=== PATIENT | male | born 1970 | race Caucasian/White ===

== ENCOUNTER 2021-02-15 13:56 | Emergency (ER) | payer OTHER, SELFPAY ==
--- NOTE | 2021-02-15 14:12 | ED_ITS ---
HPI - Skin/Abscess/Foreign Bdy General Chief complaint: Skin/Abscess/Foreign Body Stated complaint: Boil on thigh Time Seen by Provider: 02/15/21 14:13 Source: patient, RN notes reviewed and old records reviewed Mode of arrival: ambulatory Limitations: no limitations History of Present Illness HPI narrative: 51-year-old male presents to the [facility] with complaints of an abscess to his thigh Related Data Allergies Allergy/AdvReac Type Severity Reaction Status Date / Time No Known Allergies Allergy Unverified 08/15/18 18:09
[2021-02-15 14:17] VITALS: BP 132/64; PULSE 107; RESP 20; TEMP 37.1; O2SAT 91
--- NOTE | 2021-02-15 14:23 | ED_ITS ---
HPI - Skin/Abscess/Foreign Bdy General Chief complaint: Skin/Abscess/Foreign Body Stated complaint: Boil on thigh Time Seen by Provider: 02/15/21 14:13 Source: patient, RN notes reviewed and old records reviewed Mode of arrival: ambulatory Limitations: no limitations History of Present Illness HPI narrative: 51-year-old male presents to the [facility] with complaints of a boil to his thigh Related Data Allergies Allergy/AdvReac Type Severity Reaction Status Date / Time No Known Allergies Allergy Unverified 08/15/18 18:09 Course Vital Signs Vital signs: Vital Signs Temperature 98.8 F 02/15/21 14:17 Pulse Rate 107 H 02/15/21 14:17 Respiratory Rate 20 02/15/21 14:17 Blood Pressure 132/64 02/15/21 14:17 Pulse Oximetry 91 02/15/21 14:17 Temperature 98.8 F 02/15/21 14:17 Pulse Rate 107 H 02/15/21 14:17 Respiratory Rate 20 02/15/21 14:17 Blood Pressure 132/64 02/15/21 14:17 Pulse Oximetry 91 02/15/21 14:17
--- NOTE | 2021-02-15 14:31 | ED.SKABFB ---
HPI - Skin/Abscess/Foreign Bdy General Chief complaint: Skin/Abscess/Foreign Body Stated complaint: Boil on thigh Time Seen by Provider: 02/15/21 14:13 Source: patient, RN notes reviewed and old records reviewed Mode of arrival: ambulatory Limitations: no limitations History of Present Illness HPI narrative: 51-year-old male presents to the [facility] with a boil to the inner left upper thigh/groin area. On going for an unknown length of time. Is also stating that he has bloody urination. Is asking for a Z-Antoine to make him better. Patient morbidly obese Patient at this time denies taking any medications currently. Denies any past medical or surgical history. Patient reports calling his doctor and was told to come to the urgent care for an evaluation Related Data Allergies Allergy/AdvReac Type Severity Reaction Status Date / Time No Known Allergies Allergy Verified 02/15/21 15:12 Review of Systems Review of Systems: All systems reviewed & are unremarkable except as noted in HPI and below Constitutional: Constitutional: Reports as per HPI, Denies chills, Reports fatigue, Denies fever(s) and Reports weakness Eyes: Eyes: Reports no additional eye complaints ENT: Reports system reviewed and no additional complaints, except as documented Cardiovascular: Cardiovascular: Reports no additional cardiovascular complaints Respiratory: Respiratory: Reports no additional respiratory complaints Gastrointestinal: Gastrointestinal: Reports no additional gastrointestinal complaints Genitourinary: Genitourinary: Reports as per HPI and Reports hematuria Integumentary/Breasts: Skin/Breast: Reports as per HPI and Reports erythema (Left thigh, groin, lower abdomen) Neurologic: Reports as per HPI and Reports headache(s) Psychiatric: Psychiatric: Reports no additional psychiatric complaints Allergic/Immunologic: Allergic/Immunologic: Reports no additional allergic/immunologic complaints [facility] Past Medical History Medical History (Updated 02/15/21 @ 14:43 by Palmria Ontiveros) Morbid obesity Surgical History Surgical History (Updated 02/15/21 @ 14:43 by Palmira Ontiveros) No significant past surgical history Social History Social History (Updated 02/15/21 @ 14:44 by Palmira Ontiveros) Gender identity (if verbalized by the patient): Male Comments At the time of my signature, I reviewed and agree with the nursing past medical, surgical, social, and family history. There is no relevant family history pertinent to the patient complaint. Exam Const: General: alert and ill appearing acutely (Moderate) and chronically Nutritional Appearance: obese morbidly obese Orientation/consciousness: patient oriented x3 Limitations: no limitations Neck: Neck: normal visual inspection Chest: Chest palpation & inspection: normal inspection of the chest Resp: Effort & Inspection: normal respiratory effort Cardio: Rate: tachycardic Skin: Wounds: wounds noted (Very large abscess to the left inner thigh with cellulitic changes surround) Other: Abscess approximately 6 inches x 18 inches. Cellulitic changes circumferential of the left thigh Bilateral lower leg swelling with discoloration Neuro: General: patient oriented x3, moves all extremities and no meningeal signs Speech: normal speech Gait exam (Neuro): Normal gait present Extrem: General: edema bilateral Psych: Appearance: disheveled and other (poor hygiene) Mental Status: mental status grossly normal Affect: normal affect Attitude: cooperative Thought content: Yes Normal thought content present Course Course Emergency Course: Transfer instructions reviewed with patient, as well as provided in writing per nursing staff. The instructions also include specific and strict GO TO THE ER. All questions have been answered, and the patient deny any further questions. Patient was alert and oriented x3. Offered to call EMS for patient due to patient in extreme pain along with headach
== END 2021-02-15 14:40 | disposition short-term general hospital (02) ==
PROVIDERS: Emergency Provider Nurse Practitioner; PCP Family Medicine Adolescent Medicine
DX: L03.116 Cellulitis of left lower limb (principal); L02.416 Cutaneous abscess of left lower limb; R31.9 Hematuria, unspecified
CPT/HCPCS: 99212; G0463

== ENCOUNTER 2021-02-15 15:33 | Inpatient (IN) | payer OTHER, SELFPAY ==
--- NOTE | ~2021-02-15 | XR_ITS ---
XR chest 1V portable DATE: 03/03/2021 06:03 INDICATION: Respiratory failure TECHNIQUE: Portable AP chest on 03/03/2021 at 0051 hours COMPARISON: 03/02/2021 portable AP chest at 0951 hours FINDINGS: ET tube tip 5.9 cm above ted. NG tube in stomach. Left upper extremity PIC catheter in s uperior vena cava. Cardiomegaly. Pulmonary vascular congestion and redistribution, prominence of minor fissure (suggesti ng subpleural edema). There are bilateral pulmonary infiltrates which are more prominent in the centr al and lower lung zones, favoring pulmonary edema, most prominent in the right mid and lower lung whe re there is patchy consolidation. IMPRESSION: No significant change since 03/02/2021 Reviewed, dictated and finalized at location A. INE OPERATOR
--- NOTE | ~2021-02-15 | XR_ITS ---
EXAMINATION: XR chest ET placement EXAM DATE: 03/01/2021 14:55 INDICATION: ETT exchange. TECHNIQUE: Portable AP frontal chest x-ray was obtained. Comparison is made to prior examination from earlier same date. FINDINGS: Endotracheal tube, nasogastric tube, right IJ double lumen line are in position. Diffuse b ilateral pneumonia and/or edema unchanged. No evidence of pneumothorax. Pleural effusions not excluda ble. Cardiac silhouette is enlarged but stable in size compared to prior exam. There are no osseous a bnormalities identified. IMPRESSION: 1. Line and tube(s) in position. 2. Stable diffuse airspace disease. Reviewed, dictated and finalized at location G. NEERING MANAGER
--- NOTE | ~2021-02-15 | XR_ITS ---
EXAMINATION: XR abdomen NG/feed tube insert DATE: 03/02/2021 12:38 INDICATION: Nasogastric tube placement TECHNIQUE: A supine view of the abdomen and lower chest was obtained for evaluation of feeding tube placement. COMPARISON: None. FINDINGS: Nasogastric tube tip in the body of the stomach. No gas-filled loops of bowel within the visualized a bdomen. Opacities in bilateral mid and lower lung zones most prominent at the left lung base and righ t middle lobe. Heart size is normal. IMPRESSION: 1. Nasogastric tube tip in the stomach. 2. Bilateral lung disease which could represent atelectasis and/or pneumonia. Reviewed, dictated and finalized at location A. CHOOL TEACHER
--- NOTE | ~2021-02-15 | XR_ITS ---
EXAMINATION: XR chest 1V portable DATE: 02/16/2021 09:00 INDICATION: Hypoxia. TECHNIQUE: A single frontal view of the chest was obtained on 2 radiographs. COMPARISON: None. FINDINGS: Sensitivity is decreased by obesity. There is mild atelectasis at left lung base. No pleura l effusion or pneumothorax. Cardiomegaly is noted. There is internal fixation of right humerus. IMPRESSION: 1. Mild atelectasis at left lung base. Sensitivity is decreased by obesity. 2. Cardiomegaly. Reviewed, dictated and finalized at location A. SSION SPECIALIST
--- NOTE | ~2021-02-15 | XR_ITS ---
XR chest 1V portable DATE: 03/04/2021 06:27 INDICATION: Respiratory failure TECHNIQUE: Portable upright AP views on 03/04/2021 at 0 557 and 0558 hours COMPARISON: 03/03/2021 portable AP chest FINDINGS: ET tube tip is 6 cm above ted. Right internal jugular central venous catheter tip is sit uated near the superior cavoatrial junction. Left upper extremity PIC catheter extends to the superio r vena cava, distal tip somewhat obscured. Pulmonary vascular congestion and redistribution, prominence of the minor fissure suggesting subpleur al edema and bilateral rather diffuse pulmonary infiltrates suggesting pulmonary edema. Pneumonia is not excluded. Minimal if any pleural effusion and no pneumothorax is noted. IMPRESSION: Persistent congestive changes and bilateral infiltrates, with little interval change sinc e 03/03/2021 Reviewed, dictated and finalized at location A. MANAGER IMPRESSION: Persistent congestive changes and bilateral infiltrates, with littl e interval change since 03/03/2021
--- NOTE | ~2021-02-15 | XR_ITS ---
EXAMINATION: XR chest 1V portable DATE: 02/26/2021 06:30 INDICATION: Respiratory failure. TECHNIQUE: A single frontal view of the chest was obtained. COMPARISON: Chest single view 02/25/2021 FINDINGS: There are airspace opacities in all lung zones bilaterally. There is a small left pleural e ffusion. No pneumothorax. Cardiomegaly is noted. The endotracheal tube tip is 4.2 cm above the ted . The nasogastric tube tip is in the stomach. A right internal jugular central venous catheter is see n with tip in the superior vena cava. IMPRESSION: 1. Stable diffuse lung disease, consistent with pulmonary edema versus pneumonia. 2. Stable small left pleural effusion. 3. Cardiomegaly. Reviewed, dictated and finalized at location B. BASTING FACING BASTER IMPRESSION: 1. Stable diffuse lung disease, consistent with pulmonary edema versus pneumoni a. 2. Stable small left pleural effusion. 3. Cardiomegaly.
--- NOTE | ~2021-02-15 | US_ITS ---
EXAMINATION: US renal BI DATE: 02/18/2021 15:15 INDICATION: Acute kidney injury. TECHNIQUE: Multiple ultrasound grayscale images of the kidneys were obtained. COMPARISON: None. FINDINGS: The right kidney measures 15.0 x 6.3 x 7.0 cm. The left kidney measures 15.1 x 7.3 x 7.0 cm. The kidn eys demonstrate normal parenchymal echogenicity. There is a 9.3 x 7.3 x 8.4 cm mixed hyperechoic and hypoechoic mass in right kidney. There is no hydronephrosis. The bladder is not well visualized. IMPRESSION: 1. 9.3 cm right kidney mass, which may be a hemorrhagic cyst or a neoplasm. Further evaluation is re commended with CT or MRI without and with contrast, but the patient is too heavy for our CT or MRI. A [facility] facility may have a higher weight limit. 2. Normal kidney sizes. No hydronephrosis. Reviewed, dictated and finalized at location A. OTICS AND VICE DETECTIVE IMPRESSION: 1. 9.3 cm right kidney mass, which may be a hemorrhagic cyst or a neoplasm. Fu rther evaluation is recommended with CT or MRI without and with contrast, but t he patient is too heavy for our CT or MRI. Another facility may have a higher w eight limit. 2. Normal kidney sizes. No hydronephrosis.
--- NOTE | ~2021-02-15 | XR_ITS ---
EXAMINATION: XR chest 1V portable EXAM DATE: 02/27/2021 05:49 INDICATION: Respiratory failure. TECHNIQUE: Portable AP frontal chest x-ray was obtained. Comparison is made to prior examination from 02/26/2021. FINDINGS: Endotracheal tube tip is 5 centimeters above the ted. There is a right IJ venous line. There is a nasogastric tube seen with tip collimated off the study, but below the left hemidiaphragm. Diffuse bilateral pneumonia and/or edema unchanged. Probable small left pleural effusion. There is no pneumothorax suspected. Cardiomegaly and pulmonary vascular congestion. The bones and soft tiss ues are unremarkable. There is no significant interval change compared to prior exam. IMPRESSION: 1. Line and tube(s) in position. 2. Diffuse airspace disease unchanged. Reviewed, dictated and finalized at location G. GETTER
--- NOTE | ~2021-02-15 | XR_ITS ---
EXAMINATION: XR chest ET placement EXAM DATE: 02/16/2021 16:28 INDICATION: intubation and central line placement. TECHNIQUE: Portable AP frontal chest x-ray was obtained. Comparison is made to prior examination from 02/16/2021. FINDINGS: Endotracheal tube tip is 5 centimeters above the ted. There is a right IJ venous line. Cardiomegaly and pulmonary vascular congestion. No confluent consolidation, pneumothorax or pleural e ffusion suspected. There are no osseous abnormalities identified. IMPRESSION: 1. Cardiomegaly, pulmonary vascular congestion. 2. ET tube, right IJ line in position. No evidence of pneumothorax. Reviewed, dictated and finalized at location A. H FEEDER
--- NOTE | ~2021-02-15 | XR_ITS ---
EXAMINATION: XR chest 1V portable EXAM DATE: 02/19/2021 06:21 INDICATION: Postop respiratory failure . TECHNIQUE: Portable AP frontal chest x-ray was obtained. Comparison is made to prior examination from 02/18/2021. FINDINGS: Endotracheal tube tip is 5 centimeters above the ted. There is a right IJ venous line. There is a nasogastric tube seen with tip collimated off the study, but below the left hemidiaphragm. Moderate amount of ill-defined bilateral pneumonia and/or edema. Probable small to moderate right, sm all pleural effusions. There is no pneumothorax suspected. There is cardiomegaly. Right shoulde r hardware. There is no significant interval change compared to prior exam. IMPRESSION: 1. Line and tube(s) in position. 2. Stable airspace disease and other findings as above. Reviewed, dictated and finalized at location G. RICT ADVISER
--- NOTE | ~2021-02-15 | XR_ITS ---
XR chest 1V portable DATE: 03/02/2021 06:32 INDICATION: Respiratory failure TECHNIQUE: Portable AP chest views on 03/02/2019 03/20/2012 0514 hours COMPARISON: 03/01/2021 portable AP chest FINDINGS: ET tube tip approximately 5.7 cm above ted. An NG tube is noted but is not well demonstr ated in the lower chest. There are persistent extensive bilateral pulmonary infiltrates, most prominent in the right mid to lo wer lung; differential diagnosis includes pneumonia and/or pulmonary edema. Cardiomegaly. IMPRESSION: No significant change in extensive bilateral pulmonary infiltrates Reviewed, dictated and finalized at location A. ER ELASTIC BAND
--- NOTE | ~2021-02-15 | XR_ITS ---
EXAMINATION: XR chest 1V portable DATE: 02/23/2021 05:42 INDICATION: Respiratory failure TECHNIQUE: frontal view of the chest was obtained. COMPARISON: Chest radiograph dated 02/22/2021 FINDINGS: Endotracheal tube tip 4.5 cm above the ted. Nasogastric tube extends below the left hemidiaphragm with distal tip collimated off the study. Right internal jugular central venous catheter with distal tip at the midsuperior vena cava. Slight improvement in the decreased lung volumes. Persistent airspace opacities in the bilateral lowe r lung zones. No pleural effusion or pneumothorax. Cardiomegaly. IMPRESSION: 1. Improvement in the bilateral decreased lung volumes with persistent opacities in the lower lung zo allen which could represent atelectasis and/or pneumonia. 2. Cardiomegaly. Reviewed, dictated and finalized at location A. OR C SOFTWARE ENGINEER IMPRESSION: 1. Improvement in the bilateral decreased lung volumes with persistent opacitie s in the lower lung zones which could represent atelectasis and/or pneumonia. 2. Cardiomegaly.
--- NOTE | ~2021-02-15 | XR_ITS ---
EXAMINATION: XR chest 1V portable DATE: 02/22/2021 06:16 INDICATION: Respiratory failure TECHNIQUE: frontal view of the chest was obtained. COMPARISON: Chest radiograph dated 02/21/2021 FINDINGS: Endotracheal tube tip 5.5 cm above the ted. Nasogastric tube extends below the left hemidiaphragm with distal tip collimated off the study. Right internal jugular central venous catheter with distal tip at the midsuperior vena cava. Small bilateral lung volumes. Opacities in the bilateral lower lung zones, left greater than right. N o pulmonary edema, pleural effusion or pneumothorax. Cardiomegaly. IMPRESSION: 1. Persistent opacities in the bilateral lower lung zones which could represent atelectasis and/or pn eumonia. 2. Cardiomegaly. Reviewed, dictated and finalized at location A. L DEVELOPER IMPRESSION: 1. Persistent opacities in the bilateral lower lung zones which could represent atelectasis and/or pneumonia. 2. Cardiomegaly.
--- NOTE | ~2021-02-15 | XR_ITS ---
XR chest 1V portable DATE: 03/04/2021 15:08 INDICATION: Respiratory failure TECHNIQUE: Portable AP chest on 03/04/2021 at 1502 hours COMPARISON: None FINDINGS: Endotracheal tube tip is 6 cm above ted. An NG tube is present but the distal portion of the tube is not visualized. Left upper extremity PIC catheter is present in the superior vena cava. There is cardiomegaly, pulmonary vascular congestion and redistribution. There are bilateral pulmonar y infiltrates which involve the right lung diffusely and the left central and lower lung, most promin ent in both lower lobes. There is thickening of the minor fissure suggesting subpleural edema and/or fluid in the fissure. IMPRESSION: Cardiomegaly, congestive heart failure Bilateral pulmonary infiltrates are likely due to pulmonary edema; pneumonia and/or aspiration are no t excluded. Little interval change since 03/04/2021 at 0557 hours Reviewed, dictated and finalized at location A. HANDISER RETAIL REPRESENTATIVE IMPRESSION: Cardiomegaly, congestive heart failure Bilateral pulmonary infiltrates are likely due to pulmonary edema; pneumonia an d/or aspiration are not excluded. Little interval change since 03/04/2021 at 0557 hours
--- NOTE | ~2021-02-15 | XR_ITS ---
XR chest 1V portable 02/21/2021 05:42 Indication: Postop respiratory failure Procedure: AP portable chest Comparison: Comparison to multiple prior studies sequentially, with oldest reviewed study dated 06/2021. Findings: Cardiomegaly. Mild interstitial edema. Endotracheal tube tip 6.5 cm above the ted. NG tu be in the stomach. Bibasilar atelectasis. Cannot exclude superimposed pneumonia. Right IJ central rishabh e tip in the SVC. NG tube passes into the stomach. No pneumothorax. Impression: 1: Mild diffuse bilateral airspace disease which likely represents edema or less likely pneumonia. Wren perimposed bibasilar atelectasis. Reviewed, dictated and finalized at location A. S REPRESENTATIVE EDUCATION COURSES Impression: 1: Mild diffuse bilateral airspace disease which likely represents edema or les s likely pneumonia. Superimposed bibasilar atelectasis.
--- NOTE | ~2021-02-15 | XR_ITS ---
XR abdomen NG/feed tube insert DATE: 02/17/2021 06:13 INDICATION: Orogastric tube placement TECHNIQUE: Portable AP view on 02/17/2021 at 0523 hours COMPARISON: None FINDINGS: Orogastric tube extends beyond the lower margin of the radiograph, well into the lower body of the stomach. IMPRESSION: Orogastric tube extends at least to the lower body of the stomach Reviewed, dictated and finalized at Location A. Reviewed, dictated and finalized at location A. /SSBN WEAPONS EQUIPMENT OPERATOR
--- NOTE | ~2021-02-15 | XR_ITS ---
XR chest port-a-cath/central DATE: 03/01/2021 13:51 INDICATION: ET tube placement. Dialysis catheter placement. TECHNIQUE: Portable AP chest on 03/01/2021 1344 hours COMPARISON: 03/01/2021 portable AP chest FINDINGS: ET tube in satisfactory position 4.2 cm above ted. NG tube noted passing toward the stom ach. Right internal jugular central venous catheter tip overlies the upper right atrium. No pneumothorax i s evident. Diffuse bilateral pulmonary infiltrates are again noted. Cardiomegaly. IMPRESSION: ET tube in satisfactory position Right internal jugular central venous catheter tip overlies upper right atrium; no pneumothorax Diffuse bilateral pulmonary infiltrates which may be due to pulmonary edema, pneumonia and/or ARDS Reviewed, dictated and finalized at Location [facility]. Reviewed, dictated and finalized at location A. A CENTER ASSISTANT IMPRESSION: ET tube in satisfactory position Right internal jugular central venous catheter tip overlies upper right atrium; no pneumothorax Diffuse bilateral pulmonary infiltrates which may be due to pulmonary edema, pn eumonia and/or ARDS
--- NOTE | ~2021-02-15 | US_ITS ---
EXAMINATION: US soft tissue pelvic DATE: 02/16/2021 09:30 INDICATION: Left groin abscess. TECHNIQUE: Multiple grayscale and Doppler ultrasound images of the pelvis were obtained. COMPARISON: None FINDINGS: There is no visible drainable fluid collection. IMPRESSION: 1. No visible drainable fluid collection. Sensitivity is decreased by obesity. Reviewed, dictated and finalized at location A. STANT FILM EDITOR
--- NOTE | ~2021-02-15 | XR_ITS ---
EXAMINATION: XR chest 1V portable DATE: 02/25/2021 05:46 INDICATION: Respiratory failure TECHNIQUE: frontal view of the chest was obtained. COMPARISON: Chest radiograph dated 02/24/2021 FINDINGS: Endotracheal tube tip 6.0 cm above the ted. Nasogastric tube extends below the left hemidiaphragm with distal tip collimated off the study. Nasogastric tube extends below the left hemidiaphragm wit h distal tip collimated off the study. Right internal jugular central venous catheter with distal t ip at the midsuperior vena cava. Dense retrocardiac consolidation with air bronchograms in the left lower lung zone and obscuration of the left hemidiaphragm. Less dense groundglass and mild patchy airspace opacities throughout the rem ainder of the lungs. No pneumothorax or right-sided pleural effusion. Cardiomegaly. IMPRESSION: 1. Endotracheal tube tip 6 cm above the ted. Consider advancement by 4 cm. 2. Diffuse bilateral lung disease which could represent pulmonary edema and/or pneumonia. 3. More dense opacification of the left lower lung zone which could represent atelectasis, pneumonia, small left pleural effusion or some combination thereof. 4. Cardiomegaly. Reviewed, dictated and finalized at location A. SHOE DANCER IMPRESSION: 1. Endotracheal tube tip 6 cm above the ted. Consider advancement by 4 cm. 2. Diffuse bilateral lung disease which could represent pulmonary edema and/or pneumonia. 3. More dense opacification of the left lower lung zone which could represent a telectasis, pneumonia, small left pleural effusion or some combination thereof. 4. Cardiomegaly.
--- NOTE | ~2021-02-15 | XR_ITS ---
EXAMINATION: XR chest PICC line EXAM DATE: 03/02/2021 09:59 INDICATION: PICC line placement. TECHNIQUE: Portable AP frontal chest x-ray was obtained. Comparison is made to prior examination from 03/02/2021. FINDINGS: There is a new left-sided PICC line identified, tip poorly visualized but line identified at least to the level of the ted likely in expected position. There is a right-sided IJ dialysis c atheter. Endotracheal tube and nasogastric tube. Diffuse bilateral pneumonia/edema is unchanged. No pneumothorax. IMPRESSION: 1. Line and tube(s) in position. 2. Diffuse pneumonia/edema unchanged. Reviewed, dictated and finalized at location B. TER CATCHER
--- NOTE | ~2021-02-15 | XR_ITS ---
XR chest 1V portable DATE: 02/17/2021 06:13 INDICATION: Postoperative. Respiratory failure. TECHNIQUE: Portable AP chest on 02/17/2021 at 0522 hours COMPARISON: 02/16/2021 portable AP chest at 0420 hours FINDINGS: ET tube in satisfactory position 5.1 cm above ted. NG tube noted passing into the stomac h. Right internal jugular central venous catheter overlies the proximal superior vena cava. No pneumotho rax. Cardiac megaly, pulmonary vascular congestion and redistribution. There are bilateral primarily centr al and lower lung zone infiltrates suggesting pulmonary edema. Pneumonia or aspiration are not exclud ed. There is minimal if any pleural effusion. No pneumothorax. Diffuse osteopenia. IMPRESSION: Congestive heart failure, increased since 02/16/2021 Reviewed, dictated and finalized at location A. LATION BLOWER
--- NOTE | ~2021-02-15 | XR_ITS ---
XR chest 1V portable 02/28/2021 06:31 Indication: Respiratory failure Procedure: AP portable chest Comparison: Comparison to multiple prior studies sequentially, with oldest reviewed study dated 02/24. Findings: Endotracheal tube tip 7.9 cm above the ted. Cardiomegaly. Stable diffuse bilateral airsp arcadio disease which may represent pneumonia and/or edema. No pneumothorax. Central line tip in the SVC. Impression: 1: Stable diffuse bilateral airspace disease which may represents pneumonia and/or edema. Reviewed, dictated and finalized at location A. ONAL MERCHANDISING MANAGER Impression: 1: Stable diffuse bilateral airspace disease which may represents pneumonia and /or edema.
--- NOTE | ~2021-02-15 | XR_ITS ---
XR chest 1V portable DATE: 03/01/2021 05:47 INDICATION: Respiratory failure TECHNIQUE: Portable AP chest on 03/01/2021 at 0507 hours COMPARISON: 02/28/2021 portable AP chest FINDINGS: ET tube in satisfactory position 4.2 cm above ted. An NG tube extends into the stomach. Right internal jugular central venous catheter overlies the superior vena cava. There are persistent extensive bilateral pulmonary infiltrates which may be due to pulmonary edema an d/or pneumonia. Minor fissure is prominent suggesting subpleural edema. Cardiomegaly. The costophreni c angles are not sharply defined, especially on the right; pleural effusions are not excluded. No pne umothorax. IMPRESSION: Persistent extensive bilateral pulmonary infiltrates suggestive of pulmonary edema; pneum onia is not excluded Reviewed, dictated and finalized at location A. VISION PROGRAM DIRECTOR IMPRESSION: Persistent extensive bilateral pulmonary infiltrates suggestive of pulmonary edema; pneumonia is not excluded
--- NOTE | ~2021-02-15 | XR_ITS ---
EXAMINATION: XR chest 1V portable DATE: 02/24/2021 05:38 INDICATION: Respiratory failure TECHNIQUE: frontal view of the chest was obtained. COMPARISON: Chest radiograph dated 02/23/2021 FINDINGS: Endotracheal tube tip 4.2 cm above the ted. Nasogastric tube extends below the left hemidiaphragm with distal tip collimated off the study. Right internal jugular central venous catheter with distal tip in the midsuperior vena cava. Pulmonary vascular congestion with and some increased interstitial pattern suggesting developing mild pulmonary edema. Otherwise no significant change in airspace opacities in the bilateral lower lung z ones which could represent atelectasis and/or pneumonia. Pulmonary vascular congestion No pneumothora x or definitive pleural effusion. Cardiomegaly. IMPRESSION: 1. Pulmonary vascular congestion with suggesting of developing mild pulmonary edema. 2. Persistent more patchy airspace opacities in the bilateral lower lung zones which could represent atelectasis and/or pneumonia. 2. Cardiomegaly. Reviewed, dictated and finalized at location A. ING SUPERVISOR IMPRESSION: 1. Pulmonary vascular congestion with suggesting of developing mild pulmonary e aureliano. 2. Persistent more patchy airspace opacities in the bilateral lower lung zones which could represent atelectasis and/or pneumonia. 2. Cardiomegaly.
--- NOTE | ~2021-02-15 | XR_ITS ---
XR chest 1V portable DATE: 02/18/2021 06:02 INDICATION: Postoperative respiratory failure TECHNIQUE: Portable AP chest on 02/18/2021 at 0527 hours COMPARISON: 02/17/2021 AP chest at 0522 hours FINDINGS: ET tube tip in satisfactory position 4.7 cm above ted. NG tube noted passing into the st omach,. Right internal jugular central venous catheter tip overlies superior vena cava. There is cardiomegaly. There is pulmonary vascular congestion and redistribution. There is patchy infiltrate and/atelectasis in the mid and lower lung zones primarily differential kathia gnosis includes pulmonary edema and/or pneumonia. No pleural effusion or pneumothorax is evident. IMPRESSION: Cardiomegaly, pulmonary vascular congestion, patchy bilateral mid and lower lung zone inf iltrates. Differential diagnosis includes pulmonary edema and/or bilateral pneumonia Little interval change since 02/17/2021 Reviewed, dictated and finalized at location A. SSEAU CONSULTANT IMPRESSION: Cardiomegaly, pulmonary vascular congestion, patchy bilateral mid a nd lower lung zone infiltrates. Differential diagnosis includes pulmonary edema and/or bilateral pneumonia Little interval change since 02/17/2021
--- NOTE | ~2021-02-15 | XR_ITS ---
EXAMINATION: XR chest 1V portable DATE: 02/20/2021 05:40 INDICATION: Postoperative respiratory failure. TECHNIQUE: A single frontal view of the chest was obtained. COMPARISON: Chest single view 02/19/2021 FINDINGS: There are airspace opacities in all lung zones bilaterally, worst in the perihilar mid and lower lung zones. No pleural effusion or pneumothorax. Cardiomegaly is noted. The endotracheal tube t ip is 4.7 cm above the ted. The nasogastric tube tip is beyond the inferior margin of the radiogra ph, but at least to the stomach. A right internal jugular central venous catheter is seen with tip in the superior vena cava. There is internal fixation of right humerus. IMPRESSION: 1. Mildly worsened diffuse lung disease, consistent with pulmonary edema versus pneumonia. 2. Cardiomegaly. Reviewed, dictated and finalized at location A. IC ARTIST
[2021-02-15 15:44] VITALS: BP 178/111; PULSE 106; RESP 20; TEMP 36.4; O2SAT 93
[2021-02-15 18:00] VITALS: BP 143/88; PULSE 97; RESP 20; TEMP 36.6; O2SAT 92
--- NOTE | 2021-02-15 20:14 | ED.GENADULT ---
HPI - General Adult General Chief complaint: Unspecified Stated complaint: sepsis, f rom urgent care Time Seen by Provider: 02/15/21 19:53 Source: patient Mode of arrival: ambulatory Limitations: no limitations History of Present Illness HPI narrative: Patient presents with redness, tenderness at the left thigh anteriorly, slightly distal to the left groin area. Noticed over the last few days. Patient is morbidly obese. Patient is not diabetic. Denies any fever, chills, nausea, vomiting. Patient is not vaccinated for COVID, history of hypertension, does not smoke, drinks occasionally and smokes marijuana. Related Data Allergies Allergy/AdvReac Type Severity Reaction Status Date / Time No Known Allergies Allergy Verified 02/15/21 15:12 Review of Systems Review of Systems: CONSTITUTIONAL: Denies fever, chills, or sweats. EYES: Denies visual changes, redness, or discharge. ENT: Denies rhinorrhea, congestion, sore throat, or otalgia. CARDIOVASCULAR: Denies chest pain, palpitations, or edema. RESPIRATORY: Denies cough or dyspnea. GASTROINTESTINAL: Denies abdominal pain, nausea, vomiting, or diarrhea. GENITOURINARY: Denies dysuria or hematuria. SKIN: Skin redness at the left upper thigh MUSCULOSKELETAL: Denies back pain, joint pain, or myalgia. NEUROLOGIC: Denies headache, numbness, or weakness. PSYCHIATRIC: Denies anxiety or depression. PMFSH Past Medical History Medical History Morbid obesity Surgical History Surgical History No significant past surgical history Social History Social History Gender identity (if verbalized by the patient): Male Exam Narrative: General appearance: Well-developed, well-nourished, morbidly obese Skin: Left thigh showed redness, skin fold with possible cellulitis, no tenderness, no discharge Chest and respiratory: Airway patent, no respiratory distress, no accessory muscle use Heart: Regular rate/rhythm Abdomen: Soft, nontender, no organomegaly, quiet bowel sounds Musculoskeletal: Normal range of motion, nontender back Neurologic: Alert and oriented ?3, RATCHET SETTER is normal as tested, no gross motor deficit Course Course Emergency Course: Stable Consultations Consultation #1: Dr. Martinez Admit to hospitalist, get ultrasound in a.m. Date: 02/15/21 Time: 22:25 Vital Signs Vital signs: Vital Signs Temperature 36.4 C L 02/15/21 15:44 Pulse Rate 106 H 02/15/21 15:44 Respiratory Rate 20 02/15/21 15:44 Blood Pressure 178/111 H 02/15/21 15:44 Pulse Oximetry 93 02/15/21 15:44 Temperature 36.6 C 02/15/21 18:00 Pulse Rate 70 02/15/21 22:09 Respiratory Rate 20 02/15/21 22:09 Blood Pressure 128/96 H 02/15/21 22:09 Pulse Oximetry 92 02/15/21 22:09 Medical Decision Making MDM Narrative Medical decision making narrative: Dr. Martinez Admit to hospitalist, get ultrasound in a.m. Vital Signs Vital Signs: Vital Signs Temperature 36.4 C L 02/15/21 15:44 Pulse Rate 106 H 02/15/21 15:44 Respiratory Rate 20 02/15/21 15:44 Blood Pressure 178/111 H 02/15/21 15:44 Pulse Oximetry 93 02/15/21 15:44 Temperature 36.6 C 02/15/21 18:00 Pulse Rate 70 02/15/21 22:09 Respiratory Rate 20 02/15/21 22:09 Blood Pressure 128/96 H 02/15/21 22:09 Pulse Oximetry 92 02/15/21 22:09 Lab Data Result diagrams: 02/15/21 20:50 02/15/21 20:50 Labs: Lab Results 02/15/21 02/15/21 Range/Units 20:50 20:50 WBC 11.7 H (4.5-10.0) K/mm3 RBC 6.02 (4.6-6.20) M/mm3 Hgb 16.1 (
[2021-02-15 20:53] VITALS: BP 134/75; PULSE 103; RESP 20; O2SAT 89
[2021-02-15 20:55] VITALS: O2SAT 88
[2021-02-15 20:56] LABS: Basophils Percent Auto 0.3 % (0.2-1.2); Eosinophils Absolute Auto 0.1 K/mm3 (0-0.3); Eosinophils Percent Auto 0.5 % (0-4.4); Hematocrit 54.8 % (42.0-52.0); Hemoglobin 16.1 g/dL (14.0-18.0); Immature Granulocyte Absolute 0.05 K/mm3 (0.00-0.031); Immature Granulocyte Percent A 0.4 % (0-0.5); Lymphocytes Absolute Auto 1.07 K/mm3 (0.9-3.2); Lymphocytes Percent Auto 9.2 % (18.3-44.2); Mean Corpuscular HGB Conc 29.4 g/dl (32-36); Mean Corpuscular Hemoglobin 26.7 pg (26-34); Mean Platelet Volume 10.4 fl (7.4-10.4); Monocytes Absolute Auto 0.7 K/mm3 (0.1-0.6); Monocytes Percent Auto 6.2 % (2.6-8.5); Neutrophils Absolute Auto 9.8 K/mm3 (1.3-6.7); Neutrophils Percent Auto 83.4 % (45.5-73.1); Platelet Count Result 172 k/mm3 (150-375); Red Blood Count 6.02 M/mm3 (4.6-6.20); Red Cell Distribution Width 17.1 % (11.5-14.5); White Blood Count 11.7 K/mm3 (4.5-10.0)
[2021-02-15] MEDS: SODIUM CHLORIDE 0.9% IV 1,000 ML 999 ML IV CONT (20:59)
--- NOTE | 2021-02-15 21:03 | PC.NURSE ---
MD made aware of o2 sats pt is sitting up at end of bed with deep breathing o2 sats go up to 94%. Pt denies sob at this time only with walking.
[2021-02-15 21:06] LABS: Alanine Aminotransferase 27 U/L (4-50); Albumin Level 3.6 g/dL (3.5-5.1); Alkaline Phosphatase 175 U/L (38-126); Anion Gap 5 mmol/L (8-16); Aspartate Amino Transferase 23 U/L (17-59); Bilirubin,Total 2.4 mg/dL (0.2-1.3); Blood Urea Nitrogen 15 mg/dL (9-20); Calcium 8.6 mg/dL (8.4-10.2); Carbon Dioxide 38 mmol/L (22-30); Chloride 89 mmol/L (98-107); Estimated CRCL calculation 236 ml/min; Estimated Glomerular Filt Rate > 60; Glucose 282 mg/dL (65-110); Potassium 3.9 mmol/L (3.4-5.0); Sodium 132 mmol/L (137-145)
[2021-02-15 21:09] LABS: Platelet Estimate Adequate (Adequate)
[2021-02-15 21:10] LABS: Hypochromasia 1+ (NORMAL)
--- NOTE | 2021-02-15 22:01 | PC.NURSE ---
RN attempted to get urine from pt, pt states I can urinate in a hat. Rn asked pt if she would be able to straight cath. Pt refuses straight cath states I can pee. Pt informed if he urinates it would have to be in a hat and there is a high chance there would be drainage from his leg in his urine.Pt refuses straight cath at this time.
[2021-02-15 22:09] VITALS: BP 128/96; PULSE 70; RESP 20; O2SAT 92
[2021-02-15] MEDS: ONDANSETRON INJ 4 MG/2 ML VIAL IV PUSH (22:47)
[2021-02-15] MEDS: MORPHINE SULFATE (*CRX) 4 MG/ML INJ IV PUSH (22:47)
[2021-02-16] VITALS (29 sets, daily range): BP systolic 98–187; BP diastolic 58–99; PULSE 74–124; RESP 18–31; TEMP 35.7–37.2; O2SAT 66–98; BMI 78.8
--- NOTE | 2021-02-16 02:18 | PC.NURSE ---
Receiving RN aware of o2 that drops with ambulation and while pt is sleeping.
--- NOTE | 2021-02-16 02:37 | ADMGEN ---
This patient, Chetan Pappas, was admitted to Medical Room 260-01. Patient/family oriented to hospital policies and general routines including ID bracelet, bed and alarms, visiting hours, pain management, procedures, bathroom and other care routines, personal items, smoking policy, room service/diet, and visiting hours. Information on how to activate the Rapid Response Team has been discussed. Patient/Family are encouraged to report perceived risks to care and to ask questions if they do not understand what they are told or what they should do.
--- NOTE | 2021-02-16 04:17 | PM.IMHP ---
H&P: HPI History of Present Illness Date/Time: 02/16/21 04:17 Chief Complaint: Thigh wounds Narrative: 51-year-old male with past medical history of obstructive sleep apnea noncompliant with CPAP, tobacco abuse and morbid obesity who presented to the ER with a left upper thigh leg wound. The wound has been draining for 3 days. The patient had denied any fevers or chills to the ER staff. The the patient denied having history of diabetes but on arrival to the ER the patient's glucoses were 288 in his hemoglobin A1c this morning was 13. He denies any history of wound like this before but does have a history of boils. At the time of my evaluation the patient was encephalopathic and told me that the year was ?grandma 21?. When asked why he came to the hospital he kept referring to a psychiatric facility. I checked an ABG in the patient was found to have marked hypercapnic respiratory failure. It had been noted in the ER the patient was desatting down to the 70s when he would lay down or fall asleep. He had been placed on nasal cannula oxygen of 6-7 L. he was no longer having episodes of hypoxia. There was not an ABG performed in the ER. The patient was afebrile. It was noted that the wound on his thigh was weeping yellow fluid. His wound had saturated the pads on his bed at the time of my evaluation. Source of information: ER records the. The patient was encephalopathic and unable to provide history. Review of Systems Review of Systems: 12 systems were reviewed with pertinent positives and negatives per HPI. Except as documented in the HPI, all other systems were reviewed and are negative. [facility] Past Medical History Medical History (Updated 02/16/21 @ 08:24 by Nayeli Salgado DO) Morbid obesity Obstructive sleep apnea Noncompliant with CPAP therapy Surgical History Surgical History (Updated 02/16/21 @ 04:26 by Nayeli Salgado DO) History of shoulder surgery Right shoulder Family History Family History Mother Acute myocardial infarction Cerebrovascular accident Congestive heart failure Hypertension Diabetes mellitus Social History Social History Smoking packs per day: 1 Smoking cigarettes per day: 20.0 Smoking status: Current every day smoker Tobacco type: cigarettes Alcohol intake: never Substance use: current Substance use type: marijuana Gender identity (if verbalized by the patient): Male Spiritual care concerns: No Meds Home Medications and Allergies Home Medications Medication Instructions Recorded Confirmed Type furosemide 80 mg PO QAM 02/16/21 02/16/21 History metolazone 5 mg PO QAM 02/16/21 02/16/21 History Allergies Allergy/AdvReac Type Severity Reaction Status Date / Time No Known Allergies Allergy Verified 02/16/21 03:23 Vital Signs Vital Signs - 24 hr 02/15/21 15:44 02/15/21 18:00 02/15/21 20:53 Temperature 97.5 F L 97.8 F Pulse Rate 106 H 97 103 H Respiratory Rate 20 20 20 Blood Pressure 178/111 H 143/88 H 134/75 Pulse Oximetry 93 92 89 L 02/15/21 20:55 02/15/21 22:09 02/16/21 00:55 Temperature Pulse Rate 70 Respiratory Rate 20 Blood Pressure 128/96 H Pulse Oximetry 88 L 92 66 L 02/16/21 01:05 02/16/21 01:07 02/16/21 02:01 Temperature 99.0 F Pulse Rate 124 H 118 H Respiratory Rate 20 20 Blood Pressure 127/58 L Pulse Oximetry 97 96 97 02/16/21 02:02 02/16/21 02:19 02/16/21 02:30 Temperature 97.9 F Pulse Rate 116 H 117 H Respiratory Rate 18 20 Blood Pressure 135/99 H Pulse Oximetry 96 95 94 02/16/21 02:53 Temperature Pulse Rate Respiratory Rate Blood Pressure Pulse Oximetry 94 Exam Narrative: PHYSICAL EXAM: WEIGHT 263.6 kg (per patient's stated weight) BMI 78.8 General: Morbidly obese, poor hygiene, foul odor HEENT: Crowded posterior oropharynx, tacky mucous membranes, no
[2021-02-16 05:49] LABS: Basophils Percent Auto 0.4 % (0.2-1.2); Eosinophils Absolute Auto 0.1 K/mm3 (0-0.3); Eosinophils Percent Auto 0.4 % (0-4.4); Hematocrit 58.3 % (42.0-52.0); Hemoglobin 16.7 g/dL (14.0-18.0); Immature Granulocyte Absolute 0.08 K/mm3 (0.00-0.031); Immature Granulocyte Percent A 0.7 % (0-0.5); Lymphocytes Absolute Auto 1.12 K/mm3 (0.9-3.2); Mean Corpuscular HGB Conc 28.6 g/dl (32-36); Mean Corpuscular Hemoglobin 26.8 pg (26-34); Mean Corpuscular Volume 93.6 fl (80-100); Mean Platelet Volume 10.6 fl (7.4-10.4); Monocytes Absolute Auto 0.8 K/mm3 (0.1-0.6); Monocytes Percent Auto 7.2 % (2.6-8.5); Neutrophils Absolute Auto 9.1 K/mm3 (1.3-6.7); Neutrophils Percent Auto 81.3 % (45.5-73.1); Nucleated Red Blood Cells Perc 0.3 % (0.0-0.2); Platelet Count Result 173 k/mm3 (150-375); Red Blood Count 6.23 M/mm3 (4.6-6.20); Red Cell Distribution Width 17.6 % (11.5-14.5); White Blood Count 11.2 K/mm3 (4.5-10.0)
[2021-02-16 05:56] LABS: Hemoglobin A1C 13.1 % (<5.7)
[2021-02-16 06:02] LABS: Anion Gap 10 mmol/L (8-16); Blood Urea Nitrogen 19 mg/dL (9-20); Calcium 8.6 mg/dL (8.4-10.2); Carbon Dioxide 30 mmol/L (22-30); Chloride 90 mmol/L (98-107); Estimated CRCL calculation 155 ml/min; Estimated Glomerular Filt Rate > 60; Glucose 341 mg/dL (65-110); Potassium 4.1 mmol/L (3.4-5.0); Sodium 130 mmol/L (137-145)
[2021-02-16 06:03] LABS: Alveolar/Arterial O2 Gradient 144.4 mmHg; Base Excess ABG 1.5 mEq/l (+/-2.0); Carboxyhemoglobin 3.8 % THb (0-2.0); Fractional Inspired Oxygen 44 %; HCO3 ABG 33.7 mEq/l (22.0-26.0); Methemoglobin ABG 0.1 %THb (0-1.5); Oxygen Content ABG 20.1 %vol (16.0-22.0); PO2 ABG 63.6 mmHg (80.0-100.0); PO2 FiO2 Ratio Arterial Blood 1.45 %; Reduced Hemoglobin 11.3 %THb (0-5.0); Total Hemoglobin 16.9 g/dL (12.0-18.0)
[2021-02-16 06:05] LABS: Lactic Acid Reflex 1.6 mmol/L (0.7-2.1)
[2021-02-16 06:06] LABS: Ammonia 60 umol/L (9-30)
[2021-02-16 06:06] LABS: Oxygen Saturation ABG 85.1 % (95.0-100.0); PCO2 ABG 92.7 mmHg (35.0-45.0); pH ABG 7.179 (7.350-7.450)
[2021-02-16 06:07] LABS: Device NASAL CANNULA; Modified Allen's Test Pass; Oxyhemoglobin 84.8 % THb (90.0-100.0); Site Drawn LEFT RADIAL
--- NOTE | 2021-02-16 06:17 | PC.NURSE ---
2303 PATIENT HAS AWOKE THIS AM WITH CONFUSION. DOESNT KNOW WHERE HE IS OR DATE/TIME. DR. BURLESON AT BEDSIDE.
[2021-02-16 06:36] LABS: CRP 33.6 mg/dL (<1.0)
[2021-02-16 07:45] LABS: Glucose Point of Care 349 mg/dl (65-105)
--- NOTE | 2021-02-16 08:08 | ECG_ITS ---
Measurements Intervals Burns Rate: 90 P: DE: 0 QRS: 87 QRSD: 110 T: 5 QT: 369 QTc: 453 Interpretive Statements SINUS RHYTHM SUPRAVENTRICULAR TRIGEMINY INCOMPLETE RIGHT BUNDLE BRANCH BLOCK BORDERLINE R WAVE PROGRESSION, ANTERIOR LEADS BORDERLINE ST-T WAVE ABNORMALITY- INFERIOR LEADS BASELINE WANDER- I, II, III, AVF, V2, V4-V6 ABNORMAL ECG Electronically Signed On 02-16-2021 8:59:09 COMPLIANCE REVIEWER by Douglas Delarosa D.O.
[2021-02-16] MEDS: INSULIN GLARGINE (*BKC) 100 UNITS/ML 20 UNITS SUB-Q (09:10)
[2021-02-16 09:30] LABS: Alveolar/Arterial O2 Gradient 186.7 mmHg; Base Excess ABG 4.3 mEq/l (+/-2.0); Fractional Inspired Oxygen 50 %; Methemoglobin ABG 0.2 %THb (0-1.5); Oxygen Content ABG 20.2 %vol (16.0-22.0); Oxyhemoglobin 88.6 % THb (90.0-100.0); PO2 ABG 68.7 mmHg (80.0-100.0); PO2 FiO2 Ratio Arterial Blood 1.37 %; Reduced Hemoglobin 8.2 %THb (0-5.0); Total Hemoglobin 16.2 g/dL (12.0-18.0)
[2021-02-16 09:35] LABS: Modified Allen's Test Pass; PCO2 ABG 89.9 mmHg (35.0-45.0); Site Drawn LEFT RADIAL
[2021-02-16 09:36] LABS: Device NON-INVASIVE VENT; Non-Invasive Expiratory Pressure 8 CMH2O; Non-Invasive Inspiratory Pressure 14 CMH2O; Non-Invasive Vent Rate 22 /MIN
--- NOTE | 2021-02-16 09:50 | PM.CNGS ---
Assessment and Plan Assessment and plan (1) Necrotizing soft tissue infection: Code(s): M79.89 - Other specified soft tissue disorders Status: Acute Assessment and Plan: We suspect this is a necrotizing soft tissue infection of the left groin. This would best be treated at a tertiary care facility, which we have discussed with the hospitalist. We have recommended trying to transfer the patient, but this may be an issue for quick transfer given that recently many facilities are not accepting transfers due to high census. The Hospitalist will attempt calling other facilities this morning. Ultimately, if transferring the patient is not an option, then Dr. Martinez would recommend to proceed with surgical debridement of the necrotic soft tissue of the left groin wound in the OR. I discussed with the patient that due to his morbid obesity and respiratory status, he would be a higher risk candidate for anesthesia and could possibly require mechanical ventilation post-operatively. He will also need better glycemic control moving forward and even after discharge to give him the best chance at healing and avoiding further complications. I also discussed with the patient that he will likely require wound care and packing after surgery. We may need to consult the wound care nurses depending on the extent of the wound and potentially consider a wound VAC. He was understanding and agreed with this plan. Continue broad-spectrum IV antibiotics, IV fluids, and we will make him NPO this morning. Thank you for allowing us to see the patient in consultation and we will continue to follow along with you. (2) Acute hypercapnic respiratory failure: Code(s): J96.02 - Acute respiratory failure with hypercapnia Status: Acute Assessment and Plan: Currently on BiPAP with a repeat ABG ordered this morning. (3) Hyperglycemia: Code(s): R73.9 - Hyperglycemia, unspecified Status: Acute Assessment and Plan: Glucose 200-300 since admission. Hemoglobin A1c 13.1. He has been started on sliding scale insulin. Management per hospitalist. (4) Morbid obesity with BMI of 70 and over, adult: Code(s): E66.01 - Morbid (severe) obesity due to excess calories; Z68.45 - Body mass index [BMI] 70 or greater, adult Status: Acute Assessment and Plan: Significantly increase his risks for surgery and wound healing. (5) Obstructive sleep apnea: Code(s): G47.33 - Obstructive sleep apnea (adult) (pediatric) Status: Acute Assessment and Plan: Noncompliance with CPAP. Additional Plan I have discussed the patient's case and plan of care with Dr. Martinez. History of Present Illness Consult details Consult date: 02/16/21 Reason for consult: other (Left groin abscess) Requesting physician: Brian Torres MD Narrative: This is a 51-year-old morbidly obese male who presented to the ER as a referral from the [facility] for a left groin abscess. The patient reportedly noticed some left groin pain starting 1 week ago. This progressively worsened and was associated with swelling and higgins, foul-smelling drainage. He also reports chills, but did not check his temperature, nausea, and vomiting x2. Yesterday, he presented to the [facility] for evaluation due to the left groin pain. They sent him to the ER for further evaluation. Labs showed a white blood cell count of 11,700, lactic acid 1.6, CRP 33.6, and glucose 282. Hemoglobin A1c was checked and elevated at 13.1. He denies a known history of diabetes. In the ER, he was found to have a heart rate of 103, and reportedly his oxygen saturation was dropping to the 70s in the ER. He has since had an ABG, which showed acute hypercapnic respiratory failure. He has been put on BiPAP. He was started on IV Primaxin and vancomycin. Our service has been consulted for a left groin abscess. The patient is now seen on medical floor. His only complaint at this time is
[2021-02-16 11:46] LABS: Glucose Point of Care 329 mg/dl (65-105)
--- NOTE | 2021-02-16 12:59 | WPDHPUPDATE1 ---
History and Physical Update Update Date/Time: 02/16/21 12:59 History and Physical has been reviewed, including an updated exam of the patient. There are NO changes in the patient's condition. Risks, benefits, and alternatives of a soft tissue debridement of the high left upper thigh and groin area with placement of a central venous catheter in the OR have been discussed and questions answered. Patient agrees to proceed with procedure.
--- NOTE | 2021-02-16 13:12 | WPDANESEPPF ---
Anes - Initial Pre Proc Eval Procedure: Operation Date: 02/16/21 13:30 Proposed Procedures p Soft Tissue Debridement of Left Upper Thigh - Brad Martinez MD Date/Time: 02/16/21 13:12 Surgeon: Nayeli Salgado DO Pre Op Diagnosis: Leg cellulitis, questionable abscess Patient Data Age: 51 Gender: M Height: 1.83 m Weight: 263.6 kg Last Vital Signs Temp 35.7 C L 02/16/21 12:41 Pulse 85 02/16/21 11:18 Resp 28 H 02/16/21 11:18 BP 117/87 02/16/21 11:18 Pulse Ox 95 02/16/21 11:18 Allergies Allergy/AdvReac Type Severity Reaction Status Date / Time No Known Allergies Allergy Verified 02/16/21 03:23 Home Medications Medication Instructions Recorded Confirmed Type furosemide 80 mg PO QAM 02/16/21 02/16/21 History metolazone 5 mg PO QAM 02/16/21 02/16/21 History Laboratory Tests 02/15/21 02/15/21 02/16/21 20:50 20:50 05:39 WBC 11.7 K/mm3 H K/mm3 11.2 K/mm3 H K/mm3 (4.5-10.0) (4.5-10.0) RBC 6.02 M/mm3 M/mm3 6.23 M/mm3 H M/mm3 (4.6-6.20) (4.6-6.20) Hgb 16.1 g/dL g/dL 16.7 g/dL g/dL (14.0-18.0) (14.0-18.0) Hct 54.8 % H % 58.3 % H % (42.0-52.0) (42.0-52.0) MCV 91.0 fl fl 93.6 fl fl (80-100) (80-100) MCH 26.7 pg pg 26.8 pg pg (26-34) (26-34) MCHC 29.4 g/dl L g/dl 28.6 g/dl L g/dl (32-36) (32-36) RDW 17.1 % H % 17.6 % H % (11.5-14.5) (11.5-14.5) Plt Count 172 k/mm3 k/mm3 173 k/mm3 k/mm3 (150-375) (150-375) MPV 10.4 fl fl 10.6 fl H fl (7.4-10.4) (7.4-10.4) Immature Gran % (Auto) 0.4 % % 0.7 % H % (0-0.5) (0-0.5) Neut % (Auto) 83.4 % H % 81.3 % H % (45.5-73.1) (45.5-73.1) Lymph % (Auto) 9.2 % L % 10.0 % L % (18.3-44.2) (18.3-44.2) Whitman % (Auto) 6.2 % % 7.2 % % (2.6-8.5) (2.6-8.5) Eos % (Auto) 0.5 % % 0.4 % % (0-4.4) (0-4.4) Baso % (Auto) 0.3 % % 0.4 % % (0.2-1.2) (0.2-1.2) Lymph # (Auto) 1.07 K/mm3 K/mm3 1.12 K/mm3 K/mm3 (0.9-3.2) (0.9-3.2) Whitman # (Auto) 0.7 K/mm3 H K/mm3 0.8 K/mm3 H K/mm3 (0.1-0.6) (0.1-0.6) Eos # (Auto) 0.1 K/mm3 K/mm3 0.1 K/mm3 K/mm3 (0-0.3) (0-0.3) Baso # (Auto) 0.0 K/mm3 K/mm3 0.0 K/mm3 K/mm3 (0.0-0.1) (0.0-0.1) Abs Immat Gran (auto) 0.05 K/mm3 H K/mm3 0.08 K/mm3 H K/mm3 (0.00-0.031) (0.00-0.031) Absolute Neuts (auto) 9.8 K/mm3 H K/mm3 9.1 K/mm3 H K/mm3 (1.3-6.7) (1.3-6.7) Absolute Nucleated RBC 0.0 K/mm3 K/mm3 0.0 K/mm3 K/mm3 (0.0-0.012) (0.0-0.012) Nucleated RBC % 0.0 % % 0.3 % H % (0.0-0.2) (0.0-0.2) Platelet Estimate Adequate (Adequate) Hypochromasia 1+ (NORMAL) Puncture Site ABG pH ABG pCO2 ABG pO2 ABG PO2/FiO2 Ratio ABG HCO3 ABG O2 Saturation ABG O2 Content ABG Base Excess A-a Gradient Oxyhemoglobin Carboxyhemoglobin Methemoglobin Reduced Hemoglobin Total Hemoglobin O2 Delivery Device O2 Liters/Min Vent Rate FiO2 Expiratory Pressure Inspiratory Pressure Sodium 132 mmol/L L mmol/L (137-145) Potassium 3.9 mmol/L mmol/L (3.4-5.0) Chloride 89 mmol/L L mmol/L (98-107) Carbon Dioxide 38 mmol/L H mmol/L (22-30) Anion Gap 5 mmol/L L mmol/L (8-16) BUN 15 mg/dL mg/dL (9-20) Creatinine 0.70 mg/dL mg/dL (0.7-1.3) Estim Creat Clear Calc 236 ml/min ml/min Estimated GFR > 60 (59 - ) Glucose 282 mg/dL H mg/dL (65-110) POC Capillary Glucose Hemoglobin A1c Lactic Acid Calcium 8.6 mg/dL mg/dL (8.4-10.2) Total Bilirubin 2.4 mg/dL H mg/dL (0.2-1.3) AST 23
[2021-02-16] MEDS: LACTATED RINGERS 1,000 ML 30 ML IV CONT (13:42)
--- NOTE | 2021-02-16 14:08 | SUR.PREOP ---
1310 With patient's permission and Dr Martinez's request to make airway management easier, removed patient's ulevano with clippers. Informed patient's daughter so she wouldn't be shocked next time she see's him.
--- NOTE | 2021-02-16 14:27 | WPDANESCVCPN ---
Anes - Cent Venous Cath Note Consent: I have discussed with the patient/family/POA, the non-emergent placement of a central venous catheter, including its clinical necessity/indication and associated potential risks and complications. The patient/family/POA understand(s) and acknowledge(s) the need to proceed with central venous catheter insertion as an important element of the patient's clinical management given emergent patient conditions, temporal constraints may have precluded informed consent. Time-Out: A pre-procedural Time-Out was completed immediately before starting the procedure and confirmed: Patient Identification, Site, Procedure, Patient Position and the Availability of Requisite Equipment. Procedure Note Clinical Indications: limited iv access Patient position: supine Central venous catheter insertion site: right internal jugular CVC method of insertion: surface landmarks Hand hygiene/Aseptic technique: Hand hygiene procedures were performed. Aseptic technique was maintained throughout the procedure. Sterile barrier precautions: Maximal sterile barrier precautions, including use of a cap, mask, sterile gown, sterile gloves and a sterile full body drape. Site prep: chlorhexidine (X2) Skin anesthesia: placed under general anesthesia Lumen: 3 Length (cm): 15 cm (16cm) Depth of insertion (cm): 15 Closure/Dressing: suture, biopatch and tegaderm Complications: None immediately noted/suspected. Chest X Ray: Ordered/review to follow. Procedure comments: no immediate complications in OR xray in icu post procedure.
--- NOTE | 2021-02-16 16:02 | WPDCNINT ---
Assessment and Plan Assessment and plan (1) Acute respiratory failure: Code(s): J96.00 - Acute respiratory failure, unspecified whether with hypoxia or hypercapnia Status: Acute Assessment and Plan: Postop respiratory failure, continue mechanical ventilation. Patient intubated in the OR on 02/16/2021 -place patient on CMV mode of ventilation, peep of 12, 80% FiO2. -continue bronchodilators -will obtain ABGs -chest x-ray reviewed, ETT in central line in appropriate position -will start sedation with fentanyl and Versed infusion, daily sedation vacation (2) Necrotizing soft tissue infection: Code(s): M79.89 - Other specified soft tissue disorders Status: Acute Assessment and Plan: Necrotizing soft tissue infection of the left groin and thigh, status post debridement by surgery on 02/16/2021 -continue vancomycin and imipenem -surgery following the patient (3) Hyperglycemia: Code(s): R73.9 - Hyperglycemia, unspecified Status: Acute Assessment and Plan: Hyperglycemia, continue high-dose sliding scale insulin Accu-Cheks May require long-acting insulin -hemoglobin A1c is 13.1 this admission (4) Morbid obesity with BMI of 70 and over, adult: Code(s): E66.01 - Morbid (severe) obesity due to excess calories; Z68.45 - Body mass index [BMI] 70 or greater, adult Status: Acute Assessment and Plan: Morbidly obese, will have Nutrition evaluate the patient (5) Sepsis: Code(s): A41.9 - Sepsis, unspecified organism Status: Acute Assessment and Plan: Sepsis likely related to necrotizing fasciitis, -elevated WBC count, patient had chills at home. -will repeat lactic acid -blood pressures are borderline, may require vasopressors -will give 1 L IV fluid bolus followed by maintenance IV fluids Additional Plan Code status: Full code Critical care time spent: 46 minutes This dictation may have been done utilizing a voice recognition system. Attempts have been made to correct errors. However, there may be uncorrected grammatical, spelling, and recognition errors present. Due to a high probability of clinically significant, life threatening deterioration, the patient required my highest level of preparedness to intervene emergently and I personally spent this critical care time directly and personally managing the patient. This critical care time included obtaining a history; examining the patient; pulse oximetry; ordering and review of studies; arranging urgent treatment with development of a management plan; evaluation of patient's response to treatment; frequent reassessment; and discussions with other providers. It was exclusive of separately billable procedures and treating other patients and teaching time. Please see Assessment and Plan section and the rest of the note for further information on patient assessment and treatment [employer] Consult Note Consult date: 02/16/21 Reason for consult: Necrotizing soft tissue infection of the left groin status post debridement HPI: Chetan Pappas is a 51 year old male with significant past medical history obstructive sleep apnea not on with CPAP, tobacco abuse, morbid obesity who presented the ED on 02/16/2021 in the early hours with complains of left upper thigh wound. Wound has been draining for 3 days, patient denies any fevers or chills. Patient was also encephalopathic likely related to hypercapnic respiratory failure, patient was placed on BiPAP with improvement in his mental status. His left thigh wound had higgins, foul-smelling drainage. He did report cough chills but did not check his temperature. Also complained of nausea and vomiting x2.. General surgery was consulted and took him to the OR for soft tissue debridement, skin around the groin was necrotic Got a call from the OR and discussed with Anesthesia who stated he is going to remain intubated, the performed debridement EBL of approximately 300 mL. Patient
[2021-02-16] MEDS: FENTANYL 2,500MCG/NS250ML(*CRX 2,500 MCG/250 ML BAG 15 MCG IV CONT (16:58)
[2021-02-16] MEDS: PROPOFOL IV EMULSION 100 ML 7.91 MG IV CONT (17:01)
[2021-02-16] MEDS: MIDAZOLAM 100MG/NS 100ML(*CRX) 100 MG/100 ML BAG IV CONT (17:01)
[2021-02-16] MEDS: LACTATED RINGERS 1,000 ML 999 ML IV CONT (17:02)
--- NOTE | 2021-02-16 17:08 | W.PM.PROC2 ---
Procedure Note - Detailed Date of Procedure 02/16/21 Pre-op Diagnosis Left upper thigh cellulitis, with suspected necrotizing fasciitis Post-op Diagnosis other (1. Necrotizing fasciitis of the left buttock and medial thigh) Procedure Performed 1. Soft tissue excisional debridement of an area 35 by 8 by 12 cm in size starting posteriorly on the left buttock radiating medial up to the anterior medial left thigh 2. Placement of percutaneous right internal jugular central line by Dr. Plunkett, (anesthesia). Surgeon Brad Martinez MD [employer] JOAN Wheeler, OR 1st assist Anesthesia general Indications Please see the history and physical. This patient has for a week had a abscess of the skin on his far posterior left thigh where it joins the buttock. It is been draining pus and he tried to be seen by urgent care yesterday, but it was felt that they could not handle the situation and that he needed further care at an emergency room. He presented to the [facility] emergency room last evening but I believe only the anterior weeping skin over the area of necrosis was apparent. However, the patient's labs show showed new onset diabetes and elevated CRP consistent with possible necrotizing fasciitis. Therefore, patient was seen today and indeed the skin overlying his high medial Lt. thigh was starting to turn black and breakdown. This indicated to me that most likely and necrosis underneath this. Therefore the risks benefits possible complications of and a wide debridement with search for any necrotic tissue and open wound care have been described to the patient he wishes to proceed. Concomitantly will be cared for in ICU because of his respiratory failure. (see medicine notes). Findings When we lifted the patient's left leg off the table to expose the area for surgery there was immediate spout which came out of a small opening on the lower buttock near where it joins the left thigh I believe this is probably the origin of his current infection which probably was the infected epidermal cyst or just a skin abscess. From this site this is tunneled in the massive amount of fat is in his thigh up underneath the skin where the abnormal skin was described on his medial left thigh approximately 8-10 cm inferior to the left groin crease. This changes in the skin in this area were all because of underlying infection. Therefore a wide area of skin and fat including a small amount of fascia of the abductor muscles in this area were debrided down to where there was healthy appearing pink fat. Any tissue that appeared to be grayish brown or containing infiltrating infection was opened and debrided. Description of Procedure Patient was brought to the operating room from his room on the floor while wearing a BiPAP mask. He was sitting up in a bariatric bed. We decided that if possible we would put him to sleep and leave him in his bed since we would be able to expose the area of his infection adequately. Therefore, Ricardo anesthesia saw him and did the endotracheal intubation and subsequently Dr. Plunkett placed a right IJ central venous catheter. See his note separately. Once this was all prepared we then placed the patient flat we moved him toward the left side of the bed and we positioned him such that we would when we left lifted his left leg and rotated it out I would be able to see the area that needed to have incision and debridement. After careful prep and drape a time-out was performed prior to starting the surgery. Following this near the scrotum which was not involved in this infection we sprayed with Betadine then we prepped with chlorhexidine over the abnormal skin of the medial thigh. Prep and drape was done placing a large truck underneath the patient's buttock in the area prior to placing the sterile drape under his left leg and buttock. We did place a plastic sleeve over his entire left leg as we draped. Following this at this site on his low left buttock and
[2021-02-16 17:23] LABS: Glucose Point of Care 291 mg/dl (65-105)
[2021-02-16 17:35] LABS: Alveolar/Arterial O2 Gradient 440.6 mmHg; Base Excess ABG 3.4 mEq/l (+/-2.0); Fractional Inspired Oxygen 80 %; Modified Allen's Test Pass; Oxygen Content ABG 19.3 %vol (16.0-22.0); Oxygen Saturation ABG 95.7 % (95.0-100.0); Oxyhemoglobin 93.9 % THb (90.0-100.0); PCO2 ABG 47.7 mmHg (35.0-45.0); PO2 ABG 79.7 mmHg (80.0-100.0); Site Drawn RIGHT RADIAL; Total Hemoglobin 14.6 g/dL (12.0-18.0); pH ABG 7.402 (7.350-7.450)
[2021-02-16 17:36] LABS: Arterial Blood Gas PEEP 12 cmH2O; Arterial Blood Gas Tidal Volume 550 ml; Arterial Blood Gas Vent Mode CMV; Arterial Blood Gas Ventilator rate 24 /MIN; Device VENTILATOR
[2021-02-16] MEDS: LACTATED RINGERS 1,000 ML 100 ML IV CONT (17:56)
[2021-02-16] MEDS: INSULIN ASPART (*BKC) 100 UNITS/ML SUB-Q (17:59)
--- NOTE | 2021-02-16 18:03 | PM.IMPN ---
Progress Note: A&P Assessment and Plan (1) Cellulitis: Qualifiers: Laterality: left Site of cellulitis: extremity Site of cellulitis of extremity: lower extremity Qualified Code(s): L03.116 - Cellulitis of left lower limb Code(s): L03.90 - Cellulitis, unspecified Status: Acute Assessment and Plan: Severe cellulitis of thigh with areas of necrotic tissue. Patient's LRINEC score 7 indicating intermediate risk for necrotizing fasciitis. Patient been placed on empiric antibiotic therapy with vancomycin. But will add Primaxin given the patient has new diagnosis of diabetes and given extent of infection. Blood cultures are pending. The patient is too large for the CT scan. Ultrasound has been ordered to evaluate for possible underlying abscess. General surgery has been consulted. If exam is suggestive of necrotizing fasciitis general surgeon stated he would recommended patient be transferred to tertiary care. However given the [facility] ICU bed shortage due to COVID it is likely going to be difficult to transfer the patient. 03/06/2021 patient is a morbidly obese with BMI of 78.8 presented with shortness of breath on BiPAP secondary to hypercarbic respiratory failure repeat ABG shows persistent elevated CO2, and has left groin cellulitis and abscess seen by general surgeon will take the patient to OR for I&D, the patient will be intubated and will be transferred to ICU, does concern the patient may have necrotizing fasciitis I did call [facility], [facility] and [facility] no bed available (2) Acute hypercapnic respiratory failure: Code(s): J96.02 - Acute respiratory failure with hypercapnia Status: Acute Assessment and Plan: Acute on chronic hypercapnic respiratory failure. Patient has been placed on BiPAP. I went in adjusted the patient's BiPAP settings at bedside. Patient is on BiPAP / with a rate of 22. He is currently pulling tidal volumes between 405 50. Will repeat ABG at 8:30 a.m. and re-evaluate. The patient will be transferred IMU when bed becomes available. Until then patient has been placed on telemetry. The patient is a smoker. He is not actively wheezing but will add albuterol and Atrovent treatments to help with lung recruitment. Patient's care has been signed out to the daytime hospitalist service. (3) Hyperglycemia: Code(s): R73.9 - Hyperglycemia, unspecified Status: Inactive Assessment and Plan: Patient has previously undiagnosed diabetes. Hemoglobin A1c is 13.1. Will check a hemoglobin A1c. Will check Accu-Cheks and provide high-dose sliding scale insulin and hypoglycemia protocol as needed. (4) Obstructive sleep apnea: Code(s): G47.33 - Obstructive sleep apnea (adult) (pediatric) Status: Acute Assessment and Plan: The patient has obstructive sleep apnea and I suspect he also has underlying obesity hypoventilation syndrome. He has severe respiratory acidosis with hypercarbia. Resulting in acute hypercarbic respiratory failure. Subjective Date/time seen: 02/16/21 18:03 03/06/2021 patient is a morbidly obese with BMI of 78.8 presented with shortness of breath on BiPAP secondary to hypercarbic respiratory failure repeat ABG shows persistent elevated CO2, and has left groin cellulitis and abscess seen by general surgeon will take the patient to OR for I&D, the patient will be intubated and will be transferred to ICU, does concern the patient may have necrotizing fasciitis I did call [facility], [facility] and [facility] no bed available Review of Systems Review of Systems: All systems reviewed & are unremarkable except as noted in HPI and below Exam Narrative: morbidly obese Patient is comfortable, NAD HEENT: eyes are clear and none icteric on BiPAP LUNGS: normal respiratory effort ABD: distended Lower extremities: edema SKIN: nonjaundiced, left growing with wound dressing
[2021-02-16 18:17] LABS: Hematocrit 46.1 % (42.0-52.0); Hemoglobin 13.6 g/dL (14.0-18.0); Mean Corpuscular HGB Conc 29.5 g/dl (32-36); Mean Corpuscular Hemoglobin 26.9 pg (26-34); Mean Corpuscular Volume 91.3 fl (80-100); Mean Platelet Volume 10.4 fl (7.4-10.4); Platelet Count Result 158 k/mm3 (150-375); Red Blood Count 5.05 M/mm3 (4.6-6.20); Red Cell Distribution Width 16.1 % (11.5-14.5); White Blood Count 8.8 K/mm3 (4.5-10.0)
[2021-02-16 18:32] LABS: Alanine Aminotransferase 24 U/L (4-50); Albumin Level 2.9 g/dL (3.5-5.1); Alkaline Phosphatase 132 U/L (38-126); Anion Gap 9 mmol/L (8-16); Aspartate Amino Transferase 23 U/L (17-59); Bilirubin,Total 2.3 mg/dL (0.2-1.3); Blood Urea Nitrogen 27 mg/dL (9-20); Calcium 7.9 mg/dL (8.4-10.2); Carbon Dioxide 30 mmol/L (22-30); Chloride 90 mmol/L (98-107); Estimated CRCL calculation 123 ml/min; Estimated Glomerular Filt Rate 54; Glucose 309 mg/dL (65-110); Magnesium 1.9 mg/dL (1.6-2.3); Phosphorus 3.4 mg/dL (2.5-4.5); Potassium 4.2 mmol/L (3.4-5.0); Sodium 129 mmol/L (137-145)
[2021-02-16 18:34] LABS: Band Neutrophils Percent 11 % (0-6); Monocytes Absolute Manual 0.26 K/mm3 (0.1-0.90); Monocytes Percent Manual 3 % (3-9); Neutrophils Absolute Manual 7.83 K/mm3 (1.3-6.7); Neutrophils Percent Manual 78 % (46-73); Platelet Estimate Adequate (Adequate); Total Cells Counted 100
[2021-02-16 18:35] LABS: Anisocytosis 2+ (NORMAL); Hypochromasia 1+ (NORMAL)
[2021-02-16] MEDS: PROPOFOL IV EMULSION 100 ML 31.63 MG IV CONT ×2 (18:37→21:24)
--- NOTE | 2021-02-16 18:52 | PC.NURSE ---
Patient admitted from OR post-I&D of the left thigh/buttock. Patient arrived intubated and sedated. Dr. Reeves at beside and orders received.
[2021-02-16] MEDS: PANTOPRAZOLE SODIUM IV 40 MG VIAL IV PUSH (19:40)
[2021-02-16] MEDS: CENTRAL LINE FLUSH 10 ML IV PUSH (19:41)
[2021-02-16] MEDS: MINERAL OIL/WHITE PETROLATUM OINTMENT 1 APPLIC EACH EYE (20:34)
[2021-02-16] MEDS: IPRATROPIUM BR 0.02% INH SOLN 0.5 MG/2.5 ML VIAL INHALATION (22:08)
[2021-02-16] MEDS: ALBUTEROL SULFATE NEB 2.5 MG/0.5 ML INH 5 MG INHALATION (22:08)
[2021-02-17] VITALS (34 sets, daily range): BP systolic 107–128; BP diastolic 64–79; PULSE 63–84; RESP 24–25; TEMP 36.3–36.9; O2SAT 88–96; BMI 78.8
[2021-02-17 00:02] LABS: Glucose Point of Care 305 mg/dl (65-105)
[2021-02-17] MEDS: INSULIN ASPART (*BKC) 100 UNITS/ML SUB-Q ×5 (00:29→23:35)
[2021-02-17] MEDS: PROPOFOL IV EMULSION 100 ML 31.63 MG IV CONT ×2 (00:29→03:31)
[2021-02-17] MEDS: ALBUTEROL SULFATE NEB 2.5 MG/0.5 ML INH 5 MG INHALATION ×4 (03:30→20:24)
[2021-02-17] MEDS: IPRATROPIUM BR 0.02% INH SOLN 0.5 MG/2.5 ML VIAL INHALATION ×4 (03:31→20:24)
[2021-02-17 05:00] LABS: Basophils Absolute Auto 0.1 K/mm3 (0.0-0.1); Basophils Percent Auto 0.6 % (0.2-1.2); Eosinophils Absolute Auto 0.1 K/mm3 (0-0.3); Eosinophils Percent Auto 0.5 % (0-4.4); Hematocrit 44.7 % (42.0-52.0); Hemoglobin 13.2 g/dL (14.0-18.0); Immature Granulocyte Absolute 0.07 K/mm3 (0.00-0.031); Immature Granulocyte Percent A 0.7 % (0-0.5); Lymphocytes Absolute Auto 0.81 K/mm3 (0.9-3.2); Lymphocytes Percent Auto 8.6 % (18.3-44.2); Mean Corpuscular HGB Conc 29.5 g/dl (32-36); Mean Corpuscular Hemoglobin 26.7 pg (26-34); Mean Corpuscular Volume 90.5 fl (80-100); Mean Platelet Volume 10.4 fl (7.4-10.4); Monocytes Absolute Auto 0.6 K/mm3 (0.1-0.6); Monocytes Percent Auto 6.3 % (2.6-8.5); Neutrophils Absolute Auto 7.8 K/mm3 (1.3-6.7); Neutrophils Percent Auto 83.3 % (45.5-73.1); Nucleated Red Blood Cells Perc 0.3 % (0.0-0.2); Platelet Count Result 171 k/mm3 (150-375); Red Blood Count 4.94 M/mm3 (4.6-6.20); Red Cell Distribution Width 15.9 % (11.5-14.5); White Blood Count 9.4 K/mm3 (4.5-10.0)
[2021-02-17 05:10] LABS: Alanine Aminotransferase 21 U/L (4-50); Albumin Level 2.7 g/dL (3.5-5.1); Alkaline Phosphatase 127 U/L (38-126); Anion Gap 10 mmol/L (8-16); Aspartate Amino Transferase 18 U/L (17-59); Bilirubin,Total 1.8 mg/dL (0.2-1.3); Blood Urea Nitrogen 33 mg/dL (9-20); Calcium 7.8 mg/dL (8.4-10.2); Carbon Dioxide 30 mmol/L (22-30); Chloride 89 mmol/L (98-107); Estimated CRCL calculation 92 ml/min; Estimated Glomerular Filt Rate 38; Glucose 306 mg/dL (65-110); Phosphorus 4.2 mg/dL (2.5-4.5); Potassium 4.1 mmol/L (3.4-5.0); Sodium 129 mmol/L (137-145)
[2021-02-17 05:11] LABS: Lactic Acid Reflex 1.4 mmol/L (0.7-2.1)
[2021-02-17] MEDS: LACTATED RINGERS 1,000 ML 100 ML IV CONT ×2 (05:57→16:16)
[2021-02-17] MEDS: CENTRAL LINE FLUSH 10 ML IV PUSH ×4 (05:58→21:13)
[2021-02-17] MEDS: PROPOFOL IV EMULSION 100 ML 23.72 MG IV CONT ×5 (06:50→23:29)
[2021-02-17 06:56] LABS: Base Excess ABG 3.7 mEq/l (+/-2.0); Carboxyhemoglobin 0.4 % THb (0-2.0); Fractional Inspired Oxygen 75 %; HCO3 ABG 30.7 mEq/l (22.0-26.0); Methemoglobin ABG 0.3 %THb (0-1.5); Oxygen Content ABG 22.8 %vol (16.0-22.0); Oxygen Saturation ABG 92.5 % (95.0-100.0); Oxyhemoglobin 91.7 % THb (90.0-100.0); PCO2 ABG 54.5 mmHg (35.0-45.0); PO2 ABG 66.9 mmHg (80.0-100.0); PO2 FiO2 Ratio Arterial Blood 0.89 %; Reduced Hemoglobin 7.6 %THb (0-5.0); Total Hemoglobin 17.7 g/dL (12.0-18.0); pH ABG 7.369 (7.350-7.450)
[2021-02-17 06:58] LABS: Device VENTILATOR; Modified Allen's Test Pass; Site Drawn LEFT RADIAL
[2021-02-17 06:59] LABS: Arterial Blood Gas PEEP 12 cmH2O; Arterial Blood Gas Tidal Volume 550 ml; Arterial Blood Gas Vent Mode CMV; Arterial Blood Gas Ventilator rate 24 /MIN
[2021-02-17] MEDS: PANTOPRAZOLE SODIUM IV 40 MG VIAL IV PUSH ×2 (08:28→21:13)
[2021-02-17] MEDS: MINERAL OIL/WHITE PETROLATUM OINTMENT 1 APPLIC EACH EYE ×2 (08:30→21:13)
[2021-02-17] MEDS: LACTATED RINGERS 1,000 ML 999 ML IV CONT (08:32)
[2021-02-17] MEDS: INSULIN GLARGINE (*BKC) 100 UNITS/ML 45 UNITS SUB-Q (09:21)
[2021-02-17 10:40] LABS: Vancomycin Trough 14.7 ug/mL (10.0-20.0)
--- NOTE | 2021-02-17 10:41 | WPDANESPN ---
Anes - Prog Note Post-Op Date/Time: 02/17/21 10:41 Cardiovascular status: other (management per ICU team) Respiratory status: other (management per ICU team) Airway patency: other (pt intubated) Mental status: other (pt sedated) Post-Op hydration status: other (management per ICU team) Vital Signs: Last Vital Signs Temp 36.8 C 02/17/21 07:44 Pulse 68 02/17/21 09:48 Resp 24 H 02/17/21 09:46 BP 125/65 02/17/21 07:44 Pulse Ox 90 02/17/21 09:48 Pain Score (VAS): unable to assess I/O: Intake & Output 02/16/21 02/17/21 02/17/21 23:59 07:59 15:59 Intake Total 2400 1460 1100 Output Total 250 475 Balance 2150 985 1100 Laboratory Tests 02/17/21 04:49 02/17/21 04:49 02/16/21 02/16/21 02/16/21 11:30 17:11 17:22 WBC RBC Hgb Hct MCV MCH MCHC RDW Plt Count MPV Immature Gran % (Auto) Neut % (Auto) Lymph % (Auto) Troup % (Auto) Eos % (Auto) Baso % (Auto) Lymph # (Auto) Troup # (Auto) Eos # (Auto) Baso # (Auto) Abs Immat Gran (auto) Absolute Neuts (auto) Absolute Nucleated RBC Total Counted Neutrophils % (Manual) Band Neutrophils % Lymphocytes % (Manual) Monocytes % (Manual) Nucleated RBC % Abs Neuts (Manual) Abs Lymphs (Manual) Abs Monocytes (Manual) Platelet Estimate Hypochromasia Anisocytosis Puncture Site Right radial ABG pH 7.402 ABG pCO2 47.7 H ABG pO2 79.7 L ABG PO2/FiO2 Ratio 1.00 ABG HCO3 29.0 H ABG O2 Saturation 95.7 ABG O2 Content 19.3 ABG Base Excess 3.4 A-a Gradient 440.6 Oxyhemoglobin 93.9 Carboxyhemoglobin Methemoglobin Reduced Hemoglobin Total Hemoglobin 14.6 O2 Delivery Device Ventilator O2 Liters/Min Not Reportable Minute Volume Not Reportable Vent Rate 24 Vent Mode Cmv FiO2 80 Tidal Volume 550 PEEP 12 Peak Inspir Pressure Not Reportable Pressure Support Not Reportable Sodium Potassium Chloride Carbon Dioxide Anion Gap BUN Creatinine Estim Creat Clear Calc Estimated GFR Glucose POC Capillary Glucose 329 H 291 H Lactic Acid Calcium Phosphorus Magnesium Total Bilirubin AST ALT Alkaline Phosphatase Total Protein Albumin Vancomycin Trough 02/16/21 02/16/21 02/17/21 18:08 18:08 00:00 WBC 8.8 RBC 5.05 Hgb 13.6 L D Hct 46.1 MCV 91.3 MCH 26.9 MCHC 29.5 L RDW 16.1 H Plt Count 158 MPV 10.4 Immature Gran % (Auto) Not Reportable Neut % (Auto) Not Reportable Lymph % (Auto) Not Reportable Troup % (Auto) Not Reportable Eos % (Auto) Not Reportable Baso % (Auto) Not Reportable Lymph # (Auto) Not Reportable Troup # (Auto) Not Reportable Eos # (Auto) Not Reportable Baso # (Auto) Not Reportable Abs Immat Gran (auto) Not Reportable Absolute Neuts (auto) Not Reportable Absolute Nucleated RBC Not Reportable Total Counted 100 Neutrophils % (Manual) 78 H Band Neutrophils % 11 H Lymphocytes % (Manual) 8.0 L Monocytes % (Manual) 3 Nucleated RBC % Not Reportable Abs Neuts (Manual) 7.83 H Abs Lymphs (Manual) 0.70 L Abs Monocytes (Manual) 0.26 Platelet Estimate Adequate Hypochromasia 1+ Anisocytosis 2+ Puncture Site ABG pH ABG pCO2 ABG pO2 ABG PO2/FiO2 Ratio ABG HCO3 ABG O2 Saturation ABG O2 Content ABG Base Excess A-a Gradient Oxyhemoglobin Carboxyhemoglobin Methemoglobin Reduced Hemoglobin Total Hemoglobin O2 Delivery Device O2 Liters/Min Minute Volume Vent Rate Vent Mode FiO2 Tidal Volume PEEP Peak Inspir Pressure Pressure Support Sodium 129 L Potassium 4.2 Chloride 90 L Carbon Dioxide 30 Anion Gap 9 BUN 27 H Creatinine 1.40 H Estim Creat Clear Calc 123 Estimated GFR 54 L Glucose
--- NOTE | 2021-02-17 12:01 | WPDINTPN ---
Progress Note: A&P Assessment and Plan (1) Acute respiratory failure: Code(s): J96.00 - Acute respiratory failure, unspecified whether with hypoxia or hypercapnia Status: Acute Assessment and Plan: Postop respiratory failure, continue mechanical ventilation. Patient intubated in the OR on 02/16/2021 -place patient on CMV mode of ventilation, peep of 12, 75% FiO2. Wean FiO2 as tolerated -chest x-ray and ABGs reviewed -continue bronchodilators -continue propofol, fentanyl and Versed infusion, daily sedation vacation (2) Necrotizing soft tissue infection: Code(s): M79.89 - Other specified soft tissue disorders Status: Acute Assessment and Plan: Necrotizing soft tissue infection of the left groin and thigh, status post debridement by surgery on 02/16/2021 -continue vancomycin and imipenem -surgery following the patient -discussed with surgery, wound VAC will be placed by wound nurses (3) Hyperglycemia: Code(s): R73.9 - Hyperglycemia, unspecified Status: Acute Assessment and Plan: Hyperglycemia, continue high-dose sliding scale insulin Accu-Cheks -add Lantus 35 units SQ daily -hemoglobin A1c is 13.1 this admission (4) Morbid obesity with BMI of 70 and over, adult: Code(s): E66.01 - Morbid (severe) obesity due to excess calories; Z68.45 - Body mass index [BMI] 70 or greater, adult Status: Acute Assessment and Plan: Morbidly obese, will have Nutrition evaluate the patient (5) Sepsis: Code(s): A41.9 - Sepsis, unspecified organism Status: Acute Assessment and Plan: Sepsis likely related to necrotizing fasciitis, -elevated WBC count, patient had chills at home. -will repeat lactic acid -blood pressures are borderline, may require vasopressors -will give 1 L IV fluid bolus followed by maintenance IV fluids (6) DVT prophylaxis: Code(s): Z29.9 - Encounter for prophylactic measures, unspecified Status: Acute Assessment and Plan: SCDs, discussed with surgery, preferred to hold Lovenox for 2 days postop (7) Dietary counseling and surveillance: Code(s): Z71.3 - Dietary counseling and surveillance Status: Acute Assessment and Plan: Will start tube feeds Additional Plan Code status: Full code Critical care time spent: 33 minutes This dictation may have been done utilizing a voice recognition system. Attempts have been made to correct errors. However, there may be uncorrected grammatical, spelling, and recognition errors present. Due to a high probability of clinically significant, life threatening deterioration, the patient required my highest level of preparedness to intervene emergently and I personally spent this critical care time directly and personally managing the patient. This critical care time included obtaining a history; examining the patient; pulse oximetry; ordering and review of studies; arranging urgent treatment with development of a management plan; evaluation of patient's response to treatment; frequent reassessment; and discussions with other providers. It was exclusive of separately billable procedures and treating other patients and teaching time. Please see Assessment and Plan section and the rest of the note for further information on patient assessment and treatment Subjective Date/time seen: 02/17/21 12:01 Interval history: Reason for consult: Necrotizing soft tissue infection of the left groin status post debridement 02/17/2021: Patient seen and examined this morning in the ICU, remains intubated, on CMV mode of ventilation, peep of 12, 75% FiO2. Patient is sedated with propofol, fentanyl and Versed infusion. Urine output has been low. Afebrile. Hyperglycemic. Patient does not open his eyes or follow simple commands Review of Systems Review of Systems: ROS unobtainable: Yes unobtainable due to endotracheal tube Exam Narrative: General: Morbidly obese, intubated a
[2021-02-17 12:26] LABS: Glucose Point of Care 305 mg/dl (65-105)
--- NOTE | 2021-02-17 14:21 | PM.PNGS ---
Progress Note: A&P Assessment and Plan (1) Necrotizing soft tissue infection: Code(s): M79.89 - Other specified soft tissue disorders Status: Acute Assessment and Plan: POD1 excisional debridement of a now large left groin wound in the OR. Will initiate an irrigating wound vac today. Plan to change the wound vac and reassess his wound on Monday. Continue IV antibiotics. WBC and lactic acid normal today. Not on vasopressor support today. Monitor labs. (2) Acute hypercapnic respiratory failure: Code(s): J96.02 - Acute respiratory failure with hypercapnia Status: Acute Assessment and Plan: Post-operative respiratory failure, intubated in the OR. Continue mechanical ventilation in the ICU. Management per Ballroom Dancer. Wean as tolerated. Tube feedings started while intubated. (3) Hyperglycemia: Code(s): R73.9 - Hyperglycemia, unspecified Status: Inactive Assessment and Plan: Hemoglobin A1c 13.1 on admission, new for patient. Started on sliding scale and long-acting insulin. Glucose in 300's today. Management per hospitalist. (4) Morbid obesity with BMI of 70 and over, adult: Code(s): E66.01 - Morbid (severe) obesity due to excess calories; Z68.45 - Body mass index [BMI] 70 or greater, adult Status: Acute (5) Obstructive sleep apnea: Code(s): G47.33 - Obstructive sleep apnea (adult) (pediatric) Status: Acute (6) Acute kidney injury: Code(s): N17.9 - Acute kidney failure, unspecified Status: Acute Assessment and Plan: Creatinine up to 1.9. Continue IV fluids. Monitor labs. Additional Plan I have discussed the patient's case and plan of care with Dr. Martinez. Subjective Subjective Date/Time Seen: 02/17/21 12:21 Post Op day: 1 (Soft tissue excisional debridement of an area 35 x 8 x 12 cm in size starting posteriorly on the left buttock extending medial up to the anterior medial left thigh) Interval history: The patient was seen and examined in the ICU with the wound care nurses. He remains intubated and sedated. No acute events overnight per nursing staff. Not currently requiring any vasopressors support with stable blood pressures. Review of Systems Review of Systems: ROS unobtainable: Yes unobtainable due to endotracheal tube Exam Const: General: comfortable, no acute distress and other (sedated/intubated) Nutritional Appearance: obese morbidly obese Limitations: physical limitations Resp: Effort & Inspection: abnormal respiratory pattern (mechanical ventilator) Urinary Catheter: Urinary Catheter: patent and draining, urine dark and urine pink Skin: Other: Post-operative dressing and packing removed. There is a large open wound extending from the left groin inferiorly down the left inner thigh towards the left buttock (see wound care note for measurements). No active bleeding/oozing noted. Minimal amount of higgins/brown drainage noted. Few suture noted from ligation of vessels during surgery without bleeding. Few areas of dusky pale subcutaneous tissue noted in scattered areas, but also some area of pink healthy tissue noted. Irrigating wound vac applied. Neuro: Other: Exam limited d/t sedation/intubation. Psych: Insight: Limited insight present (Psych) Judgement: Limited judgement present (Psych) Objective Data Vital Signs Vital Signs: Vital Signs - 24 hr 02/16/21 16:00 02/16/21 16:23 02/16/21 16:30 Temperature 98.0 F Pulse Rate 85 94 85 Respiratory Rate 24 H 24 H Blood Pressure 98/77 L Pulse Oximetry 93 96 98 02/16/21 16:58 02/16/21 17:01 02/16/21 17:58 Temperature Pulse Rate 89 87 79 Respiratory Rate 24 H 24 H 24 H Blood Pressure Pulse Oximetry 02/16/21 20:00 02/16/21 22:00 02/16/21 22:12 Temperature 97.6 F Pulse Rate 80 75 74 Respiratory Rate 24 H 24 H Blood Pressure 124/78 115/66 Pulse Oximetry 94 95 95 02/16/21 22:13 02/16/21 22:41 02/16/21 22:48 Temperature Pulse Ra
--- NOTE | 2021-02-17 14:52 | PM.IMPN ---
Progress Note: A&P Assessment and Plan (1) Acute respiratory failure: Code(s): J96.00 - Acute respiratory failure, unspecified whether with hypoxia or hypercapnia Status: Acute Assessment and Plan: Postop respiratory failure, continue mechanical ventilation. Patient intubated in the OR on 02/16/2021 -place patient on CMV mode of ventilation, peep of 12, 75% FiO2. Wean FiO2 as tolerated -chest x-ray and ABGs reviewed -continue bronchodilators -continue propofol, fentanyl and Versed infusion, daily sedation vacation 02/16/2021 Interval history patient is a morbidly obese with BMI of 78.8 presented with shortness of breath on BiPAP secondary to hypercarbic respiratory failure repeat ABG shows persistent elevated CO2, and has left groin cellulitis and abscess seen by general surgeon will take the patient to OR for I&D, the patient will be intubated and will be transferred to ICU, does concern the patient may have necrotizing fasciitis I did call [facility], [facility] and [facility] no bed available 02/17/2021 Interval history: patient morbidly obese with acute respiratory failure secondary to hypercapnia, patient with left groin abscess was seen by general surgeon and taken to OR on 02/16/2021 and had I&D while in the OR patient was intubated and remains on vent unable to provide any review of symptom, patient is being treated with imipenem and vancomycin, will follow-up on wound and blood culture and further recommendation to follow. (2) Necrotizing soft tissue infection: Code(s): M79.89 - Other specified soft tissue disorders Status: Acute Assessment and Plan: Necrotizing soft tissue infection of the left groin and thigh, status post debridement by surgery on 02/16/2021 -continue vancomycin and imipenem -surgery following the patient -discussed with surgery, wound VAC will be placed by wound nurses (3) Hyperglycemia: Code(s): R73.9 - Hyperglycemia, unspecified Status: Acute Assessment and Plan: Hyperglycemia, continue high-dose sliding scale insulin Accu-Cheks -add Lantus 35 units SQ daily -hemoglobin A1c is 13.1 this admission (4) Morbid obesity with BMI of 70 and over, adult: Code(s): E66.01 - Morbid (severe) obesity due to excess calories; Z68.45 - Body mass index [BMI] 70 or greater, adult Status: Acute Assessment and Plan: Morbidly obese, will have Nutrition evaluate the patient (5) Sepsis: Code(s): A41.9 - Sepsis, unspecified organism Status: Acute Assessment and Plan: Sepsis likely related to necrotizing fasciitis, -elevated WBC count, patient had chills at home. -will repeat lactic acid -blood pressures are borderline, may require vasopressors -will give 1 L IV fluid bolus followed by maintenance IV fluids (6) DVT prophylaxis: Code(s): Z29.9 - Encounter for prophylactic measures, unspecified Status: Acute Assessment and Plan: SCDs, discussed with surgery, preferred to hold Lovenox for 2 days postop (7) Dietary counseling and surveillance: Code(s): Z71.3 - Dietary counseling and surveillance Status: Acute Assessment and Plan: Will start tube feeds Subjective Date/time seen: 02/17/21 14:52 02/16/2021 Interval history patient is a morbidly obese with BMI of 78.8 presented with shortness of breath on BiPAP secondary to hypercarbic respiratory failure repeat ABG shows persistent elevated CO2, and has left groin cellulitis and abscess seen by general surgeon will take the patient to OR for I&D, the patient will be intubated and will be transferred to ICU, does concern the patient may have necrotizing fasciitis I did call [facility], [facility] and [facility] no bed available 02/17/2021 Interval history: patient morbidly obese with acute respiratory failure secondary to hypercapnia, patient with left groin abscess was seen by general surgeon and taken to OR on 02/16/2021 and
--- NOTE | 2021-02-17 14:55 | ECG_ITS ---
Measurements Intervals [place] Rate: 73 P: 256 AK: 155 QRS: 62 QRSD: 104 T: 29 QT: 416 QTc: 459 Interpretive Statements ACCELERATED JUNCTIONAL RHYTHM SUPRAVENTRICULAR TRIGEMINY CANNOT RULE OUT SEPTAL INFARCT, AGE INDETERMINATE ABNORMAL ECG Electronically Signed On 02-17-2021 20:07:49 [employer]BCAT DRIVER/LABOR by Douglas Delarosa D.O.
[2021-02-17] MEDS: FENTANYL 2,500MCG/NS250ML(*CRX 2,500 MCG/250 ML BAG 10 MCG IV CONT (15:06)
[2021-02-17 18:00] LABS: Glucose Point of Care 282 mg/dl (65-105)
[2021-02-17 23:35] LABS: Glucose Point of Care 286 mg/dl (65-105)
[2021-02-18] VITALS (38 sets, daily range): BP systolic 105–119; BP diastolic 57–72; PULSE 56–76; RESP 24; TEMP 36.3–37.1; O2SAT 92–97
[2021-02-18] MEDS: IPRATROPIUM BR 0.02% INH SOLN 0.5 MG/2.5 ML VIAL INHALATION ×4 (01:57→21:16)
[2021-02-18] MEDS: ALBUTEROL SULFATE NEB 2.5 MG/0.5 ML INH 5 MG INHALATION ×4 (01:57→21:16)
[2021-02-18] MEDS: PROPOFOL IV EMULSION 100 ML 23.72 MG IV CONT ×6 (02:09→22:21)
[2021-02-18] MEDS: LACTATED RINGERS 1,000 ML 100 ML IV CONT ×2 (02:10→13:06)
[2021-02-18] MEDS: MIDAZOLAM 100MG/NS 100ML(*CRX) 100 MG/100 ML BAG IV CONT (02:11)
[2021-02-18 04:45] LABS: Basophils Percent Auto 0.5 % (0.2-1.2); Eosinophils Absolute Auto 0.1 K/mm3 (0-0.3); Eosinophils Percent Auto 1.6 % (0-4.4); Hemoglobin 12.3 g/dL (14.0-18.0); Immature Granulocyte Absolute 0.07 K/mm3 (0.00-0.031); Lymphocytes Absolute Auto 1.34 K/mm3 (0.9-3.2); Lymphocytes Percent Auto 18.3 % (18.3-44.2); Mean Corpuscular Hemoglobin 26.6 pg (26-34); Mean Corpuscular Volume 88.6 fl (80-100); Mean Platelet Volume 10.7 fl (7.4-10.4); Monocytes Absolute Auto 0.5 K/mm3 (0.1-0.6); Monocytes Percent Auto 6.7 % (2.6-8.5); Neutrophils Absolute Auto 5.3 K/mm3 (1.3-6.7); Neutrophils Percent Auto 71.9 % (45.5-73.1); Platelet Count Result 175 k/mm3 (150-375); Red Blood Count 4.63 M/mm3 (4.6-6.20); White Blood Count 7.3 K/mm3 (4.5-10.0)
[2021-02-18] MEDS: CENTRAL LINE FLUSH 10 ML IV PUSH ×4 (04:49→20:36)
[2021-02-18 05:03] LABS: Alanine Aminotransferase 16 U/L (4-50); Albumin Level 2.6 g/dL (3.5-5.1); Alkaline Phosphatase 121 U/L (38-126); Anion Gap 6 mmol/L (8-16); Aspartate Amino Transferase 15 U/L (17-59); Bilirubin,Total 1.2 mg/dL (0.2-1.3); Blood Urea Nitrogen 42 mg/dL (9-20); Calcium 7.8 mg/dL (8.4-10.2); Carbon Dioxide 32 mmol/L (22-30); Chloride 89 mmol/L (98-107); Estimated CRCL calculation 70 ml/min; Estimated Glomerular Filt Rate 28; Glucose 256 mg/dL (65-110); Magnesium 2.3 mg/dL (1.6-2.3); Phosphorus 3.9 mg/dL (2.5-4.5); Potassium 3.7 mmol/L (3.4-5.0); Sodium 127 mmol/L (137-145)
[2021-02-18] MEDS: INSULIN ASPART (*BKC) 100 UNITS/ML SUB-Q ×4 (05:18→20:47)
[2021-02-18 06:03] LABS: Alveolar/Arterial O2 Gradient 475.3 mmHg; Base Excess ABG 3.3 mEq/l (+/-2.0); Carboxyhemoglobin 0.2 % THb (0-2.0); Fractional Inspired Oxygen 85 %; HCO3 ABG 28.2 mEq/l (22.0-26.0); Methemoglobin ABG 0.1 %THb (0-1.5); Oxygen Content ABG 18.9 %vol (16.0-22.0); Oxygen Saturation ABG 96.6 % (95.0-100.0); Oxyhemoglobin 95.7 % THb (90.0-100.0); PCO2 ABG 43.6 mmHg (35.0-45.0); PO2 ABG 85.5 mmHg (80.0-100.0); PO2 FiO2 Ratio Arterial Blood 1.01 %; pH ABG 7.428 (7.350-7.450)
[2021-02-18 06:18] LABS: Arterial Blood Gas PEEP 14 cmH2O; Arterial Blood Gas Vent Mode CMV; Arterial Blood Gas Ventilator rate 24 /MIN; Device VENTILATOR; Modified Allen's Test Unable to perform; Site Drawn RIGHT RADIAL
[2021-02-18 06:19] LABS: Arterial Blood Gas Tidal Volume 550 ml
[2021-02-18] MEDS: INSULIN GLARGINE (*BKC) 100 UNITS/ML 45 UNITS SUB-Q (09:14)
[2021-02-18] MEDS: MINERAL OIL/WHITE PETROLATUM OINTMENT 1 APPLIC EACH EYE ×2 (09:15→20:35)
[2021-02-18] MEDS: PANTOPRAZOLE SODIUM IV 40 MG VIAL IV PUSH ×2 (09:16→20:36)
--- NOTE | 2021-02-18 11:21 | PCFNICU ---
Addendum entered by Concepcion Aleman RD, LDN 02/18/21 12:28: Amending free water flush. Recommend leaving at 30 ml q 4 hours. Original Note: ICU Rounding Note: Pt current nutrition is Glucerna 1.2 at 50 ml/hr over 22 hours. Last recorded weight is 263.6 kg-stable Bowel Motility: Hypoactive bowel sounds. Labs Reviewed:Glu 256,GFR 28, Alb 2.6,Cr 2.5,Na 127, BUN 42,Hgb 12.3, Hct 41.1 Meds Noted: Propofol 15 myrl=515 kcals, Fentanyl, Versed, Novolog, Protonix, Atrovent, Vancomycin, LR at 100 ml/hr. Skin: left thigh-wound vac Additional Notes: Patient remains on mechanical vent and tube feedings of Glucerna 1.2 at 50ml/hr and tolerating. Propofol providing an additional 626 kcals. Free water flush at 30 ml q 4 hours. Recommend increased free water flush to 100 ml q 4hours- Na 127 today. No fevers. decreased urine output noted today. Following daily in ICU rounds. Will reassess every Monday and Monday
[2021-02-18 11:57] LABS: Glucose Point of Care 325 mg/dl (65-105)
--- NOTE | 2021-02-18 13:40 | WPDINTPN ---
Progress Note: A&P Assessment and Plan (1) Acute respiratory failure: Code(s): J96.00 - Acute respiratory failure, unspecified whether with hypoxia or hypercapnia Status: Acute Assessment and Plan: Postop respiratory failure, continue mechanical ventilation. Patient intubated in the OR on 02/16/2021 -place patient on CMV mode of ventilation, peep of 12, 80% FiO2. Wean FiO2 as tolerated -chest x-ray and ABGs reviewed -continue bronchodilators -continue propofol, fentanyl and Versed infusion, daily sedation vacation -not a candidate for diuresis at this time will start with holding further IV fluids (2) Necrotizing soft tissue infection: Code(s): M79.89 - Other specified soft tissue disorders Status: Acute Assessment and Plan: Necrotizing soft tissue infection of the left groin and thigh, status post debridement by surgery on 02/16/2021 -continue vancomycin and imipenem -surgery following the patient -Per surgery, wound VAC will be placed by wound nurses -wound cultures are growing Enterococcus and blood cultures are negative (3) Hyperglycemia: Code(s): R73.9 - Hyperglycemia, unspecified Status: Acute Assessment and Plan: Hyperglycemia, continue high-dose sliding scale insulin Accu-Cheks Increase Lantus -hemoglobin A1c is 13.1 this admission (4) Morbid obesity with BMI of 70 and over, adult: Code(s): E66.01 - Morbid (severe) obesity due to excess calories; Z68.45 - Body mass index [BMI] 70 or greater, adult Status: Acute Assessment and Plan: Morbidly obese, On Glucerna tube feeds (5) Sepsis: Code(s): A41.9 - Sepsis, unspecified organism Status: Acute Assessment and Plan: Sepsis likely related to necrotizing fasciitis, WBC a normalized Patient not on any vasopressor Hold further IV fluids as patient is overall volume overload (6) DVT prophylaxis: Code(s): Z29.9 - Encounter for prophylactic measures, unspecified Status: Acute Assessment and Plan: SCDs, discussed with surgery, preferred to hold Lovenox for 2 days postop (7) Dietary counseling and surveillance: Code(s): Z71.3 - Dietary counseling and surveillance Status: Acute Assessment and Plan: Will start tube feeds (8) Acute kidney injury: Code(s): N17.9 - Acute kidney failure, unspecified Status: Acute Assessment and Plan: Likely secondary to sepsis Consult nephrology and check renal ultrasound and CK Additional Plan DVT prophylaxis -start Lovenox subQ Stress ulcer prophylaxis -PPI Nutrition - Tube Feeds Code Status - Full Code Critical care time spent: 32 minutes This dictation may have been done utilizing a voice recognition system. Attempts have been made to correct errors. However, there may be uncorrected grammatical, spelling, and recognition errors present. Due to a high probability of clinically significant, life threatening deterioration, the patient required my highest level of preparedness to intervene emergently and I personally spent this critical care time directly and personally managing the patient. This critical care time included obtaining a history; examining the patient; pulse oximetry; ordering and review of studies; arranging urgent treatment with development of a management plan; evaluation of patient's response to treatment; frequent reassessment; and discussions with other providers. It was exclusive of separately billable procedures and treating other patients and teaching time. Please see Assessment and Plan section and the rest of the note for further information on patient assessment and treatment Subjective Date/time seen: 02/18/21 Overnight events reviewed. Afebrile Continues to be on mechanical ventilation 85% FiO2 and 14 of PEEP Continues to be sedated with propofol Versed and fentanyl Vitals acceptable Interval history: Reason for consult: Necrotizing soft tissue infection
[2021-02-18] MEDS: INSULIN GLARGINE (*BKC) 100 UNITS/ML 20 UNITS SUB-Q (14:51)
[2021-02-18] MEDS: FENTANYL 2,500MCG/NS250ML(*CRX 2,500 MCG/250 ML BAG 10 MCG IV CONT (15:28)
[2021-02-18 16:51] LABS: Creatine Kinase 20 U/L (55-170)
--- NOTE | 2021-02-18 17:25 | PM.PNGS ---
Progress Note: A&P Assessment and Plan (1) Necrotizing soft tissue infection: Code(s): M79.89 - Other specified soft tissue disorders Status: Acute Assessment and Plan: POD# 2 S/P excisional debridement of a now large left groin wound in the OR. We initiated an irrigating wound vac on02/17. Plan to change the wound vac and reassess his wound on Monday. The seal on the wound VAC seems to be holding successfully and drainage is slightly yellow and cloudy. Continue IV antibiotics. WBC and lactic acid normal today. Not on vasopressor support today. Monitor labs. Await cultures (2) Acute hypercapnic respiratory failure: Code(s): J96.02 - Acute respiratory failure with hypercapnia Status: Acute Assessment and Plan: Post-operative respiratory failure, intubated in the OR. Continue mechanical ventilation in the ICU. Management per Manager Fiber. Wean as tolerated. Tube feedings started while intubated. (3) Hyperglycemia: Code(s): R73.9 - Hyperglycemia, unspecified Status: Inactive Assessment and Plan: Hemoglobin A1c 13.1 on admission, new for patient. Started on sliding scale and long-acting insulin. Glucose in 256 today. Management per hospitalist. (4) Morbid obesity with BMI of 70 and over, adult: Code(s): E66.01 - Morbid (severe) obesity due to excess calories; Z68.45 - Body mass index [BMI] 70 or greater, adult Status: Acute (5) Obstructive sleep apnea: Code(s): G47.33 - Obstructive sleep apnea (adult) (pediatric) Status: Acute (6) Acute kidney injury: Code(s): N17.9 - Acute kidney failure, unspecified Status: Acute Assessment and Plan: Creatinine up to 1.9. Continue IV fluids. Monitor labs. Additional Plan Patient still exhibiting some elements of respiratory failure. Continue ventilation as per hospitalist New onset diabetes will appreciate medicare nurse and help from hospitalist eventually. Will plan on changing the irrigating wound VAC 3X /week and eventually going to a standard wound VAC once a he is more stable and the wound has come along. This would probably be changed about 3 times a week also. Subjective Subjective Date/Time Seen: 02/18/21 17:25 Post Op day: 2 ( Status post excision of skin fat and fascia upper left thigh secondary to necrosis in infection) Interval history: On ventilator, off pressors. Had a her a rhythm yesterday and workup is continuing but it appears to be a junctional where rhythm P per EKG. Nurse reports wound VAC is staying sealed. Patient has not yet had a bowel movement. Review of Systems Review of Systems: ROS unobtainable: Yes unobtainable due to endotracheal tube and unobtainable due to medical condition Exam Const: General: comfortable, no acute distress, alert, awake and other (sedated/intubated) Nutritional Appearance: obese morbidly obese Orientation/consciousness: patient oriented x3 Limitations: physical limitations HENMT: Head: normocephalic and atraumatic Ears: hearing grossly normal bilaterally Mouth: Yes other (BiPAP in place) Resp: Effort & Inspection: able to speak in complete sentences, abnormal respiratory pattern (mechanical ventilator), not labored, no stridor, tachypneic and other (Bipap) Auscultation: diminished lung sounds Cardio: Rate: regular rate Rhythm: abnormal rhythm irregularly irregular Heart sounds: S1 normal heart sound present and S2 normal heart sound present GI: Inspection: Pannus present, obesity, no scars (No obvious large abdominal scars), striae and visible herniation (Umbilical that is reducible) Auscultation: normal bowel sounds Rectal Exam: deferred : General: Yes other (scrotum and right groin are darkened, zahra appearing) Penis: Yes other (hidden penis) Scrotum: not edematous, not erythematous (slightly dark/zahra in color), no masses and no scrotal swelling Testes: Testes normal Urinary Catheter: Urinary Catheter: patent and draining,
[2021-02-18 18:14] LABS: Glucose Point of Care 236 mg/dl (65-105)
[2021-02-18] MEDS: ENOXAPARIN 40 MG/0.4 ML SYRINGE SUB-Q (20:35)
[2021-02-18 21:02] LABS: Glucose Point of Care 212 mg/dl (65-105)
[2021-02-18 21:06] LABS: Vancomycin Trough 36.9 ug/mL (10.0-20.0)
[2021-02-19] VITALS (36 sets, daily range): BP systolic 104–167; BP diastolic 64–95; PULSE 66–95; RESP 24–29; TEMP 36.6–37.3; O2SAT 88–95
[2021-02-19] MEDS: INSULIN ASPART (*BKC) 100 UNITS/ML SUB-Q ×4 (00:12→21:42)
[2021-02-19 00:58] LABS: Glucose Point of Care 228 mg/dl (65-105)
[2021-02-19] MEDS: PROPOFOL IV EMULSION 100 ML 23.72 MG IV CONT (02:17)
[2021-02-19] MEDS: IPRATROPIUM BR 0.02% INH SOLN 0.5 MG/2.5 ML VIAL INHALATION ×4 (02:26→20:15)
[2021-02-19] MEDS: ALBUTEROL SULFATE NEB 2.5 MG/0.5 ML INH 5 MG INHALATION ×4 (02:26→20:15)
[2021-02-19 04:37] LABS: Basophils Absolute Auto 0.1 K/mm3 (0.0-0.1); Basophils Percent Auto 0.8 % (0.2-1.2); Eosinophils Absolute Auto 0.2 K/mm3 (0-0.3); Hematocrit 45.8 % (42.0-52.0); Hemoglobin 13.8 g/dL (14.0-18.0); Immature Granulocyte Absolute 0.08 K/mm3 (0.00-0.031); Immature Granulocyte Percent A 0.9 % (0-0.5); Lymphocytes Absolute Auto 1.69 K/mm3 (0.9-3.2); Lymphocytes Percent Auto 19.4 % (18.3-44.2); Mean Corpuscular HGB Conc 30.1 g/dl (32-36); Mean Corpuscular Hemoglobin 26.8 pg (26-34); Mean Corpuscular Volume 89.1 fl (80-100); Mean Platelet Volume 10.7 fl (7.4-10.4); Monocytes Absolute Auto 0.6 K/mm3 (0.1-0.6); Monocytes Percent Auto 6.6 % (2.6-8.5); Neutrophils Absolute Auto 6.1 K/mm3 (1.3-6.7); Neutrophils Percent Auto 70.3 % (45.5-73.1); Platelet Count Result 194 k/mm3 (150-375); Red Blood Count 5.14 M/mm3 (4.6-6.20); Red Cell Distribution Width 16.2 % (11.5-14.5); White Blood Count 8.7 K/mm3 (4.5-10.0)
[2021-02-19 04:38] LABS: Alveolar/Arterial O2 Gradient 444.3 mmHg; Base Excess ABG 1.9 mEq/l (+/-2.0); Fractional Inspired Oxygen 80 %; HCO3 ABG 28.6 mEq/l (22.0-26.0); Methemoglobin ABG 0.2 %THb (0-1.5); Oxygen Content ABG 18.2 %vol (16.0-22.0); Oxygen Saturation ABG 93.2 % (95.0-100.0); Oxyhemoglobin 90.3 % THb (90.0-100.0); PCO2 ABG 52.9 mmHg (35.0-45.0); PO2 ABG 70.6 mmHg (80.0-100.0); PO2 FiO2 Ratio Arterial Blood 0.88 %; Reduced Hemoglobin 8.5 %THb (0-5.0); Total Hemoglobin 14.3 g/dL (12.0-18.0); pH ABG 7.351 (7.350-7.450)
[2021-02-19 04:39] LABS: Device VENTILATOR; Modified Allen's Test Pass; Site Drawn RIGHT RADIAL
[2021-02-19 04:40] LABS: Arterial Blood Gas PEEP 14 cmH2O; Arterial Blood Gas Tidal Volume 550 ml; Arterial Blood Gas Vent Mode CMV; Arterial Blood Gas Ventilator rate 24 /MIN
[2021-02-19 04:51] LABS: Alanine Aminotransferase 16 U/L (4-50); Albumin Level 3.1 g/dL (3.5-5.1); Alkaline Phosphatase 153 U/L (38-126); Anion Gap 8 mmol/L (8-16); Aspartate Amino Transferase 19 U/L (17-59); Blood Urea Nitrogen 47 mg/dL (9-20); Calcium 8.3 mg/dL (8.4-10.2); Carbon Dioxide 31 mmol/L (22-30); Chloride 90 mmol/L (98-107); Estimated CRCL calculation 55 ml/min; Estimated Glomerular Filt Rate 21; Glucose 195 mg/dL (65-110); Magnesium 2.6 mg/dL (1.6-2.3); Phosphorus 5.6 mg/dL (2.5-4.5); Potassium 4.1 mmol/L (3.4-5.0); Sodium 129 mmol/L (137-145)
[2021-02-19] MEDS: PROPOFOL IV EMULSION 100 ML 31.63 MG IV CONT ×3 (05:32→23:50)
[2021-02-19] MEDS: CENTRAL LINE FLUSH 10 ML IV PUSH ×4 (05:34→21:21)
[2021-02-19] MEDS: MINERAL OIL/WHITE PETROLATUM OINTMENT 1 APPLIC EACH EYE ×2 (08:31→21:21)
[2021-02-19] MEDS: PROPOFOL IV EMULSION 100 ML 39.54 MG IV CONT ×5 (08:42→18:11)
[2021-02-19] MEDS: PANTOPRAZOLE SODIUM IV 40 MG VIAL IV PUSH ×2 (09:32→21:21)
[2021-02-19] MEDS: ENOXAPARIN 40 MG/0.4 ML SYRINGE SUB-Q (09:32)
[2021-02-19] MEDS: SODIUM CHLORIDE 0.9% IV 1,000 ML 100 ML IV CONT ×2 (09:32→18:12)
[2021-02-19] MEDS: INSULIN GLARGINE (*BKC) 100 UNITS/ML 60 UNITS SUB-Q (09:32)
[2021-02-19 09:33] LABS: Glucose Point of Care 184 mg/dl (65-105)
--- NOTE | 2021-02-19 11:01 | PM.PNGS ---
Progress Note: A&P Assessment and Plan (1) Necrotizing soft tissue infection: Code(s): M79.89 - Other specified soft tissue disorders Status: Acute Assessment and Plan: POD# 3 S/P excisional debridement of a now large left groin wound in the OR. We initiated an irrigating wound vac on 02/17. The seal on the wound VAC seems to be holding successfully and drainage is slightly yellow and cloudy. Continue IV antibiotics. WBC and lactic acid normal today. Not on vasopressor support today. Monitor labs. Await cultures (growing Enterococcus but sensitivities not yet back. This is probably a mixed infection so will continue on broad-spectrum antibiotics.) Discussed antibiotic coverage with Dr. Pérez today. Patient's creatinine is going up therefore, will think about stopping vancomycin and going to daptomycin when vanc trough levels come back down to normal levels. Will wait the culture and sensitivities since this may even be vancomycin resistant Enterococcus. Antibiotics to be adjusted depending on cultures. (2) Acute hypercapnic respiratory failure: Code(s): J96.02 - Acute respiratory failure with hypercapnia Status: Acute Assessment and Plan: Post-operative respiratory failure, intubated in the OR. Continue mechanical ventilation in the ICU. Management per Drier Operator Helper. Wean as tolerated. Tube feedings started while intubated. (3) Hyperglycemia: Code(s): R73.9 - Hyperglycemia, unspecified Status: Inactive Assessment and Plan: Hemoglobin A1c 13.1 on admission, new for patient. Started on sliding scale and long-acting insulin. Glucose in 256 today. Management per hospitalist. (4) Morbid obesity with BMI of 70 and over, adult: Code(s): E66.01 - Morbid (severe) obesity due to excess calories; Z68.45 - Body mass index [BMI] 70 or greater, adult Status: Acute (5) Obstructive sleep apnea: Code(s): G47.33 - Obstructive sleep apnea (adult) (pediatric) Status: Acute (6) Acute kidney injury: Code(s): N17.9 - Acute kidney failure, unspecified Status: Acute Assessment and Plan: Creatinine up to 1.9. Continue IV fluids. Monitor labs. Additional Plan Patient still exhibiting some elements of respiratory failure. Continue ventilation as per hospitalist New onset diabetes will appreciate workers compensation legal secretary and help from hospitalist eventually. Will plan on changing the irrigating wound VAC 3X /week and eventually going to a standard wound VAC once a he is more stable and the wound has come along. This would probably be changed about 3 times a week also. Subjective Subjective Date/Time Seen: 02/19/21 11:01 Post Op day: 3 (Status post operative soft tissue debridement left upper thigh and buttock) Patient reports: no bowel movement Interval history: Patient is still intubated on the ventilator. He does not indicate specific pain but I believe is sedated. Review of Systems Review of Systems: All systems reviewed & are unremarkable except as noted in HPI and below ROS unobtainable: Yes unobtainable due to endotracheal tube and unobtainable due to medical condition Exam Const: General: ill appearing, lethargic and poor hygiene Nutritional Appearance: obese morbidly obese (Super morbidly obese) Orientation/consciousness: patient obtunded HENMT: Head: normocephalic and atraumatic Ears: hearing grossly normal bilaterally Mouth: Yes other (BiPAP in place) Eyes: General: appearance normal, both eyes and all related structures Sclera: sclerae normal EOM: EOMs intact bilaterally Neck: Neck: normal visual inspection and full ROM Urinary Catheter: Urinary Catheter: patent and draining, urine dark and urine pink Skin: General skin exam: normal color Other: Wound VAC dressing and present along the medial and posterior upper left thigh with tubing coming over the leg anterior and laterally. This today I saw the wound with the wound VAC off. Our wound care nu
[2021-02-19 11:22] LABS: Creatine Kinase 26 U/L (55-170)
[2021-02-19 11:46] LABS: Glucose Point of Care 202 mg/dl (65-105)
--- NOTE | 2021-02-19 12:36 | PM.CNNEP ---
Assessment and Plan Assessment and plan (1) Acute kidney injury: Code(s): N17.9 - Acute kidney failure, unspecified Status: Acute Assessment and Plan: The patient has acute kidney injury. Urine output is dropping and creatinine is rising. Most likely this is due to sepsis related to the necrotizing fasciitis. He is getting antibiotics now. Other causes include obstruction which we will evaluate with a renal ultrasound. Glomerulonephritis and interstitial nephritis are less likely in this clinical scenario. Rhabdomyolysis is a possibility and we will check a CPK. We will check urine electrolytes as well. (2) Necrotizing soft tissue infection: Code(s): M79.89 - Other specified soft tissue disorders Status: Acute Assessment and Plan: He had incision and drainage and is on antibiotics. (3) Acute respiratory failure: Code(s): J96.00 - Acute respiratory failure, unspecified whether with hypoxia or hypercapnia Status: Acute Assessment and Plan: He is on the ventilator. (4) Obstructive sleep apnea: Code(s): G47.33 - Obstructive sleep apnea (adult) (pediatric) Status: Acute Assessment and Plan: He does not use a CPAP mask. He is intubated now. (5) Hyperglycemia: Code(s): R73.9 - Hyperglycemia, unspecified Status: Acute Assessment and Plan: He probably has diabetes. He may have had it before this as well but certainly it is worse because of the infection. History of Present Illness Reason for Consult Consult date: 02/19/21 Chief Complaint Chief complaint: Leg cellulitis, questionable abscess History of Present Illness Narrative: Corinne is an unfortunate 51-year-old gentleman with morbid obesity, sleep apnea but does not use a CPAP machine, chronic edema, tobacco abuse. Patient was admitted on the because he came to the emergency room with thigh wounds and confusion. Apparently these wounds had been draining for few days before he came in. He was evaluated in the emergency room. He was confused. He had hypercapnic respiratory acidosis, very high blood sugar. He was moved to the ICU. He went to surgery that same day and had drainage of his wounds in his thigh. He has got a very large incision and open wound from the front to the slide wrapping around the medial part and to the back. The patient was intubated in the operating room and is still intubated. He is currently on antibiotics, on the ventilator, and getting treatment for his high sugars besides the intensive supportive care he is getting. In the meantime his creatinine on admission was normal but has increased gradually to 3.2. Urine output has been dropping off. It was 725 day before yesterday 200 yesterday and only 30cc overnight. The patient cannot give a history. [facility] Past Medical History Medical History (Updated 02/19/21 @ 12:46 by Manfred Marx MD) Hyperglycemia Hyperglycemia Morbid obesity Obstructive sleep apnea Noncompliant with CPAP therapy Surgical History Surgical History History of shoulder surgery Right shoulder Family History Family History Mother Acute myocardial infarction Cerebrovascular accident Congestive heart failure Hypertension Diabetes mellitus Social History Social History Smoking packs per day: 1 Smoking cigarettes per day: 20.0 Smoking status: Current every day smoker Tobacco type: cigarettes Alcohol intake: never Substance use: current Substance use type: marijuana Living arrangements: with family Additional living arrangements comments: Lives at home with his mom. Reportedly completely independent in ambulation and ADL's. Occupation/Education: unemployed Additional occupation/education comments: Lost his job about 1 year ag
--- NOTE | 2021-02-19 14:01 | WPDINTPN ---
Progress Note: A&P Assessment and Plan (1) Acute respiratory failure: Code(s): J96.00 - Acute respiratory failure, unspecified whether with hypoxia or hypercapnia Status: Acute Assessment and Plan: Postop respiratory failure, continue mechanical ventilation. Patient intubated in the OR on 02/16/2021 -place patient on CMV mode of ventilation, peep of 14, 80% FiO2. Wean FiO2 as tolerated -chest x-ray reviewed and will advance ET tube by 2 cm - ABGs reviewed -continue bronchodilators -continue propofol, fentanyl and Versed infusion, daily sedation vacation (2) Necrotizing soft tissue infection: Code(s): M79.89 - Other specified soft tissue disorders Status: Acute Assessment and Plan: Necrotizing soft tissue infection of the left groin and thigh, status post debridement by surgery on 02/16/2021 -continue vancomycin and imipenem -surgery following the patient -wound VAC w management per surgery -wound cultures are growing Enterococcus which is pansensitive. - blood cultures are negative (3) Hyperglycemia: Code(s): R73.9 - Hyperglycemia, unspecified Status: Acute Assessment and Plan: Hyperglycemia, continue high-dose sliding scale insulin Accu-Cheks Increase Lantus -hemoglobin A1c is 13.1 this admission (4) Morbid obesity with BMI of 70 and over, adult: Code(s): E66.01 - Morbid (severe) obesity due to excess calories; Z68.45 - Body mass index [BMI] 70 or greater, adult Status: Acute Assessment and Plan: Morbidly obese, On Glucerna tube feeds (5) Sepsis: Code(s): A41.9 - Sepsis, unspecified organism Status: Acute Assessment and Plan: Sepsis likely related to necrotizing fasciitis, his leg still appears to be red and warm but he is afebrile and WBC had normalized Patient not on any vasopressor (6) DVT prophylaxis: Code(s): Z29.9 - Encounter for prophylactic measures, unspecified Status: Acute Assessment and Plan: Lovenox (7) Dietary counseling and surveillance: Code(s): Z71.3 - Dietary counseling and surveillance Status: Acute Assessment and Plan: Continue tube feeds (8) Acute kidney injury: Code(s): N17.9 - Acute kidney failure, unspecified Status: Acute Assessment and Plan: Likely secondary to sepsis Renal ultrasound showed Normal kidney sizes. No hydronephrosis. Consulted nephrology Normal CK Will start gentle IV fluids for next 24 hours (9) Renal mass: Code(s): N28.89 - Other specified disorders of kidney and ureter Status: Acute Assessment and Plan: Renal Ultrasound 02/18/21 15:51 IMPRESSION: 1. 9.3 cm right kidney mass, which may be a hemorrhagic cyst or a neoplasm. Further evaluation is recommended with CT or MRI without and with contrast, but the patient is too heavy for our CT or MRI. Another facility may have a higher weight limit. Additional Plan DVT prophylaxis -start Lovenox subQ Stress ulcer prophylaxis -PPI Nutrition - Tube Feeds Code Status - Full Code Dr. Martinez recommends the patient be transferred to a facility which has experience in managing bariatric patient. I called and spoke to [facility] transfer line and they are not accepting any outside transfers at this time due to their ICU use being full. I also called and spoke to transfer line and [facility] provided patient's information and they have him on wait list and will call back once bed is available Critical care time spent: 35 minutes This dictation may have been done utilizing a voice recognition system. Attempts have been made to correct errors. However, there may be uncorrected grammatical, spelling, and recognition errors present. Due to a high probability of clinically significant, life threatening deterioration, the patient required my highest level of preparedness to intervene emergently and I personally spent this critical care time directly and personally managing
--- NOTE | 2021-02-19 14:10 | PCNFU ---
Nutrition Follow-Up Complete: Inadequate Oral Intake as related to mechanical ventilation as evidenced by NPO. Goal: Meet estimated nutritional needs Patient is progressing towards goal. We will continue current goal. Pt current nutrition is Glucerna 1.2 at 50 ml/hr over 22 hours. Last recorded weight is 263.6 kg-stable Bowel Motility:No BM reported. Labs Reviewed: Glu 195,GFR 21, Alb 3.1,Hgb 13.8,Glu 195 Meds Noted:Fentanyl, NovoLog, Protonix, Vancomycin,NS at Propofol at 25 tthb=5186 kcals. Skin:wound vac-left thigh. Additional Notes: Patient remains on mechanical vent and tube feedings of Glucerna 1.2 at 55 ml/hr. 200 ml residual reported. Spoke with nursing today regarding BM. Recommending Reglan and Miralax. Tube feeding at 55 ml/hr is providing 1320 kcals/66 gms protein/886 ml water. Propofol providing an additional 1044 kcals. Free water flush 30 ml a 4 hours. Agree with diet orders. Will monitor in ICU rounds and reassessing every Monday and Monday.
[2021-02-19 16:25] LABS: Total Protein Urine Random 33 mg/dL; Ur Ttl Prot Creatinine Ratio 0.42 mg/mg (0-0.20)
[2021-02-19 16:28] LABS: Glucose Point of Care 229 mg/dl (65-105)
[2021-02-19] MEDS: FENTANYL 2,500MCG/NS250ML(*CRX 2,500 MCG/250 ML BAG 10 MCG IV CONT (16:32)
[2021-02-19 17:00] LABS: SARS-CoV-2 RNA PCR Negative
[2021-02-19 19:49] LABS: Sodium Urine Random 5 meq/L
[2021-02-19 21:41] LABS: Glucose Point of Care 201 mg/dl (65-105)
[2021-02-20] VITALS (31 sets, daily range): BP systolic 100–146; BP diastolic 53–91; PULSE 66–99; RESP 24–29; TEMP 36.4–36.8; O2SAT 90–95
[2021-02-20 01:22] LABS: Glucose Point of Care 172 mg/dl (65-105)
[2021-02-20] MEDS: ALBUTEROL SULFATE NEB 2.5 MG/0.5 ML INH 5 MG INHALATION ×3 (01:50→20:00)
[2021-02-20] MEDS: IPRATROPIUM BR 0.02% INH SOLN 0.5 MG/2.5 ML VIAL INHALATION ×3 (01:50→20:00)
[2021-02-20] MEDS: PROPOFOL IV EMULSION 100 ML 15.82 MG IV CONT ×2 (02:53→08:00)
[2021-02-20] MEDS: MIDAZOLAM 100MG/NS 100ML(*CRX) 100 MG/100 ML BAG IV CONT (03:13)
[2021-02-20 04:37] LABS: Base Excess ABG 0.2 mEq/l (+/-2.0); Carboxyhemoglobin 0.5 % THb (0-2.0); Fractional Inspired Oxygen 95 %; Oxygen Content ABG 17.7 %vol (16.0-22.0); Oxygen Saturation ABG 92.4 % (95.0-100.0); Oxyhemoglobin 91.3 % THb (90.0-100.0); PO2 ABG 71.6 mmHg (80.0-100.0); PO2 FiO2 Ratio Arterial Blood 0.75 %; Reduced Hemoglobin 8.2 %THb (0-5.0); Total Hemoglobin 13.8 g/dL (12.0-18.0); pH ABG 7.294 (7.350-7.450)
[2021-02-20 04:38] LABS: Arterial Blood Gas Vent Mode CMV; Arterial Blood Gas Ventilator rate 24 /MIN; Device VENTILATOR; Modified Allen's Test Unable to perform; Site Drawn RIGHT RADIAL
[2021-02-20 04:39] LABS: Arterial Blood Gas PEEP 14 cmH2O; Arterial Blood Gas Tidal Volume 550 ml
[2021-02-20] MEDS: CENTRAL LINE FLUSH 10 ML IV PUSH ×4 (05:07→21:57)
[2021-02-20 05:37] LABS: Basophils Absolute Auto 0.1 K/mm3 (0.0-0.1); Basophils Percent Auto 0.6 % (0.2-1.2); Eosinophils Absolute Auto 0.2 K/mm3 (0-0.3); Eosinophils Percent Auto 2.8 % (0-4.4); Hematocrit 43.9 % (42.0-52.0); Hemoglobin 12.9 g/dL (14.0-18.0); Immature Granulocyte Absolute 0.05 K/mm3 (0.00-0.031); Immature Granulocyte Percent A 0.6 % (0-0.5); Lymphocytes Absolute Auto 1.09 K/mm3 (0.9-3.2); Lymphocytes Percent Auto 13.9 % (18.3-44.2); Mean Corpuscular HGB Conc 29.4 g/dl (32-36); Mean Corpuscular Hemoglobin 26.8 pg (26-34); Mean Corpuscular Volume 91.1 fl (80-100); Mean Platelet Volume 10.2 fl (7.4-10.4); Monocytes Absolute Auto 0.5 K/mm3 (0.1-0.6); Monocytes Percent Auto 5.8 % (2.6-8.5); Neutrophils Percent Auto 76.3 % (45.5-73.1); Platelet Count Result 177 k/mm3 (150-375); Red Blood Count 4.82 M/mm3 (4.6-6.20); White Blood Count 7.8 K/mm3 (4.5-10.0)
[2021-02-20 05:48] LABS: Alanine Aminotransferase 13 U/L (4-50); Alkaline Phosphatase 134 U/L (38-126); Anion Gap 7 mmol/L (8-16); Aspartate Amino Transferase 19 U/L (17-59); Bilirubin,Total 0.9 mg/dL (0.2-1.3); Blood Urea Nitrogen 54 mg/dL (9-20); Calcium 8.1 mg/dL (8.4-10.2); Carbon Dioxide 29 mmol/L (22-30); Chloride 94 mmol/L (98-107); Estimated CRCL calculation 46 ml/min; Estimated Glomerular Filt Rate 17; Glucose 148 mg/dL (65-110); Magnesium 2.8 mg/dL (1.6-2.3); Phosphorus 9.3 mg/dL (2.5-4.5); Sodium 130 mmol/L (137-145); Triglycerides 226 mg/dL (<150)
[2021-02-20] MEDS: MINERAL OIL/WHITE PETROLATUM OINTMENT 1 APPLIC EACH EYE ×2 (08:31→22:20)
[2021-02-20] MEDS: ENOXAPARIN 40 MG/0.4 ML SYRINGE SUB-Q (08:31)
[2021-02-20] MEDS: PANTOPRAZOLE SODIUM IV 40 MG VIAL IV PUSH ×2 (08:32→22:20)
[2021-02-20] MEDS: polyethylene glycoL 3350 17 GM POWD.PACK PO (08:33)
--- NOTE | 2021-02-20 09:42 | PM.PNNEP ---
Progress Note: A&P Assessment and Plan (1) Acute kidney injury: Code(s): N17.9 - Acute kidney failure, unspecified Status: Acute Assessment and Plan: suspect ATN from sepsis secondary to necrotizing fasciitis evaluation to date shows: renal ultrasound without obstruction but the presence of a 9.3cm right kidney mass (cyst versus neoplasm?) urine electrolytes suggest pre-renal azotemia CPK low creatinine rising but reasonable urine output noted with no critical electrolytes not opposed to IV diuretics given CXR findings follow repeat labs and urine output (2) Necrotizing soft tissue infection: Code(s): M79.89 - Other specified soft tissue disorders Status: Acute Assessment and Plan: localized to the left groin and thigh status post debridement by surgery (on 02/16/21) on IV antibiotics wound VAC in place wound cultures with Enterococcus blood cultures negative Surgery following recommend transferring to a facility which has experience in managing bariatric patients but no beds available at any other institution at this time (3) Sepsis: Code(s): A41.9 - Sepsis, unspecified organism Status: Acute Assessment and Plan: due to #2 follow culture data continue antibiotic therapy no need for vasopressors at this time follow trend of hemodynamics (4) Acute respiratory failure: Code(s): J96.00 - Acute respiratory failure, unspecified whether with hypoxia or hypercapnia Status: Acute Assessment and Plan: post-operative remains intubated and on mechanical ventilation follow CXR findings diuretics started and IVFs on hold (increased O2 requirement and CXR with pulmonary edema) weaning as tolerated (5) Renal mass: Code(s): N28.89 - Other specified disorders of kidney and ureter Status: Acute Assessment and Plan: no intervention at this time will likely need outpatient evaluation (6) Hyperglycemia: Code(s): R73.9 - Hyperglycemia, unspecified Status: Acute Assessment and Plan: due to underlying diabetes (does not have official diagnosis) A1c 13.1 follow accuchecks on Lantus and SSI Will continue to follow. Subjective Date/time seen: 02/20/21 09:42 Chart reviewed - assuming care from Dr. Marx; remains intubated/sedated and on mechanical ventilation; hemodynamically stable without the need for pressors; reasonable urine output (although he is on diuretic therapy); no other issues/events overnight or earlier this AM. Exam Narrative: General: Large male intubated/sedated in NAD Heart: normal S1 and S2; no rub Lungs: distant breath sounds and decreased at base Abdomen: obese but soft, nontender, nondistended, decreased bowel sounds Extremities: no cyanosis or clubbing; no edema Skin: chronic venous stasis changes (in BLEs); wound VAC in left groin area Objective Data Vital Signs Vital Signs: Vital Signs Temp Pulse Resp BP Pulse Ox 02/20/21 08:51 82 29 H 02/20/21 08:22 71 28 H 02/20/21 08:19 70 95 02/20/21 08:17 73 28 H 02/20/21 08:00 36.5 C 81 28 H 129/82 93 02/20/21 06:00 99 24 H 146/91 H 91 02/20/21 05:00 72 92 02/20/21 04:00 36.4 C 75 24 H 105/63 91 02/20/21 02:03 69 24 H 02/20/21 02:00 68 24 H 100/53 L 92 02/20/21 01:52 71 92 02/20/21 01:51 72 27 H 02/20/21 00:00 36.4 C L 71 24 H 115/62 92 02/19/21 22:00 71 24 H 115/70 92 02/19/21 21:20 67 24 H 02/19/21 20:43 67 24 H 02/19/21 20:30 72 24 H 02/19/21 20:16 72 24 H 92 02/19/21 20:00 36.6 C 75 24 H 109/64 93 02/19/21 18:11 86 24 H 02/19/21 18:03 86 24 H 02/19/21 18:00 36.7 C 86 24 H 133/88 91 02/19/21 17:53 86 91 02/19/21 17:46 88 24 H 02/19/21 16:32 92 24 H 02/19/21 16:10 90 24 H 02/19/21 16:00 36.7 C 90 24 H 145/93 H 94 02/19/21
--- NOTE | 2021-02-20 09:42 | P.PNNP_ITS ---
Progress Note: A&P Assessment and Plan (1) Acute kidney injury: Code(s): N17.9 - Acute kidney failure, unspecified Status: Acute Assessment and Plan: * suspect ATN from sepsis secondary to necrotizing fasciitis * evaluation to date shows: * renal ultrasound without obstruction but the presence of a 9.3cm right kidney mass (cyst versus neoplasm?) * urine electrolytes suggest pre-renal azotemia * CPK low * creatinine rising but reasonable urine output noted with no critical electrolytes * not opposed to IV diuretics given CXR findings * follow repeat labs and urine output (2) Necrotizing soft tissue infection: Code(s): M79.89 - Other specified soft tissue disorders Status: Acute Assessment and Plan: * localized to the left groin and thigh * status post debridement by surgery (on 02/16/21) * on IV antibiotics * wound VAC in place * wound cultures with Enterococcus * blood cultures negative * Surgery following * recommend transferring to a facility which has experience in managing bariatric patients but no beds available at any other institution at this time (3) Sepsis: Code(s): A41.9 - Sepsis, unspecified organism Status: Acute Assessment and Plan: * due to #2 * follow culture data * continue antibiotic therapy * no need for vasopressors at this time * follow trend of hemodynamics (4) Acute respiratory failure: Code(s): J96.00 - Acute respiratory failure, unspecified whether with hypoxia or hypercapnia Status: Acute Assessment and Plan: * post-operative remains intubated and on mechanical ventilation * follow CXR findings * diuretics started and IVFs on hold (increased O2 requirement and CXR with pulmonary edema) * weaning as tolerated (5) Renal mass: Code(s): N28.89 - Other specified disorders of kidney and ureter Status: Acute Assessment and Plan: * no intervention at this time * will likely need outpatient evaluation (6) Hyperglycemia: Code(s): R73.9 - Hyperglycemia, unspecified Status: Acute Assessment and Plan: * due to underlying diabetes (does not have official diagnosis) * A1c 13.1 * follow accuchecks * on Lantus and SSI Will continue to follow. Subjective Date/time seen: 02/20/21 09:42 Chart reviewed - assuming care from Dr. Marx; remains intubated/sedated and on mechanical ventilation; hemodynamically stable without the need for pressors; reasonable urine output (although he is on diuretic therapy); no other issues/events overnight or earlier this AM. Exam Narrative: General: Large male intubated/sedated in NAD Heart: normal S1 and S2; no rub Lungs: distant breath sounds and decreased at base Abdomen: obese but soft, nontender, nondistended, decreased bowel sounds Extremities: no cyanosis or clubbing; no edema Skin: chronic venous stasis changes (in BLEs); wound VAC in left groin area Objective Data Vital Signs Vital Signs: Vital Signs Temp Pulse Resp BP Pulse Ox 02/20/21 08:51 82 29 H 02/20/21 08:22 71 28 H 02/20/21 08:19 70 95 02/20/21 08:17 73 28 H 02/20/21 08:00 36.5 C 81 28 H 129/82 93 02/20/21 06:00 99 24 H 146/91 H 91 02/20/21 05:00 72 92 02/20/21 04:00 36.4 C 75 24 H 105/63 91 02/20/21 02:03 69
--- NOTE | 2021-02-20 09:50 | PM.PNGS ---
Progress Note: A&P Assessment and Plan (1) Necrotizing soft tissue infection: Code(s): M79.89 - Other specified soft tissue disorders Status: Acute Assessment and Plan: stable, cont vac, abx (2) Renal mass: Code(s): N28.89 - Other specified disorders of kidney and ureter Status: Acute Assessment and Plan: urology consult, awaiting transfer to [facility] (3) Acute hypercapnic respiratory failure: Code(s): J96.02 - Acute respiratory failure with hypercapnia Status: Acute Assessment and Plan: management per enrollment advisor Subjective Subjective Date/Time Seen: 02/20/21 09:50 no acute issues overnight, chepe TF Review of Systems Review of Systems: ROS unobtainable: Yes unobtainable due to endotracheal tube Exam Const: General: ill appearing Cardio: Rate: regular rate Rhythm: regular rhythm GI: Inspection: normal to inspection Skin: Other: vac - C/D/I Objective Data Vital Signs Vital Signs: Vital Signs - 24 hr 02/19/21 10:00 02/19/21 11:14 02/19/21 11:15 Temperature 36.8 C Pulse Rate 88 90 89 Respiratory Rate 24 H 24 H 24 H Blood Pressure 131/82 Pulse Oximetry 90 02/19/21 11:16 02/19/21 11:23 02/19/21 12:00 Temperature 36.7 C Pulse Rate 89 87 90 Respiratory Rate 24 H 24 H Blood Pressure 167/95 H Pulse Oximetry 92 94 02/19/21 13:00 02/19/21 13:46 02/19/21 14:00 Temperature 36.7 C Pulse Rate 87 91 89 Respiratory Rate 24 H 24 H 24 H Blood Pressure 148/89 H Pulse Oximetry 94 02/19/21 16:00 02/19/21 16:10 02/19/21 16:32 Temperature 36.7 C Pulse Rate 90 90 92 Respiratory Rate 24 H 24 H 24 H Blood Pressure 145/93 H Pulse Oximetry 94 02/19/21 17:46 02/19/21 17:53 02/19/21 18:00 Temperature 36.7 C Pulse Rate 88 86 86 Respiratory Rate 24 H 24 H Blood Pressure 133/88 Pulse Oximetry 91 91 02/19/21 18:03 02/19/21 18:11 02/19/21 20:00 Temperature 36.6 C Pulse Rate 86 86 75 Respiratory Rate 24 H 24 H 24 H Blood Pressure 109/64 Pulse Oximetry 93 02/19/21 20:16 02/19/21 20:30 02/19/21 20:43 Temperature Pulse Rate 72 72 67 Respiratory Rate 24 H 24 H 24 H Blood Pressure Pulse Oximetry 92 02/19/21 21:20 02/19/21 22:00 02/20/21 00:00 Temperature 36.4 C L Pulse Rate 67 71 71 Respiratory Rate 24 H 24 H 24 H Blood Pressure 115/70 115/62 Pulse Oximetry 92 92 02/20/21 01:51 02/20/21 01:52 02/20/21 02:00 Temperature Pulse Rate 72 71 68 Respiratory Rate 27 H 24 H Blood Pressure 100/53 L Pulse Oximetry 92 92 02/20/21 02:03 02/20/21 04:00 02/20/21 05:00 Temperature 36.4 C Pulse Rate 69 75 72 Respiratory Rate 24 H 24 H Blood Pressure 105/63 Pulse Oximetry 91 92 02/20/21 06:00 02/20/21 08:00 02/20/21 08:17 Temperature 36.5 C Pulse Rate 99 81 73 Respiratory Rate 24 H 28 H 28 H Blood Pressure 146/91 H 129/82 Pulse Oximetry 91 93 02/20/21 08:19 02/20/21 08:22 02/20/21 08:51 Temperature Pulse Rate 70 71 82 Respiratory Rate 28 H 29 H Blood Pressure Pulse Oximetry 95 Intake/Output Intake/Output: Intake & Output 02/17/21 02/18/21 02/19/21 02/20/21 23:59 23:59 23:59 23:59 Intake Total 5424 4949 3551 782 Output Total 1075 1000 2930 1250 Balance 4349 7830 303 -340 Meds/Results Medications: Active Medications Generic Name Dose Route Start Last Admin Trade Name Freq PRN Reason Stop Dose Admin Albuterol 5 mg 02/16/21 14:00 02/20/21 08:17 Albuterol Sulfate Neb 2.5 Mg/0.5 Ml Inh INHALATION 5 mg Q6HRT RK Administration Bisacodyl 10 mg 02/19/21 15:30 Bisacodyl 10 Mg Suppository RECTAL QAM PRN Constipation Dextrose 12.5 gm 02/16/21 04:33 Dextrose 50% 25 Gm/50 Ml Syringe IV PUSH PRN PRN Hypoglycemia Protocol Enoxaparin Sodium 40 mg 02/19/21 09:00 02/20/21 08:31 Enoxaparin 40 Mg/0.4 Ml Syringe SUB-Q 40 mg QAM RK Administration Furosemide 40 mg 02/20/21 09:00
--- NOTE | 2021-02-20 10:15 | WPDINTPN ---
Progress Note: A&P Assessment and Plan (1) Acute respiratory failure: Code(s): J96.00 - Acute respiratory failure, unspecified whether with hypoxia or hypercapnia Status: Acute Assessment and Plan: Postop respiratory failure, continue mechanical ventilation. Patient intubated in the OR on 02/16/2021 -place patient on CMV mode of ventilation, peep of 14, 100% FiO2. Wean FiO2 as tolerated -chest x-ray reviewed and will advance ET tube by 2 cm -start Lasix and hold IV fluids - ABGs reviewed and increase respiratory rate to 28 -continue bronchodilators -continue propofol, fentanyl and Versed infusion, daily sedation vacation (2) Necrotizing soft tissue infection: Code(s): M79.89 - Other specified soft tissue disorders Status: Acute Assessment and Plan: Necrotizing soft tissue infection of the left groin and thigh, status post debridement by surgery on 02/16/2021 -continue imipenem and hold vancomycin due to worsening renal function and cultures being negative -surgery following the patient -wound VAC w management per surgery -wound cultures are growing Enterococcus which is pansensitive. - blood cultures are negative (3) Hyperglycemia: Code(s): R73.9 - Hyperglycemia, unspecified Status: Acute Assessment and Plan: Hyperglycemia, continue high-dose sliding scale insulin Accu-Cheks Increase Lantus -hemoglobin A1c is 13.1 this admission (4) Morbid obesity with BMI of 70 and over, adult: Code(s): E66.01 - Morbid (severe) obesity due to excess calories; Z68.45 - Body mass index [BMI] 70 or greater, adult Status: Acute Assessment and Plan: Morbidly obese, On Glucerna tube feeds (5) Sepsis: Code(s): A41.9 - Sepsis, unspecified organism Status: Acute Assessment and Plan: Sepsis likely related to necrotizing fasciitis, his leg still appears to be red and warm but he is afebrile and WBC had normalized Patient not on any vasopressor (6) DVT prophylaxis: Code(s): Z29.9 - Encounter for prophylactic measures, unspecified Status: Acute Assessment and Plan: Lovenox (7) Dietary counseling and surveillance: Code(s): Z71.3 - Dietary counseling and surveillance Status: Acute Assessment and Plan: Continue tube feeds (8) Acute kidney injury: Code(s): N17.9 - Acute kidney failure, unspecified Status: Acute Assessment and Plan: Likely secondary to sepsis, surgery Renal ultrasound showed Normal kidney sizes. No hydronephrosis. Nephrology follow Normal CK Patient was given IV fluids over last 24 hours but creatinine continues to increase. He continues to have good urine output I will hold fluids and give him Lasix as patient has worsening pulmonary edema and increased oxygen requirement He may need dialysis if continues to worsen (9) Renal mass: Code(s): N28.89 - Other specified disorders of kidney and ureter Status: Acute Assessment and Plan: Renal Ultrasound 02/18/21 15:51 IMPRESSION: 1. 9.3 cm right kidney mass, which may be a hemorrhagic cyst or a neoplasm. Further evaluation is recommended with CT or MRI without and with contrast, but the patient is too heavy for our CT or MRI. Another facility may have a higher weight limit. Consult urology Additional Plan DVT prophylaxis - Lovenox subQ Stress ulcer prophylaxis -PPI Nutrition - Tube Feeds Code Status - Full Code 02/19 Dr. Martinez recommends the patient be transferred to a facility which has experience in managing bariatric patient. I called and spoke to [facility] transfer line and they are not accepting any outside transfers at this time due to their ICU use being full. I also called and spoke to transfer line and [facility] provided patient's information and they have him on wait list and will call back once bed is available Case discussed with Dr. Greer from General surgery Critical care time spent: 30 minutes This
[2021-02-20] MEDS: FUROSEMIDE INJ 40 MG/4 ML VIAL IV PUSH (10:22)
[2021-02-20] MEDS: INSULIN GLARGINE (*BKC) 100 UNITS/ML 60 UNITS SUB-Q (10:22)
[2021-02-20 10:35] LABS: Glucose Point of Care 165 mg/dl (65-105)
[2021-02-20] MEDS: PROPOFOL IV EMULSION 100 ML 31.63 MG IV CONT ×5 (11:49→23:29)
--- NOTE | 2021-02-20 12:31 | WPDURCON ---
Assessment and Plan Assessment and plan (1) Renal mass: Code(s): N28.89 - Other specified disorders of kidney and ureter Status: Acute Assessment and Plan: 51 yr old critically ill, morbidly obese male admitted with necrotizing fascitis. He was found to have an incidental large right renal mass on GENNARO performed for JOSE. There is no hydronephrosis. Due to his body habitus, he cannot have a CT or MRI at [facility] to further evaluate his renal mass. Once his clinical condition improves, would recommend outpatient evaluation of this renal mass with a renal-mass protocol CT. He can f/u with Dr. Carmona or Mike in the office to further evaluate the mass. There is no evidence of scrotal/genital involvement of his necrotizing fascitis. Please call with questions Urology Consult Note HPI Date Seen: 02/20/21 Requesting Physician: Nayeli Salgado DO Primary Care Provider: Alexander Guerra MD Consult Narrative Narrative: Chetan Pappas is a 51 year old male being seen for right renal mass. Patient was admitted with necrotizing fascitis of the left groin/thigh/buttock. He is s/p debridement by general surgery. He is currently intubated and being treated for sepsis. Due to rising creatinine, GENNARO was performed 02/18/21. There was no hydronephrosis but he has a large right renal mass. Due to the patient's size, he is unable to have CT or MRI at [facility] to further evaluate this mass. All information is obtained from the chart as the patient is currently intubated and sedated. Review of Systems Review of Systems: ROS unobtainable: Yes unobtainable due to endotracheal tube and unobtainable due to medical condition PMFSH Past Medical History Medical History (Updated 02/19/21 @ 14:03 by Rell Pérez MD) Hyperglycemia Hyperglycemia Morbid obesity Obstructive sleep apnea Noncompliant with CPAP therapy Surgical History Surgical History History of shoulder surgery Right shoulder Family History Family History Mother Acute myocardial infarction Cerebrovascular accident Congestive heart failure Hypertension Diabetes mellitus Social History Social History Smoking packs per day: 1 Smoking cigarettes per day: 20.0 Smoking status: Current every day smoker Tobacco type: cigarettes Alcohol intake: never Substance use: current Substance use type: marijuana Living arrangements: with family Additional living arrangements comments: Lives at home with his mom. Reportedly completely independent in ambulation and ADL's. Occupation/Education: unemployed Additional occupation/education comments: Lost his job about 1 year ago due to being high risk for injury/falls due to his obesity. Gender identity (if verbalized by the patient): Male Spiritual care concerns: No Meds Home Medications and Allergies Home Medications Medication Instructions Recorded Confirmed Type furosemide 80 mg PO QAM 02/16/21 02/16/21 History metolazone 5 mg PO QAM 02/16/21 02/16/21 History Allergies Allergy/AdvReac Type Severity Reaction Status Date / Time No Known Allergies Allergy Verified 02/16/21 03:23 Vital Signs Vital Signs - 24 hr 02/19/21 13:00 02/19/21 13:46 02/19/21 14:00 Temperature 36.7 C Pulse Rate 87 91 89 Respiratory Rate 24 H 24 H 24 H Blood Pressure 148/89 H Pulse Oximetry 94 02/19/21 16:00 02/19/21 16:10 02/19/21 16:32 Temperature 36.7 C Pulse Rate 90 90 92 Respiratory Rate 24 H 24 H 24 H Blood Pressure 145/93 H Pulse Oximetry 94 02/19/21 17:46 02/19/21 17:53 02/19/21 18:00 Temperature 36.7 C Pulse Rate 88 86 86 Respiratory Rate 24 H 24 H Blood Pressure 133/88 Pulse Oximetry 91 91 02/19/21 18:03 02/19/21 18:11 02/19/21 20:00 Temperature 36.6 C Pulse Rate 86 86
[2021-02-20 12:36] LABS: Glucose Point of Care 168 mg/dl (65-105)
[2021-02-20 17:30] LABS: Glucose Point of Care 141 mg/dl (65-105)
[2021-02-20] MEDS: FENTANYL 2,500MCG/NS250ML(*CRX 2,500 MCG/250 ML BAG 7.5 MCG IV CONT (21:45)
[2021-02-21] VITALS (36 sets, daily range): BP systolic 111–173; BP diastolic 67–91; PULSE 62–99; RESP 20–38; TEMP 36.2–36.7; O2SAT 90–98
[2021-02-21 00:24] LABS: Glucose Point of Care 133 mg/dl (65-105)
[2021-02-21] MEDS: IPRATROPIUM BR 0.02% INH SOLN 0.5 MG/2.5 ML VIAL INHALATION ×3 (02:30→19:55)
[2021-02-21] MEDS: ALBUTEROL SULFATE NEB 2.5 MG/0.5 ML INH 5 MG INHALATION ×3 (02:30→19:55)
[2021-02-21] MEDS: PROPOFOL IV EMULSION 100 ML 31.63 MG IV CONT ×3 (02:56→22:29)
[2021-02-21] MEDS: CENTRAL LINE FLUSH 10 ML IV PUSH ×4 (04:52→20:18)
[2021-02-21 06:02] LABS: Alveolar/Arterial O2 Gradient 482.7 mmHg; Base Excess ABG 2.5 mEq/l (+/-2.0); Carboxyhemoglobin 0.3 % THb (0-2.0); Device VENTILATOR; Fractional Inspired Oxygen 85 %; HCO3 ABG 27.9 mEq/l (22.0-26.0); Methemoglobin ABG 0.2 %THb (0-1.5); Modified Allen's Test Unable to perform; Oxygen Content ABG 17.4 %vol (16.0-22.0); Oxygen Saturation ABG 95.1 % (95.0-100.0); Oxyhemoglobin 93.4 % THb (90.0-100.0); PCO2 ABG 46.1 mmHg (35.0-45.0); PO2 ABG 75.5 mmHg (80.0-100.0); PO2 FiO2 Ratio Arterial Blood 0.89 %; Reduced Hemoglobin 6.1 %THb (0-5.0); Site Drawn RIGHT RADIAL; Total Hemoglobin 13.2 g/dL (12.0-18.0)
[2021-02-21 06:03] LABS: Arterial Blood Gas PEEP 14 cmH2O; Arterial Blood Gas Tidal Volume 550 ml; Arterial Blood Gas Vent Mode CMV; Arterial Blood Gas Ventilator rate 28 /MIN
[2021-02-21 06:20] LABS: Basophils Percent Auto 0.5 % (0.2-1.2); Eosinophils Absolute Auto 0.3 K/mm3 (0-0.3); Eosinophils Percent Auto 3.1 % (0-4.4); Hematocrit 40.6 % (42.0-52.0); Hemoglobin 12.3 g/dL (14.0-18.0); Immature Granulocyte Absolute 0.09 K/mm3 (0.00-0.031); Immature Granulocyte Percent A 1.1 % (0-0.5); Lymphocytes Absolute Auto 1.05 K/mm3 (0.9-3.2); Lymphocytes Percent Auto 12.5 % (18.3-44.2); Mean Corpuscular HGB Conc 30.3 g/dl (32-36); Mean Corpuscular Hemoglobin 26.6 pg (26-34); Mean Corpuscular Volume 87.7 fl (80-100); Mean Platelet Volume 10.3 fl (7.4-10.4); Monocytes Absolute Auto 0.4 K/mm3 (0.1-0.6); Monocytes Percent Auto 4.8 % (2.6-8.5); Neutrophils Absolute Auto 6.6 K/mm3 (1.3-6.7); Platelet Count Result 222 k/mm3 (150-375); Red Blood Count 4.63 M/mm3 (4.6-6.20); White Blood Count 8.4 K/mm3 (4.5-10.0)
[2021-02-21 06:29] LABS: Alanine Aminotransferase 11 U/L (4-50); Albumin Level 2.9 g/dL (3.5-5.1); Alkaline Phosphatase 149 U/L (38-126); Anion Gap 8 mmol/L (8-16); Aspartate Amino Transferase 18 U/L (17-59); Bilirubin,Total 0.8 mg/dL (0.2-1.3); Blood Urea Nitrogen 59 mg/dL (9-20); Calcium 8.3 mg/dL (8.4-10.2); Carbon Dioxide 28 mmol/L (22-30); Chloride 94 mmol/L (98-107); Estimated CRCL calculation 43 ml/min; Estimated Glomerular Filt Rate 16; Glucose 129 mg/dL (65-110); Magnesium 2.9 mg/dL (1.6-2.3); Phosphorus 7.6 mg/dL (2.5-4.5); Potassium 4.5 mmol/L (3.4-5.0); Sodium 130 mmol/L (137-145)
[2021-02-21 06:55] LABS: Vancomycin Random 21.2 ug/mL (10-20)
--- NOTE | 2021-02-21 07:53 | PC.NURSE ---
Propofol gtt paused at [address] Pérez's orders.
[2021-02-21] MEDS: INSULIN GLARGINE (*BKC) 100 UNITS/ML 60 UNITS SUB-Q (08:18)
[2021-02-21] MEDS: FUROSEMIDE INJ 40 MG/4 ML VIAL IV PUSH (08:25)
[2021-02-21] MEDS: ENOXAPARIN 40 MG/0.4 ML SYRINGE SUB-Q (08:25)
[2021-02-21] MEDS: MINERAL OIL/WHITE PETROLATUM OINTMENT 1 APPLIC EACH EYE ×2 (08:26→20:18)
[2021-02-21] MEDS: PANTOPRAZOLE SODIUM IV 40 MG VIAL IV PUSH ×2 (08:26→20:18)
[2021-02-21] MEDS: ALBUMIN HUMAN 25% 25 GM/100 ML 100 ML IVPB (08:26)
[2021-02-21] MEDS: polyethylene glycoL 3350 17 GM POWD.PACK PO (08:27)
[2021-02-21 08:46] LABS: Glucose Point of Care 153 mg/dl (65-105)
--- NOTE | 2021-02-21 09:59 | WPDINTPN ---
Progress Note: A&P Assessment and Plan (1) Acute respiratory failure: Code(s): J96.00 - Acute respiratory failure, unspecified whether with hypoxia or hypercapnia Status: Acute Assessment and Plan: Postop respiratory failure, continue mechanical ventilation. Patient intubated in the OR on 02/16/2021 -place patient on CMV mode of ventilation, peep of 14, 85% FiO2. Wean FiO2 as tolerated -chest x-ray reviewed -continue Lasix and hold IV fluids - ABGs reviewed -continue bronchodilators -continue propofol, fentanyl and Versed infusion, daily sedation vacation -not ready for weaning at this time (2) Necrotizing soft tissue infection: Code(s): M79.89 - Other specified soft tissue disorders Status: Acute Assessment and Plan: Necrotizing soft tissue infection of the left groin and thigh, status post debridement by surgery on 02/16/2021 -continue imipenem and vancomycin discontinue due to worsening renal function and cultures being negative -surgery following the patient -wound VAC management per surgery -wound cultures are growing Enterococcus which is pansensitive. - blood cultures are negative (3) Hyperglycemia: Code(s): R73.9 - Hyperglycemia, unspecified Status: Acute Assessment and Plan: Hyperglycemia, continue high-dose sliding scale insulin Accu-Cheks Continue Lantus -hemoglobin A1c is 13.1 this admission (4) Morbid obesity with BMI of 70 and over, adult: Code(s): E66.01 - Morbid (severe) obesity due to excess calories; Z68.45 - Body mass index [BMI] 70 or greater, adult Status: Acute Assessment and Plan: Morbidly obese, On Glucerna tube feeds (5) Sepsis: Code(s): A41.9 - Sepsis, unspecified organism Status: Acute Assessment and Plan: Sepsis likely related to necrotizing fasciitis, his leg still appears to be red and warm but he is afebrile and WBC had normalized Patient not on any vasopressor (6) DVT prophylaxis: Code(s): Z29.9 - Encounter for prophylactic measures, unspecified Status: Acute Assessment and Plan: Lovenox (7) Dietary counseling and surveillance: Code(s): Z71.3 - Dietary counseling and surveillance Status: Acute Assessment and Plan: Continue tube feeds (8) Acute kidney injury: Code(s): N17.9 - Acute kidney failure, unspecified Status: Acute Assessment and Plan: Likely secondary to sepsis, surgery Renal ultrasound showed Normal kidney sizes and No hydronephrosis. Nephrology follow Normal CK Patient was given IV fluids but creatinine continues to increase. He is overall volume overloaded He continues to have good urine output. Continue Lasix He may need dialysis if continues to worsen (9) Renal mass: Code(s): N28.89 - Other specified disorders of kidney and ureter Status: Acute Assessment and Plan: Renal Ultrasound 02/18/21 15:51 IMPRESSION: 1. 9.3 cm right kidney mass, which may be a hemorrhagic cyst or a neoplasm. Further evaluation is recommended with CT or MRI without and with contrast, but the patient is too heavy for our CT or MRI. Another facility may have a higher weight limit. Consulted urology and they recommend outpatient evaluation once patient clinically improved (10) Constipation: Code(s): K59.00 - Constipation, unspecified Status: Acute Assessment and Plan: Tolerating tube feeds Scheduled MiraLax and p.r.n. to collect suppository ordered Additional Plan DVT prophylaxis - Lovenox subQ Stress ulcer prophylaxis -PPI Nutrition - Tube Feeds Code Status - Full Code 02/19 Dr. Martinez recommends the patient be transferred to a facility which has experience in managing bariatric patient. I called and spoke to [facility] transfer line and they are not accepting any outside transfers at this time due to their ICU use being full. I also called and spoke to transfer line and [facility] provided patient's infor
--- NOTE | 2021-02-21 11:23 | P.PNNP_ITS ---
Progress Note: A&P Assessment and Plan (1) Acute kidney injury: Code(s): N17.9 - Acute kidney failure, unspecified Status: Acute Assessment and Plan: * suspect ATN from sepsis secondary to necrotizing fasciitis * evaluation to date shows: * renal ultrasound without obstruction but the presence of a 9.3cm right kidney mass (cyst versus neoplasm?) * urine electrolytes suggest pre-renal azotemia * CPK low * creatinine rising but reasonable urine output noted with no critical electrolytes * on IV diuretics due to volume overload status * follow repeat labs and urine output * remains at risk for needing [employer]/dialysis (2) Necrotizing soft tissue infection: Code(s): M79.89 - Other specified soft tissue disorders Status: Acute Assessment and Plan: * localized to the left groin and thigh * status post debridement by surgery (on 02/16/21) * on IV antibiotics * wound VAC in place * wound cultures with Enterococcus * blood cultures negative * Surgery following * recommend transferring to a facility which has experience in managing bariatric patients but no beds available at any other institution at this time (3) Sepsis: Code(s): A41.9 - Sepsis, unspecified organism Status: Acute Assessment and Plan: * due to #2 * follow culture data * continue antibiotic therapy * no need for vasopressors at this time * follow trend of hemodynamics (4) Acute respiratory failure: Code(s): J96.00 - Acute respiratory failure, unspecified whether with hypoxia or hypercapnia Status: Acute Assessment and Plan: * post-operative remains intubated and on mechanical ventilation * follow CXR findings * diuretics started and IVFs on hold (increased O2 requirement and CXR with pulmonary edema) * weaning as tolerated (5) Renal mass: Code(s): N28.89 - Other specified disorders of kidney and ureter Status: Acute Assessment and Plan: * no intervention at this time * will likely need outpatient evaluation (6) Hyperglycemia: Code(s): R73.9 - Hyperglycemia, unspecified Status: Acute Assessment and Plan: * due to underlying diabetes (does not have official diagnosis) * A1c 13.1 * follow accuchecks * on Lantus and SSI Will continue to follow. Subjective Date/time seen: 02/21/21 11:23 Remains intubated/sedated and on mechanical ventilation; remains hemodynamically stable without the need for pressor support; tolerated IV diuresis with better urine output (but at the expense of renal function - creatinine higher today); no issues/events overnight or earlier this morning. Exam Narrative: General: Large male intubated/sedated in NAD Heart: normal S1 and S2; no rub Lungs: distant breath sounds and decreased at base Abdomen: obese but soft, nontender, nondistended, decreased bowel sounds Extremities: no cyanosis or clubbing; no edema Skin: chronic venous stasis changes noted (in BLEs); wound VAC in left groin area; decreased erythema/warmth in LLE Objective Data Vital Signs Vital Signs: Vital Signs Temp Pulse Resp BP Pulse Ox 02/21/21 10:00 83 28 H 160/91 H 90 02/21/21 09:00 85 28 H 02/21/21 08:50 81 28 H 93 02/21/21 08:00 36.6 C 69 28 H 127/78 92 02/21/21 07:52 69 28 H 02/21/21 06:57 68 28 H
--- NOTE | 2021-02-21 11:23 | PM.PNNEP ---
Progress Note: A&P Assessment and Plan (1) Acute kidney injury: Code(s): N17.9 - Acute kidney failure, unspecified Status: Acute Assessment and Plan: suspect ATN from sepsis secondary to necrotizing fasciitis evaluation to date shows: renal ultrasound without obstruction but the presence of a 9.3cm right kidney mass (cyst versus neoplasm?) urine electrolytes suggest pre-renal azotemia CPK low creatinine rising but reasonable urine output noted with no critical electrolytes on IV diuretics due to volume overload status follow repeat labs and urine output remains at risk for needing [employer]/dialysis (2) Necrotizing soft tissue infection: Code(s): M79.89 - Other specified soft tissue disorders Status: Acute Assessment and Plan: localized to the left groin and thigh status post debridement by surgery (on 02/16/21) on IV antibiotics wound VAC in place wound cultures with Enterococcus blood cultures negative Surgery following recommend transferring to a facility which has experience in managing bariatric patients but no beds available at any other institution at this time (3) Sepsis: Code(s): A41.9 - Sepsis, unspecified organism Status: Acute Assessment and Plan: due to #2 follow culture data continue antibiotic therapy no need for vasopressors at this time follow trend of hemodynamics (4) Acute respiratory failure: Code(s): J96.00 - Acute respiratory failure, unspecified whether with hypoxia or hypercapnia Status: Acute Assessment and Plan: post-operative remains intubated and on mechanical ventilation follow CXR findings diuretics started and IVFs on hold (increased O2 requirement and CXR with pulmonary edema) weaning as tolerated (5) Renal mass: Code(s): N28.89 - Other specified disorders of kidney and ureter Status: Acute Assessment and Plan: no intervention at this time will likely need outpatient evaluation (6) Hyperglycemia: Code(s): R73.9 - Hyperglycemia, unspecified Status: Acute Assessment and Plan: due to underlying diabetes (does not have official diagnosis) A1c 13.1 follow accuchecks on Lantus and SSI Will continue to follow. Subjective Date/time seen: 02/21/21 11:23 Remains intubated/sedated and on mechanical ventilation; remains hemodynamically stable without the need for pressor support; tolerated IV diuresis with better urine output (but at the expense of renal function - creatinine higher today); no issues/events overnight or earlier this morning. Exam Narrative: General: Large male intubated/sedated in NAD Heart: normal S1 and S2; no rub Lungs: distant breath sounds and decreased at base Abdomen: obese but soft, nontender, nondistended, decreased bowel sounds Extremities: no cyanosis or clubbing; no edema Skin: chronic venous stasis changes noted (in BLEs); wound VAC in left groin area; decreased erythema/warmth in LLE Objective Data Vital Signs Vital Signs: Vital Signs Temp Pulse Resp BP Pulse Ox 02/21/21 10:00 83 28 H 160/91 H 90 02/21/21 09:00 85 28 H 02/21/21 08:50 81 28 H 93 02/21/21 08:00 36.6 C 69 28 H 127/78 92 02/21/21 07:52 69 28 H 02/21/21 06:57 68 28 H 02/21/21 06:06 69 28 H 02/21/21 06:00 69 28 H 123/74 92 02/21/21 05:15 67 93 02/21/21 04:00 36.6 C 64 28 H 124/82 94 02/21/21 02:56 66 28 H 02/21/21 02:39 66 28 H 02/21/21 02:37 66 28 H 02/21/21 02:30 66 28 H 02/21/21 02:20 65 95 02/21/21 01:37 67 02/21/21 01:36 66 28 H 121/71 94 02/21/21 00:00 67 02/20/21 23:25 36.6 C 68 28 H 124/73 94 02/20/21 23:22 94 02/20/21 23:00 69 94 02/20/21 22:00 68 28 H 126/82 94 02/20/21 21:45 70 28 H 02/20/21 20:15 72 28 H 02/20/21 20:02 72 94 02/20/21 20:00 36.8 C 70 28 H
--- NOTE | 2021-02-21 12:16 | PM.PNGS ---
Progress Note: A&P Assessment and Plan (1) Necrotizing soft tissue infection: Code(s): M79.89 - Other specified soft tissue disorders Status: Acute Assessment and Plan: stable, cont vac, planned change tomorrow, cont abx, wean vent as chepe, cont TF Subjective Subjective Date/Time Seen: 02/21/21 12:16 no acute issues, events noted, chepe TF at goal Review of Systems Review of Systems: ROS unobtainable: Yes unobtainable due to endotracheal tube Exam Const: Nutritional Appearance: obese Other: follows commands Resp: Auscultation: diminished lung sounds Cardio: Rate: regular rate Rhythm: regular rhythm GI: Inspection: normal to inspection and distended GI Palp: Yes Soft to palpation and No Tenderness to palpation present (GI) Skin: Other: vac - C/D/I Objective Data Vital Signs Vital Signs: Vital Signs - 24 hr 02/20/21 12:31 02/20/21 14:00 02/20/21 16:00 Temperature 36.8 C 36.8 C Pulse Rate 83 66 66 Respiratory Rate 29 H 28 H 28 H Blood Pressure 108/70 107/73 Pulse Oximetry 94 93 02/20/21 17:55 02/20/21 18:00 02/20/21 19:23 Temperature 36.8 C Pulse Rate 69 69 70 Respiratory Rate 28 H 28 H Blood Pressure 118/78 Pulse Oximetry 94 94 02/20/21 20:00 02/20/21 20:02 02/20/21 20:15 Temperature 36.8 C Pulse Rate 70 72 72 Respiratory Rate 28 H 28 H Blood Pressure 122/79 Pulse Oximetry 93 94 02/20/21 21:45 02/20/21 22:00 02/20/21 23:00 Temperature Pulse Rate 70 68 69 Respiratory Rate 28 H 28 H Blood Pressure 126/82 Pulse Oximetry 94 94 02/20/21 23:22 02/20/21 23:25 02/21/21 00:00 Temperature 36.6 C Pulse Rate 68 67 Respiratory Rate 28 H Blood Pressure 124/73 Pulse Oximetry 94 94 02/21/21 01:36 02/21/21 01:37 02/21/21 02:20 Temperature Pulse Rate 66 67 65 Respiratory Rate 28 H Blood Pressure 121/71 Pulse Oximetry 94 95 02/21/21 02:30 02/21/21 02:37 02/21/21 02:39 Temperature Pulse Rate 66 66 66 Respiratory Rate 28 H 28 H 28 H Blood Pressure Pulse Oximetry 02/21/21 02:56 02/21/21 04:00 02/21/21 05:15 Temperature 36.6 C Pulse Rate 66 64 67 Respiratory Rate 28 H 28 H Blood Pressure 124/82 Pulse Oximetry 94 93 02/21/21 06:00 02/21/21 06:06 02/21/21 06:57 Temperature Pulse Rate 69 69 68 Respiratory Rate 28 H 28 H 28 H Blood Pressure 123/74 Pulse Oximetry 92 02/21/21 07:52 02/21/21 08:00 02/21/21 08:50 Temperature 36.6 C Pulse Rate 69 69 81 Respiratory Rate 28 H 28 H 28 H Blood Pressure 127/78 Pulse Oximetry 92 93 02/21/21 09:00 02/21/21 10:00 02/21/21 12:00 Temperature 36.2 C L Pulse Rate 85 83 76 Respiratory Rate 28 H 28 H 28 H Blood Pressure 160/91 H 137/86 Pulse Oximetry 90 93 02/21/21 12:06 Temperature Pulse Rate 78 Respiratory Rate Blood Pressure Pulse Oximetry 93 Intake/Output Intake/Output: Intake & Output 02/18/21 02/19/21 02/20/21 02/21/21 23:59 23:59 23:59 23:59 Intake Total 4949 3551 2857 1030 Output Total 1000 2930 3700 1850 Balance 3949 621 -843 -820 Meds/Results Medications: Active Medications Generic Name Dose Route Start Last Admin Trade Name Freq PRN Reason Stop Dose Admin Albuterol 5 mg 02/16/21 14:00 02/21/21 02:30 Albuterol Sulfate Neb 2.5 Mg/0.5 Ml Inh INHALATION 5 mg Q6HRT RK Administration Bisacodyl 10 mg 02/19/21 15:30 Bisacodyl 10 Mg Suppository RECTAL QAM PRN Constipation Dextrose 12.5 gm 02/16/21 04:33 Dextrose 50% 25 Gm/50 Ml Syringe IV PUSH PRN PRN Hypoglycemia Protocol Enoxaparin Sodium 40 mg 02/19/21 09:00 02/21/21 08:25 Enoxaparin 40 Mg/0.4 Ml Syringe SUB-Q 40 mg QAM RK Administration Furosemide 40 mg 02/20/21 09:00 02/21/21 08:25 Furosemide Inj 40 Mg/4 Ml Vial IV PUSH 40 mg DAILY RK Administration Glucagon 1 mg 02/16/21 04:33 Glucagon For Inj 1 Mg Vial IM PRN PRN Hypoglycemia Protocol Glucose 1
[2021-02-21 14:11] LABS: Glucose Point of Care 163 mg/dl (65-105)
--- NOTE | 2021-02-21 14:46 | PM.IMPN ---
Progress Note: A&P Assessment and Plan (1) Acute respiratory failure: Code(s): J96.00 - Acute respiratory failure, unspecified whether with hypoxia or hypercapnia Status: Acute Assessment and Plan: Postop respiratory failure, continue mechanical ventilation. Patient intubated in the OR on 02/16/2021 -place patient on CMV mode of ventilation, peep of 14, 85% FiO2. Wean FiO2 as tolerated -chest x-ray reviewed -continue Lasix and hold IV fluids - ABGs reviewed -continue bronchodilators -continue propofol, fentanyl and Versed infusion, daily sedation vacation -not ready for weaning at this time (2) Necrotizing soft tissue infection: Code(s): M79.89 - Other specified soft tissue disorders Status: Acute Assessment and Plan: Necrotizing soft tissue infection of the left groin and thigh, status post debridement by surgery on 02/16/2021 -continue imipenem and vancomycin discontinue due to worsening renal function and cultures being negative -surgery following the patient -wound VAC management per surgery -wound cultures are growing Enterococcus which is pansensitive. - blood cultures are negative (3) Hyperglycemia: Code(s): R73.9 - Hyperglycemia, unspecified Status: Acute Assessment and Plan: Hyperglycemia, continue high-dose sliding scale insulin Accu-Cheks Continue Lantus -hemoglobin A1c is 13.1 this admission (4) Morbid obesity with BMI of 70 and over, adult: Code(s): E66.01 - Morbid (severe) obesity due to excess calories; Z68.45 - Body mass index [BMI] 70 or greater, adult Status: Acute Assessment and Plan: Morbidly obese, On Glucerna tube feeds (5) Sepsis: Code(s): A41.9 - Sepsis, unspecified organism Status: Acute Assessment and Plan: Sepsis likely related to necrotizing fasciitis, his leg still appears to be red and warm but he is afebrile and WBC had normalized Patient not on any vasopressor (6) DVT prophylaxis: Code(s): Z29.9 - Encounter for prophylactic measures, unspecified Status: Acute Assessment and Plan: Lovenox (7) Dietary counseling and surveillance: Code(s): Z71.3 - Dietary counseling and surveillance Status: Acute Assessment and Plan: Continue tube feeds (8) Acute kidney injury: Code(s): N17.9 - Acute kidney failure, unspecified Status: Acute Assessment and Plan: Likely secondary to sepsis, surgery Renal ultrasound showed Normal kidney sizes and No hydronephrosis. Nephrology follow Normal CK Patient was given IV fluids but creatinine continues to increase. He is overall volume overloaded He continues to have good urine output. Continue Lasix He may need dialysis if continues to worsen (9) Renal mass: Code(s): N28.89 - Other specified disorders of kidney and ureter Status: Acute Assessment and Plan: Renal Ultrasound 02/18/21 15:51 IMPRESSION: 1. 9.3 cm right kidney mass, which may be a hemorrhagic cyst or a neoplasm. Further evaluation is recommended with CT or MRI without and with contrast, but the patient is too heavy for our CT or MRI. Another facility may have a higher weight limit. Consulted urology and they recommend outpatient evaluation once patient clinically improved (10) Constipation: Code(s): K59.00 - Constipation, unspecified Status: Acute Assessment and Plan: Tolerating tube feeds Scheduled MiraLax and p.r.n. to collect suppository ordered Additional Plan 02/21/2021 Will continue current plan care treatment. Monitor creatinine closely. Extubate when patient is mood stable. Subjective Date/time seen: 02/21/21 14:46 Patient was seen during morning rounds today. Patient is intubated, responds to verbal command. No new overnight issue Review of Systems Review of Systems: All systems reviewed & are unremarkable except as noted in HPI and below ROS unobtainable: Yes unobtainable du
[2021-02-21] MEDS: PROPOFOL IV EMULSION 100 ML 7.91 MG IV CONT (17:00)
[2021-02-21 17:32] LABS: Glucose Point of Care 143 mg/dl (65-105)
[2021-02-21 18:06] LABS: Glucose Point of Care 133 mg/dl (65-105)
[2021-02-21] MEDS: PHARMACIST COMMUNICATION ORDER 1 EACH XX (20:20)
[2021-02-21 20:25] LABS: Glucose Point of Care 103 mg/dl (65-105)
[2021-02-21 23:29] LABS: Glucose Point of Care 107 mg/dl (65-105)
[2021-02-22] VITALS (46 sets, daily range): BP systolic 108–180; BP diastolic 62–91; PULSE 62–106; RESP 22–35; TEMP 36.8–37.4; O2SAT 89–96
[2021-02-22] MEDS: PROPOFOL IV EMULSION 100 ML 31.63 MG IV CONT ×4 (02:00→16:21)
[2021-02-22] MEDS: ALBUTEROL SULFATE NEB 2.5 MG/0.5 ML INH 5 MG INHALATION ×4 (03:00→21:05)
[2021-02-22] MEDS: IPRATROPIUM BR 0.02% INH SOLN 0.5 MG/2.5 ML VIAL INHALATION ×4 (03:01→21:05)
[2021-02-22 03:07] LABS: Hematocrit 38.4 % (42.0-52.0); Hemoglobin 11.7 g/dL (14.0-18.0); Mean Corpuscular HGB Conc 30.5 g/dl (32-36); Mean Corpuscular Hemoglobin 27.1 pg (26-34); Mean Corpuscular Volume 89.1 fl (80-100); Mean Platelet Volume 10.1 fl (7.4-10.4); Platelet Count Result 221 k/mm3 (150-375); Red Blood Count 4.31 M/mm3 (4.6-6.20); Red Cell Distribution Width 15.9 % (11.5-14.5); White Blood Count 7.7 K/mm3 (4.5-10.0)
[2021-02-22 03:16] LABS: Alanine Aminotransferase 9 U/L (4-50); Alkaline Phosphatase 143 U/L (38-126); Anion Gap 9 mmol/L (8-16); Aspartate Amino Transferase 17 U/L (17-59); Bilirubin,Total 0.8 mg/dL (0.2-1.3); Blood Urea Nitrogen 62 mg/dL (9-20); Calcium 8.6 mg/dL (8.4-10.2); Carbon Dioxide 29 mmol/L (22-30); Chloride 94 mmol/L (98-107); Estimated CRCL calculation 43 ml/min; Estimated Glomerular Filt Rate 16; Glucose 116 mg/dL (65-110); Magnesium 2.7 mg/dL (1.6-2.3); Potassium 4.2 mmol/L (3.4-5.0); Sodium 132 mmol/L (137-145)
[2021-02-22] MEDS: CENTRAL LINE FLUSH 10 ML IV PUSH ×3 (03:19→20:40)
[2021-02-22] MEDS: FENTANYL 2,500MCG/NS250ML(*CRX 2,500 MCG/250 ML BAG 7.5 MCG IV CONT (04:26)
[2021-02-22 05:48] LABS: Alveolar/Arterial O2 Gradient 541.3 mmHg; Base Excess ABG 4.3 mEq/l (+/-2.0); Carboxyhemoglobin 0.1 % THb (0-2.0); Fractional Inspired Oxygen 90 %; HCO3 ABG 27.3 mEq/l (22.0-26.0); Methemoglobin ABG 0.1 %THb (0-1.5); Oxygen Content ABG 17.1 %vol (16.0-22.0); Oxygen Saturation ABG 94.3 % (95.0-100.0); Oxyhemoglobin 92.6 % THb (90.0-100.0); PCO2 ABG 35.4 mmHg (35.0-45.0); PO2 ABG 64.1 mmHg (80.0-100.0); PO2 FiO2 Ratio Arterial Blood 0.71 %; Reduced Hemoglobin 7.2 %THb (0-5.0); Total Hemoglobin 13.1 g/dL (12.0-18.0)
[2021-02-22 05:50] LABS: Device VENTILATOR; Modified Allen's Test Pass; Site Drawn LEFT RADIAL; pH ABG 7.505 (7.350-7.450)
[2021-02-22 05:52] LABS: Arterial Blood Gas Vent Mode CMV; Arterial Blood Gas Ventilator rate 28 /MIN
[2021-02-22 05:53] LABS: Arterial Blood Gas PEEP 14 cmH2O; Arterial Blood Gas Tidal Volume 550 ml
--- NOTE | 2021-02-22 06:45 | WPDUROPN2 ---
Progress Note: A&P Assessment and Plan (1) Renal mass: Code(s): N28.89 - Other specified disorders of kidney and ureter Status: Acute Assessment and Plan: 51 yr old critically ill, morbidly obese male admitted with necrotizing fascitis. He was found to have an incidental large right renal mass on GENNARO performed for JOSE. There is no hydronephrosis. Due to his body habitus, he cannot have a CT or MRI at [place] to further evaluate his renal mass. Once his clinical condition improves, would recommend outpatient evaluation of this renal mass with a renal-mass protocol CT. He can f/u with Dr. Carmona or Mike in the office to further evaluate the mass. There is no evidence of scrotal/genital involvement of his necrotizing fascitis. Please call with questions 02/22/21 Imaging reviewed - large (9cm), indeterminate right renal mass will eventually need addiitional evaluation at outside CT-scanner that can accomadate his size/weight Subjective Subjective Date/Time Seen: 02/22/21 06:45 Intubated, no acute events overnight Review of Systems Review of Systems: ROS unobtainable: Yes unobtainable due to endotracheal tube Exam : Scrotum: scrotum normal Urinary Catheter: Urinary Catheter: patent and draining and urine clear Objective Data Vital Signs Vital Signs: Vital Signs - 24 hr 02/21/21 06:57 02/21/21 07:52 02/21/21 08:00 Temperature 97.8 F Pulse Rate 68 69 76 Respiratory Rate 28 H 28 H 28 H Blood Pressure 127/78 Pulse Oximetry 92 02/21/21 08:50 02/21/21 09:00 02/21/21 10:00 Temperature Pulse Rate 81 85 83 Respiratory Rate 28 H 28 H 28 H Blood Pressure 160/91 H Pulse Oximetry 93 90 02/21/21 12:00 02/21/21 12:06 02/21/21 14:00 Temperature 97.2 F L Pulse Rate 81 78 99 Respiratory Rate 28 H 28 H Blood Pressure 137/86 173/91 H Pulse Oximetry 93 93 94 02/21/21 14:55 02/21/21 15:01 02/21/21 15:03 Temperature Pulse Rate 86 90 96 Respiratory Rate 28 H 28 H Blood Pressure Pulse Oximetry 93 02/21/21 16:00 02/21/21 17:00 02/21/21 18:00 Temperature 97.8 F 98.0 F Pulse Rate 76 76 71 Respiratory Rate 28 H 28 H 28 H Blood Pressure 133/76 133/79 Pulse Oximetry 93 92 02/21/21 18:57 02/21/21 19:55 02/21/21 19:56 Temperature Pulse Rate 90 79 77 Respiratory Rate 38 H 28 H Blood Pressure Pulse Oximetry 98 02/21/21 19:59 02/21/21 20:00 02/21/21 21:18 Temperature 98.1 F Pulse Rate 77 73 65 Respiratory Rate 28 H 28 H 25 H Blood Pressure 111/67 Pulse Oximetry 92 02/21/21 21:59 02/21/21 22:29 02/21/21 23:00 Temperature 98.1 F Pulse Rate 64 63 62 Respiratory Rate 23 H 23 H Blood Pressure 111/67 Pulse Oximetry 92 95 02/22/21 00:00 02/22/21 01:19 02/22/21 01:39 Temperature 98.2 F 98.2 F Pulse Rate 62 62 65 Respiratory Rate 28 H 28 H 28 H Blood Pressure 162/74 H 108/62 Pulse Oximetry 92 93 02/22/21 02:00 02/22/21 03:04 02/22/21 04:00 Temperature 98.2 F Pulse Rate 65 66 65 Respiratory Rate 28 H 28 H 28 H Blood Pressure 120/65 Pulse Oximetry 94 91 02/22/21 04:23 02/22/21 04:26 02/22/21 05:15 Temperature Pulse Rate 65 64 72 Respiratory Rate 28 H 28 H Blood Pressure Pulse Oximetry 96 02/22/21 06:00 Temperature Pulse Rate 68 Respiratory Rate 22 H Blood Pressure 134/72 Pulse Oximetry 92 Intake/Output Intake/Output: Intake & Output 02/19/21 02/20/21 02/21/21 02/22/21 23:59 23:59 23:59 23:59 Intake Total 3551 2857 2602 1110 Output Total 2930 3700 4600 650 [facility] [phone] 460 Meds/Results Medications: Active Medications Generic Name Dose Route Start Last Admin Trade Name Freq PRN Reason Stop Dose Admin Albuterol 5 mg 02/16/21 14:00 02/22/21 03:00 Albuterol Sulfate Neb 2.5 Mg/0.5 Ml Inh INHALATION 5 mg Q6HRT RK Administration Bisacodyl 10 mg 02/19/21 15:30 Bisacodyl 10 Mg Suppository RECTAL QAM PRN Constipation Dextrose 12
--- NOTE | 2021-02-22 08:03 | PM.IMPN ---
Progress Note: A&P Assessment and Plan (1) Acute respiratory failure: Code(s): J96.00 - Acute respiratory failure, unspecified whether with hypoxia or hypercapnia Status: Acute Assessment and Plan: Postop respiratory failure, continue mechanical ventilation. Patient intubated in the OR on 02/16/2021 -place patient on CMV mode of ventilation, peep of 14, 85% FiO2. Wean FiO2 as tolerated -chest x-ray reviewed -continue Lasix and hold IV fluids - ABGs reviewed -continue bronchodilators -continue propofol, fentanyl and Versed infusion, daily sedation vacation -not ready for weaning at this time (2) Necrotizing soft tissue infection: Code(s): M79.89 - Other specified soft tissue disorders Status: Acute Assessment and Plan: Necrotizing soft tissue infection of the left groin and thigh, status post debridement by surgery on 02/16/2021 -continue imipenem and vancomycin discontinue due to worsening renal function and cultures being negative -surgery following the patient -wound VAC management per surgery -wound cultures are growing Enterococcus which is pansensitive. - blood cultures are negative (3) Hyperglycemia: Code(s): R73.9 - Hyperglycemia, unspecified Status: Acute Assessment and Plan: Hyperglycemia, continue high-dose sliding scale insulin Accu-Cheks Continue Lantus -hemoglobin A1c is 13.1 this admission (4) Morbid obesity with BMI of 70 and over, adult: Code(s): E66.01 - Morbid (severe) obesity due to excess calories; Z68.45 - Body mass index [BMI] 70 or greater, adult Status: Acute Assessment and Plan: Morbidly obese, On Glucerna tube feeds (5) Sepsis: Code(s): A41.9 - Sepsis, unspecified organism Status: Acute Assessment and Plan: Sepsis likely related to necrotizing fasciitis, his leg still appears to be red and warm but he is afebrile and WBC had normalized Patient not on any vasopressor (6) DVT prophylaxis: Code(s): Z29.9 - Encounter for prophylactic measures, unspecified Status: Acute Assessment and Plan: Lovenox (7) Dietary counseling and surveillance: Code(s): Z71.3 - Dietary counseling and surveillance Status: Acute Assessment and Plan: Continue tube feeds (8) Acute kidney injury: Code(s): N17.9 - Acute kidney failure, unspecified Status: Acute Assessment and Plan: Likely secondary to sepsis, surgery Renal ultrasound showed Normal kidney sizes and No hydronephrosis. Nephrology follow Normal CK Patient was given IV fluids but creatinine continues to increase. He is overall volume overloaded He continues to have good urine output. Continue Lasix He may need dialysis if continues to worsen (9) Renal mass: Code(s): N28.89 - Other specified disorders of kidney and ureter Status: Acute Assessment and Plan: Renal Ultrasound 02/18/21 15:51 IMPRESSION: 1. 9.3 cm right kidney mass, which may be a hemorrhagic cyst or a neoplasm. Further evaluation is recommended with CT or MRI without and with contrast, but the patient is too heavy for our CT or MRI. Another facility may have a higher weight limit. Consulted urology and they recommend outpatient evaluation once patient clinically improved (10) Constipation: Code(s): K59.00 - Constipation, unspecified Status: Acute Assessment and Plan: Tolerating tube feeds Scheduled MiraLax and p.r.n. to collect suppository ordered Additional Plan 02/21/2021 Will continue current plan care treatment. Monitor creatinine closely. Extubate when patient is mood stable. 02/22/2021 Will continue current plan of care and treatment. Monitor electrolytes and CBC closely especially creatinine. Extubate when patient is more stable Subjective Date/time seen: 02/22/21 08:03 Patient was seen during the morning rounds today. Patient is intubated sedated. No new overnight complaints.
[2021-02-22 08:22] LABS: Glucose Point of Care 144 mg/dl (65-105)
[2021-02-22] MEDS: MIDAZOLAM 100MG/NS 100ML(*CRX) 100 MG/100 ML BAG IV CONT (09:31)
[2021-02-22] MEDS: FUROSEMIDE INJ 40 MG/4 ML VIAL IV PUSH (09:33)
[2021-02-22] MEDS: polyethylene glycoL 3350 17 GM POWD.PACK PO (09:33)
[2021-02-22] MEDS: ENOXAPARIN 40 MG/0.4 ML SYRINGE SUB-Q (09:33)
[2021-02-22] MEDS: PANTOPRAZOLE SODIUM IV 40 MG VIAL IV PUSH ×2 (09:33→20:40)
[2021-02-22] MEDS: MINERAL OIL/WHITE PETROLATUM OINTMENT 1 APPLIC EACH EYE ×2 (09:34→20:40)
[2021-02-22] MEDS: INSULIN GLARGINE (*BKC) 100 UNITS/ML 60 UNITS SUB-Q (09:34)
--- NOTE | 2021-02-22 09:49 | WPDINTPN ---
Progress Note: A&P Assessment and Plan (1) Acute respiratory failure: Code(s): J96.00 - Acute respiratory failure, unspecified whether with hypoxia or hypercapnia Status: Acute Assessment and Plan: Postop respiratory failure, continue mechanical ventilation. Patient intubated in the OR on 02/16/2021 -place patient on CMV mode of ventilation, peep of 14, 85% FiO2. Wean FiO2 as tolerated -chest x-ray reviewed -advance ET tube by 2 cm -continue Lasix and hold IV fluids - ABGs reviewed -decrease tidal volume to 450 -continue bronchodilators -continue propofol, fentanyl and Versed infusion, daily sedation vacation -not ready for weaning at this time (2) Necrotizing soft tissue infection: Code(s): M79.89 - Other specified soft tissue disorders Status: Acute Assessment and Plan: Necrotizing soft tissue infection of the left groin and thigh, status post debridement by surgery on 02/16/2021 -continue imipenem and vancomycin discontinue due to worsening renal function and cultures being negative -surgery following the patient -wound VAC management per surgery and will be changed today -wound cultures are growing Enterococcus which is pansensitive. - blood cultures are negative (3) Hyperglycemia: Code(s): R73.9 - Hyperglycemia, unspecified Status: Acute Assessment and Plan: Hyperglycemia, continue high-dose sliding scale insulin Accu-Cheks Continue Lantus -hemoglobin A1c is 13.1 this admission (4) Morbid obesity with BMI of 70 and over, adult: Code(s): E66.01 - Morbid (severe) obesity due to excess calories; Z68.45 - Body mass index [BMI] 70 or greater, adult Status: Acute Assessment and Plan: Morbidly obese, On Glucerna tube feeds (5) Sepsis: Code(s): A41.9 - Sepsis, unspecified organism Status: Acute Assessment and Plan: Sepsis likely related to necrotizing fasciitis, his leg still appears to be red and warm but he is afebrile and WBC had normalized Patient not on any vasopressor (6) DVT prophylaxis: Code(s): Z29.9 - Encounter for prophylactic measures, unspecified Status: Acute Assessment and Plan: Lovenox (7) Dietary counseling and surveillance: Code(s): Z71.3 - Dietary counseling and surveillance Status: Acute Assessment and Plan: Continue tube feeds (8) Acute kidney injury: Code(s): N17.9 - Acute kidney failure, unspecified Status: Acute Assessment and Plan: Likely secondary to sepsis, surgery Renal ultrasound showed Normal kidney sizes and No hydronephrosis. Nephrology follow Normal CK Patient was given IV fluids but creatinine continues to increase. He is overall volume overloaded He continues to have good urine output. Continue Lasix He may need dialysis if continues to worsen (9) Renal mass: Code(s): N28.89 - Other specified disorders of kidney and ureter Status: Acute Assessment and Plan: Renal Ultrasound 02/18/21 15:51 IMPRESSION: 1. 9.3 cm right kidney mass, which may be a hemorrhagic cyst or a neoplasm. Further evaluation is recommended with CT or MRI without and with contrast, but the patient is too heavy for our CT or MRI. Another facility may have a higher weight limit. Consulted urology and they recommend outpatient evaluation once patient clinically improved (10) Constipation: Code(s): K59.00 - Constipation, unspecified Status: Acute Assessment and Plan: Tolerating tube feeds Scheduled MiraLax and p.r.n. to collect suppository ordered Additional Plan DVT prophylaxis - Lovenox subQ Stress ulcer prophylaxis -PPI Nutrition - Tube Feeds Code Status - Full Code 02/19 Dr. Martinez recommends the patient be transferred to a facility which has experience in managing bariatric patient. I called and spoke to [facility] transfer line and they are not accepting any outside transfers at this time due to their ICU use being
[2021-02-22] MEDS: BISACODYL 10 MG SUPPOSITORY RECTAL (11:15)
--- NOTE | 2021-02-22 11:53 | PCFNICU ---
ICU Rounding Note: Pt current nutrition is Glucerna 1.2 at 50 ml/hr. Last recorded weight is 263.3 kg-stable Bowel Motility:No BM reported. Labs Reviewed:Glu 116, GFR 16, BUN 62, Cr 4.10,Hgb 11.7,Hct 38.4,Na 132 Meds Noted:Atrovent, Protonix, Lantus, Vancomycin, Fentanyl, Versed, Propofol 20 wgua=180 kcals, Miralax. Skin: Wound vac-left thigh. Additional Notes: Patient remains on mechanical vent and tube feedings of Glucerna 1.2 at 50 ml/hr and tolerating per nursing. No BM reported, miralax has started for bowel motility. RD will continue to monitor propofol titration for any tube feeding rate changes. Agree with diet orders at this time. Following daily in ICU rounds. Will monitor every Monday and Monday.
[2021-02-22] MEDS: PROPOFOL IV EMULSION 100 ML 47.45 MG IV CONT ×2 (12:00→14:24)
--- NOTE | 2021-02-22 12:08 | PM.PNGS ---
Progress Note: A&P Assessment and Plan (1) Necrotizing soft tissue infection: Code(s): M79.89 - Other specified soft tissue disorders Status: Acute Assessment and Plan: stable, cont vac, planned change 02/24, cont abx, wean vent as chepe, cont TF Additional Plan Patient still exhibiting some elements of respiratory failure. Continue ventilation as per hospitalist New onset diabetes will appreciate body specialist and help from hospitalist eventually. Will plan on changing the irrigating wound VAC 3X /week and eventually going to a standard wound VAC once a he is more stable and the wound has come along. This would probably be changed about 3 times a week also. 02/22/2021- appropriate sponges for irrigating wound VAC were lacking today and tissues looked good so a standard wound VAC dressing was then done. Will re-evaluate and hopefully have irrigating wound VAC sponges again available on Monday. Subjective Subjective Date/Time Seen: 02/22/21 12:08 Post Op day: PO day #6 Patient reports: no bowel movement and nausea Interval history: Patient moving shaking head and open his eyes when on sedation holiday. This far as nurse knows no bowel movement since entering the hospital. Tolerating tube feedings at goal. Review of Systems Review of Systems: ROS unobtainable: Yes unobtainable due to endotracheal tube and unobtainable due to medical condition Exam Const: General: cooperative and well developed Nutritional Appearance: obese Orientation/consciousness: Other orientation findings (Unknown, on sedation) HENMT: Head: normocephalic and atraumatic Ears: hearing grossly normal bilaterally Mouth: Yes other (BiPAP in place) Eyes: General: appearance normal, both eyes and all related structures Sclera: sclerae normal EOM: EOMs intact bilaterally GI: Inspection: normal to inspection, distended, Pannus present, obesity, no scars (No obvious large abdominal scars), striae and visible herniation (Umbilical that is reducible) Auscultation: normal bowel sounds Rectal Exam: deferred Abdomen image: 1. area of open wound after debridement now dressed with wound VAC : General: Yes other (scrotum and right groin are darkened, zahra appearing) Penis: Yes other (hidden penis) Scrotum: not edematous, not erythematous (slightly dark/zahra in color), no masses and no scrotal swelling Testes: Testes normal Urinary Catheter: Urinary Catheter: patent and draining, urine dark and urine pink Skin: Wounds: wounds noted ( posterior medial leftt thigh with the deep wound status post debridement ) Other: status post debridement of fat skin and fascia, dressing change with wound care nurses and patient's ICU nurse today. Most areas look his if the tissue is healthy. There are few proximally 2 x 2 cm areas of dark brown subcutaneous tissue and 1 small area of some discoloration of the skin edge. Otherwise tissues look LC and I do not believe there is further need for debridement at this time. Objective Data Vital Signs Vital Signs: Vital Signs - 24 hr 02/21/21 14:00 02/21/21 14:55 02/21/21 15:01 Temperature Pulse Rate 99 86 90 Respiratory Rate 28 H 28 H Blood Pressure 173/91 H Pulse Oximetry 94 93 02/21/21 15:03 02/21/21 16:00 02/21/21 17:00 Temperature 36.6 C Pulse Rate 96 76 76 Respiratory Rate 28 H 28 H 28 H Blood Pressure 133/76 Pulse Oximetry 93 02/21/21 18:00 02/21/21 18:57 02/21/21 19:55 Temperature 36.7 C Pulse Rate 71 90 79 Respiratory Rate 28 H 38 H 28 H Blood Pressure 133/79 Pulse Oximetry 92 02/21/21 19:56 02/21/21 19:59 02/21/21 20:00 Temperature 36.7 C Pulse Rate 77 77 73 Respiratory Rate 28 H 28 H Blood Pressure 111/67 Pulse Oximetry 98 92 02/21/21 21:18 02/21/21 21:59 02/21/21 22:29 Temperature 36.7 C Pulse Rate 65 64 63 Respiratory Rate 25 H 23 H 23 H Blood Pressure 111/67 Pulse Oximetry 92 02/21/21 23:00 02/22/21 00:00 02/22/21 01:19
--- NOTE | 2021-02-22 12:13 | P.PNNP_ITS ---
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 (2) Necrotizing soft tissue infection: Code(s): M79.89 - Other specified soft tissue disorders Status: Acute Assessment and Plan: * localized to the left groin and thigh * status post debridement by surgery (on 02/16/21) * on IV antibiotics * wound VAC in place * wound cultures with Enterococcus * blood cultures negative * Surgery following * recommend transferring to a facility which has experience in managing bariatric patients but no beds available at any other institution at this time (3) Sepsis: Code(s): A41.9 - Sepsis, unspecified organism Status: Acute Assessment and Plan: * due to #2 * follow culture data * continue antibiotic therapy * no need for vasopressors at this time * follow trend of hemodynamics (4) Acute respiratory failure: Code(s): J96.00 - Acute respiratory failure, unspecified whether with hypoxia or hypercapnia Status: Acute Assessment and Plan: * post-operative remains intubated and on mechanical ventilation * follow CXR findings * diuretics started and IVFs on hold (increased O2 requirement and CXR with pulmonary edema) * weaning as tolerated (5) Renal mass: Code(s): N28.89 - Other specified disorders of kidney and ureter Status: Acute Assessment and Plan: * no intervention at this time * Urology recommends outpatient evaluation once patient more stable (6) Hyperglycemia: Code(s): R73.9 - Hyperglycemia, unspecified Status: Acute Assessment and Plan: * due to underlying diabetes (does not have official diagnosis) * A1c 13.1 by check here * follow accuchecks * on Lantus and SSI Will continue to follow. Subjective Date/time seen: 02/22/21 12:13 No real significant change since last seen - remains intubated/sedated with requirement of mechanical ventilation; good urine output with ongoing use of IV diuretic therapy with relative stability in renal function/creatinine; hemodynamically stable at this time; no events overnight or earlier this AM. Exam Narrative: General: Large male intubated/sedated in NAD Heart: normal S1 and S2; no rub Lungs: distant breath sounds and decreased at base Abdomen: obese but soft, nontender, nondistended, decreased bowel sounds Extremities: no cyanosis or clubbing; no edema Skin: chronic venous stasis changes noted (in BLEs); wound VAC in left groin area; reduced erythema/warmth in LLE Objective Data Vital Signs Vital Signs: Vital Signs Temp Pulse Resp BP Pulse Ox 02/22/21 12:00 37.2 C 105 H 35 H 142/88 H 91 02/22/21 11:22 106 H 93 02/22/21 10:00 37.1 C 102 H 30 H 180/91 H 90 02/22/21 09:31 105 H 28 H 02/22/21 08:46
--- NOTE | 2021-02-22 12:13 | PM.PNNEP ---
Progress Note: A&P Assessment and Plan (1) Acute kidney injury: Code(s): N17.9 - Acute kidney failure, unspecified Status: Acute Assessment and Plan: suspect ATN from sepsis secondary to necrotizing fasciitis evaluation to date shows: renal ultrasound without obstruction but the presence of a 9.3cm right kidney mass (cyst versus neoplasm?) urine electrolytes suggest pre-renal azotemia CPK low creatinine rising but reasonable urine output noted with no critical electrolytes on IV diuretics due to volume overload status follow repeat labs and urine output remains at risk for needing REHAB THERAPY MANAGER/dialysis (2) Necrotizing soft tissue infection: Code(s): M79.89 - Other specified soft tissue disorders Status: Acute Assessment and Plan: localized to the left groin and thigh status post debridement by surgery (on 02/16/21) on IV antibiotics wound VAC in place wound cultures with Enterococcus blood cultures negative Surgery following recommend transferring to a facility which has experience in managing bariatric patients but no beds available at any other institution at this time (3) Sepsis: Code(s): A41.9 - Sepsis, unspecified organism Status: Acute Assessment and Plan: due to #2 follow culture data continue antibiotic therapy no need for vasopressors at this time follow trend of hemodynamics (4) Acute respiratory failure: Code(s): J96.00 - Acute respiratory failure, unspecified whether with hypoxia or hypercapnia Status: Acute Assessment and Plan: post-operative remains intubated and on mechanical ventilation follow CXR findings diuretics started and IVFs on hold (increased O2 requirement and CXR with pulmonary edema) weaning as tolerated (5) Renal mass: Code(s): N28.89 - Other specified disorders of kidney and ureter Status: Acute Assessment and Plan: no intervention at this time Urology recommends outpatient evaluation once patient more stable (6) Hyperglycemia: Code(s): R73.9 - Hyperglycemia, unspecified Status: Acute Assessment and Plan: due to underlying diabetes (does not have official diagnosis) A1c 13.1 by check here follow accuchecks on Lantus and SSI Will continue to follow. Subjective Date/time seen: 02/22/21 12:13 No real significant change since last seen - remains intubated/sedated with requirement of mechanical ventilation; good urine output with ongoing use of IV diuretic therapy with relative stability in renal function/creatinine; hemodynamically stable at this time; no events overnight or earlier this AM. Exam Narrative: General: Large male intubated/sedated in NAD Heart: normal S1 and S2; no rub Lungs: distant breath sounds and decreased at base Abdomen: obese but soft, nontender, nondistended, decreased bowel sounds Extremities: no cyanosis or clubbing; no edema Skin: chronic venous stasis changes noted (in BLEs); wound VAC in left groin area; reduced erythema/warmth in LLE Objective Data Vital Signs Vital Signs: Vital Signs Temp Pulse Resp BP Pulse Ox 02/22/21 12:00 37.2 C 105 H 35 H 142/88 H 91 02/22/21 11:22 106 H 93 02/22/21 10:00 37.1 C 102 H 30 H 180/91 H 90 02/22/21 09:31 105 H 28 H 02/22/21 08:46 93 91 02/22/21 08:38 95 26 H 02/22/21 08:00 37.2 C 87 28 H 172/89 H 91 02/22/21 07:40 67 28 H 02/22/21 07:35 67 28 H 02/22/21 06:00 68 22 H 134/72 92 02/22/21 05:15 72 96 02/22/21 04:26 64 28 H 02/22/21 04:23 65 28 H 02/22/21 04:00 36.8 C 65 28 H 120/65 91 02/22/21 03:04 66 28 H 94 02/22/21 02:00 65 28 H 02/22/21 01:39 65 28 H 02/22/21 01:19 36.8 C 62 28 H 108/62 93 02/22/21 00:00 36.8 C 62 28 H 162/74 H 92 02/21/21 23:00 62 95 02/21/21 22:29 63 23 H 02/21/21 21:59 36.7 C 64 23 H 111/67 92
[2021-02-22 12:47] LABS: Glucose Point of Care 140 mg/dl (65-105)
[2021-02-22 16:11] LABS: Glucose Point of Care 142 mg/dl (65-105)
[2021-02-22] MEDS: PROPOFOL IV EMULSION 100 ML 23.72 MG IV CONT (20:27)
[2021-02-22 20:52] LABS: Glucose Point of Care 112 mg/dl (65-105)
[2021-02-23] VITALS (53 sets, daily range): BP systolic 105–127; BP diastolic 59–73; PULSE 65–96; RESP 17–329; TEMP 37–37.5; O2SAT 92–96
[2021-02-23] MEDS: PROPOFOL IV EMULSION 100 ML 23.72 MG IV CONT ×2 (00:19→03:26)
[2021-02-23 00:28] LABS: Glucose Point of Care 105 mg/dl (65-105)
[2021-02-23] MEDS: ALBUTEROL SULFATE NEB 2.5 MG/0.5 ML INH 5 MG INHALATION ×4 (02:34→21:43)
[2021-02-23] MEDS: IPRATROPIUM BR 0.02% INH SOLN 0.5 MG/2.5 ML VIAL INHALATION ×4 (02:34→21:43)
[2021-02-23 04:02] LABS: Base Excess ABG 1.8 mEq/l (+/-2.0); Carboxyhemoglobin 0.2 % THb (0-2.0); Fractional Inspired Oxygen 65 %; HCO3 ABG 28.9 mEq/l (22.0-26.0); Methemoglobin ABG 0.2 %THb (0-1.5); Oxygen Content ABG 17.1 %vol (16.0-22.0); Oxygen Saturation ABG 93.6 % (95.0-100.0); Oxyhemoglobin 92.4 % THb (90.0-100.0); PCO2 ABG 56.5 mmHg (35.0-45.0); PO2 FiO2 Ratio Arterial Blood 1.14 %; Reduced Hemoglobin 7.2 %THb (0-5.0); Total Hemoglobin 13.1 g/dL (12.0-18.0); pH ABG 7.327 (7.350-7.450)
[2021-02-23 04:03] LABS: Arterial Blood Gas PEEP 14 cmH2O; Arterial Blood Gas Tidal Volume 450 ml; Arterial Blood Gas Vent Mode CMV; Arterial Blood Gas Ventilator rate 28 /MIN; Device VENTILATOR; Modified Allen's Test Pass; Site Drawn LEFT RADIAL
[2021-02-23] MEDS: CENTRAL LINE FLUSH 10 ML IV PUSH ×3 (04:57→20:41)
[2021-02-23 04:59] LABS: Hematocrit 39.8 % (42.0-52.0); Hemoglobin 11.6 g/dL (14.0-18.0); Mean Corpuscular HGB Conc 29.1 g/dl (32-36); Mean Corpuscular Hemoglobin 26.6 pg (26-34); Mean Corpuscular Volume 91.3 fl (80-100); Mean Platelet Volume 9.9 fl (7.4-10.4); Platelet Count Result 239 k/mm3 (150-375); Red Blood Count 4.36 M/mm3 (4.6-6.20)
[2021-02-23 05:16] LABS: Alanine Aminotransferase 8 U/L (4-50); Albumin Level 2.9 g/dL (3.5-5.1); Alkaline Phosphatase 139 U/L (38-126); Anion Gap 9 mmol/L (8-16); Aspartate Amino Transferase 18 U/L (17-59); Bilirubin,Total 0.9 mg/dL (0.2-1.3); Blood Urea Nitrogen 63 mg/dL (9-20); Calcium 8.9 mg/dL (8.4-10.2); Carbon Dioxide 31 mmol/L (22-30); Chloride 93 mmol/L (98-107); Estimated CRCL calculation 38 ml/min; Estimated Glomerular Filt Rate 14; Glucose 108 mg/dL (65-110); Magnesium 2.7 mg/dL (1.6-2.3); Potassium 4.7 mmol/L (3.4-5.0); Sodium 133 mmol/L (137-145); Triglycerides 184 mg/dL (<150)
[2021-02-23 07:36] LABS: Glucose Point of Care 112 mg/dl (65-105)
[2021-02-23] MEDS: PANTOPRAZOLE SODIUM IV 40 MG VIAL IV PUSH ×2 (07:57→20:41)
[2021-02-23] MEDS: INSULIN GLARGINE (*BKC) 100 UNITS/ML 60 UNITS SUB-Q (07:57)
[2021-02-23] MEDS: FUROSEMIDE INJ 40 MG/4 ML VIAL IV PUSH ×2 (07:57→17:37)
[2021-02-23] MEDS: ENOXAPARIN 40 MG/0.4 ML SYRINGE SUB-Q (07:57)
[2021-02-23] MEDS: MINERAL OIL/WHITE PETROLATUM OINTMENT 1 APPLIC EACH EYE ×2 (07:58→20:41)
--- NOTE | 2021-02-23 10:47 | PCNFU ---
Nutrition Follow-Up Complete: Inadequate Oral Intake as related to mechanical ventilation as evidenced by NPO. goal: Meet estimated nutritional needs Patient is progressing towards goal. We will continue current goal. Pt current nutrition is Glucerna 1.2 at 50 ml/hr over 22 hours. Last recorded weight is 253 kg,down from 263 kg on admit. Bowel Motility:+BM reported 02/23 Labs Reviewed:TG 184,BUN 63, GFR 14, Cr 4.5,Na 133, Alb 2.9,Hct 39.8,Hgb 11.6 Meds Noted:Fentanyl,Versed, Protonix, Lasix, Lovenox, Lantus, NovoLog. Skin: wound vac-left thigh. Additional Notes: Patient remains on mechanical vent and tube feedings of Glucerna 1.2 at 50 ml/hr over 22 hours providing 1320 kcals/66 gms protein/886 ml water. Propofol has been discontinued. Will monitor and recommend an increase in tube feeding rate. Recommend: Evert BID via tube for wound healing. Free water flush 30 ml q 4 hours. Agree with diet orders. Will follow in ICU rounds. Reassessing every Monday and Monday.
--- NOTE | 2021-02-23 11:16 | PM.PNNEP ---
Progress Note: A&P Assessment and Plan (1) Acute kidney injury: Code(s): N17.9 - Acute kidney failure, unspecified Status: Acute Assessment and Plan: suspect ATN from sepsis secondary to necrotizing fasciitis evaluation to date shows: renal ultrasound without obstruction but the presence of a 9.3cm right kidney mass (cyst versus neoplasm?) urine electrolytes suggest pre-renal azotemia CPK low creatinine rising but reasonable urine output noted with no critical electrolytes on IV diuretics due to volume overload status follow repeat labs and urine output remains at risk for needing [employer]/dialysis (2) Necrotizing soft tissue infection: Code(s): M79.89 - Other specified soft tissue disorders Status: Acute Assessment and Plan: localized to the left groin and thigh status post debridement by surgery (on 02/16/21) on IV antibiotics wound VAC in place wound cultures with Enterococcus blood cultures negative Surgery following recommend transferring to a facility which has experience in managing bariatric patients but no beds available at any other institution at this time (3) Sepsis: Code(s): A41.9 - Sepsis, unspecified organism Status: Acute Assessment and Plan: due to #2 follow culture data continue antibiotic therapy no need for vasopressors at this time follow trend of hemodynamics (4) Acute respiratory failure: Code(s): J96.00 - Acute respiratory failure, unspecified whether with hypoxia or hypercapnia Status: Acute Assessment and Plan: post-operative remains intubated and on mechanical ventilation follow CXR findings diuretics started and IVFs on hold (increased O2 requirement and CXR with pulmonary edema) weaning as tolerated (5) Renal mass: Code(s): N28.89 - Other specified disorders of kidney and ureter Status: Acute Assessment and Plan: no intervention at this time Urology recommends outpatient evaluation once patient more stable (6) Hyperglycemia: Code(s): R73.9 - Hyperglycemia, unspecified Status: Acute Assessment and Plan: due to underlying diabetes (does not have official diagnosis) A1c 13.1 by check here follow accuchecks on Lantus and SSI Will continue to follow. Subjective Date/time seen: 02/23/21 11:16 No significant change since last seen; remains intubated/sedated and on mechanical ventilation; creatinine up a bit but continues to make good urine output with diuretic therapy; remains hemodynamically stable at this time. Exam Narrative: General: Large male intubated/sedated in NAD Heart: normal S1 and S2; no rub Lungs: distant breath sounds and decreased at base Abdomen: obese but soft, nontender, nondistended, decreased bowel sounds Extremities: no cyanosis or clubbing; no edema Skin: chronic venous stasis changes noted (in BLEs); wound VAC in left groin area; reduced erythema/warmth in LLE Objective Data Vital Signs Vital Signs: Vital Signs Temp Pulse Resp BP Pulse Ox 02/23/21 11:16 80 93 02/23/21 10:46 84 28 H 02/23/21 10:00 37.0 C 80 28 H 127/71 92 02/23/21 08:56 87 95 02/23/21 08:55 91 28 H 02/23/21 08:48 89 25 H 02/23/21 08:00 37.1 C 83 28 H 118/68 93 02/23/21 07:58 85 29 H 02/23/21 07:57 85 29 H 02/23/21 06:00 37.2 C 80 29 H 115/68 94 02/23/21 05:30 80 329 H 02/23/21 04:58 75 28 H 02/23/21 04:00 37.4 C 77 28 H 115/66 92 02/23/21 03:38 82 28 H 02/23/21 03:37 82 28 H 02/23/21 03:34 82 92 02/23/21 03:26 82 28 H 02/23/21 03:22 81 28 H 93 02/23/21 02:52 81 28 H 02/23/21 02:36 81 93 02/23/21 02:35 81 31 H 02/23/21 02:00 37.4 C 80 28 H 118/68 95 02/23/21 00:20 81 34 H 02/23/21 00:19 81 34 H 02/23/21 00:15 82 34 H 02/23/21 00:00 37.5 C 77 28 H 114/66 96 02/22/21 2
--- NOTE | 2021-02-23 11:16 | P.PNNP_ITS ---
Progress Note: A&P Assessment and Plan (1) Acute kidney injury: Code(s): N17.9 - Acute kidney failure, unspecified Status: Acute Assessment and Plan: * suspect ATN from sepsis secondary to necrotizing fasciitis * evaluation to date shows: * renal ultrasound without obstruction but the presence of a 9.3cm right kidney mass (cyst versus neoplasm?) * urine electrolytes suggest pre-renal azotemia * CPK low * creatinine rising but reasonable urine output noted with no critical electrolytes * on IV diuretics due to volume overload status * follow repeat labs and urine output * remains at risk for needing [employer]/dialysis (2) Necrotizing soft tissue infection: Code(s): M79.89 - Other specified soft tissue disorders Status: Acute Assessment and Plan: * localized to the left groin and thigh * status post debridement by surgery (on 02/16/21) * on IV antibiotics * wound VAC in place * wound cultures with Enterococcus * blood cultures negative * Surgery following * recommend transferring to a facility which has experience in managing bariatric patients but no beds available at any other institution at this time (3) Sepsis: Code(s): A41.9 - Sepsis, unspecified organism Status: Acute Assessment and Plan: * due to #2 * follow culture data * continue antibiotic therapy * no need for vasopressors at this time * follow trend of hemodynamics (4) Acute respiratory failure: Code(s): J96.00 - Acute respiratory failure, unspecified whether with hypoxia or hypercapnia Status: Acute Assessment and Plan: * post-operative remains intubated and on mechanical ventilation * follow CXR findings * diuretics started and IVFs on hold (increased O2 requirement and CXR with pulmonary edema) * weaning as tolerated (5) Renal mass: Code(s): N28.89 - Other specified disorders of kidney and ureter Status: Acute Assessment and Plan: * no intervention at this time * Urology recommends outpatient evaluation once patient more stable (6) Hyperglycemia: Code(s): R73.9 - Hyperglycemia, unspecified Status: Acute Assessment and Plan: * due to underlying diabetes (does not have official diagnosis) * A1c 13.1 by check here * follow accuchecks * on Lantus and SSI Will continue to follow. Subjective Date/time seen: 02/23/21 11:16 No significant change since last seen; remains intubated/sedated and on mechanical ventilation; creatinine up a bit but continues to make good urine output with diuretic therapy; remains hemodynamically stable at this time. Exam Narrative: General: Large male intubated/sedated in NAD Heart: normal S1 and S2; no rub Lungs: distant breath sounds and decreased at base Abdomen: obese but soft, nontender, nondistended, decreased bowel sounds Extremities: no cyanosis or clubbing; no edema Skin: chronic venous stasis changes noted (in BLEs); wound VAC in left groin area; reduced erythema/warmth in LLE Objective Data Vital Signs Vital Signs: Vital Signs Temp Pulse Resp BP Pulse Ox 02/23/21 11:16 80 93 02/23/21 10:46 84 28 H 02/23/21 10:00 37.0 C 80 28 H 127/71 92 02/23/21 08:56 87 95 02/23/21 08:55 91 28 H 02/23/21 08:48 89 25 H 02/23/21 08:00 37.1 C 83 28 H 118/68 93 01
--- NOTE | 2021-02-23 11:54 | WPDINTPN ---
Progress Note: A&P Assessment and Plan (1) Acute respiratory failure: Code(s): J96.00 - Acute respiratory failure, unspecified whether with hypoxia or hypercapnia Status: Acute Assessment and Plan: Postop respiratory failure, continue mechanical ventilation. Patient intubated in the OR on 02/16/2021 -place patient on CMV mode of ventilation, peep of 14, 65% FiO2. Wean FiO2 as tolerated -chest x-ray reviewed -oxygen requirement improved will continue Lasix - ABGs reviewed -increase tidal volume to 500 -continue bronchodilators -continue propofol, fentanyl and Versed infusion, daily sedation vacation -not ready for weaning at this time (2) Necrotizing soft tissue infection: Code(s): M79.89 - Other specified soft tissue disorders Status: Acute Assessment and Plan: Necrotizing soft tissue infection of the left groin and thigh, status post debridement by surgery on 02/16/2021 -continue imipenem and vancomycin discontinue due to worsening renal function and cultures being negative -surgery following the patient -wound VAC management per surgery and will be changed today -wound cultures are growing Enterococcus which is pansensitive. - blood cultures are negative (3) Hyperglycemia: Code(s): R73.9 - Hyperglycemia, unspecified Status: Acute Assessment and Plan: Hyperglycemia, continue high-dose sliding scale insulin Accu-Cheks Continue Lantus -hemoglobin A1c is 13.1 this admission (4) Morbid obesity with BMI of 70 and over, adult: Code(s): E66.01 - Morbid (severe) obesity due to excess calories; Z68.45 - Body mass index [BMI] 70 or greater, adult Status: Acute Assessment and Plan: Morbidly obese, On Glucerna tube feeds (5) Sepsis: Code(s): A41.9 - Sepsis, unspecified organism Status: Acute Assessment and Plan: Sepsis likely related to necrotizing fasciitis, his leg still appears to be red and warm but he is afebrile and WBC had normalized Patient not on any vasopressor (6) DVT prophylaxis: Code(s): Z29.9 - Encounter for prophylactic measures, unspecified Status: Acute Assessment and Plan: Lovenox (7) Dietary counseling and surveillance: Code(s): Z71.3 - Dietary counseling and surveillance Status: Acute Assessment and Plan: Continue tube feeds (8) Acute kidney injury: Code(s): N17.9 - Acute kidney failure, unspecified Status: Acute Assessment and Plan: Likely secondary to sepsis, surgery Renal ultrasound showed Normal kidney sizes and No hydronephrosis. Nephrology follow Normal CK Patient was given IV fluids but creatinine continues to increase. He is overall volume overloaded He continues to have good urine output. Continue Lasix He may need dialysis if continues to worsen but not indicated at this time (9) Renal mass: Code(s): N28.89 - Other specified disorders of kidney and ureter Status: Acute Assessment and Plan: Renal Ultrasound 02/18/21 15:51 IMPRESSION: 1. 9.3 cm right kidney mass, which may be a hemorrhagic cyst or a neoplasm. Further evaluation is recommended with CT or MRI without and with contrast, but the patient is too heavy for our CT or MRI. Another facility may have a higher weight limit. Consulted urology and they recommend outpatient evaluation once patient clinically improved (10) Constipation: Code(s): K59.00 - Constipation, unspecified Status: Acute Assessment and Plan: Tolerating tube feeds Scheduled MiraLax and p.r.n. to collect suppository ordered Additional Plan DVT prophylaxis - Lovenox subQ Stress ulcer prophylaxis -PPI Nutrition - Tube Feeds at goal. He is having bowel movements Code Status - Full Code 02/19 Dr. Martinez recommends the patient be transferred to a facility which has experience in managing bariatric patient. I called and spoke to [facility] transfer line and they are not accepting any
--- NOTE | 2021-02-23 12:10 | PM.PNGS ---
Progress Note: A&P Assessment and Plan (1) Necrotizing soft tissue infection: Code(s): M79.89 - Other specified soft tissue disorders Status: Acute Assessment and Plan: S/p excisional debridement on 02/16/21. Wound vac intact without any issues overnight. Will plan on changing the wound vac tomorrow and re-evaluating the wound. Will hopefully have appropriate supplies tomorrow to switch back to the irrigating wound vac if appropriate. Continue IV antibiotics. (2) Acute respiratory failure: Code(s): J96.00 - Acute respiratory failure, unspecified whether with hypoxia or hypercapnia Status: Acute Assessment and Plan: Post-operative respiratory failure, intubated in the OR on 02/16/21. Wean vent as tolerated per [employer]. (3) Acute kidney injury: Code(s): N17.9 - Acute kidney failure, unspecified Status: Acute Assessment and Plan: Creatinine 4.5, slowly trending up. Nephrology following. Trend labs. (4) Hyperglycemia: Code(s): R73.9 - Hyperglycemia, unspecified Status: Acute Assessment and Plan: New onset diabetes mellitus, found to have significant hyperglycemia on admission with a hgb A1C of 13.1. Continue Lantus and sliding scale insulin per primary team. Additional Plan I have discussed the patient's case and plan of care with Dr. Martinez. Subjective Subjective Date/Time Seen: 02/23/21 12:10 Post Op day: 7 (Soft tissue excisional debridement of left groin/medial thigh extending to left buttock) Patient reports: afebrile Interval history: Patient intubated and sedated in the ICU. He appears comfortable and opens eyes to saying his name. He will shake his head when asked yes or no questions. He denies any pain. Tolerating tube feedings. BM documented x 1 for today. Just over 1 liter of urine output documented for overnight. Wound VAC with 250 cc documented overnight and 100 cc so far today in canister. Review of Systems Review of Systems: ROS unobtainable: Yes unobtainable due to endotracheal tube Exam Const: General: comfortable, alert, awake and other (sedated/intubated) Nutritional Appearance: obese morbidly obese (Super morbidly obese) Resp: Effort & Inspection: abnormal respiratory pattern (mechanical ventilator) Auscultation: diminished lung sounds Cardio: Rate: regular rate Rhythm: regular rhythm GI: Inspection: Pannus present, obesity and visible herniation (Umbilical that is reducible) Auscultation: normal bowel sounds : Penis: Yes other (hidden penis) Scrotum: not edematous, not erythematous (slightly dark/zahra in color) and no scrotal swelling Testes: Testes normal Urinary Catheter: Urinary Catheter: patent and draining, urine dark and urine pink Skin: Wounds: wounds noted Other: Left medial thigh/groin with wound vac in place, clean and dry, with higgins-yellow drainage in canister. Neuro: General: moves all extremities Other: Exam limited d/t sedation/intubation. Follows simple commands and nods yes or no to questions. Psych: Insight: Limited insight present (Psych) Judgement: Limited judgement present (Psych) Objective Data Vital Signs Vital Signs: Vital Signs - 24 hr 02/22/21 14:00 02/22/21 14:24 02/22/21 14:26 Temperature 99.2 F Pulse Rate 104 H 94 92 Respiratory Rate 25 H 33 H 30 H Blood Pressure 148/86 H Pulse Oximetry 90 02/22/21 14:28 02/22/21 14:38 02/22/21 14:39 Temperature Pulse Rate 105 H 98 98 Respiratory Rate 30 H 28 H Blood Pressure Pulse Oximetry 93 02/22/21 15:30 02/22/21 16:00 02/22/21 16:21 Temperature 99.3 F Pulse Rate 88 88 82 Respiratory Rate 28 H 28 H 28 H Blood Pressure 116/70 Pulse Oximetry 95 02/22/21 16:22 02/22/21 16:23 02/22/21 16:54 Temperature Pulse Rate 83 84 82 Respiratory Rate 28 H 28 H Blood Pressure Pulse Oximetry 95 02/22/21 17:44 02/22/21 17:45 02/22/21 17:46 Temperature Pulse Rate 80 80 Respiratory Rate 29 H
[2021-02-23 12:16] LABS: Glucose Point of Care 130 mg/dl (65-105)
[2021-02-23] MEDS: FENTANYL 2,500MCG/NS250ML(*CRX 2,500 MCG/250 ML BAG IV CONT (12:55)
[2021-02-23] MEDS: PROPOFOL IV EMULSION 100 ML 7.91 MG IV CONT (15:09)
[2021-02-23 16:19] LABS: Glucose Point of Care 135 mg/dl (65-105)
[2021-02-23] MEDS: MIDAZOLAM 100MG/NS 100ML(*CRX) 100 MG/100 ML BAG IV CONT (17:36)
[2021-02-23 20:59] LABS: Glucose Point of Care 130 mg/dl (65-105)
[2021-02-23] MEDS: PROPOFOL IV EMULSION 100 ML 15.82 MG IV CONT (21:08)
[2021-02-24] VITALS (48 sets, daily range): BP systolic 107–126; BP diastolic 60–74; PULSE 64–89; RESP 20–34; TEMP 36.9–37.3; O2SAT 90–95
[2021-02-24 00:05] LABS: Glucose Point of Care 114 mg/dl (65-105)
[2021-02-24] MEDS: PROPOFOL IV EMULSION 100 ML 15.82 MG IV CONT ×4 (02:43→20:39)
[2021-02-24] MEDS: ALBUTEROL SULFATE NEB 2.5 MG/0.5 ML INH 5 MG INHALATION ×4 (03:08→20:17)
[2021-02-24] MEDS: IPRATROPIUM BR 0.02% INH SOLN 0.5 MG/2.5 ML VIAL INHALATION ×4 (03:08→20:17)
[2021-02-24] MEDS: CENTRAL LINE FLUSH 10 ML IV PUSH ×3 (04:51→21:03)
[2021-02-24 05:22] LABS: Hematocrit 37.9 % (42.0-52.0); Hemoglobin 11.1 g/dL (14.0-18.0); Mean Corpuscular HGB Conc 29.3 g/dl (32-36); Mean Corpuscular Hemoglobin 26.5 pg (26-34); Mean Corpuscular Volume 90.5 fl (80-100); Mean Platelet Volume 10.3 fl (7.4-10.4); Platelet Count Result 263 k/mm3 (150-375); Red Blood Count 4.19 M/mm3 (4.6-6.20); Red Cell Distribution Width 16.2 % (11.5-14.5); White Blood Count 8.4 K/mm3 (4.5-10.0)
[2021-02-24 05:38] LABS: Alanine Aminotransferase 8 U/L (4-50); Alkaline Phosphatase 135 U/L (38-126); Anion Gap 9 mmol/L (8-16); Aspartate Amino Transferase 17 U/L (17-59); Bilirubin,Total 0.8 mg/dL (0.2-1.3); Blood Urea Nitrogen 70 mg/dL (9-20); Calcium 8.9 mg/dL (8.4-10.2); Carbon Dioxide 30 mmol/L (22-30); Chloride 97 mmol/L (98-107); Estimated CRCL calculation 39 ml/min; Estimated Glomerular Filt Rate 14; Glucose 121 mg/dL (65-110); Magnesium 2.5 mg/dL (1.6-2.3); Potassium 4.1 mmol/L (3.4-5.0); Sodium 136 mmol/L (137-145)
[2021-02-24 05:43] LABS: Alveolar/Arterial O2 Gradient 295.4 mmHg; Base Excess ABG 4.5 mEq/l (+/-2.0); Carboxyhemoglobin 1.1 % THb (0-2.0); Fractional Inspired Oxygen 60 %; HCO3 ABG 31.5 mEq/l (22.0-26.0); Methemoglobin ABG 0.3 %THb (0-1.5); Oxygen Content ABG 17.6 %vol (16.0-22.0); Oxyhemoglobin 90.7 % THb (90.0-100.0); PO2 ABG 69.7 mmHg (80.0-100.0); PO2 FiO2 Ratio Arterial Blood 1.16 %; Reduced Hemoglobin 7.9 %THb (0-5.0); Total Hemoglobin 13.8 g/dL (12.0-18.0)
[2021-02-24 05:45] LABS: Device VENTILATOR; Modified Allen's Test Pass; Site Drawn LEFT RADIAL
[2021-02-24 05:47] LABS: Arterial Blood Gas PEEP 14 cmH2O; Arterial Blood Gas Tidal Volume 450 ml; Arterial Blood Gas Vent Mode CMV; Arterial Blood Gas Ventilator rate 28 /MIN
[2021-02-24 07:32] LABS: Glucose Point of Care 114 mg/dl (65-105)
[2021-02-24] MEDS: FUROSEMIDE INJ 40 MG/4 ML VIAL IV PUSH ×2 (08:25→16:23)
[2021-02-24] MEDS: PANTOPRAZOLE SODIUM IV 40 MG VIAL IV PUSH ×2 (08:25→21:03)
[2021-02-24] MEDS: ENOXAPARIN 40 MG/0.4 ML SYRINGE SUB-Q (08:25)
[2021-02-24] MEDS: INSULIN GLARGINE (*BKC) 100 UNITS/ML 60 UNITS SUB-Q (08:29)
[2021-02-24] MEDS: MINERAL OIL/WHITE PETROLATUM OINTMENT 1 APPLIC EACH EYE ×2 (08:29→21:03)
--- NOTE | 2021-02-24 10:13 | WPDINTPN ---
Progress Note: A&P Assessment and Plan (1) Acute respiratory failure: Code(s): J96.00 - Acute respiratory failure, unspecified whether with hypoxia or hypercapnia Status: Acute Assessment and Plan: Postop respiratory failure, continue mechanical ventilation. Patient intubated in the OR on 02/16/2021 -place patient on CMV mode of ventilation, peep of 14, 60% FiO2. Wean FiO2 as tolerated -decrease PEEP to 12 -chest x-ray reviewed -oxygen requirement improved will continue Lasix - ABGs reviewed -permissive hypercapnia -continue bronchodilators -continue propofol, fentanyl and Versed infusion, daily sedation vacation -not ready for weaning at this time (2) Necrotizing soft tissue infection: Code(s): M79.89 - Other specified soft tissue disorders Status: Acute Assessment and Plan: Necrotizing soft tissue infection of the left groin and thigh, status post debridement by surgery on 02/16/2021 -continue imipenem and vancomycin discontinue due to worsening renal function and cultures being negative -surgery following the patient -wound VAC management per surgery and will be changed today -wound cultures are growing Enterococcus which is pansensitive. - blood cultures are negative (3) Hyperglycemia: Code(s): R73.9 - Hyperglycemia, unspecified Status: Acute Assessment and Plan: Hyperglycemia, continue high-dose sliding scale insulin Accu-Cheks Continue Lantus -hemoglobin A1c is 13.1 this admission (4) Morbid obesity with BMI of 70 and over, adult: Code(s): E66.01 - Morbid (severe) obesity due to excess calories; Z68.45 - Body mass index [BMI] 70 or greater, adult Status: Acute Assessment and Plan: Morbidly obese, On Glucerna tube feeds (5) Sepsis: Code(s): A41.9 - Sepsis, unspecified organism Status: Acute Assessment and Plan: Sepsis likely related to necrotizing fasciitis, his leg still appears to be red and warm but he is afebrile and WBC had normalized Patient not on any vasopressor (6) DVT prophylaxis: Code(s): Z29.9 - Encounter for prophylactic measures, unspecified Status: Acute Assessment and Plan: Lovenox (7) Dietary counseling and surveillance: Code(s): Z71.3 - Dietary counseling and surveillance Status: Acute Assessment and Plan: Continue tube feeds (8) Acute kidney injury: Code(s): N17.9 - Acute kidney failure, unspecified Status: Acute Assessment and Plan: Likely secondary to sepsis, surgery Renal ultrasound showed Normal kidney sizes and No hydronephrosis. Nephrology follow Normal CK Patient was given IV fluids but creatinine continues to increase. He is overall volume overloaded He continues to have good urine output. Continue Lasix for volume overload He may need dialysis if continues to worsen but not indicated at this time (9) Renal mass: Code(s): N28.89 - Other specified disorders of kidney and ureter Status: Acute Assessment and Plan: Renal Ultrasound 02/18/21 15:51 IMPRESSION: 1. 9.3 cm right kidney mass, which may be a hemorrhagic cyst or a neoplasm. Further evaluation is recommended with CT or MRI without and with contrast, but the patient is too heavy for our CT or MRI. Another facility may have a higher weight limit. Consulted urology and they recommend outpatient evaluation once patient clinically improved (10) Constipation: Code(s): K59.00 - Constipation, unspecified Status: Acute Assessment and Plan: Tolerating tube feeds Scheduled MiraLax and p.r.n. to collect suppository ordered Additional Plan DVT prophylaxis - Lovenox subQ Stress ulcer prophylaxis -PPI Nutrition - Tube Feeds at goal. He is having bowel movements Code Status - Full Code 02/19 Dr. Martinez recommends the patient be transferred to a facility which has experience in managing bariatric patient. I called and spoke to [facility] transfer
[2021-02-24 11:54] LABS: Glucose Point of Care 122 mg/dl (65-105)
--- NOTE | 2021-02-24 13:03 | PCFNICU ---
ICU Rounding Note: Pt current nutrition is Glucerna 1.2 at 50 ml/hr over 22 hours with Evert BID. Last recorded weight is 250 kg, down from 263 kg from admit. Bowel Motility:+BM reported 02/24 Labs Reviewed:Glu 121, Cr 4.4,Mg 2.5, GFR 14, Alb 3.0,Hct 37.9, Hgb 11.1 Meds Noted:Fentanyl,Versed, Protonix, Lasix, Lovenox, Lantus, NovoLog, Dulcolax Suppository, Atrovent, Propofol 10 mics= 418 kcals Skin: wound vac-left thigh. Additional Notes: Patient remains on mechanical vent and tube feedings of Glucerna 1.2 at 50 ml/hr over 22 hours with additional 418 kcals of propofol. Current calorie intake 1738 kcals/66 gms protein/886 ml water. Meeting 86% of caloric needs and 69% of protein needs. Patient is also receiving Evert BID for wound healing providing an additional 90 kcals/2.5 gms protein. Will continue to monitor propofol titration for any tube feeding rate changes. Following daily in ICU rounds. Will monitor every Monday and Monday.
[2021-02-24 15:50] LABS: Glucose Point of Care 110 mg/dl (65-105)
--- NOTE | 2021-02-24 16:00 | P.PNNP_ITS ---
Progress Note: A&P Assessment and Plan (1) Acute kidney injury: Code(s): N17.9 - Acute kidney failure, unspecified Status: Acute Assessment and Plan: * suspect ATN from sepsis secondary to necrotizing fasciitis * evaluation to date shows: * renal ultrasound without obstruction but the presence of a 9.3cm right kidney mass (cyst versus neoplasm?) * urine electrolytes suggest pre-renal azotemia * CPK low * creatinine rising but reasonable urine output noted with no critical electrolytes * on IV diuretics due to volume overload status * follow repeat labs and urine output * remains at high risk for needing W[employer]OO[employer]/dialysis (2) Necrotizing soft tissue infection: Code(s): M79.89 - Other specified soft tissue disorders Status: Acute Assessment and Plan: * localized to the left groin and thigh * status post debridement by surgery (on 02/16/21) * on IV antibiotics * wound VAC in place * wound cultures with Enterococcus * blood cultures negative * Surgery following * recommend transferring to a facility which has experience in managing bariatric patients but no beds available at any other institution at this time (3) Sepsis: Code(s): A41.9 - Sepsis, unspecified organism Status: Acute Assessment and Plan: * due to #2 * follow culture data * continue antibiotic therapy * no need for vasopressors at this time * follow trend of hemodynamics (4) Acute respiratory failure: Code(s): J96.00 - Acute respiratory failure, unspecified whether with hypoxia or hypercapnia Status: Acute Assessment and Plan: * post-operative remains intubated and on mechanical ventilation * follow CXR findings * diuretics started and IVFs on hold (increased O2 requirement and CXR with pulmonary edema) * weaning as tolerated (5) Renal mass: Code(s): N28.89 - Other specified disorders of kidney and ureter Status: Acute Assessment and Plan: * no intervention at this time * Urology recommends outpatient evaluation once patient more stable (6) Hyperglycemia: Code(s): R73.9 - Hyperglycemia, unspecified Status: Acute Assessment and Plan: * due to underlying diabetes (does not have official diagnosis) * A1c 13.1 by check here * follow accuchecks * on Lantus and SSI Will continue to follow. Subjective Date/time seen: 02/24/21 16:00 Remains intubated/sedated and on mechanical ventilator; good urine output with u se if IV lasix with relative stability in renal function/creatinine in the last few days; no issues/events overnight. Exam Narrative: General: Large male intubated/sedated in NAD Heart: normal S1 and S2; no rub Lungs: distant breath sounds and decreased at base Abdomen: obese but soft, nontender, nondistended, decreased bowel sounds Extremities: no cyanosis or clubbing; no edema Skin: chronic venous stasis changes apparent (in BLEs); wound VAC in left groin area; reduced erythema/warmth in LLE Objective Data Vital Signs Vital Signs: Vital Signs Temp Pulse Resp BP Pulse Ox 02/24/21 16:00 37.1 C 75 28 H 120/67 91 02/24/21 14:05 78 28 H 02/24/21 14:03 77 91 02/24/21 14:00 36.9 C 76 20 117/69 90 02/24/21 13:58 74 29 H 02/24/21 12:39 78 30 H 02/24/21 12:38 79 26 H 02/24/21 12:00
--- NOTE | 2021-02-24 16:00 | PM.PNNEP ---
Progress Note: A&P Assessment and Plan (1) Acute kidney injury: Code(s): N17.9 - Acute kidney failure, unspecified Status: Acute Assessment and Plan: suspect ATN from sepsis secondary to necrotizing fasciitis evaluation to date shows: renal ultrasound without obstruction but the presence of a 9.3cm right kidney mass (cyst versus neoplasm?) urine electrolytes suggest pre-renal azotemia CPK low creatinine rising but reasonable urine output noted with no critical electrolytes on IV diuretics due to volume overload status follow repeat labs and urine output remains at high risk for needing MILK TESTER/dialysis (2) Necrotizing soft tissue infection: Code(s): M79.89 - Other specified soft tissue disorders Status: Acute Assessment and Plan: localized to the left groin and thigh status post debridement by surgery (on 02/16/21) on IV antibiotics wound VAC in place wound cultures with Enterococcus blood cultures negative Surgery following recommend transferring to a facility which has experience in managing bariatric patients but no beds available at any other institution at this time (3) Sepsis: Code(s): A41.9 - Sepsis, unspecified organism Status: Acute Assessment and Plan: due to #2 follow culture data continue antibiotic therapy no need for vasopressors at this time follow trend of hemodynamics (4) Acute respiratory failure: Code(s): J96.00 - Acute respiratory failure, unspecified whether with hypoxia or hypercapnia Status: Acute Assessment and Plan: post-operative remains intubated and on mechanical ventilation follow CXR findings diuretics started and IVFs on hold (increased O2 requirement and CXR with pulmonary edema) weaning as tolerated (5) Renal mass: Code(s): N28.89 - Other specified disorders of kidney and ureter Status: Acute Assessment and Plan: no intervention at this time Urology recommends outpatient evaluation once patient more stable (6) Hyperglycemia: Code(s): R73.9 - Hyperglycemia, unspecified Status: Acute Assessment and Plan: due to underlying diabetes (does not have official diagnosis) A1c 13.1 by check here follow accuchecks on Lantus and SSI Will continue to follow. Subjective Date/time seen: 02/24/21 16:00 Remains intubated/sedated and on mechanical ventilator; good urine output with use if IV lasix with relative stability in renal function/creatinine in the last few days; no issues/events overnight. Exam Narrative: General: Large male intubated/sedated in NAD Heart: normal S1 and S2; no rub Lungs: distant breath sounds and decreased at base Abdomen: obese but soft, nontender, nondistended, decreased bowel sounds Extremities: no cyanosis or clubbing; no edema Skin: chronic venous stasis changes apparent (in BLEs); wound VAC in left groin area; reduced erythema/warmth in LLE Objective Data Vital Signs Vital Signs: Vital Signs Temp Pulse Resp BP Pulse Ox 02/24/21 16:00 37.1 C 75 28 H 120/67 91 02/24/21 14:05 78 28 H 02/24/21 14:03 77 91 02/24/21 14:00 36.9 C 76 20 117/69 90 02/24/21 13:58 74 29 H 02/24/21 12:39 78 30 H 02/24/21 12:38 79 26 H 02/24/21 12:00 37.0 C 80 24 H 117/65 91 02/24/21 11:10 75 91 02/24/21 10:31 74 29 H 02/24/21 10:30 74 29 H 02/24/21 10:00 36.9 C 76 26 H 119/61 91 02/24/21 08:59 79 28 H 02/24/21 08:49 82 91 02/24/21 08:46 84 29 H 02/24/21 08:26 80 31 H 02/24/21 08:25 80 31 H 02/24/21 08:00 37.0 C 77 23 H 122/66 91 02/24/21 07:53 80 31 H 02/24/21 06:00 37.1 C 81 29 H 119/67 93 02/24/21 05:14 72 92 02/24/21 04:50 72 28 H 02/24/21 04:49 72 28 H 02/24/21 04:00 37.1 C 76 28 H 114/60 92 02/24/21 03:17 77 28 H 02/24/21 03:10 81 93 02/24/21 03:09
--- NOTE | 2021-02-24 21:06 | PM.PNGS ---
Progress Note: A&P Assessment and Plan (1) Necrotizing soft tissue infection: Code(s): M79.89 - Other specified soft tissue disorders Status: Acute Assessment and Plan: S/p excisional debridement on 02/16/21. Wound vac intact without any issues overnight. Will plan on changing the wound vac again at about 11 AM on Mon and re-evaluating the wound. Today decided to continue with the standard wound VAC as the wound seemed to be improved and there was minimal significant further necrotic type tissue that would need to be debrided or rinsed with the year irrigating VAC. Continue IV antibiotics. (2) Acute respiratory failure: Code(s): J96.00 - Acute respiratory failure, unspecified whether with hypoxia or hypercapnia Status: Acute Assessment and Plan: Post-operative respiratory failure, intubated in the OR on 02/16/21. Wean vent as tolerated per Storm Window Installer. (3) Acute kidney injury: Code(s): N17.9 - Acute kidney failure, unspecified Status: Acute Assessment and Plan: Creatinine 4.4, slowly trending stable for now. Nephrology following. Trend labs. Has been having good urine output so hopefully renal function will recover. Need to be careful that there is no kinking of the catheter. This was discussed with nurses. (4) Hyperglycemia: Code(s): R73.9 - Hyperglycemia, unspecified Status: Acute Assessment and Plan: New onset diabetes mellitus, found to have significant hyperglycemia on admission with a hgb A1C of 13.1. Continue Lantus and sliding scale insulin per primary team. Additional Plan I have discussed the patient's case and plan of care with Dr. Pérez. Subjective Subjective Date/Time Seen: 02/24/21 21:06 Post Op day: POD#8 Interval history: Patient is still on ventilator. FiO2 to wean down to 70%. Blood gas is still not great. Wound VAC dressing change with wound care nurses today. Review of Systems Review of Systems: ROS unobtainable: Yes unobtainable due to endotracheal tube and unobtainable due to medical condition Exam Const: General: other ( I saw him today while sedated for the dressing change.) Nutritional Appearance: obese HENMT: Head: normocephalic and atraumatic Ears: hearing grossly normal bilaterally Mouth: Yes other (BiPAP in place) Neck: Neck: normal visual inspection and full ROM Other: central line site in the right IJ position inspected and does not appear to have any exudate and dressing is clean. Cardio: Rate: regular rate Rhythm: regular rhythm and abnormal rhythm irregularly irregular Heart sounds: S1 normal heart sound present and S2 normal heart sound present GI: Inspection: normal to inspection, Pannus present, obesity, no scars (No obvious large abdominal scars), striae and visible herniation (Umbilical that is reducible) Auscultation: normal bowel sounds Rectal Exam: deferred Urinary Catheter: Urinary Catheter: patent and draining and other ( urine clear and yellow with mild sediment) Skin: General skin exam: normal color and dry skin Wounds: wounds noted ( large wound medial left upper thigh) Other: Left medial thigh/groin with wound vac in place, clean and dry, with serosanguineous drainage in canister. dressing change with wound care nurses today. The bed E bed the rubin of the wound are beginning to show some signs of granulation and a little bit of capillary bleeding. Tissue looks improved compared to 2 days ago. I did remove some small areas of very soft grayish necrotic appearing tissue from the very upper right anterior and his wound. Extrem: General: normal to inspection Objective Data Vital Signs Vital Signs: Vital Signs - 24 hr 02/23/21 21:08 02/23/21 21:09 02/23/21 21:45 Temperature Pulse Rate 74 75 74 Respiratory Rate 31 H 33 H 30 H Blood Pressure Pulse Oximetry 02/23/21 21:48 02/23/21 21:50 02/23/21 22:00 Temperature 37.2 C Pulse Rate 72 72 69 Respiratory Rate 28
[2021-02-24 21:14] LABS: Glucose Point of Care 117 mg/dl (65-105)
[2021-02-25] VITALS (48 sets, daily range): BP systolic 115–153; BP diastolic 63–91; PULSE 67–126; RESP 20–37; TEMP 37.1–37.5; O2SAT 91–97
[2021-02-25 00:03] LABS: Glucose Point of Care 107 mg/dl (65-105)
[2021-02-25] MEDS: ALBUTEROL SULFATE NEB 2.5 MG/0.5 ML INH 5 MG INHALATION ×4 (02:04→20:45)
[2021-02-25] MEDS: IPRATROPIUM BR 0.02% INH SOLN 0.5 MG/2.5 ML VIAL INHALATION ×4 (02:04→20:45)
[2021-02-25] MEDS: PROPOFOL IV EMULSION 100 ML 15.82 MG IV CONT ×2 (02:11→07:50)
[2021-02-25] MEDS: CENTRAL LINE FLUSH 10 ML IV PUSH ×3 (03:45→20:56)
[2021-02-25 04:22] LABS: Hematocrit 39.6 % (42.0-52.0); Hemoglobin 11.5 g/dL (14.0-18.0); Mean Corpuscular Hemoglobin 26.6 pg (26-34); Mean Corpuscular Volume 91.7 fl (80-100); Mean Platelet Volume 9.7 fl (7.4-10.4); Platelet Count Result 276 k/mm3 (150-375); Red Blood Count 4.32 M/mm3 (4.6-6.20); Red Cell Distribution Width 16.2 % (11.5-14.5)
[2021-02-25 04:36] LABS: Alanine Aminotransferase 7 U/L (4-50); Alkaline Phosphatase 133 U/L (38-126); Alveolar/Arterial O2 Gradient 282.2 mmHg; Anion Gap 9 mmol/L (8-16); Aspartate Amino Transferase 20 U/L (17-59); Base Excess ABG 5.8 mEq/l (+/-2.0); Bilirubin,Total 0.7 mg/dL (0.2-1.3); Blood Urea Nitrogen 79 mg/dL (9-20); Calcium 9.2 mg/dL (8.4-10.2); Carbon Dioxide 33 mmol/L (22-30); Carboxyhemoglobin 0.3 % THb (0-2.0); Chloride 95 mmol/L (98-107); Estimated CRCL calculation 42 ml/min; Estimated Glomerular Filt Rate 16; Fractional Inspired Oxygen 60 %; Glucose 118 mg/dL (65-110); HCO3 ABG 33.1 mEq/l (22.0-26.0); Magnesium 2.5 mg/dL (1.6-2.3); Methemoglobin ABG 0.2 %THb (0-1.5); Oxygen Content ABG 16.9 %vol (16.0-22.0); Oxygen Saturation ABG 94.7 % (95.0-100.0); Oxyhemoglobin 93.7 % THb (90.0-100.0); PO2 ABG 78.5 mmHg (80.0-100.0); PO2 FiO2 Ratio Arterial Blood 1.31 %; Potassium 4.2 mmol/L (3.4-5.0); Reduced Hemoglobin 5.8 %THb (0-5.0); Sodium 137 mmol/L (137-145); Total Hemoglobin 12.8 g/dL (12.0-18.0); pH ABG 7.352 (7.350-7.450)
[2021-02-25 04:37] LABS: Arterial Blood Gas PEEP 12 cmH2O; Arterial Blood Gas Tidal Volume 450 ml; Arterial Blood Gas Vent Mode CMV; Arterial Blood Gas Ventilator rate 28 /MIN; Device VENTILATOR; Modified Allen's Test Pass; Site Drawn LEFT RADIAL
[2021-02-25 07:36] LABS: Glucose Point of Care 109 mg/dl (65-105)
[2021-02-25] MEDS: FENTANYL 2,500MCG/NS250ML(*CRX 2,500 MCG/250 ML BAG IV CONT (07:53)
[2021-02-25] MEDS: PANTOPRAZOLE SODIUM IV 40 MG VIAL IV PUSH ×2 (09:36→20:56)
[2021-02-25] MEDS: MINERAL OIL/WHITE PETROLATUM OINTMENT 1 APPLIC EACH EYE ×2 (09:36→20:56)
[2021-02-25] MEDS: polyethylene glycoL 3350 17 GM POWD.PACK PO (09:36)
[2021-02-25] MEDS: FUROSEMIDE INJ 40 MG/4 ML VIAL IV PUSH ×2 (09:36→16:45)
[2021-02-25] MEDS: ENOXAPARIN 40 MG/0.4 ML SYRINGE SUB-Q (09:36)
--- NOTE | 2021-02-25 09:57 | WPDINTPN ---
Progress Note: A&P Assessment and Plan (1) Acute respiratory failure: Code(s): J96.00 - Acute respiratory failure, unspecified whether with hypoxia or hypercapnia Status: Acute Assessment and Plan: Postop respiratory failure, continue mechanical ventilation. Patient intubated in the OR on 02/16/2021 -place patient on CMV mode of ventilation, peep of 12, 60% FiO2. Wean FiO2 as tolerated -chest x-ray reviewed advance ET tube by 3 cm -oxygen requirement improved will continue Lasix twice a day - ABGs reviewed -permissive hypercapnia -continue bronchodilators -continue propofol, fentanyl and Versed infusion, daily sedation vacation -not ready for weaning at this time due to high oxygen requirement (2) Necrotizing soft tissue infection: Code(s): M79.89 - Other specified soft tissue disorders Status: Acute Assessment and Plan: Necrotizing soft tissue infection of the left groin and thigh, status post debridement by surgery on 02/16/2021 -continue imipenem - Vancomycin was discontinued due to worsening renal function and cultures being negative -surgery following the patient -wound VAC management per surgery and will be changed today -wound cultures are growing Enterococcus which is pansensitive. - blood cultures are negative (3) Hyperglycemia: Code(s): R73.9 - Hyperglycemia, unspecified Status: Acute Assessment and Plan: Hyperglycemia, continue high-dose sliding scale insulin Accu-Cheks Continue Lantus -hemoglobin A1c is 13.1 this admission (4) Morbid obesity with BMI of 70 and over, adult: Code(s): E66.01 - Morbid (severe) obesity due to excess calories; Z68.45 - Body mass index [BMI] 70 or greater, adult Status: Acute Assessment and Plan: Morbidly obese, On Glucerna tube feeds (5) Sepsis: Code(s): A41.9 - Sepsis, unspecified organism Status: Acute Assessment and Plan: Sepsis likely related to necrotizing fasciitis, his leg still appears to be red and warm but he is afebrile and WBC had normalized Patient not on any vasopressor (6) DVT prophylaxis: Code(s): Z29.9 - Encounter for prophylactic measures, unspecified Status: Acute Assessment and Plan: Lovenox (7) Dietary counseling and surveillance: Code(s): Z71.3 - Dietary counseling and surveillance Status: Acute Assessment and Plan: Continue tube feeds (8) Acute kidney injury: Code(s): N17.9 - Acute kidney failure, unspecified Status: Acute Assessment and Plan: Likely secondary to sepsis, surgery Renal ultrasound showed Normal kidney sizes and No hydronephrosis. Nephrology follow Normal CK Patient was given IV fluids but creatinine continues to increase. He is overall volume overloaded He continues to have good urine output. Continue Lasix for volume overload He may need dialysis if continues to worsen but is not indicated at this time (9) Renal mass: Code(s): N28.89 - Other specified disorders of kidney and ureter Status: Acute Assessment and Plan: Renal Ultrasound 02/18/21 15:51 IMPRESSION: 1. 9.3 cm right kidney mass, which may be a hemorrhagic cyst or a neoplasm. Further evaluation is recommended with CT or MRI without and with contrast, but the patient is too heavy for our CT or MRI. Another facility may have a higher weight limit. Consulted urology and they recommend outpatient evaluation once patient clinically improved (10) Constipation: Code(s): K59.00 - Constipation, unspecified Status: Acute Assessment and Plan: Tolerating tube feeds Scheduled MiraLax and p.r.n. to collect suppository ordered Additional Plan DVT prophylaxis - Lovenox subQ Stress ulcer prophylaxis -PPI Nutrition - Tube Feeds at goal. He is having bowel movements Code Status - Full Code 02/19 Dr. Martinez recommends the patient be transferred to a facility which has experience in managing bar
--- NOTE | 2021-02-25 11:12 | PCFNICU ---
ICU Rounding Note: Pt current nutrition is Glucerna 1.2 at 50 mls per hour over 22 hours per day with a 30 ml water flush q4. Last recorded weight is 249 kg, down from 263 kg from admit. Bowel Motility: + BM 02/24/2021 Labs Reviewed: Hgb 11.5, Hct 39.6, Mg 2.5, GFR 16, BUN 79, Cr 4.1, Glu 118 Meds Noted: Albuterol, Bisacodyl, Lovenox, Furosemide, Glucagon, Glucose, Novolog, Lantus, Atrovent Neb, Versed, Miralax, Propofol, Protonix Skin: wound vac- left thigh. Additional Notes: Pt. remains on mechanical ventilation on Glucerna 1.2 at 50 mls per hour over 22 hours per day. This provides in total 1320 calories, 73 grams of protein and 886 mls of water. Propofol providing an additional 418 calories. In total pt. is receiving 1737 calories. He is receiving Evert BUD providing 90 calories and 2.5 grams of protein for wound healing. Will continue to monitor propofol titration for any tube feeding rate changes. Following daily in ICU rounds. Will monitor every Monday and Monday..
[2021-02-25] MEDS: MIDAZOLAM 100MG/NS 100ML(*CRX) 100 MG/100 ML BAG IV CONT (11:50)
--- NOTE | 2021-02-25 11:52 | PM.PNGS ---
Progress Note: A&P Assessment and Plan (1) Necrotizing soft tissue infection: Code(s): M79.89 - Other specified soft tissue disorders Status: Acute Assessment and Plan: S/p excisional debridement on 02/16/21. Continue wound VAC therapy. Plan to change the dressing again tomorrow to re-evaluate the wound. Continue IV antibiotics. (2) Acute respiratory failure: Code(s): J96.00 - Acute respiratory failure, unspecified whether with hypoxia or hypercapnia Status: Acute Assessment and Plan: Post-operative respiratory failure, intubated in the OR on 02/16/21. Wean vent as tolerated per Nursing Home Aide. (3) Acute kidney injury: Code(s): N17.9 - Acute kidney failure, unspecified Status: Acute Assessment and Plan: Creatinine 4.1, down slightly from yesterday. Good urine output. Nephrology following. Trend labs. (4) Hyperglycemia: Code(s): R73.9 - Hyperglycemia, unspecified Status: Acute Assessment and Plan: New onset diabetes mellitus, found to have significant hyperglycemia on admission with a hgb A1C of 13.1. Continue Lantus and sliding scale insulin per primary team. Additional Plan I have discussed the patient's case and plan of care with Dr. Pérez. Subjective Subjective Date/Time Seen: 02/25/21 09:35 Post Op day: 9 (Soft tissue excisional debridement of left groin/medial thigh extending to left buttock) Patient reports: afebrile Interval history: Chart reviewed since last examination. Patient intubated and sedated in the ICU. He appears comfortable and opens eyes to saying his name. Follows simple commands. Tolerating tube feedings. BM documented x 1 yesterday and the day before. Adequate urine output. Wound VAC with 50 cc documented overnight. Review of Systems Review of Systems: ROS unobtainable: Yes unobtainable due to endotracheal tube Exam Const: General: ill appearing Nutritional Appearance: obese morbidly obese Orientation/consciousness: patient obtunded (sedated/intubated in ICU) Limitations: physical limitations Resp: Effort & Inspection: abnormal respiratory pattern (mechanical ventilator) Auscultation: diminished lung sounds Cardio: Rate: regular rate Rhythm: regular rhythm GI: Inspection: Pannus present, obesity and visible herniation (Umbilical that is reducible) GI Palp: Yes Soft to palpation and No Guarding due to palpation present (GI) Auscultation: normal bowel sounds : Penis: Yes other (hidden penis) Scrotum: no scrotal swelling Testes: Testes normal Urinary Catheter: Urinary Catheter: patent and draining, urine cloudy (with sediment) and urine dark (slightly dark yellow) Skin: Other: Left medial thigh/groin wound with wound vac in place, clean/dry/intact, serosanguineous drainage in canister. Neuro: Other: Exam limited d/t sedation/intubation. Follows simple commands. Psych: Insight: Limited insight present (Psych) Judgement: Limited judgement present (Psych) Objective Data Vital Signs Vital Signs: Vital Signs - 24 hr 02/24/21 12:00 02/24/21 12:38 02/24/21 12:39 Temperature 98.6 F Pulse Rate 80 79 78 Respiratory Rate 24 H 26 H 30 H Blood Pressure 117/65 Pulse Oximetry 91 02/24/21 13:58 02/24/21 14:00 02/24/21 14:03 Temperature 98.4 F Pulse Rate 74 76 77 Respiratory Rate 29 H 20 Blood Pressure 117/69 Pulse Oximetry 90 91 02/24/21 14:05 02/24/21 16:00 02/24/21 16:20 Temperature 98.7 F Pulse Rate 78 75 80 Respiratory Rate 28 H 28 H 28 H Blood Pressure 120/67 Pulse Oximetry 91 02/24/21 17:11 02/24/21 17:45 02/24/21 17:46 Temperature Pulse Rate 84 89 89 Respiratory Rate 28 H 28 H Blood Pressure Pulse Oximetry 94 02/24/21 18:00 02/24/21 20:00 02/24/21 20:15 Temperature 99.1 F 99.0 F Pulse Rate 86 73 73 Respiratory Rate 25 H 30 H Blood Pressure 126/74 116/66 Pulse Oximetry 92 93 94 02/24/21 20:17 02/24/21 20:39 02/24/21 20:50 Temperature Puls
[2021-02-25] MEDS: PROPOFOL IV EMULSION 100 ML 23.72 MG IV CONT (11:53)
[2021-02-25 12:05] LABS: Glucose Point of Care 143 mg/dl (65-105)
[2021-02-25] MEDS: PROPOFOL IV EMULSION 100 ML 79.08 MG IV CONT (14:12)
[2021-02-25] MEDS: PROPOFOL IV EMULSION 100 ML 63.26 MG IV CONT ×6 (15:28→23:49)
[2021-02-25 16:06] LABS: Glucose Point of Care 117 mg/dl (65-105)
--- NOTE | 2021-02-25 17:48 | P.PNNP_ITS ---
Progress Note: A&P Assessment and Plan (1) Acute kidney injury: Code(s): N17.9 - Acute kidney failure, unspecified Status: Acute Assessment and Plan: * suspect ATN from sepsis secondary to necrotizing fasciitis * evaluation to date shows: * renal ultrasound without obstruction but the presence of a 9.3cm right kidney mass (cyst versus neoplasm?) * urine electrolytes suggest pre-renal azotemia * CPK low * creatinine rising but reasonable urine output noted with no critical electrolytes * on IV diuretics due to volume overload status * follow repeat labs and urine output * remains at high risk for needing [employer] SALES/dialysis (2) Necrotizing soft tissue infection: Code(s): M79.89 - Other specified soft tissue disorders Status: Acute Assessment and Plan: * localized to the left groin and thigh * status post debridement by surgery (on 02/16/21) * on IV antibiotics * wound VAC in place * wound cultures with Enterococcus * blood cultures negative * Surgery following * recommend transferring to a facility which has experience in managing bariatric patients but no beds available at any other institution at this time (3) Sepsis: Code(s): A41.9 - Sepsis, unspecified organism Status: Acute Assessment and Plan: * due to #2 * follow culture data * continue antibiotic therapy * no need for vasopressors at this time * follow trend of hemodynamics (4) Acute respiratory failure: Code(s): J96.00 - Acute respiratory failure, unspecified whether with hypoxia or hypercapnia Status: Acute Assessment and Plan: * post-operatively remains intubated and on mechanical ventilation * follow CXR findings * diuretics started and IVFs on hold (increased O2 requirement and CXR with pulm onary edema) * weaning as tolerated (5) Renal mass: Code(s): N28.89 - Other specified disorders of kidney and ureter Status: Acute Assessment and Plan: * no intervention at this time * Urology recommends outpatient evaluation once patient more stable (6) Hyperglycemia: Code(s): R73.9 - Hyperglycemia, unspecified Status: Acute Assessment and Plan: * due to underlying diabetes (does not have official diagnosis) * A1c 13.1 by check here * follow accuchecks * on Lantus and SSI Will continue to follow. Subjective Date/time seen: 02/25/21 17:48 Continues to make good urine output with IV diuretics; kidney function stable if not better; remains on ventilator support (intubated/sedated); stable hemodynamic noted; groin wounds appears to be improving; no apparent distress noted. Exam Narrative: General: Large male intubated/sedated in NAD Heart: normal S1 and S2; no rub Lungs: distant breath sounds and decreased at base Abdomen: obese but soft, nontender, nondistended, decreased bowel sounds Extremities: no cyanosis or clubbing; no edema Skin: chronic venous stasis changes (in BLEs); wound VAC in left groin area Objective Data Vital Signs Vital Signs: Vital Signs Temp Pulse Resp BP Pulse Ox 02/25/21 17:25 92 93 02/25/21 16:54 89 29 H 02/25/21 16:00 37.5 C 115 H 20 147/80 H 95 02/25/21 15:28 86 23 H 02/25/21 15:10 87 30 H 02/25/21 15:05 89 92 02/25/21 15:01 94 31 H 02/25/21 14:12 105 H 28 H
--- NOTE | 2021-02-25 17:48 | PM.PNNEP ---
Progress Note: A&P Assessment and Plan (1) Acute kidney injury: Code(s): N17.9 - Acute kidney failure, unspecified Status: Acute Assessment and Plan: suspect ATN from sepsis secondary to necrotizing fasciitis evaluation to date shows: renal ultrasound without obstruction but the presence of a 9.3cm right kidney mass (cyst versus neoplasm?) urine electrolytes suggest pre-renal azotemia CPK low creatinine rising but reasonable urine output noted with no critical electrolytes on IV diuretics due to volume overload status follow repeat labs and urine output remains at high risk for needing GENERATOR REBUILDER/dialysis (2) Necrotizing soft tissue infection: Code(s): M79.89 - Other specified soft tissue disorders Status: Acute Assessment and Plan: localized to the left groin and thigh status post debridement by surgery (on 02/16/21) on IV antibiotics wound VAC in place wound cultures with Enterococcus blood cultures negative Surgery following recommend transferring to a facility which has experience in managing bariatric patients but no beds available at any other institution at this time (3) Sepsis: Code(s): A41.9 - Sepsis, unspecified organism Status: Acute Assessment and Plan: due to #2 follow culture data continue antibiotic therapy no need for vasopressors at this time follow trend of hemodynamics (4) Acute respiratory failure: Code(s): J96.00 - Acute respiratory failure, unspecified whether with hypoxia or hypercapnia Status: Acute Assessment and Plan: post-operatively remains intubated and on mechanical ventilation follow CXR findings diuretics started and IVFs on hold (increased O2 requirement and CXR with pulmonary edema) weaning as tolerated (5) Renal mass: Code(s): N28.89 - Other specified disorders of kidney and ureter Status: Acute Assessment and Plan: no intervention at this time Urology recommends outpatient evaluation once patient more stable (6) Hyperglycemia: Code(s): R73.9 - Hyperglycemia, unspecified Status: Acute Assessment and Plan: due to underlying diabetes (does not have official diagnosis) A1c 13.1 by check here follow accuchecks on Lantus and SSI Will continue to follow. Subjective Date/time seen: 02/25/21 17:48 Continues to make good urine output with IV diuretics; kidney function stable if not better; remains on ventilator support (intubated/sedated); stable hemodynamic noted; groin wounds appears to be improving; no apparent distress noted. Exam Narrative: General: Large male intubated/sedated in NAD Heart: normal S1 and S2; no rub Lungs: distant breath sounds and decreased at base Abdomen: obese but soft, nontender, nondistended, decreased bowel sounds Extremities: no cyanosis or clubbing; no edema Skin: chronic venous stasis changes (in BLEs); wound VAC in left groin area Objective Data Vital Signs Vital Signs: Vital Signs Temp Pulse Resp BP Pulse Ox 02/25/21 17:25 92 93 02/25/21 16:54 89 29 H 02/25/21 16:00 37.5 C 115 H 20 147/80 H 95 02/25/21 15:28 86 23 H 02/25/21 15:10 87 30 H 02/25/21 15:05 89 92 02/25/21 15:01 94 31 H 02/25/21 14:12 105 H 28 H 02/25/21 14:00 37.5 C 105 H 27 H 142/83 H 92 02/25/21 13:43 110 H 28 H 02/25/21 12:24 122 H 32 H 02/25/21 12:10 123 H 33 H 02/25/21 12:00 37.5 C 78 26 H 147/80 H 96 02/25/21 11:53 126 H 37 H 02/25/21 11:52 123 H 25 H 02/25/21 11:50 120 H 34 H 02/25/21 11:20 119 H 93 02/25/21 10:00 37.1 C 92 31 H 153/85 H 92 02/25/21 09:07 83 28 H 02/25/21 09:02 83 92 02/25/21 08:52 82 30 H 02/25/21 08:00 37.1 C 86 28 H 135/75 96 02/25/21 07:53 83 20 02/25/21 07:50 82 26 H 02/25/21 06:00 37.1 C 74 28 H 122/69 92 02/25/21 04:10 81 93
[2021-02-25 21:18] LABS: Glucose Point of Care 115 mg/dl (65-105)
[2021-02-26] VITALS (50 sets, daily range): BP systolic 106–145; BP diastolic 63–89; PULSE 87–102; RESP 18–32; TEMP 37.1–37.7; O2SAT 86–97
[2021-02-26] MEDS: PROPOFOL IV EMULSION 100 ML 63.26 MG IV CONT ×12 (01:21→19:58)
[2021-02-26 01:32] LABS: Glucose Point of Care 135 mg/dl (65-105)
[2021-02-26] MEDS: ALBUTEROL SULFATE NEB 2.5 MG/0.5 ML INH 5 MG INHALATION ×4 (02:44→19:38)
[2021-02-26] MEDS: IPRATROPIUM BR 0.02% INH SOLN 0.5 MG/2.5 ML VIAL INHALATION ×4 (02:44→19:38)
[2021-02-26 04:30] LABS: Hematocrit 42.5 % (42.0-52.0); Hemoglobin 12.2 g/dL (14.0-18.0); Mean Corpuscular HGB Conc 28.7 g/dl (32-36); Mean Corpuscular Hemoglobin 25.6 pg (26-34); Mean Corpuscular Volume 89.3 fl (80-100); Mean Platelet Volume 9.6 fl (7.4-10.4); Platelet Count Result 291 k/mm3 (150-375); Red Blood Count 4.76 M/mm3 (4.6-6.20); Red Cell Distribution Width 16.1 % (11.5-14.5); White Blood Count 8.8 K/mm3 (4.5-10.0)
[2021-02-26 04:45] LABS: Alanine Aminotransferase 7 U/L (4-50); Albumin Level 3.2 g/dL (3.5-5.1); Alkaline Phosphatase 148 U/L (38-126); Anion Gap 10 mmol/L (8-16); Aspartate Amino Transferase 22 U/L (17-59); Bilirubin,Total 0.8 mg/dL (0.2-1.3); Blood Urea Nitrogen 82 mg/dL (9-20); Calcium 9.3 mg/dL (8.4-10.2); Carbon Dioxide 32 mmol/L (22-30); Chloride 94 mmol/L (98-107); Estimated CRCL calculation 34 ml/min; Estimated Glomerular Filt Rate 12; Glucose 137 mg/dL (65-110); Magnesium 2.8 mg/dL (1.6-2.3); Potassium 4.9 mmol/L (3.4-5.0); Sodium 136 mmol/L (137-145); Triglycerides 245 mg/dL (<150)
[2021-02-26] MEDS: CENTRAL LINE FLUSH 10 ML IV PUSH ×3 (04:49→20:00)
[2021-02-26 05:35] LABS: Alveolar/Arterial O2 Gradient 575.7 mmHg; Base Excess ABG 3.2 mEq/l (+/-2.0); Carboxyhemoglobin 0.5 % THb (0-2.0); Fractional Inspired Oxygen 100 %; HCO3 ABG 31.4 mEq/l (22.0-26.0); Methemoglobin ABG 0.3 %THb (0-1.5); Oxygen Content ABG 17.2 %vol (16.0-22.0); Oxygen Saturation ABG 92.5 % (95.0-100.0); Oxyhemoglobin 91.2 % THb (90.0-100.0); PO2 ABG 72.2 mmHg (80.0-100.0); PO2 FiO2 Ratio Arterial Blood 0.72 %; Total Hemoglobin 13.4 g/dL (12.0-18.0); pH ABG 7.301 (7.350-7.450)
[2021-02-26 05:38] LABS: Device VENTILATOR; Modified Allen's Test Unable to perform; PCO2 ABG 65.1 mmHg (35.0-45.0); Site Drawn RIGHT RADIAL
[2021-02-26 05:39] LABS: Arterial Blood Gas PEEP 14 cmH2O; Arterial Blood Gas Tidal Volume 450 ml; Arterial Blood Gas Vent Mode CMV; Arterial Blood Gas Ventilator rate 28 /MIN
[2021-02-26 08:16] LABS: Glucose Point of Care 135 mg/dl (65-105)
[2021-02-26] MEDS: MINERAL OIL/WHITE PETROLATUM OINTMENT 1 APPLIC EACH EYE ×2 (08:40→20:00)
[2021-02-26] MEDS: INSULIN GLARGINE (*BKC) 100 UNITS/ML 60 UNITS SUB-Q (08:40)
[2021-02-26] MEDS: ENOXAPARIN 40 MG/0.4 ML SYRINGE SUB-Q (08:42)
[2021-02-26] MEDS: FUROSEMIDE INJ 40 MG/4 ML VIAL IV PUSH ×2 (08:42→17:06)
[2021-02-26] MEDS: PANTOPRAZOLE SODIUM IV 40 MG VIAL IV PUSH ×2 (08:44→20:00)
[2021-02-26] MEDS: polyethylene glycoL 3350 17 GM POWD.PACK PO (08:46)
--- NOTE | 2021-02-26 10:16 | PM.PNGS ---
Progress Note: A&P Assessment and Plan (1) Necrotizing soft tissue infection: Code(s): M79.89 - Other specified soft tissue disorders Status: Acute Assessment and Plan: S/p excisional debridement on 02/16/21. His wound looks good with majority of the wound having granulation tissue. Continue wound VAC therapy. Plan to change the dressing again Monday to re-evaluate the wound. Continue IV antibiotics. (2) Acute respiratory failure: Code(s): J96.00 - Acute respiratory failure, unspecified whether with hypoxia or hypercapnia Status: Acute Assessment and Plan: Post-operative respiratory failure, intubated in the OR on 02/16/21. Continues to have difficulty with weaning the ventilator. He also had issues with oxygen desaturation with his wound vac dressing change - per the nurse he has difficulty tolerating any activity due to his oxygenation. Wean vent as tolerated per [employer]. (3) Acute kidney injury: Code(s): N17.9 - Acute kidney failure, unspecified Status: Acute Assessment and Plan: Creatinine up to 5.1 and urine output diminished over past 24 hours. Nephrology following. If his kidney function worsens over the next few days and Nephrology feels there is a need for hemodialysis access in the near future, then Dr. Martinez could potentially add him onto the OR schedule Monday. (4) Hyperglycemia: Code(s): R73.9 - Hyperglycemia, unspecified Status: Acute Assessment and Plan: New onset diabetes mellitus, found to have significant hyperglycemia on admission with a hgb A1C of 13.1. Continue Lantus and sliding scale insulin per primary team. Additional Plan I have discussed the patient's case and plan of care with Dr. Martinez. Subjective Subjective Date/Time Seen: 02/26/21 09:16 Post Op day: 10 (Soft tissue excisional debridement of left groin/medial thigh extending to left buttock) Interval history: Patient intubated and sedated in the ICU. He is seen with the wound care nurses and Dr. Martinez this morning Tolerating tube feedings. BM this am documented. Urine output diminishing over the past 24 hours with creatinine up today. Wound VAC with 175 cc documented overnight. Review of Systems Review of Systems: ROS unobtainable: Yes unobtainable due to endotracheal tube Exam Const: General: ill appearing and patient obtunded (sedated/intubated in ICU) Nutritional Appearance: obese morbidly obese Orientation/consciousness: patient obtunded (sedated/intubated in ICU) Limitations: physical limitations Resp: Effort & Inspection: abnormal respiratory pattern (mechanical ventilator) Auscultation: diminished lung sounds Cardio: Rate: regular rate Rhythm: regular rhythm GI: Inspection: Pannus present, obesity and visible herniation (Umbilical that is reducible) GI Palp: Yes Soft to palpation Auscultation: normal bowel sounds : Scrotum: no scrotal swelling Testes: Testes normal Urinary Catheter: Urinary Catheter: patent and draining, urine cloudy (with sediment) and urine dark (slightly dark yellow) Skin: Other: Left medial thigh/groin wound vac removed with the wound having about 95% granulation tissue and a very small portion of the wound at the medial edge that is dusky pink tissue, no significant necrotic tissue or areas of purulent drainage. Serosanguineous drainage in the current wound vac canister. Mild, flat, diffuse pink-colored rash scattered across the lower abdomen and bilateral thighs Neuro: General: patient obtunded (sedated/intubated in ICU) Other: Exam limited d/t sedation/intubation. Psych: Insight: Limited insight present (Psych) Judgement: Limited judgement present (Psych) Objective Data Vital Signs Vital Signs: Vital Signs - 24 hr 02/25/21 11:20 02/25/21 11:50 02/25/21 11:52 Temperature Pulse Rate 119 H 120 H 123 H Respiratory Rate 34 H 25 H Blood Pressure Pulse Oximetry 93 02/25/21 11:53 02/25/21 12:00 02/25
--- NOTE | 2021-02-26 10:38 | WPDINTPN ---
Progress Note: A&P Assessment and Plan (1) Acute respiratory failure: Code(s): J96.00 - Acute respiratory failure, unspecified whether with hypoxia or hypercapnia Status: Acute Assessment and Plan: Postop respiratory failure, continue mechanical ventilation. Patient intubated in the OR on 02/16/2021 -place patient on CMV mode of ventilation, peep of 14, 100% FiO2. Wean FiO2 as tolerated -02/25 patient had episode where he disconnected himself from the ventilator and the recruited. He was on 60% and FiO2 had to be increased to 100%. Increase PEEP to 14. -overnight his oxygen requirement has stayed high at 100% -chest x-ray reviewed shows bilateral infiltrates -I will continue Lasix twice a day - ABGs reviewed -permissive hypercapnia -continue bronchodilators -continue propofol, fentanyl and Versed infusion, daily sedation vacation -not ready for weaning at this time due to high oxygen requirement (2) Necrotizing soft tissue infection: Code(s): M79.89 - Other specified soft tissue disorders Status: Acute Assessment and Plan: Necrotizing soft tissue infection of the left groin and thigh, status post debridement by surgery on 02/16/2021 -continue imipenem - Vancomycin was discontinued due to worsening renal function and cultures being negative -surgery following the patient -wound VAC management per surgery and will be changed today -wound cultures are growing Enterococcus and Prevotella which is pansensitive. - blood cultures are negative (3) Hyperglycemia: Code(s): R73.9 - Hyperglycemia, unspecified Status: Acute Assessment and Plan: Hyperglycemia, continue high-dose sliding scale insulin Accu-Cheks Continue Lantus -hemoglobin A1c is 13.1 this admission (4) Morbid obesity with BMI of 70 and over, adult: Code(s): E66.01 - Morbid (severe) obesity due to excess calories; Z68.45 - Body mass index [BMI] 70 or greater, adult Status: Acute Assessment and Plan: Morbidly obese, On Glucerna tube feeds (5) Sepsis: Code(s): A41.9 - Sepsis, unspecified organism Status: Acute Assessment and Plan: Sepsis likely related to necrotizing fasciitis, his leg still appears to be red and warm but he is afebrile and WBC had normalized Patient not on any vasopressor (6) DVT prophylaxis: Code(s): Z29.9 - Encounter for prophylactic measures, unspecified Status: Acute Assessment and Plan: Lovenox (7) Dietary counseling and surveillance: Code(s): Z71.3 - Dietary counseling and surveillance Status: Acute Assessment and Plan: Continue tube feeds (8) Acute kidney injury: Code(s): N17.9 - Acute kidney failure, unspecified Status: Acute Assessment and Plan: Likely secondary to sepsis, surgery Renal ultrasound showed Normal kidney sizes and No hydronephrosis. Nephrology following Normal CK Patient was given IV fluids but creatinine continues to increase. He is overall volume overloaded He continues to have decent urine output for now although it has tapered as compared to last couple of days. Continue Lasix for volume overload He may need dialysis if continues to worsen but is not indicated at this time (9) Renal mass: Code(s): N28.89 - Other specified disorders of kidney and ureter Status: Acute Assessment and Plan: Renal Ultrasound 02/18/21 15:51 IMPRESSION: 1. 9.3 cm right kidney mass, which may be a hemorrhagic cyst or a neoplasm. Further evaluation is recommended with CT or MRI without and with contrast, but the patient is too heavy for our CT or MRI. Another facility may have a higher weight limit. Consulted urology and they recommend outpatient evaluation once patient clinically improved (10) Constipation: Code(s): K59.00 - Constipation, unspecified Status: Acute Assessment and Plan: Tolerating tube feeds Scheduled [employer] and p.r.n. to collect
[2021-02-26 11:51] LABS: Glucose Point of Care 151 mg/dl (65-105)
[2021-02-26] MEDS: MIDAZOLAM 100MG/NS 100ML(*CRX) 100 MG/100 ML BAG IV CONT (12:09)
--- NOTE | 2021-02-26 13:36 | P.PNNP_ITS ---
Progress Note: A&P Assessment and Plan (1) Acute kidney injury: Code(s): N17.9 - Acute kidney failure, unspecified Status: Acute Assessment and Plan: * suspect ATN from sepsis secondary to necrotizing fasciitis * evaluation to date shows: * renal ultrasound without obstruction but the presence of a 9.3cm right kidney mass (cyst versus neoplasm?) * urine electrolytes suggest pre-renal azotemia * CPK low * creatinine rising but reasonable urine output noted with no critical electrolytes * on IV diuretics due to volume overload status * follow repeat labs and urine output * remains at high risk for needing MANAGER REQUIREMENTS/dialysis (2) Necrotizing soft tissue infection: Code(s): M79.89 - Other specified soft tissue disorders Status: Acute Assessment and Plan: * localized to the left groin and thigh * status post debridement by surgery (on 02/16/21) * on IV antibiotics * wound VAC in place * wound cultures with Enterococcus * blood cultures negative * Surgery following * recommend transferring to a facility which has experience in managing bariatric patients but no beds available at any other institution at this time (3) Sepsis: Code(s): A41.9 - Sepsis, unspecified organism Status: Acute Assessment and Plan: * due to #2 * follow culture data * continue antibiotic therapy * no need for vasopressors at this time * follow trend of hemodynamics (4) Acute respiratory failure: Code(s): J96.00 - Acute respiratory failure, unspecified whether with hypoxia or hypercapnia Status: Acute Assessment and Plan: * post-operatively remains intubated and on mechanical ventilation * follow CXR findings * diuretics started and IVFs on hold (increased O2 requirement and CXR with pulmonary edema) * weaning as tolerated (5) Renal mass: Code(s): N28.89 - Other specified disorders of kidney and ureter Status: Acute Assessment and Plan: * no intervention at this time * Urology recommends outpatient evaluation once patient more stable (6) Hyperglycemia: Code(s): R73.9 - Hyperglycemia, unspecified Status: Acute Assessment and Plan: * due to underlying diabetes (does not have official diagnosis) * A1c 13.1 by check here * follow accuchecks * on Lantus and SSI Will continue to follow. Subjective Date/time seen: 02/26/21 13:36 Remains intubated/sedated and on mechanical ventilation; remains hemodynamically stable; creatinine/renal function worse but still responsive to diuretic therapy at this time; no events overnight or earlier this AM. Exam Narrative: General: Large male intubated/sedated in NAD Heart: normal S1 and S2; no rub Lungs: distant breath sounds and decreased at bases Abdomen: obese but soft, nontender, nondistended, decreased bowel sounds Extremities: no cyanosis or clubbing; no edema Skin: chronic venous stasis changes (in BLEs); wound VAC in left groin area Objective Data Vital Signs Vital Signs: Vital Signs Temp Pulse Resp BP Pulse Ox 02/26/21 13:00 90 28 H 02/26/21 12:36 90 28 H 02/26/21 12:35 90 28 H 02/26/21 12:09 92 28 H 02/26/21 12:08 92 28 H 02/26/21 12:00 37.4 C 94 28 H 123/77 89 L 02/26/21 11:00 93 28 H 02/26/21 10:47 93 28 H 02/26/21 1
--- NOTE | 2021-02-26 13:36 | PM.PNNEP ---
Progress Note: A&P Assessment and Plan (1) Acute kidney injury: Code(s): N17.9 - Acute kidney failure, unspecified Status: Acute Assessment and Plan: suspect ATN from sepsis secondary to necrotizing fasciitis evaluation to date shows: renal ultrasound without obstruction but the presence of a 9.3cm right kidney mass (cyst versus neoplasm?) urine electrolytes suggest pre-renal azotemia CPK low creatinine rising but reasonable urine output noted with no critical electrolytes on IV diuretics due to volume overload status follow repeat labs and urine output remains at high risk for needing SUPERVISOR [employer]IDES/dialysis (2) Necrotizing soft tissue infection: Code(s): M79.89 - Other specified soft tissue disorders Status: Acute Assessment and Plan: localized to the left groin and thigh status post debridement by surgery (on 02/16/21) on IV antibiotics wound VAC in place wound cultures with Enterococcus blood cultures negative Surgery following recommend transferring to a facility which has experience in managing bariatric patients but no beds available at any other institution at this time (3) Sepsis: Code(s): A41.9 - Sepsis, unspecified organism Status: Acute Assessment and Plan: due to #2 follow culture data continue antibiotic therapy no need for vasopressors at this time follow trend of hemodynamics (4) Acute respiratory failure: Code(s): J96.00 - Acute respiratory failure, unspecified whether with hypoxia or hypercapnia Status: Acute Assessment and Plan: post-operatively remains intubated and on mechanical ventilation follow CXR findings diuretics started and IVFs on hold (increased O2 requirement and CXR with pulmonary edema) weaning as tolerated (5) Renal mass: Code(s): N28.89 - Other specified disorders of kidney and ureter Status: Acute Assessment and Plan: no intervention at this time Urology recommends outpatient evaluation once patient more stable (6) Hyperglycemia: Code(s): R73.9 - Hyperglycemia, unspecified Status: Acute Assessment and Plan: due to underlying diabetes (does not have official diagnosis) A1c 13.1 by check here follow accuchecks on Lantus and SSI Will continue to follow. Subjective Date/time seen: 02/26/21 13:36 Remains intubated/sedated and on mechanical ventilation; remains hemodynamically stable; creatinine/renal function worse but still responsive to diuretic therapy at this time; no events overnight or earlier this AM. Exam Narrative: General: Large male intubated/sedated in NAD Heart: normal S1 and S2; no rub Lungs: distant breath sounds and decreased at bases Abdomen: obese but soft, nontender, nondistended, decreased bowel sounds Extremities: no cyanosis or clubbing; no edema Skin: chronic venous stasis changes (in BLEs); wound VAC in left groin area Objective Data Vital Signs Vital Signs: Vital Signs Temp Pulse Resp BP Pulse Ox 02/26/21 13:00 90 28 H 02/26/21 12:36 90 28 H 02/26/21 12:35 90 28 H 02/26/21 12:09 92 28 H 02/26/21 12:08 92 28 H 02/26/21 12:00 37.4 C 94 28 H 123/77 89 L 02/26/21 11:00 93 28 H 02/26/21 10:47 93 28 H 02/26/21 10:34 95 28 H 02/26/21 10:24 98 94 02/26/21 10:00 37.3 C 95 28 H 130/74 86 L 02/26/21 09:12 95 28 H 02/26/21 09:00 95 28 H 02/26/21 08:37 97 28 H 02/26/21 08:00 37.4 C 95 28 H 130/80 92 02/26/21 07:41 97 28 H 02/26/21 07:31 98 94 02/26/21 07:30 99 32 H 02/26/21 07:00 95 28 H 02/26/21 06:00 37.5 C 100 28 H 132/89 92 02/26/21 05:42 100 32 H 02/26/21 04:40 101 H 88 L 02/26/21 04:01 37.6 C 102 H 26 H 135/79 88 L 02/26/21 04:00 102 H 02/26/21 03:35 100 31 H 02/26/21 02:53 98 31 H 02/26/21 02:50 98 94 02/26/21 02:49 99 3
--- NOTE | 2021-02-26 15:15 | PCNFU ---
Nutrition Follow-Up Complete: Inadequate Oral Intake as related to mechanical ventilation as evidenced by NPO. Goal: Meet estimated nutritional needs Pt. is progressing towards goal. No new goal at this time. Pt current nutrition is Glucerna 1.2 at 50 mls per hour over 22 hours per day. Last recorded weight is 249.2 kg. Bowel Motility: + BM 02/26/2021 Labs Reviewed: Mg 2.8, Hgb 12.2, Alb 3.2, Na 136, TG 245, BUN 82, Cr 5.10, Glu 137 Meds Noted: Albuterol, Bisacodyl, Lovenox, Lasix, Fentanyl, Glucagon, Glucose, Novolog, Lantus, Atrovent Neb, Lantus, Versed, Protonix, Miralax, Propofol Skin: Wound vac to left thigh Additional Notes: Patient remains on mechanical ventilation. Propofol was increased to 40 mics providing 1,670 calories. Spoke with MD recommending we decrease current tube feeding rate to 20 mls per hour over 22 hours per day and provide pt. with a prostat flush BID to increase protein intake and avoid over feeding. In total, Glucerna 1.2 at 20 mls per hour over 22 hours per day with a prostat flush BID will provide pt. with 728 calories, 56 grams of protein and 354 mls of water with an additional 1670 calories coming from propofol. Pt. is also receiving Evert BID providing an additional 90 calories and 2.5 grams of protein to aid in wound healing. Will monitor every Monday and Monday.
[2021-02-26 16:27] LABS: Glucose Point of Care 138 mg/dl (65-105)
[2021-02-26] MEDS: FENTANYL 2,500MCG/NS250ML(*CRX 2,500 MCG/250 ML BAG 7.5 MCG IV CONT (17:49)
[2021-02-26 20:37] LABS: Glucose Point of Care 107 mg/dl (65-105)
[2021-02-26] MEDS: PROPOFOL IV EMULSION 100 ML 47.45 MG IV CONT ×2 (21:42→23:15)
[2021-02-27] VITALS (39 sets, daily range): BP systolic 113–139; BP diastolic 71–84; PULSE 73–95; RESP 16–30; TEMP 36.2–37.1; O2SAT 92–97
[2021-02-27 00:54] LABS: Glucose Point of Care 112 mg/dl (65-105)
[2021-02-27] MEDS: METOCLOPRAMIDE HCL 10 MG/10 ML SOLN UDC FEED TUBE ×4 (01:00→17:59)
[2021-02-27] MEDS: IPRATROPIUM BR 0.02% INH SOLN 0.5 MG/2.5 ML VIAL INHALATION ×4 (02:12→20:14)
[2021-02-27] MEDS: ALBUTEROL SULFATE NEB 2.5 MG/0.5 ML INH 5 MG INHALATION ×4 (02:12→20:14)
[2021-02-27] MEDS: PROPOFOL IV EMULSION 100 ML 47.45 MG IV CONT ×10 (02:18→22:14)
[2021-02-27 04:33] LABS: Alanine Aminotransferase 6 U/L (4-50); Alkaline Phosphatase 111 U/L (38-126); Anion Gap 10 mmol/L (8-16); Aspartate Amino Transferase 18 U/L (17-59); Bilirubin,Total 0.7 mg/dL (0.2-1.3); Blood Urea Nitrogen 95 mg/dL (9-20); Carbon Dioxide 31 mmol/L (22-30); Chloride 95 mmol/L (98-107); Estimated CRCL calculation 30 ml/min; Estimated Glomerular Filt Rate 11; Glucose 113 mg/dL (65-110); Magnesium 2.8 mg/dL (1.6-2.3); Potassium 5.3 mmol/L (3.4-5.0); Sodium 136 mmol/L (137-145)
[2021-02-27 04:39] LABS: Hematocrit 39.7 % (42.0-52.0); Hemoglobin 11.5 g/dL (14.0-18.0); Mean Corpuscular Hemoglobin 25.8 pg (26-34); Mean Platelet Volume 9.6 fl (7.4-10.4); Platelet Count Result 247 k/mm3 (150-375); Red Blood Count 4.46 M/mm3 (4.6-6.20); Red Cell Distribution Width 16.1 % (11.5-14.5); White Blood Count 9.2 K/mm3 (4.5-10.0)
[2021-02-27] MEDS: CENTRAL LINE FLUSH 10 ML IV PUSH ×3 (05:12→20:54)
[2021-02-27 05:47] LABS: Alveolar/Arterial O2 Gradient 573.5 mmHg; Base Excess ABG 1.9 mEq/l (+/-2.0); Carboxyhemoglobin 0.6 % THb (0-2.0); Fractional Inspired Oxygen 100 %; HCO3 ABG 30.3 mEq/l (22.0-26.0); Methemoglobin ABG 0.2 %THb (0-1.5); Oxygen Content ABG 18.8 %vol (16.0-22.0); Oxygen Saturation ABG 93.2 % (95.0-100.0); Oxyhemoglobin 92.1 % THb (90.0-100.0); PO2 ABG 75.2 mmHg (80.0-100.0); PO2 FiO2 Ratio Arterial Blood 0.75 %; Reduced Hemoglobin 7.1 %THb (0-5.0); Total Hemoglobin 14.5 g/dL (12.0-18.0)
[2021-02-27 05:48] LABS: Device VENTILATOR; Modified Allen's Test Pass; PCO2 ABG 64.3 mmHg (35.0-45.0); Site Drawn RIGHT RADIAL; pH ABG 7.291 (7.350-7.450)
[2021-02-27 05:49] LABS: Arterial Blood Gas PEEP 16 cmH2O; Arterial Blood Gas Tidal Volume 450 ml; Arterial Blood Gas Vent Mode CMV; Arterial Blood Gas Ventilator rate 28 /MIN
--- NOTE | 2021-02-27 09:14 | PM.PNGS ---
Progress Note: A&P Assessment and Plan (1) Necrotizing soft tissue infection: Code(s): M79.89 - Other specified soft tissue disorders Status: Acute Assessment and Plan: doing well and wounds healing with wound VAC therapy. No changes at this time. (2) Acute hypercapnic respiratory failure: Code(s): J96.02 - Acute respiratory failure with hypercapnia Status: Acute Assessment and Plan: Not improving on ventilator. Combination of obesity and hypoventilation coupled with edema and acute renal failure. (3) Acute kidney injury: Code(s): N17.9 - Acute kidney failure, unspecified Status: Acute Assessment and Plan: If does not improve, may require dialysis. (4) Morbid obesity with BMI of 70 and over, adult: Code(s): E66.01 - Morbid (severe) obesity due to excess calories; Z68.45 - Body mass index [BMI] 70 or greater, adult Status: Chronic Assessment and Plan: Major contributor to all problems noted above. Subjective Subjective Date/Time Seen: 02/27/21 09:14 Interval history: Patient remained sedated on mechanical ventilator Review of Systems Review of Systems: ROS unobtainable: Yes unobtainable due to endotracheal tube Exam Const: Nutritional Appearance: obese Orientation/consciousness: patient obtunded GI: Inspection: obesity GI Palp: Yes Soft to palpation Extrem: General: other ( wound VAC in place working okay.) Right lower extremity: lower leg ( lymphedema) Left lower extremity: lower leg ( Lymphedema) Objective Data Vital Signs Vital Signs: Vital Signs - 24 hr 02/26/21 10:00 02/26/21 10:24 02/26/21 10:34 Temperature 37.3 C Pulse Rate 95 98 95 Respiratory Rate 28 H 28 H Blood Pressure 130/74 Pulse Oximetry 86 L 94 02/26/21 10:47 02/26/21 11:00 02/26/21 12:00 Temperature 37.4 C Pulse Rate 93 93 94 Respiratory Rate 28 H 28 H 28 H Blood Pressure 123/77 Pulse Oximetry 89 L 02/26/21 12:08 02/26/21 12:09 02/26/21 12:35 Temperature Pulse Rate 92 92 90 Respiratory Rate 28 H 28 H 28 H Blood Pressure Pulse Oximetry 02/26/21 12:36 02/26/21 13:00 02/26/21 13:57 Temperature Pulse Rate 90 90 89 Respiratory Rate 28 H 28 H Blood Pressure Pulse Oximetry 90 02/26/21 14:00 02/26/21 14:11 02/26/21 14:31 Temperature 37.5 C Pulse Rate 89 90 90 Respiratory Rate 28 H 28 H 28 H Blood Pressure 121/75 Pulse Oximetry 90 02/26/21 15:45 02/26/21 16:00 02/26/21 16:38 Temperature 37.6 C Pulse Rate 87 87 87 Respiratory Rate 28 H 28 H Blood Pressure 123/79 Pulse Oximetry 91 91 02/26/21 17:20 02/26/21 17:35 02/26/21 17:49 Temperature Pulse Rate 100 100 100 Respiratory Rate 28 H 28 H 28 H Blood Pressure Pulse Oximetry 02/26/21 18:00 02/26/21 19:35 02/26/21 19:38 Temperature 37.7 C H Pulse Rate 100 95 97 Respiratory Rate 28 H 30 H Blood Pressure 124/65 Pulse Oximetry 96 97 02/26/21 19:48 02/26/21 20:00 02/26/21 22:00 Temperature 37.4 C 37.1 C Pulse Rate 97 93 89 Respiratory Rate 30 H 18 28 H Blood Pressure 106/63 112/70 Pulse Oximetry 96 97 02/26/21 23:41 02/27/21 00:00 02/27/21 02:00 Temperature 37.1 C Pulse Rate 88 86 84 Respiratory Rate 28 H 28 H Blood Pressure 113/73 114/71 Pulse Oximetry 96 92 96 02/27/21 02:05 02/27/21 02:07 02/27/21 02:18 Temperature Pulse Rate 95 87 95 Respiratory Rate 30 H 30 H Blood Pressure Pulse Oximetry 95 02/27/21 04:00 02/27/21 06:00 02/27/21 06:13 Temperature 36.8 C 36.3 C L Pulse Rate 74 82 91 Respiratory Rate 16 28 H Blood Pressure 113/71 119/75 Pulse Oximetry 92 97 95 02/27/21 06:14 02/27/21 07:38 Temperature Pulse Rate 85 85 Respiratory Rate 28 H 28 H Blood Pressure Pulse Oximetry Intake/Output Intake/Output: Intake & Output 02/24/21 02/25/21 02/26/21 02/27/21 23:59 23:59 23:59 23:59 Intake Total 2187.4 2822.8 3514 980 Output Total
[2021-02-27] MEDS: ENOXAPARIN 40 MG/0.4 ML SYRINGE SUB-Q (09:17)
[2021-02-27] MEDS: polyethylene glycoL 3350 17 GM POWD.PACK PO (09:17)
[2021-02-27] MEDS: MINERAL OIL/WHITE PETROLATUM OINTMENT 1 APPLIC EACH EYE ×2 (09:18→20:54)
[2021-02-27] MEDS: PANTOPRAZOLE SODIUM IV 40 MG VIAL IV PUSH ×2 (09:19→20:54)
[2021-02-27 09:23] LABS: Glucose Point of Care 157 mg/dl (65-105)
[2021-02-27] MEDS: INSULIN GLARGINE (*BKC) 100 UNITS/ML 60 UNITS SUB-Q (09:23)
[2021-02-27] MEDS: SODIUM POLYSTYRENE SULFONONATE 15 GM/60 ML BTL 30 GM PO (09:41)
--- NOTE | 2021-02-27 10:50 | WPDINTPN ---
Progress Note: A&P Assessment and Plan (1) Acute respiratory failure: Code(s): J96.00 - Acute respiratory failure, unspecified whether with hypoxia or hypercapnia Status: Acute Assessment and Plan: Postop respiratory failure, continue mechanical ventilation. Patient intubated in the OR on 02/16/2021 -place patient on CMV mode of ventilation, peep of 16, 100% FiO2. Wean FiO2 as tolerated -02/25 patient had episode where he disconnected himself from the ventilator and the recruited. He was on 60% and FiO2 had to be increased to 100%. Peep had to be increased -overnight his oxygen requirement has stayed high at 100% -chest x-ray reviewed shows bilateral infiltrates which could be pneumonia versus pulmonary edema. Patient is on broad-spectrum antibiotics and diuretics -patient is to big to fit in our our CT scanner - ABGs reviewed -permissive hypercapnia -continue bronchodilators -continue propofol, fentanyl and Versed infusion, daily sedation vacation -not ready for weaning at this time due to high oxygen requirement (2) Necrotizing soft tissue infection: Code(s): M79.89 - Other specified soft tissue disorders Status: Acute Assessment and Plan: Necrotizing soft tissue infection of the left groin and thigh, status post debridement by surgery on 02/16/2021 -continue imipenem - Vancomycin was discontinued due to worsening renal function and cultures being negative -surgery following the patient -wound VAC management per surgery and will be changed today -wound cultures are growing Enterococcus and Prevotella which is pansensitive. - blood cultures are negative (3) Hyperglycemia: Code(s): R73.9 - Hyperglycemia, unspecified Status: Acute Assessment and Plan: Hyperglycemia, continue high-dose sliding scale insulin Accu-Cheks Continue Lantus -hemoglobin A1c is 13.1 this admission (4) Morbid obesity with BMI of 70 and over, adult: Code(s): E66.01 - Morbid (severe) obesity due to excess calories; Z68.45 - Body mass index [BMI] 70 or greater, adult Status: Chronic Assessment and Plan: Morbidly obese, On Glucerna tube feeds (5) Sepsis: Code(s): A41.9 - Sepsis, unspecified organism Status: Acute Assessment and Plan: Sepsis likely related to necrotizing fasciitis, his leg still appears to be red and warm but he is afebrile and WBC had normalized Patient not on any vasopressor (6) DVT prophylaxis: Code(s): Z29.9 - Encounter for prophylactic measures, unspecified Status: Acute Assessment and Plan: Lovenox (7) Dietary counseling and surveillance: Code(s): Z71.3 - Dietary counseling and surveillance Status: Acute Assessment and Plan: Continue tube feeds (8) Acute kidney injury: Code(s): N17.9 - Acute kidney failure, unspecified Status: Acute Assessment and Plan: Likely secondary to sepsis, surgery Renal ultrasound showed Normal kidney sizes and No hydronephrosis. Nephrology following Normal CK Patient was given IV fluids but creatinine continues to increase. He is overall volume overloaded He continues to have decent urine output for now although it has tapered as compared to last couple of days. I have discussed with Dr. Martinez from General surgery and Dr. Marx with nephrology. If urine output drops and patient is unable to be diuresed will proceed with hemodialysis. Patient Is on tentative schedule for dialysis catheter in OR on Monday. Kayexalate given for potassium of 5.3. I will also give some sodium bicarb for respiratory acidosis (9) Renal mass: Code(s): N28.89 - Other specified disorders of kidney and ureter Status: Acute Assessment and Plan: Renal Ultrasound 02/18/21 15:51 IMPRESSION: 1. 9.3 cm right kidney mass, which may be a hemorrhagic cyst or a neoplasm. Further evaluation is recommended with CT or MRI without and with contrast, but the radha
--- NOTE | 2021-02-27 11:57 | P.PNNP_ITS ---
Progress Note: A&P Assessment and Plan (1) Acute kidney injury: Code(s): N17.9 - Acute kidney failure, unspecified Status: Acute Assessment and Plan: * suspect ATN from sepsis secondary to necrotizing fasciitis * evaluation to date shows: * renal ultrasound without obstruction but the presence of a 9.3cm right kidney mass (cyst versus neoplasm?) * urine electrolytes suggest pre-renal azotemia * CPK low * creatinine rising still. * Off furosemide. * Most likely his creatinine will continue to rise. * Discussed with Dr. Pérez. he is ask the surgeons to place a tunneled dialysis catheter on Monday so that we can do dialysis Monday afternoon. I agree with this plan. (2) Necrotizing soft tissue infection: Code(s): M79.89 - Other specified soft tissue disorders Status: Acute Assessment and Plan: * localized to the left groin and thigh * status post debridement by surgery (on 02/16/21) * on IV Imipenem * wound VAC in place * wound cultures with Enterococcus * blood cultures negative * Surgery following (3) Sepsis: Code(s): A41.9 - Sepsis, unspecified organism Status: Acute Assessment and Plan: * due to #2 * follow culture data * continue antibiotic therapy * no need for vasopressors at this time * follow trend of hemodynamics (4) Acute respiratory failure: Code(s): J96.00 - Acute respiratory failure, unspecified whether with hypoxia or hypercapnia Status: Acute Assessment and Plan: * post-operatively remains intubated and on mechanical ventilation * follow CXR findings * diuretics started and IVFs on hold (increased O2 requirement and CXR with pu lmonary edema) * weaning as tolerated (5) Renal mass: Code(s): N28.89 - Other specified disorders of kidney and ureter Status: Acute Assessment and Plan: * no intervention at this time * Urology recommends outpatient evaluation once patient more stable (6) Hyperglycemia: Code(s): R73.9 - Hyperglycemia, unspecified Status: Acute Assessment and Plan: * due to underlying diabetes (does not have official diagnosis) * A1c 13.1 by check here * on accuchecks. * on Lantus and SSI Will continue to follow. Subjective Date/time seen: 02/27/21 11:57 Interval history: patient is Sedated and on the ventilator. Still somewhat unstable hemodynamically. Exam Narrative: General: Large male intubated/sedated in NAD Heart: normal S1 and S2; no rub Lungs: distant breath sounds and decreased at bases Abdomen: obese but soft, nontender, nondistended, decreased bowel sounds Extremities: no edema Skin: chronic venous stasis changes (in BLEs); wound VAC in left groin area Objective Data Vital Signs Vital Signs: Vital Signs - 24 hr 02/26/21 12:00 02/26/21 12:08 02/26/21 12:09 Temperature 37.4 C Pulse Rate 94 92 92 Respiratory Rate 28 H 28 H 28 H Blood Pressure 123/77 Pulse Oximetry 89 L 02/26/21 12:35 02/26/21 12:36 02/26/21 13:00 Temperature Pulse Rate 90 90 90 Respiratory Rate 28 H 28 H 28 H Blood Pressure Pulse Oximetry 02/26/21 13:57 02/26/21 14:00 02/26/21 14:11 Temperature 37.5 C Pulse Rate 89 89 90 Respiratory Rate 28 H 28 H
--- NOTE | 2021-02-27 11:57 | PM.PNNEP ---
Progress Note: A&P Assessment and Plan (1) Acute kidney injury: Code(s): N17.9 - Acute kidney failure, unspecified Status: Acute Assessment and Plan: suspect ATN from sepsis secondary to necrotizing fasciitis evaluation to date shows: renal ultrasound without obstruction but the presence of a 9.3cm right kidney mass (cyst versus neoplasm?) urine electrolytes suggest pre-renal azotemia CPK low creatinine rising still. Off furosemide. Most likely his creatinine will continue to rise. Discussed with Dr. Pérez. he is ask the surgeons to place a tunneled dialysis catheter on Monday so that we can do dialysis Monday afternoon. I agree with this plan. (2) Necrotizing soft tissue infection: Code(s): M79.89 - Other specified soft tissue disorders Status: Acute Assessment and Plan: localized to the left groin and thigh status post debridement by surgery (on 02/16/21) on IV Imipenem wound VAC in place wound cultures with Enterococcus blood cultures negative Surgery following (3) Sepsis: Code(s): A41.9 - Sepsis, unspecified organism Status: Acute Assessment and Plan: due to #2 follow culture data continue antibiotic therapy no need for vasopressors at this time follow trend of hemodynamics (4) Acute respiratory failure: Code(s): J96.00 - Acute respiratory failure, unspecified whether with hypoxia or hypercapnia Status: Acute Assessment and Plan: post-operatively remains intubated and on mechanical ventilation follow CXR findings diuretics started and IVFs on hold (increased O2 requirement and CXR with pulmonary edema) weaning as tolerated (5) Renal mass: Code(s): N28.89 - Other specified disorders of kidney and ureter Status: Acute Assessment and Plan: no intervention at this time Urology recommends outpatient evaluation once patient more stable (6) Hyperglycemia: Code(s): R73.9 - Hyperglycemia, unspecified Status: Acute Assessment and Plan: due to underlying diabetes (does not have official diagnosis) A1c 13.1 by check here on accuchecks. on Lantus and SSI Will continue to follow. Subjective Date/time seen: 02/27/21 11:57 Interval history: patient is Sedated and on the ventilator. Still somewhat unstable hemodynamically. Exam Narrative: General: Large male intubated/sedated in NAD Heart: normal S1 and S2; no rub Lungs: distant breath sounds and decreased at bases Abdomen: obese but soft, nontender, nondistended, decreased bowel sounds Extremities: no edema Skin: chronic venous stasis changes (in BLEs); wound VAC in left groin area Objective Data Vital Signs Vital Signs: Vital Signs - 24 hr 02/26/21 12:00 02/26/21 12:08 02/26/21 12:09 Temperature 37.4 C Pulse Rate 94 92 92 Respiratory Rate 28 H 28 H 28 H Blood Pressure 123/77 Pulse Oximetry 89 L 02/26/21 12:35 02/26/21 12:36 02/26/21 13:00 Temperature Pulse Rate 90 90 90 Respiratory Rate 28 H 28 H 28 H Blood Pressure Pulse Oximetry 02/26/21 13:57 02/26/21 14:00 02/26/21 14:11 Temperature 37.5 C Pulse Rate 89 89 90 Respiratory Rate 28 H 28 H Blood Pressure 121/75 Pulse Oximetry 90 90 02/26/21 14:31 02/26/21 15:45 02/26/21 16:00 Temperature 37.6 C Pulse Rate 90 87 87 Respiratory Rate 28 H 28 H 28 H Blood Pressure 123/79 Pulse Oximetry 91 02/26/21 16:38 02/26/21 17:20 02/26/21 17:35 Temperature Pulse Rate 87 100 100 Respiratory Rate 28 H 28 H Blood Pressure Pulse Oximetry 91 02/26/21 17:49 02/26/21 18:00 02/26/21 19:35 Temperature 37.7 C H Pulse Rate 100 100 95 Respiratory Rate 28 H 28 H Blood Pressure 124/65 Pulse Oximetry 96 97 02/26/21 19:38 02/26/21 19:48 02/26/21 20:00 Temperature 37.4 C Pulse Rate 97 97 93 Respiratory Rate 30 H 30 H 18 Blood Pressure 106/63 Pulse Oximetry 96
[2021-02-27 12:34] LABS: Glucose Point of Care 150 mg/dl (65-105)
[2021-02-27] MEDS: MIDAZOLAM 100MG/NS 100ML(*CRX) 100 MG/100 ML BAG IV CONT (13:01)
[2021-02-27 16:28] LABS: Glucose Point of Care 148 mg/dl (65-105)
[2021-02-27 20:33] LABS: Glucose Point of Care 138 mg/dl (65-105)
[2021-02-27 23:36] LABS: Glucose Point of Care 142 mg/dl (65-105)
[2021-02-28] VITALS (39 sets, daily range): BP systolic 111–188; BP diastolic 64–84; PULSE 78–96; RESP 30–32; TEMP 36.8–37.4; O2SAT 92–98
[2021-02-28] MEDS: FENTANYL 2,500MCG/NS250ML(*CRX 2,500 MCG/250 ML BAG 7.5 MCG IV CONT (00:56)
[2021-02-28] MEDS: METOCLOPRAMIDE HCL 10 MG/10 ML SOLN UDC FEED TUBE ×5 (00:57→23:41)
[2021-02-28] MEDS: PROPOFOL IV EMULSION 100 ML 47.45 MG IV CONT ×12 (00:57→23:40)
[2021-02-28 04:41] LABS: Hematocrit 39.5 % (42.0-52.0); Hemoglobin 11.6 g/dL (14.0-18.0); Mean Corpuscular HGB Conc 29.4 g/dl (32-36); Mean Corpuscular Hemoglobin 26.4 pg (26-34); Mean Platelet Volume 9.6 fl (7.4-10.4); Platelet Count Result 229 k/mm3 (150-375); Red Blood Count 4.39 M/mm3 (4.6-6.20); Red Cell Distribution Width 16.3 % (11.5-14.5)
[2021-02-28 05:01] LABS: Alkaline Phosphatase 112 U/L (38-126); Anion Gap 12 mmol/L (8-16); Aspartate Amino Transferase 16 U/L (17-59); Bilirubin,Total 0.6 mg/dL (0.2-1.3); Blood Urea Nitrogen 103 mg/dL (9-20); Carbon Dioxide 31 mmol/L (22-30); Chloride 94 mmol/L (98-107); Estimated CRCL calculation 32 ml/min; Estimated Glomerular Filt Rate 12; Glucose 126 mg/dL (65-110); Magnesium 2.9 mg/dL (1.6-2.3); Potassium 4.6 mmol/L (3.4-5.0); Sodium 137 mmol/L (137-145)
[2021-02-28] MEDS: CENTRAL LINE FLUSH 10 ML IV PUSH ×3 (05:15→22:35)
[2021-02-28 05:38] LABS: pH ABG 7.325 (7.350-7.450)
[2021-02-28 05:39] LABS: Base Excess ABG 1.9 mEq/l (+/-2.0); HCO3 ABG 29.1 mEq/l (22.0-26.0); Oxygen Saturation ABG 95.8 % (95.0-100.0); PCO2 ABG 57.1 mmHg (35.0-45.0); PO2 ABG 87.4 mmHg (80.0-100.0); Total Hemoglobin 12.9 g/dL (12.0-18.0)
[2021-02-28 05:40] LABS: Alveolar/Arterial O2 Gradient 568.5 mmHg; Oxygen Content ABG 17.3 %vol (16.0-22.0)
[2021-02-28 05:40] LABS: Hepatitis B Surface Antigen Negative (Negative)
[2021-02-28 05:41] LABS: Carboxyhemoglobin 0.4 % THb (0-2.0); Device VENTILATOR; Fractional Inspired Oxygen 100 %; Methemoglobin ABG 0.1 %THb (0-1.5); Modified Allen's Test Pass; Oxyhemoglobin 94.8 % THb (90.0-100.0); PO2 FiO2 Ratio Arterial Blood 0.87 %; Reduced Hemoglobin 4.7 %THb (0-5.0); Site Drawn RIGHT RADIAL
[2021-02-28 05:57] LABS: Hepatitis B Surface Anti Res Negative
[2021-02-28 06:16] LABS: Alanine Aminotransferase < 6 U/L (4-50)
[2021-02-28 08:16] LABS: Glucose Point of Care 124 mg/dl (65-105)
[2021-02-28] MEDS: MINERAL OIL/WHITE PETROLATUM OINTMENT 1 APPLIC EACH EYE ×2 (08:20→19:53)
[2021-02-28] MEDS: ENOXAPARIN 40 MG/0.4 ML SYRINGE SUB-Q (08:20)
[2021-02-28] MEDS: PANTOPRAZOLE SODIUM IV 40 MG VIAL IV PUSH ×2 (08:21→19:53)
[2021-02-28] MEDS: polyethylene glycoL 3350 17 GM POWD.PACK PO (08:22)
[2021-02-28] MEDS: INSULIN GLARGINE (*BKC) 100 UNITS/ML 60 UNITS SUB-Q (08:29)
[2021-02-28] MEDS: FUROSEMIDE INJ 40 MG/4 ML VIAL IV PUSH ×2 (09:04→17:04)
[2021-02-28] MEDS: ALBUTEROL SULFATE NEB 2.5 MG/0.5 ML INH 5 MG INHALATION ×3 (09:17→21:08)
[2021-02-28] MEDS: IPRATROPIUM BR 0.02% INH SOLN 0.5 MG/2.5 ML VIAL INHALATION ×3 (09:17→21:08)
[2021-02-28] MEDS: metOLazone 5 MG TABLET PO (09:45)
--- NOTE | 2021-02-28 10:15 | P.PNNP_ITS ---
Progress Note: A&P Assessment and Plan (1) Acute kidney injury: Code(s): N17.9 - Acute kidney failure, unspecified Status: Acute Assessment and Plan: * suspect ATN from sepsis secondary to necrotizing fasciitis * evaluation to date shows: * renal ultrasound without obstruction but the presence of a 9.3cm right kidney mass (cyst versus neoplasm?) * urine electrolytes suggest pre-renal azotemia * CPK low * Creatinine came down a little bit. BUN is still higher. * Will restart diuretics. * Discussed with Dr. Pérez. Will continue diuretics. And less BUN and creatinine are substantially better tomorrow will proceed with dialysis. * current plan is to proceed with tunneled dialysis catheter tomorrow and dialysis tomorrow afternoon. (2) Necrotizing soft tissue infection: Code(s): M79.89 - Other specified soft tissue disorders Status: Acute Assessment and Plan: * localized to the left groin and thigh * status post debridement by surgery (on 02/16/21) * on IV Imipenem * wound VAC in place * wound cultures with Enterococcus * blood cultures negative * Surgery following (3) Sepsis: Code(s): A41.9 - Sepsis, unspecified organism Status: Acute Assessment and Plan: * due to #2 * follow culture data * He is still on imipenem. * Blood pressure is stable today (4) Acute respiratory failure: Code(s): J96.00 - Acute respiratory failure, unspecified whether with hypoxia or hypercapnia Status: Acute Assessment and Plan: * post-operatively remains intubated and on mechanical ventilation * chest x-ray shows diffuse airspace disease, probably fluid * diuretics on board * weaning as tolerated (5) Renal mass: Code(s): N28.89 - Other specified disorders of kidney and ureter Status: Acute Assessment and Plan: * no intervention at this time * Urology recommends outpatient evaluation once patient more stable (6) Hyperglycemia: Code(s): R73.9 - Hyperglycemia, unspecified Status: Acute Assessment and Plan: * due to underlying diabetes (does not have official diagnosis) * A1c 13.1 by check here * on accuchecks and SSI Will continue to follow. Subjective Date/time seen: 02/28/21 10:15 Interval history: Blood pressure has been doing well. Sedated and on the ventilator. Exam Narrative: General: Large male intubated/sedated in NAD Heart: normal S1 and S2; no rub or gallop Lungs: distant breath sounds and decreased at bases Abdomen: obese but soft, nontender, nondistended, decreased bowel sounds Extremities: no edema Skin: chronic venous stasis changes. wound VAC in left groin area Objective Data Vital Signs Vital Signs: Vital Signs - 24 hr 02/27/21 11:00 02/27/21 11:30 02/27/21 11:41 Temperature Pulse Rate 78 75 76 Respiratory Rate 30 H 30 H Blood Pressure Pulse Oximetry 94 02/27/21 12:00 02/27/21 13:00 02/27/21 13:01 Temperature 36.3 C L Pulse Rate 88 88 79 Respiratory Rate 30 H 30 H 30 H Blood Pressure 124/79 Pulse Oximetry 94 02/27/21 13:44 02/27/21 14:00 02/27/21 14:10 Temperature 36.2 C L Pulse Rate 79 87 95 Respiratory Rate 30 H 30 H 30 H Blood Pressure 130/78 Pul
--- NOTE | 2021-02-28 10:15 | PM.PNNEP ---
Progress Note: A&P Assessment and Plan (1) Acute kidney injury: Code(s): N17.9 - Acute kidney failure, unspecified Status: Acute Assessment and Plan: suspect ATN from sepsis secondary to necrotizing fasciitis evaluation to date shows: renal ultrasound without obstruction but the presence of a 9.3cm right kidney mass (cyst versus neoplasm?) urine electrolytes suggest pre-renal azotemia CPK low Creatinine came down a little bit. BUN is still higher. Will restart diuretics. Discussed with Dr. Pérez. Will continue diuretics. And less BUN and creatinine are substantially better tomorrow will proceed with dialysis. current plan is to proceed with tunneled dialysis catheter tomorrow and dialysis tomorrow afternoon. (2) Necrotizing soft tissue infection: Code(s): M79.89 - Other specified soft tissue disorders Status: Acute Assessment and Plan: localized to the left groin and thigh status post debridement by surgery (on 02/16/21) on IV Imipenem wound VAC in place wound cultures with Enterococcus blood cultures negative Surgery following (3) Sepsis: Code(s): A41.9 - Sepsis, unspecified organism Status: Acute Assessment and Plan: due to #2 follow culture data He is still on imipenem. Blood pressure is stable today (4) Acute respiratory failure: Code(s): J96.00 - Acute respiratory failure, unspecified whether with hypoxia or hypercapnia Status: Acute Assessment and Plan: post-operatively remains intubated and on mechanical ventilation chest x-ray shows diffuse airspace disease, probably fluid diuretics on board weaning as tolerated (5) Renal mass: Code(s): N28.89 - Other specified disorders of kidney and ureter Status: Acute Assessment and Plan: no intervention at this time Urology recommends outpatient evaluation once patient more stable (6) Hyperglycemia: Code(s): R73.9 - Hyperglycemia, unspecified Status: Acute Assessment and Plan: due to underlying diabetes (does not have official diagnosis) A1c 13.1 by check here on accuchecks and SSI Will continue to follow. Subjective Date/time seen: 02/28/21 10:15 Interval history: Blood pressure has been doing well. Sedated and on the ventilator. Exam Narrative: General: Large male intubated/sedated in NAD Heart: normal S1 and S2; no rub or gallop Lungs: distant breath sounds and decreased at bases Abdomen: obese but soft, nontender, nondistended, decreased bowel sounds Extremities: no edema Skin: chronic venous stasis changes. wound VAC in left groin area Objective Data Vital Signs Vital Signs: Vital Signs - 24 hr 02/27/21 11:00 02/27/21 11:30 02/27/21 11:41 Temperature Pulse Rate 78 75 76 Respiratory Rate 30 H 30 H Blood Pressure Pulse Oximetry 94 02/27/21 12:00 02/27/21 13:00 02/27/21 13:01 Temperature 36.3 C L Pulse Rate 88 88 79 Respiratory Rate 30 H 30 H 30 H Blood Pressure 124/79 Pulse Oximetry 94 02/27/21 13:44 02/27/21 14:00 02/27/21 14:10 Temperature 36.2 C L Pulse Rate 79 87 95 Respiratory Rate 30 H 30 H 30 H Blood Pressure 130/78 Pulse Oximetry 94 95 02/27/21 14:20 02/27/21 15:00 02/27/21 15:51 Temperature Pulse Rate 82 87 86 Respiratory Rate 30 H 30 H 30 H Blood Pressure Pulse Oximetry 02/27/21 16:00 02/27/21 16:31 02/27/21 17:00 Temperature 36.4 C Pulse Rate 87 86 86 Respiratory Rate 30 H 30 H 30 H Blood Pressure 129/82 Pulse Oximetry 94 02/27/21 17:15 02/27/21 17:58 02/27/21 18:00 Temperature 36.4 C L Pulse Rate 86 87 87 Respiratory Rate 30 H 30 H Blood Pressure 125/76 Pulse Oximetry 92 95 02/27/21 20:00 02/27/21 20:11 02/27/21 20:13 Temperature 36.8 C Pulse Rate 85 92 92 Respiratory Rate 30 H 30 H Blood Pressure 139/82 Pulse Oximetry 95 94 02/27/21 22:00 02/27
--- NOTE | 2021-02-28 10:55 | WPDINTPN ---
Progress Note: A&P Assessment and Plan (1) Acute respiratory failure: Code(s): J96.00 - Acute respiratory failure, unspecified whether with hypoxia or hypercapnia Status: Acute Assessment and Plan: Postop respiratory failure, continue mechanical ventilation. Patient intubated in the OR on 02/16/2021 -place patient on CMV mode of ventilation, peep of 16, 100% FiO2. Wean FiO2 as tolerated -02/25 patient had episode where he disconnected himself from the ventilator and the recruited. He was on 60% and FiO2 had to be increased to 100%. Peep had to be increased -overnight his oxygen requirement has stayed high at 100% -chest x-ray reviewed shows bilateral infiltrates which could be pneumonia versus pulmonary edema. Patient is on broad-spectrum antibiotics and diuretics - advance ET tube by 3 cm -patient is to big to fit in our our CT scanner - ABGs reviewed -permissive hypercapnia -continue bronchodilators -continue propofol, fentanyl and Versed infusion, daily sedation vacation -not ready for weaning at this time due to high oxygen requirement - plan to start dialysis to remove additional fluid and see if that helps with hypoxia (2) Necrotizing soft tissue infection: Code(s): M79.89 - Other specified soft tissue disorders Status: Acute Assessment and Plan: Necrotizing soft tissue infection of the left groin and thigh, status post debridement by surgery on 02/16/2021 -continue imipenem - Vancomycin was discontinued due to worsening renal function and cultures being negative -surgery following the patient -wound VAC management per surgery and will be changed today -wound cultures are growing Enterococcus and Prevotella which is pansensitive. - blood cultures are negative (3) Hyperglycemia: Code(s): R73.9 - Hyperglycemia, unspecified Status: Acute Assessment and Plan: Hyperglycemia, continue high-dose sliding scale insulin Accu-Cheks Continue Lantus -hemoglobin A1c is 13.1 this admission (4) Morbid obesity with BMI of 70 and over, adult: Code(s): E66.01 - Morbid (severe) obesity due to excess calories; Z68.45 - Body mass index [BMI] 70 or greater, adult Status: Chronic Assessment and Plan: Morbidly obese, On Glucerna tube feeds (5) Sepsis: Code(s): A41.9 - Sepsis, unspecified organism Status: Acute Assessment and Plan: Sepsis likely related to necrotizing fasciitis, his leg still appears to be red and warm but he is afebrile and WBC had normalized Patient not on any vasopressor (6) DVT prophylaxis: Code(s): Z29.9 - Encounter for prophylactic measures, unspecified Status: Acute Assessment and Plan: Lovenox (7) Dietary counseling and surveillance: Code(s): Z71.3 - Dietary counseling and surveillance Status: Acute Assessment and Plan: Continue tube feeds (8) Acute kidney injury: Code(s): N17.9 - Acute kidney failure, unspecified Status: Acute Assessment and Plan: Likely secondary to sepsis, surgery Renal ultrasound showed Normal kidney sizes and No hydronephrosis. Nephrology following Normal CK Patient was given IV fluids but creatinine continues to increase. He is overall volume overloaded He continues to have decent urine output for now although it has tapered as compared to last couple of days. I have discussed with Dr. Martinez from General surgery and Dr. Marx with nephrology. resume Lasix today and Dr. Marx added Zaroxolyn. in line of worsening renal function and volume overload will proceed with initiating hemodialysis. Patient Is on tentative schedule for dialysis catheter in OR tomorrow. (9) Renal mass: Code(s): N28.89 - Other specified disorders of kidney and ureter Status: Acute Assessment and Plan: Renal Ultrasound 02/18/21 15:51 IMPRESSION: 1. 9.3 cm right kidney mass, which may be a hemorrhagic cyst or a neoplasm. Further eval
--- NOTE | 2021-02-28 11:11 | PM.PNGS ---
Progress Note: A&P Assessment and Plan (1) Necrotizing soft tissue infection: Code(s): M79.89 - Other specified soft tissue disorders Status: Acute Assessment and Plan: status post debridement and receiving wound VAC therapy. Plans are for dressing change tomorrow. (2) Acute hypercapnic respiratory failure: Code(s): J96.02 - Acute respiratory failure with hypercapnia Status: Acute Assessment and Plan: Multifactorial (3) Acute kidney injury: Code(s): N17.9 - Acute kidney failure, unspecified Status: Acute Assessment and Plan: creatinine slightly better today at 5.3. Making some urine. Subjective Subjective Date/Time Seen: 02/28/21 11:11 Patient reports: other ( Remains intubated in ICU) Review of Systems Review of Systems: ROS unobtainable: Yes unobtainable due to endotracheal tube Exam GI: Inspection: Abdominal wall edema and obesity Extrem: General: edema bilateral ( Lymphedema) and other ( wound VAC in place, working well.) Objective Data Vital Signs Vital Signs: Vital Signs - 24 hr 02/27/21 11:30 02/27/21 11:41 02/27/21 12:00 Temperature 36.3 C L Pulse Rate 75 76 88 Respiratory Rate 30 H 30 H Blood Pressure 124/79 Pulse Oximetry 94 94 02/27/21 13:00 02/27/21 13:01 02/27/21 13:44 Temperature Pulse Rate 88 79 79 Respiratory Rate 30 H 30 H 30 H Blood Pressure Pulse Oximetry 02/27/21 14:00 02/27/21 14:10 02/27/21 14:20 Temperature 36.2 C L Pulse Rate 87 95 82 Respiratory Rate 30 H 30 H 30 H Blood Pressure 130/78 Pulse Oximetry 94 95 02/27/21 15:00 02/27/21 15:51 02/27/21 16:00 Temperature 36.4 C Pulse Rate 87 86 87 Respiratory Rate 30 H 30 H 30 H Blood Pressure 129/82 Pulse Oximetry 94 02/27/21 16:31 02/27/21 17:00 02/27/21 17:15 Temperature Pulse Rate 86 86 86 Respiratory Rate 30 H 30 H Blood Pressure Pulse Oximetry 92 02/27/21 17:58 02/27/21 18:00 02/27/21 20:00 Temperature 36.4 C L 36.8 C Pulse Rate 87 87 85 Respiratory Rate 30 H 30 H 30 H Blood Pressure 125/76 139/82 Pulse Oximetry 95 95 02/27/21 20:11 02/27/21 20:13 02/27/21 22:00 Temperature 36.6 C Pulse Rate 92 92 83 Respiratory Rate 30 H 21 H Blood Pressure 124/75 Pulse Oximetry 94 94 02/27/21 22:58 02/28/21 00:00 02/28/21 00:56 Temperature 36.8 C Pulse Rate 88 87 88 Respiratory Rate 30 H 30 H Blood Pressure 131/84 Pulse Oximetry 93 98 02/28/21 02:00 02/28/21 02:07 02/28/21 02:09 Temperature Pulse Rate 90 93 95 Respiratory Rate 30 H 30 H Blood Pressure 122/74 Pulse Oximetry 97 95 02/28/21 03:35 02/28/21 04:00 02/28/21 05:55 Temperature 36.8 C Pulse Rate 86 87 86 Respiratory Rate 30 H Blood Pressure 118/74 Pulse Oximetry 97 97 95 02/28/21 06:00 02/28/21 07:00 02/28/21 08:00 Temperature 36.8 C Pulse Rate 87 85 84 Respiratory Rate 30 H 30 H 30 H Blood Pressure 113/69 188/71 H Pulse Oximetry 94 94 02/28/21 08:36 02/28/21 08:45 02/28/21 09:00 Temperature Pulse Rate 83 83 83 Respiratory Rate 30 H 30 H 30 H Blood Pressure Pulse Oximetry 02/28/21 09:18 02/28/21 10:00 02/28/21 10:46 Temperature 37.0 C Pulse Rate 88 83 84 Respiratory Rate 30 H 30 H Blood Pressure 128/72 Pulse Oximetry 94 92 Intake/Output Intake/Output: Intake & Output 02/25/21 02/26/21 02/27/21 02/28/21 23:59 23:59 23:59 23:59 Intake Total 2822.8 3514 2620 1382 Output Total 1575 1775 1300 1200 Balance 1247.8 1739 1320 182 Meds/Results Medications: Active Medications Generic Name Dose Route Start Last Admin Trade Name Freq PRN Reason Stop Dose Admin Albuterol 5 mg 02/16/21 14:00 02/28/21 09:17 Albuterol Sulfate Neb 2.5 Mg/0.5 Ml Inh INHALATION 5 mg Q6HRT RK Administration Bisacodyl 10 mg 02/19/21 15:30 02/22/21 11:15 Bisacodyl 10 Mg Suppository RECTAL 10 mg QAM PRN Administration Constipation Dextro
[2021-02-28 11:34] LABS: NT Pro B Type Natriuretic Pept 2460 pg/mL (5-100)
[2021-02-28 11:40] LABS: Glucose Point of Care 132 mg/dl (65-105)
[2021-02-28] MEDS: MIDAZOLAM 100MG/NS 100ML(*CRX) 100 MG/100 ML BAG IV CONT (12:24)
[2021-02-28 16:02] LABS: Glucose Point of Care 133 mg/dl (65-105)
[2021-02-28 20:39] LABS: Glucose Point of Care 124 mg/dl (65-105)
[2021-03-01] VITALS (71 sets, daily range): BP systolic 88–141; BP diastolic 50–80; PULSE 81–118; RESP 22–300; TEMP 35.7–38.7; O2SAT 75–100
--- NOTE | 2021-03-01 | ECHO_ITS ---
Patient Info Name: Chetan Pappas Age: 51 years : 1970 Gender: Male Ht: 72 in Wt: 545 lbs BSA: 3.70 m2 HR: 89 bpm BP: 106 / 65 mmHg Heart Rhythm: Sinus Rhythm Exam Date: 03/01/2021 8:49 AM Exam Location: [facility] Patient Status: Inpatient Admit Date: 02/16/2021 Staff Ordering Physician: Rell Pérez MD Manager Transmission: Yao Billy RDCS, RT Attending Provider: Nayeli Salgado DO Exam Type: CA echo dop color flow w con Study Info Indications I50.9 - Heart failure, unspecified Complete two-dimensional, color flow and Doppler transthoracic echocardiogram is performed with contrast to opacify the left ventricle and to improve the deliniation of the left ventricle endocardial borders. Summary 1. Left ventricular chamber dimension is normal. 2. Left ventricular systolic function is normal, estimated at 60-65%. 3. There is mildly increased left ventricular wall thickness. 4. The left ventricular diastolic function is grade I diastolic dysfunction. 5. Right ventricular chamber dimension is moderately enlarged. 6. Right ventricular systolic function is reduced. 7. Right atrial chamber dimension is mildly enlarged. 8. There is mild mitral valve regurgitation. 9. There is mild tricuspid valve regurgitation. 10. Moderate pulmonary hypertension, estimated pulmonary arterial systolic pressure is 58 mmHg. 11. There is mild pulmonic regurgitation. Left Ventricle Left ventricular chamber dimension is normal. Left ventricular systolic function is normal, estimated at 60-65%. There is mildly increased left ventricular wall thickness. The left ventricular diastolic function is grade I diastolic dysfunction. Right Ventricle Right ventricular chamber dimension is moderately enlarged. Right ventricular systolic function is reduced. Left Atria Left atrial chamber dimension is normal. Right Atria Right atrial chamber dimension is mildly enlarged. Atrial Septum Intact interatrial septum visualized by color flow imaging. Aortic Valve The aortic valve is trileaflet. There is mild aortic valve sclerosis. There is no aortic valve stenosis. There is trace aortic valve regurgitation. Pulmonic Valve The pulmonic valve is normal. There is no pulmonic valve stenosis. There is mild pulmonic regurgitation. Mitral Valve The mitral valve has normal leaflets. There is no mitral valve stenosis. There is mild mitral valve regurgitation. Tricuspid Valve Moderate pulmonary hypertension, estimated pulmonary arterial systolic pressure is 58 mmHg. The tricuspid valve leaflets are normal. There is no significant tricuspid valve stenosis. There is mild tricuspid valve regurgitation. Pericardium/Pleural The pericardium appears normal. There is no pericardial effusion. Inferior Vena Cava Dilated inferior vena cava with <50% collapse upon inspiration consistent with elevated right atrial pressure, 20 mmHg. Aorta The aortic root size at the sinus of Valsalva is normal. The prox ascending aorta size is normal. Left Ventricular Outflow Tract Name Value Normal LVOT Doppler LVOT Peak Gradient 3 mmHg LVOT Mean Gradient 2 mmHg LVOT VTI
[2021-03-01 00:08] LABS: Glucose Point of Care 106 mg/dl (65-105)
[2021-03-01] MEDS: PROPOFOL IV EMULSION 100 ML 47.45 MG IV CONT ×7 (01:48→14:15)
[2021-03-01] MEDS: IPRATROPIUM BR 0.02% INH SOLN 0.5 MG/2.5 ML VIAL INHALATION ×4 (02:33→20:42)
[2021-03-01] MEDS: ALBUTEROL SULFATE NEB 2.5 MG/0.5 ML INH 5 MG INHALATION ×4 (02:33→20:42)
[2021-03-01 04:21] LABS: Triglycerides 228 mg/dL (<150)
[2021-03-01 04:23] LABS: Alkaline Phosphatase 137 U/L (38-126); Anion Gap 15 mmol/L (8-16); Aspartate Amino Transferase 18 U/L (17-59); Bilirubin,Total 0.6 mg/dL (0.2-1.3); Blood Urea Nitrogen 114 mg/dL (9-20); Calcium 8.9 mg/dL (8.4-10.2); Carbon Dioxide 29 mmol/L (22-30); Chloride 94 mmol/L (98-107); Estimated CRCL calculation 33 ml/min; Estimated Glomerular Filt Rate 12; Glucose 113 mg/dL (65-110); Magnesium 2.9 mg/dL (1.6-2.3); Potassium 4.2 mmol/L (3.4-5.0); Sodium 138 mmol/L (137-145)
[2021-03-01 04:33] LABS: Alveolar/Arterial O2 Gradient 593.5 mmHg; Carboxyhemoglobin 0.3 % THb (0-2.0); Fractional Inspired Oxygen 100 %; HCO3 ABG 29.9 mEq/l (22.0-26.0); Methemoglobin ABG 0.2 %THb (0-1.5); Oxygen Content ABG 16.5 %vol (16.0-22.0); Oxygen Saturation ABG 93.7 % (95.0-100.0); PO2 ABG 69.5 mmHg (80.0-100.0); PO2 FiO2 Ratio Arterial Blood 0.69 %; Reduced Hemoglobin 7.5 %THb (0-5.0); Total Hemoglobin 12.7 g/dL (12.0-18.0); pH ABG 7.394 (7.350-7.450)
[2021-03-01 04:33] LABS: Hematocrit 38.1 % (42.0-52.0); Hemoglobin 11.3 g/dL (14.0-18.0); Mean Corpuscular HGB Conc 29.7 g/dl (32-36); Mean Corpuscular Hemoglobin 26.3 pg (26-34); Mean Corpuscular Volume 88.8 fl (80-100); Platelet Count Result 226 k/mm3 (150-375); Red Blood Count 4.29 M/mm3 (4.6-6.20); Red Cell Distribution Width 16.5 % (11.5-14.5); White Blood Count 11.7 K/mm3 (4.5-10.0)
[2021-03-01 04:34] LABS: Arterial Blood Gas PEEP 16 cmH2O; Arterial Blood Gas Tidal Volume 450 ml; Arterial Blood Gas Vent Mode CMV; Arterial Blood Gas Ventilator rate 30 /MIN; Device VENTILATOR; Modified Allen's Test Pass; Site Drawn RIGHT RADIAL
[2021-03-01 04:54] LABS: Alanine Aminotransferase < 6 U/L (4-50)
[2021-03-01] MEDS: METOCLOPRAMIDE HCL 10 MG/10 ML SOLN UDC FEED TUBE ×3 (05:42→17:27)
[2021-03-01] MEDS: CENTRAL LINE FLUSH 10 ML IV PUSH ×2 (06:18→14:21)
[2021-03-01 08:13] LABS: Glucose Point of Care 110 mg/dl (65-105)
[2021-03-01] MEDS: MINERAL OIL/WHITE PETROLATUM OINTMENT 1 APPLIC EACH EYE ×2 (08:25→19:52)
[2021-03-01] MEDS: INSULIN GLARGINE (*BKC) 100 UNITS/ML 60 UNITS SUB-Q (08:28)
[2021-03-01] MEDS: ENOXAPARIN 40 MG/0.4 ML SYRINGE SUB-Q (08:28)
[2021-03-01] MEDS: polyethylene glycoL 3350 17 GM POWD.PACK PO (08:28)
[2021-03-01] MEDS: FUROSEMIDE INJ 40 MG/4 ML VIAL IV PUSH ×2 (08:28→16:25)
[2021-03-01] MEDS: metOLazone 5 MG TABLET PO (08:28)
[2021-03-01] MEDS: PANTOPRAZOLE SODIUM IV 40 MG VIAL IV PUSH ×2 (08:28→19:52)
--- NOTE | 2021-03-01 08:42 | PM.PNGS ---
Progress Note: A&P Assessment and Plan (1) Necrotizing soft tissue infection: Code(s): M79.89 - Other specified soft tissue disorders Status: Acute Assessment and Plan: Left groin/thigh wound healing well. Continue wound VAC therapy. Plan to change again on Monday. Would be okay from our standpoint to stop IV antibiotics tomorrow (day 14 on Primaxin). (2) Acute hypercapnic respiratory failure: Code(s): J96.02 - Acute respiratory failure with hypercapnia Status: Acute Assessment and Plan: Continue to wean vent as tolerated per Ophthalmic Technologist. (3) Acute kidney injury: Code(s): N17.9 - Acute kidney failure, unspecified Status: Acute Assessment and Plan: Spoke with Ophthalmic Technologist. Nephrology would like a tunneled dialysis catheter placed. I spoke with Dr. Martinez in regards to adding this onto the OR schedule today. His tube feedings were running this morning, which I asked the nurse to put on hold during my evaluation this morning. Will plan to add him onto the OR schedule this afternoon. Additional Plan I have discussed the patient's case and plan of care with Dr. Martinez. Subjective Subjective Date/Time Seen: 03/01/21 08:42 Post Op day: 13 (Soft tissue excisional debridement of left groin/medial thigh extending to left buttock) Patient reports: afebrile Interval history: Patient intubated and sedated in the ICU. He is seen with the wound care nurses. Tolerating tube feedings, which are still running this morning and I asked the nurse to please hold for right now in case of surgery today. Wound VAC with 200 cc documented through day shift yesterday and 150 cc overnight cage shift manager last night. He also received his Lantus and Lovenox this morning. Review of Systems Review of Systems: ROS unobtainable: Yes unobtainable due to endotracheal tube Exam Const: General: ill appearing Nutritional Appearance: obese morbidly obese Orientation/consciousness: patient obtunded Limitations: physical limitations Resp: Effort & Inspection: abnormal respiratory pattern (mechanical ventilator) and tachypneic Auscultation: diminished lung sounds Cardio: Rate: regular rate Rhythm: regular rhythm GI: Inspection: Pannus present, obesity and visible herniation (soft umbilical hernia) GI Palp: Yes Soft to palpation Auscultation: normal bowel sounds : Scrotum: no scrotal swelling Testes: Testes normal Urinary Catheter: Urinary Catheter: patent and draining and urine dark (slightly dark yellow) Skin: Other: Left medial thigh/groin wound vac removed with the wound continuing to heal well with nearly entire wound bed with pink granulation tissue, no areas of necrotic tissue or purulent drainage. Serosanguineous drainage in the current wound vac canister. Mild, flat, diffuse pink-colored rash scattered across the mid to lower abdomen and bilateral lower legs Neuro: Other: Exam limited d/t sedation/intubation. Psych: Insight: Limited insight present (Psych) Judgement: Limited judgement present (Psych) Objective Data Vital Signs Vital Signs: Vital Signs - 24 hr 02/28/21 08:45 02/28/21 09:00 02/28/21 09:18 Temperature Pulse Rate 83 83 88 Respiratory Rate 30 H 30 H Blood Pressure Pulse Oximetry 94 02/28/21 10:00 02/28/21 10:46 02/28/21 11:43 Temperature 98.6 F Pulse Rate 83 84 89 Respiratory Rate 30 H 30 H Blood Pressure 128/72 Pulse Oximetry 92 92 02/28/21 12:00 02/28/21 12:24 02/28/21 12:53 Temperature 99.3 F Pulse Rate 90 92 96 Respiratory Rate 30 H 30 H 30 H Blood Pressure 124/77 Pulse Oximetry 94 02/28/21 13:01 02/28/21 14:00 02/28/21 14:09 Temperature 99.3 F Pulse Rate 96 93 93 Respiratory Rate 30 H 30 H 31 H Blood Pressure 125/76 Pulse Oximetry 97 97 02/28/21 15:04 02/28/21 16:00 02/28/21 17:02 Temperature 98.8 F Pulse Rate 92 92 93 Respiratory Rate 30 H 30 H Blood Pressure 123/74 Pulse Oximetry 97 97 02/28
[2021-03-01 09:53] LABS: Arterial Blood Gas PEEP 16 cmH2O; Arterial Blood Gas Vent Mode CMV; Arterial Blood Gas Ventilator rate 30 /MIN
[2021-03-01 09:54] LABS: Arterial Blood Gas Tidal Volume 450 ml
[2021-03-01] MEDS: DEXTROSE 10% 1,000 ML 40 ML IV CONT (10:23)
--- NOTE | 2021-03-01 10:23 | WPDINTPN ---
Progress Note: A&P Assessment and Plan (1) Acute respiratory failure: Code(s): J96.00 - Acute respiratory failure, unspecified whether with hypoxia or hypercapnia Status: Acute Assessment and Plan: Postop respiratory failure, continue mechanical ventilation. Patient intubated in the OR on 02/16/2021 -place patient on CMV mode of ventilation, peep of 16, 100% FiO2. Wean FiO2 as tolerated -02/25 patient had episode where he disconnected himself from the ventilator and the recruited. He was on 60% and FiO2 had to be increased to 100%. Peep had to be increased -overnight his oxygen requirement has stayed high at 100% -chest x-ray reviewed shows bilateral infiltrates which could be pneumonia versus pulmonary edema. Patient is on broad-spectrum antibiotics and diuretics -patient is to big to fit in our our CT scanner - ABGs reviewed -permissive hypercapnia -continue bronchodilators -continue propofol, fentanyl and Versed infusion -not ready for weaning at this time due to high oxygen requirement - plan to start dialysis today to remove additional fluid and see if that helps with hypoxia (2) Necrotizing soft tissue infection: Code(s): M79.89 - Other specified soft tissue disorders Status: Acute Assessment and Plan: Necrotizing soft tissue infection of the left groin and thigh, status post debridement by surgery on 02/16/2021 -continue imipenem - Vancomycin was discontinued due to worsening renal function and cultures being negative -surgery following the patient -wound VAC management per surgery and will be changed today -wound cultures are growing Enterococcus and Prevotella which is pansensitive. - blood cultures are negative (3) Hyperglycemia: Code(s): R73.9 - Hyperglycemia, unspecified Status: Acute Assessment and Plan: Hyperglycemia, continue high-dose sliding scale insulin Accu-Cheks Continue Lantus -hemoglobin A1c is 13.1 this admission (4) Morbid obesity with BMI of 70 and over, adult: Code(s): E66.01 - Morbid (severe) obesity due to excess calories; Z68.45 - Body mass index [BMI] 70 or greater, adult Status: Chronic Assessment and Plan: Morbidly obese, On Glucerna tube feeds (5) Sepsis: Code(s): A41.9 - Sepsis, unspecified organism Status: Acute Assessment and Plan: Sepsis likely related to necrotizing fasciitis, his leg still appears to be red and warm but he is afebrile and WBC had normalized Patient not on any vasopressor (6) DVT prophylaxis: Code(s): Z29.9 - Encounter for prophylactic measures, unspecified Status: Acute Assessment and Plan: Lovenox (7) Dietary counseling and surveillance: Code(s): Z71.3 - Dietary counseling and surveillance Status: Acute Assessment and Plan: Continue tube feeds (8) Acute kidney injury: Code(s): N17.9 - Acute kidney failure, unspecified Status: Acute Assessment and Plan: Likely secondary to sepsis, surgery Renal ultrasound showed Normal kidney sizes and No hydronephrosis. Nephrology following Normal CK Patient was given IV fluids but creatinine continues to increase. He is overall volume overloaded He continues to have decent urine output for now although it has tapered as compared to last couple of days. I have discussed with Dr. Martinez from General surgery and Dr. Marx with nephrology. continue Lasix and Zaroxolyn. general surgery plan to place dialysis catheter in OR today and Nephrology will initiate hemodialysis after that. Dr. Martinez has requested a PICC line on the left side so that the right internal jugular site could be used for dialysis catheter placement (9) Renal mass: Code(s): N28.89 - Other specified disorders of kidney and ureter Status: Acute Assessment and Plan: Renal Ultrasound 02/18/21 15:51 IMPRESSION: 1. 9.3 cm right kidney mass, which may be a hemorrhagic cyst or a
--- NOTE | 2021-03-01 11:41 | PC.NURSE ---
Spoke with Dr. Marx regarding if patient was able to receive a PICC line, d/t his elevated creatinine. Dr Martinez would like to place the tunneling dialysis catheter on the right side, which is where the patient currently has access. Pt has a RIJ, and that will need to be removed d/t the dialysis catheter placement. Dr. Marx ok with patient receiving a PICC line, since the kidney issue appears to be more acute than chronic. Rayna Allan RN notified of situation and will place PICC as soon as her schedule allows.
--- NOTE | 2021-03-01 11:51 | PCFNICU ---
ICU Rounding Note: Pt current nutrition is Glucerna 1.2 at 20 mls per hour over 22 hours per day. Last recorded weight is 247.5 kg. Bowel Motility: + BM 02/26/2021 Labs Reviewed: Hgb 11.3, Hct 38.1, TG 228, GFR 12, BUN 114, Cr 5.2, Glu 113 Meds Noted: Albuterol, Lovenox, Fentanyl Citrate, Bisacodyl, Lasix, Glucagon, Glucose, Lantus, Atrovent neb, Versed, Reglan, Miralax, Protonix, Propofol Skin: Wound vac to left thigh Additional Notes: Patient remains on mechanical vent and tube feedings of Glucerna 1.2 at 20 mls per hour over 22 hours per day with a Prostat flush BID and well tolerating per nursing. Patient is receiving Evert BID providing 90 calories and 2.5 grams of protein to aid in wound healing. Propofol is at 30 mics providing an additional 1252 calories. In total pt. is receiving 1981 calories, 56 grams of protein and 354 mls of water with a 30 ml water flush q4 meeting 61% of his protein needs and 100% of his calorie needs. Following daily in ICU rounds. Will monitor every Monday and Monday.
[2021-03-01] MEDS: FENTANYL 2,500MCG/NS250ML(*CRX 2,500 MCG/250 ML BAG 7.5 MCG IV CONT (12:09)
[2021-03-01] MEDS: MIDAZOLAM 100MG/NS 100ML(*CRX) 100 MG/100 ML BAG IV CONT (12:10)
[2021-03-01 12:13] LABS: Glucose Point of Care 115 mg/dl (65-105)
--- NOTE | 2021-03-01 12:40 | PC.NURSE ---
Addendum entered by Sasha Gatica RN 03/01/21 12:41: Pt to OR at 1230 Original Note: Pt to OR for tunneled dialysis catheter placement and removal of RIJ
[2021-03-01] MEDS: HEPARIN SODIUM 1,000 UNITS/ML VIAL 1000 UNITS IV PUSH (13:19)
[2021-03-01] MEDS: HEPARIN SODIUM, PORCINE 10,000 UNITS/10 ML VIAL 10000 UNITS IV PUSH (13:54)
--- NOTE | 2021-03-01 13:57 | P.PNNP_ITS ---
Progress Note: A&P Assessment and Plan (1) Acute kidney injury: Code(s): N17.9 - Acute kidney failure, unspecified Status: Acute Assessment and Plan: * suspect ATN from sepsis secondary to necrotizing fasciitis * evaluation to date shows: * renal ultrasound without obstruction but the presence of a 9.3cm right kidney mass (cyst versus neoplasm?) * urine electrolytes suggest pre-renal azotemia * CPK low * Creatinine is about the same. BUN is higher * will continue diuretics. * He gets a PermCath placed today. * Dialysis later today or tomorrow depending on timing. (2) Necrotizing soft tissue infection: Code(s): M79.89 - Other specified soft tissue disorders Status: Acute Assessment and Plan: * localized to the left groin and thigh * status post debridement by surgery (on 02/16/21) * Getting wound VAC and antibiotics. * Surgery following (3) Sepsis: Code(s): A41.9 - Sepsis, unspecified organism Status: Acute Assessment and Plan: * due to #2 * follow culture data * He is still on imipenem. * Blood pressure is stable today (4) Acute respiratory failure: Code(s): J96.00 - Acute respiratory failure, unspecified whether with hypoxia or hypercapnia Status: Acute Assessment and Plan: * post-operatively remains intubated and on mechanical ventilation * chest x-ray shows diffuse airspace disease, probably fluid * diuretics on board * We can remove some fluid with dialysis. (5) Renal mass: Code(s): N28.89 - Other specified disorders of kidney and ureter Status: Acute Assessment and Plan: * no intervention at this time * Urology recommends outpatient evaluation once patient more stable (6) Hyperglycemia: Code(s): R73.9 - Hyperglycemia, unspecified Status: Acute Assessment and Plan: * due to underlying diabetes (does not have official diagnosis) * A1c 13.1 by check here * on accuchecks and SSI Subjective Date/time seen: 03/01/21 13:57 Interval history: Blood pressure has been doing well. Sedated and on the ventilator. Exam Narrative: General: Large male intubated/sedated in NAD Heart: normal S1 and S2; no rub. Lungs: distant breath sounds and decreased at bases Abdomen: obese but soft, nontender, nondistended, decreased bowel sounds Extremities: no edema or cyanosis Skin: chronic venous stasis changes. wound VAC in left groin area Objective Data Vital Signs Vital Signs: Vital Signs - 24 hr 02/28/21 14:00 02/28/21 14:09 02/28/21 15:04 Temperature 37.4 C Pulse Rate 93 93 92 Respiratory Rate 30 H 31 H 30 H Blood Pressure 125/76 Pulse Oximetry 97 97 02/28/21 16:00 02/28/21 17:02 02/28/21 17:04 Temperature 37.1 C Pulse Rate 92 93 94 Respiratory Rate 30 H 30 H Blood Pressure 123/74 Pulse Oximetry 97 97 02/28/21 18:00 02/28/21 19:11 02/28/21 19:24 Temperature 37.0 C Pulse Rate 91 89 89 Respiratory Rate 30 H 30 H 30 H Blood Pressure 114/64 Pulse Oximetry 98 02/28/21 20:00 02/28/21 21:11 02/28/21 21:20 Temperature 37.0 C Pulse Rate 91 88 90 Respiratory Rate 30 H 32 H 31 H Blood Pressure 113/75
--- NOTE | 2021-03-01 13:57 | PM.PNNEP ---
Progress Note: A&P Assessment and Plan (1) Acute kidney injury: Code(s): N17.9 - Acute kidney failure, unspecified Status: Acute Assessment and Plan: suspect ATN from sepsis secondary to necrotizing fasciitis evaluation to date shows: renal ultrasound without obstruction but the presence of a 9.3cm right kidney mass (cyst versus neoplasm?) urine electrolytes suggest pre-renal azotemia CPK low Creatinine is about the same. BUN is higher will continue diuretics. He gets a PermCath placed today. Dialysis later today or tomorrow depending on timing. (2) Necrotizing soft tissue infection: Code(s): M79.89 - Other specified soft tissue disorders Status: Acute Assessment and Plan: localized to the left groin and thigh status post debridement by surgery (on 02/16/21) Getting wound VAC and antibiotics. Surgery following (3) Sepsis: Code(s): A41.9 - Sepsis, unspecified organism Status: Acute Assessment and Plan: due to #2 follow culture data He is still on imipenem. Blood pressure is stable today (4) Acute respiratory failure: Code(s): J96.00 - Acute respiratory failure, unspecified whether with hypoxia or hypercapnia Status: Acute Assessment and Plan: post-operatively remains intubated and on mechanical ventilation chest x-ray shows diffuse airspace disease, probably fluid diuretics on board We can remove some fluid with dialysis. (5) Renal mass: Code(s): N28.89 - Other specified disorders of kidney and ureter Status: Acute Assessment and Plan: no intervention at this time Urology recommends outpatient evaluation once patient more stable (6) Hyperglycemia: Code(s): R73.9 - Hyperglycemia, unspecified Status: Acute Assessment and Plan: due to underlying diabetes (does not have official diagnosis) A1c 13.1 by check here on accuchecks and SSI Subjective Date/time seen: 03/01/21 13:57 Interval history: Blood pressure has been doing well. Sedated and on the ventilator. Exam Narrative: General: Large male intubated/sedated in NAD Heart: normal S1 and S2; no rub. Lungs: distant breath sounds and decreased at bases Abdomen: obese but soft, nontender, nondistended, decreased bowel sounds Extremities: no edema or cyanosis Skin: chronic venous stasis changes. wound VAC in left groin area Objective Data Vital Signs Vital Signs: Vital Signs - 24 hr 02/28/21 14:00 02/28/21 14:09 02/28/21 15:04 Temperature 37.4 C Pulse Rate 93 93 92 Respiratory Rate 30 H 31 H 30 H Blood Pressure 125/76 Pulse Oximetry 97 97 02/28/21 16:00 02/28/21 17:02 02/28/21 17:04 Temperature 37.1 C Pulse Rate 92 93 94 Respiratory Rate 30 H 30 H Blood Pressure 123/74 Pulse Oximetry 97 97 02/28/21 18:00 02/28/21 19:11 02/28/21 19:24 Temperature 37.0 C Pulse Rate 91 89 89 Respiratory Rate 30 H 30 H 30 H Blood Pressure 114/64 Pulse Oximetry 98 02/28/21 20:00 02/28/21 21:11 02/28/21 21:20 Temperature 37.0 C Pulse Rate 91 88 90 Respiratory Rate 30 H 32 H 31 H Blood Pressure 113/75 Pulse Oximetry 97 97 02/28/21 21:21 02/28/21 22:00 02/28/21 23:02 Temperature 36.9 C Pulse Rate 87 84 78 Respiratory Rate 30 H 30 H Blood Pressure 111/70 Pulse Oximetry 95 94 02/28/21 23:28 02/28/21 23:40 03/01/21 00:00 Temperature 37.1 C Pulse Rate 83 83 85 Respiratory Rate 30 H 30 H 30 H Blood Pressure 116/75 Pulse Oximetry 96 03/01/21 01:47 03/01/21 01:48 03/01/21 02:00 Temperature 37.1 C Pulse Rate 81 81 89 Respiratory Rate 30 H 30 H 30 H Blood Pressure 117/71 Pulse Oximetry 93 03/01/21 02:42 03/01/21 02:44 03/01/21 03:55 Temperature Pulse Rate 82 82 82 Respiratory Rate 30 H 30 H Blood Pressure Pulse Oximetry 93 03/01/21 03:56 03/01/21 04:00 03/01/21 05:36 Temperature 37.1 C Pu
--- NOTE | 2021-03-01 14:01 | W.PM.PROC2 ---
Procedure Note - Detailed Date of Procedure 03/01/21 Pre-op Diagnosis 1. Acute renal failure status post sepsis 2. Acute respiratory failure status post debridement of necrotizing fasciitis upper left thigh 3.Leg cellulitis with necrotizing fasciitis left upper inner thigh Post-op Diagnosis same Procedure Performed 1. Insertion of percutaneous dialysis catheter right IJ approach (exchange over a wire) 2. Removal of triple-lumen IJ percutaneous catheter Surgeon Brad Martinez MD Paraprofessional Interpreter JOAN Carvajal, OR 1st assist Anesthesia general Indications Patient's creatinine has been gradually going up over the last 2 weeks. Today was 5.2 and his BUN was a 114. Therefore, Nephrology has requested a central line for dialysis. Patient is still having trouble getting fluid off his lungs and coming off the ventilator. Findings Apparently normal vascular anatomy in the right neck. Description of Procedure The patient was brought to the operating room with the intention of placing a tunneled dialysis catheter. However, coming down in the elevator and to the room the patient's O2 saturation dropped from being in the 80% Sat. or more in his ICU room to 30% once and it appeared that his endotracheal tube had pulled back some. This was exchanged over a bougie and it was placed back to 25 cm at the level of his incisors. This was taped back into position and with bagging his O2 sat came back up into the 70s. Because, he did not appear stable and we were not able to maintain a good O2 saturation I check with Dr. Pérez (our assurance manager) and he was okay with us placing a percutaneous Makkar pigtail central line for dialysis which would also allow 1 line for maintenance IV fluids or other use. This will help the patient get dialyzed some see if he recovers better renal and respiratory function and then if he will need more permanent dialysis. If so we will need to make a plan for another week or so to again, with his respiratory status better, bring him to the OR for a more permanent tunneled dialysis catheter. We moved the operating room table out of the way and moved his bed in line with the lights. Following this once positioning him appropriately with his head turned to the left so that we would have good access to the entire right neck and upper chest, we carefully prepped the current triple-lumen IJ catheter after removing all the lines to it. This was thoroughly prepped with Betadine. Following this I put 3 sterile towels around it and we put a drape over it and then using sterile technique we carefully used a 0.25 mm guidewire, removed the cap on the distal port, and then placed this down 30 cm, marking this with a suture so that we would know where about 30 cm of wire had been placed into the catheter and patient. We then very carefully backed the old triple lumen central line out over the 0.25 mm guidewire holding the guidewire at the level of the skin once we had backed it completely out to that level. This catheter, the holding device that was around it, and the sutures were all passed off the field and my medical assistant instructor and I changed changed gloves. We then prepped the wire with sprayed Betadine, the nearby skin with chlorhexidine and then the 1st dilator from the percutaneous Dialysis kit was placed over the guidewire and down into the central venous system. I left this dilator in place and then carefully entirely removed the 0.25 mm guidewire and using the guide wire from the [facility] set which is 0.35 mm, I fed this J-tip wire down the dilator holding it in place we then removed that dilator and this made a small further slit in the skin and subcutaneous tissues with an 11 blade along the wire. Then I advanced a 2nd slightly larger dilator. The last dilator was removed and following this the catheter was able to be passed down into the central venous system. I placed a 20 cm Makkar to lumen dialysis catheter with a pigtail all the way in and then we held i
--- NOTE | 2021-03-01 14:15 | PC.NURSE ---
Pt returnedfrom OR with dialysis quiton catheter placed in the RIJ
[2021-03-01 15:41] LABS: Glucose Point of Care 127 mg/dl (65-105)
[2021-03-01] MEDS: PROPOFOL IV EMULSION 100 ML 63.26 MG IV CONT ×2 (16:22→17:54)
[2021-03-01] MEDS: PROPOFOL IV EMULSION 100 ML 55.36 MG IV CONT ×3 (19:30→23:16)
[2021-03-01] MEDS: ACETAMINOPHEN ELIXIR 325 MG/10.15 ML UDC 650 MG PO (19:53)
[2021-03-01 20:33] LABS: Glucose Point of Care 123 mg/dl (65-105)
[2021-03-02] VITALS (69 sets, daily range): BP systolic 80–125; BP diastolic 43–78; PULSE 98–116; RESP 22–89; TEMP 37–39.1; O2SAT 21–97
[2021-03-02] MEDS: NOREPINEPHRINE 8 MG/D5W 250 ML 8 MG/250 ML BAG 9.38 MG IV CONT (00:30)
[2021-03-02] MEDS: METOCLOPRAMIDE HCL 10 MG/10 ML SOLN UDC FEED TUBE ×5 (00:41→23:33)
[2021-03-02] MEDS: ACETAMINOPHEN ELIXIR 325 MG/10.15 ML UDC 650 MG PO ×2 (00:41→19:44)
[2021-03-02] MEDS: CENTRAL LINE FLUSH 10 ML IV PUSH ×6 (00:45→19:55)
[2021-03-02] MEDS: ALBUTEROL SULFATE NEB 2.5 MG/0.5 ML INH 5 MG INHALATION ×4 (01:54→20:07)
[2021-03-02] MEDS: IPRATROPIUM BR 0.02% INH SOLN 0.5 MG/2.5 ML VIAL INHALATION ×4 (01:54→20:07)
[2021-03-02] MEDS: PROPOFOL IV EMULSION 100 ML 55.36 MG IV CONT ×3 (02:58→06:30)
[2021-03-02 04:20] LABS: Glucose Point of Care 134 mg/dl (65-105)
[2021-03-02 04:23] LABS: Hematocrit 45.2 % (42.0-52.0); Mean Corpuscular HGB Conc 28.8 g/dl (32-36); Mean Corpuscular Hemoglobin 26.5 pg (26-34); Mean Corpuscular Volume 92.1 fl (80-100); Mean Platelet Volume 9.9 fl (7.4-10.4); Platelet Count Result 274 k/mm3 (150-375); Red Blood Count 4.91 M/mm3 (4.6-6.20); White Blood Count 15.5 K/mm3 (4.5-10.0)
[2021-03-02 04:57] LABS: Alanine Aminotransferase 72 U/L (4-50); Albumin Level 3.5 g/dL (3.5-5.1); Alkaline Phosphatase 143 U/L (38-126); Anion Gap 15 mmol/L (8-16); Aspartate Amino Transferase 387 U/L (17-59); Bilirubin,Total 1.1 mg/dL (0.2-1.3); Blood Urea Nitrogen 120 mg/dL (9-20); Calcium 9.5 mg/dL (8.4-10.2); Carbon Dioxide 27 mmol/L (22-30); Chloride 93 mmol/L (98-107); Estimated CRCL calculation 29 ml/min; Estimated Glomerular Filt Rate 10; Glucose 129 mg/dL (65-110); Potassium 5.3 mmol/L (3.4-5.0); Sodium 135 mmol/L (137-145)
[2021-03-02 05:06] LABS: Alveolar/Arterial O2 Gradient 559.6 mmHg; Base Excess ABG -6.2 mEq/l (+/-2.0); Carboxyhemoglobin 0.8 % THb (0-2.0); Fractional Inspired Oxygen 100 %; HCO3 ABG 23.1 mEq/l (22.0-26.0); Methemoglobin ABG 0.2 %THb (0-1.5); Oxygen Content ABG 18.3 %vol (16.0-22.0); Oxygen Saturation ABG 94.6 % (95.0-100.0); Oxyhemoglobin 93.4 % THb (90.0-100.0); PO2 ABG 90.5 mmHg (80.0-100.0); Reduced Hemoglobin 5.6 %THb (0-5.0); Total Hemoglobin 13.9 g/dL (12.0-18.0)
[2021-03-02 05:08] LABS: PCO2 ABG 62.9 mmHg (35.0-45.0); Site Drawn RIGHT RADIAL; pH ABG 7.182 (7.350-7.450)
[2021-03-02 05:09] LABS: Device VENTILATOR; Modified Allen's Test Unable to perform
[2021-03-02 05:10] LABS: Arterial Blood Gas PEEP 20 cmH2O; Arterial Blood Gas Tidal Volume 450 ml; Arterial Blood Gas Vent Mode CMV; Arterial Blood Gas Ventilator rate 30 /MIN
[2021-03-02] MEDS: SODIUM BICARBONATE 8.4% 50 MEQ/50 ML SYRINGE 100 MEQ IV PUSH (06:32)
--- NOTE | 2021-03-02 07:25 | P.PNNP_ITS ---
Progress Note: A&P Assessment and Plan (1) Acute kidney injury: Code(s): N17.9 - Acute kidney failure, unspecified Status: Acute Assessment and Plan: * suspect ATN from sepsis secondary to necrotizing fasciitis * evaluation to date shows: * renal ultrasound without obstruction but the presence of a 9.3cm right kidney mass (cyst versus neoplasm?) * urine electrolytes suggest pre-renal azotemia * CPK low * He had dialysis yesterday. * Catheter was suboptimal. Will try again today (2) Necrotizing soft tissue infection: Code(s): M79.89 - Other specified soft tissue disorders Status: Acute Assessment and Plan: * localized to the left groin and thigh * status post debridement by surgery (on 02/16/21) * Getting wound VAC and antibiotics. * Surgery following (3) Sepsis: Code(s): A41.9 - Sepsis, unspecified organism Status: Acute Assessment and Plan: * due to #2 * follow culture data * He is still on imipenem. * Blood pressure is stable today (4) Acute respiratory failure: Code(s): J96.00 - Acute respiratory failure, unspecified whether with hypoxia or hypercapnia Status: Acute Assessment and Plan: * post-operatively remains intubated and on mechanical ventilation * chest x-ray shows diffuse airspace disease, probably fluid * diuretics on board will continue these. Increase the dose of the Lasix * Remove more fluid today. (5) Renal mass: Code(s): N28.89 - Other specified disorders of kidney and ureter Status: Acute Assessment and Plan: * no intervention at this time * Urology recommends outpatient evaluation once patient more stable (6) Hyperglycemia: Code(s): R73.9 - Hyperglycemia, unspecified Status: Acute Assessment and Plan: * due to underlying diabetes (does not have official diagnosis) * A1c 13.1 by check here * on accuchecks and SSI Subjective Date/time seen: 03/02/21 07:25 Interval history: Blood pressure has been doing well. Sedated and on the ventilator. Blood pressure dropped overnight and so now on norepinephrine. Review of systems unavailable due to vent. Exam Narrative: General: Large male intubated/sedated in NAD Heart: normal S1 and S2; no rub. Lungs: distant breath sounds and decreased at bases Abdomen: Bowel sounds positive soft Extremities: 1 to 2+ edema Skin: chronic venous stasis changes. wound VAC in left groin area Objective Data Vital Signs Vital Signs: Vital Signs - 24 hr 03/01/21 08:00 03/01/21 08:22 03/01/21 08:24 Temperature 37.0 C Pulse Rate 89 85 86 Respiratory Rate 24 H 30 H 30 H Blood Pressure 106/65 Pulse Oximetry 89 L 03/01/21 08:25 03/01/21 08:56 03/01/21 09:03 Temperature Pulse Rate 86 90 90 Respiratory Rate 30 H 34 H Blood Pressure Pulse Oximetry 89 L 03/01/21 09:11 03/01/21 10:00 03/01/21 10:09 Temperature 36.8 C Pulse Rate 90 90 89 Respiratory Rate 33 H 30 H 30 H Blood Pressure 105/64 Pulse Oximetry 88 L 03/01/21 10:10 03/01/21 10:17 03/01/21 10:22 Temperature Pulse Rate 89 88 89 Respiratory Rate 30 H 30 H 30 H Blood Pressure
--- NOTE | 2021-03-02 07:25 | PM.PNNEP ---
Progress Note: A&P Assessment and Plan (1) Acute kidney injury: Code(s): N17.9 - Acute kidney failure, unspecified Status: Acute Assessment and Plan: suspect ATN from sepsis secondary to necrotizing fasciitis evaluation to date shows: renal ultrasound without obstruction but the presence of a 9.3cm right kidney mass (cyst versus neoplasm?) urine electrolytes suggest pre-renal azotemia CPK low He had dialysis yesterday. Catheter was suboptimal. Will try again today (2) Necrotizing soft tissue infection: Code(s): M79.89 - Other specified soft tissue disorders Status: Acute Assessment and Plan: localized to the left groin and thigh status post debridement by surgery (on 02/16/21) Getting wound VAC and antibiotics. Surgery following (3) Sepsis: Code(s): A41.9 - Sepsis, unspecified organism Status: Acute Assessment and Plan: due to #2 follow culture data He is still on imipenem. Blood pressure is stable today (4) Acute respiratory failure: Code(s): J96.00 - Acute respiratory failure, unspecified whether with hypoxia or hypercapnia Status: Acute Assessment and Plan: post-operatively remains intubated and on mechanical ventilation chest x-ray shows diffuse airspace disease, probably fluid diuretics on board will continue these. Increase the dose of the Lasix Remove more fluid today. (5) Renal mass: Code(s): N28.89 - Other specified disorders of kidney and ureter Status: Acute Assessment and Plan: no intervention at this time Urology recommends outpatient evaluation once patient more stable (6) Hyperglycemia: Code(s): R73.9 - Hyperglycemia, unspecified Status: Acute Assessment and Plan: due to underlying diabetes (does not have official diagnosis) A1c 13.1 by check here on accuchecks and SSI Subjective Date/time seen: 03/02/21 07:25 Interval history: Blood pressure has been doing well. Sedated and on the ventilator. Blood pressure dropped overnight and so now on norepinephrine. Review of systems unavailable due to vent. Exam Narrative: General: Large male intubated/sedated in NAD Heart: normal S1 and S2; no rub. Lungs: distant breath sounds and decreased at bases Abdomen: Bowel sounds positive soft Extremities: 1 to 2+ edema Skin: chronic venous stasis changes. wound VAC in left groin area Objective Data Vital Signs Vital Signs: Vital Signs - 24 hr 03/01/21 08:00 03/01/21 08:22 03/01/21 08:24 Temperature 37.0 C Pulse Rate 89 85 86 Respiratory Rate 24 H 30 H 30 H Blood Pressure 106/65 Pulse Oximetry 89 L 03/01/21 08:25 03/01/21 08:56 03/01/21 09:03 Temperature Pulse Rate 86 90 90 Respiratory Rate 30 H 34 H Blood Pressure Pulse Oximetry 89 L 03/01/21 09:11 03/01/21 10:00 03/01/21 10:09 Temperature 36.8 C Pulse Rate 90 90 89 Respiratory Rate 33 H 30 H 30 H Blood Pressure 105/64 Pulse Oximetry 88 L 03/01/21 10:10 03/01/21 10:17 03/01/21 10:22 Temperature Pulse Rate 89 88 89 Respiratory Rate 30 H 30 H 30 H Blood Pressure Pulse Oximetry 03/01/21 11:46 03/01/21 12:00 03/01/21 12:09 Temperature 37.0 C Pulse Rate 97 87 88 Respiratory Rate 22 H 30 H Blood Pressure 100/63 Pulse Oximetry 87 L 88 L 03/01/21 12:10 03/01/21 12:13 03/01/21 14:13 Temperature Pulse Rate 88 88 100 Respiratory Rate 30 H 30 H Blood Pressure Pulse Oximetry 75 L 03/01/21 14:15 03/01/21 14:20 03/01/21 14:30 Temperature 37.4 C 37.4 C Pulse Rate 104 H 95 98 Respiratory Rate 30 H 30 H 30 H Blood Pressure 89/62 L 97/68 L Pulse Oximetry 75 L 81 L 03/01/21 14:45 03/01/21 15:00 03/01/21 15:30 Temperature 37.4 C 37.5 C 37.6 C Pulse Rate 103 H 104 H 106 H Respiratory Rate 30 H 30 H 30 H Blood Pressure 104/70 103/62 111/65 Pulse Oximetry 81 L 84 L 85 L 03/01/21 1
[2021-03-02 07:54] LABS: Glucose Point of Care 157 mg/dl (65-105)
[2021-03-02] MEDS: INSULIN GLARGINE (*BKC) 100 UNITS/ML 60 UNITS SUB-Q (08:05)
[2021-03-02] MEDS: ENOXAPARIN 40 MG/0.4 ML SYRINGE SUB-Q (08:07)
[2021-03-02] MEDS: MINERAL OIL/WHITE PETROLATUM OINTMENT 1 APPLIC EACH EYE ×2 (08:07→19:45)
[2021-03-02] MEDS: PANTOPRAZOLE SODIUM IV 40 MG VIAL IV PUSH ×2 (08:07→19:55)
[2021-03-02] MEDS: PROPOFOL IV EMULSION 100 ML 63.26 MG IV CONT ×7 (08:10→17:53)
--- NOTE | 2021-03-02 09:07 | WPDINTPN ---
Progress Note: A&P Assessment and Plan (1) Acute respiratory failure: Code(s): J96.00 - Acute respiratory failure, unspecified whether with hypoxia or hypercapnia Status: Acute Assessment and Plan: Postop respiratory failure, continue mechanical ventilation. Patient intubated in the OR on 02/16/2021 -place patient on CMV mode of ventilation, peep of 16, 100% FiO2. Wean FiO2 as tolerated -02/25 patient had episode where he disconnected himself from the ventilator and the recruited. -03/01-when patient went to OR during travel and transferred to a bed his ET tube got dislodged. Patient was reintubate in the operating room with 7 and half tube -overnight his oxygen requirement has stayed high at 100% and PEEP at 20 and his sats are low -chest x-ray reviewed shows bilateral infiltrates which could be pneumonia versus pulmonary edema. -he has developed new fevers and WBCs elevated since suggestive of pneumonia in light of increased oxygen requirement and increased secretion -send blood sputum and urine cultures -and vancomycin to imipenem -patient has been started on dialysis for fluid removal -patient is to big to fit in our our CT scanner - ABGs reviewed -permissive hypercapnia -continue bronchodilators -continue propofol, fentanyl and Versed infusion and I gave him a dose of neuromuscular valarie Despite those interventions his saturations are low. Patient was bag ventilated multiple times with PEEP valve to get his saturations up. I have increased his PEEP to 24. He is too big to allow prone ventilation Inhaled Flolan may make his edema worse (2) Necrotizing soft tissue infection: Code(s): M79.89 - Other specified soft tissue disorders Status: Acute Assessment and Plan: Necrotizing soft tissue infection of the left groin and thigh, status post debridement by surgery on 02/16/2021 -continue imipenem - Vancomycin added back 03/02 -surgery following the patient -wound VAC management per surgery and will be changed today -wound cultures are growing Enterococcus and Prevotella which is pansensitive. - blood cultures are negative (3) Hyperglycemia: Code(s): R73.9 - Hyperglycemia, unspecified Status: Acute Assessment and Plan: Hyperglycemia, continue high-dose sliding scale insulin Accu-Cheks Continue Lantus -hemoglobin A1c is 13.1 this admission (4) Morbid obesity with BMI of 70 and over, adult: Code(s): E66.01 - Morbid (severe) obesity due to excess calories; Z68.45 - Body mass index [BMI] 70 or greater, adult Status: Chronic Assessment and Plan: Morbidly obese, On Glucerna tube feeds (5) Sepsis: Code(s): A41.9 - Sepsis, unspecified organism Status: Acute Assessment and Plan: Sepsis likely related to necrotizing fasciitis and now appears to have a secondary pneumonia And vancomycin to imipenem Repeat blood sputum and urine cultures (6) DVT prophylaxis: Code(s): Z29.9 - Encounter for prophylactic measures, unspecified Status: Acute Assessment and Plan: Lovenox (7) Dietary counseling and surveillance: Code(s): Z71.3 - Dietary counseling and surveillance Status: Acute Assessment and Plan: Continue tube feeds (8) Acute kidney injury: Code(s): N17.9 - Acute kidney failure, unspecified Status: Acute Assessment and Plan: Likely secondary to sepsis, surgery Renal ultrasound showed Normal kidney sizes and No hydronephrosis. Nephrology following Normal CK Patient was given IV fluids but creatinine continues to increase. He is overall volume overloaded He was started on hemodialysis on 03/01 (9) Renal mass: Code(s): N28.89 - Other specified disorders of kidney and ureter Status: Acute Assessment and Plan: Renal Ultrasound 02/18/21 15:51 IMPRESSION: 1. 9.3 cm right kidney mass, which may be a hemorrhagic cyst or a neoplasm. Further evaluation is recommende
[2021-03-02] MEDS: LIDOCAINE HCL 1% PF INJ 5 ML VIAL INFILTRATE (09:15)
[2021-03-02] MEDS: FUROSEMIDE INJ 100 MG/10 ML VIAL 80 MG IV PUSH ×2 (10:08→17:19)
[2021-03-02] MEDS: SODIUM BICARBONATE TAB 650 MG TABLET 1300 MG PO ×2 (10:11→17:19)
[2021-03-02] MEDS: polyethylene glycoL 3350 17 GM POWD.PACK PO (10:11)
[2021-03-02] MEDS: metOLazone 5 MG TABLET PO (10:11)
[2021-03-02] MEDS: INSULIN ASPART (*BKC) 100 UNITS/ML SUB-Q (12:42)
[2021-03-02 12:43] LABS: Glucose Point of Care 201 mg/dl (65-105)
--- NOTE | 2021-03-02 13:17 | PM.PNGS ---
Progress Note: A&P Assessment and Plan (1) Necrotizing soft tissue infection: Code(s): M79.89 - Other specified soft tissue disorders Status: Acute Assessment and Plan: Status post debridement on 02/16/21. Continue wound vac therapy. Will plan on changing the wound vac dressing in the next 1-2 days depending on how the patient is progressing and how stable he is to be laid flat. Dr. Martinez plans on calling the patient's daughter today for an update and to discuss his current condition. (2) Acute hypercapnic respiratory failure: Code(s): J96.02 - Acute respiratory failure with hypercapnia Status: Acute Assessment and Plan: Continue to wean vent as tolerated per [employer]. Increasing requirements on the ventilator. Would be concern for possible aspiration pneumonia due to the event with his ET tube dislodging in surgery yesterday. Limited by his body habitus for proning. (3) Acute kidney injury: Code(s): N17.9 - Acute kidney failure, unspecified Status: Acute Assessment and Plan: S/p placement of right IJ percutaneous temporary dialysis catheter yesterday. Nephrology planning to attempt dialysis again today. (4) Shock: Code(s): R57.9 - Shock, unspecified Status: Acute Assessment and Plan: WBC up to 15,000, febrile over the past 24 hours, and hypotensive. Requiring vasopressor support today, Levophed started overnight. Blood, urine, and sputum cultures sent today. Continue IV antibiotics, currently on IV Primaxin (day 15) and IV Vancomycin added today. He is unable to have a CT scan due to his morbid obesity. KUB today showed no dilated bowel or free air. Chest x-ray suggesting bilateral pulmonary infiltrates. Continue to trend labs. Additional Plan I have discussed the patient's case and plan of care with Dr. Martinez. Subjective Subjective Date/Time Seen: 03/02/21 13:17 Post Op day: 14 (Soft tissue excisional debridement of left groin/medial thigh extending to left buttock) Patient reports: bowel movement (x1 today) and fever (since yesterday around 1600) Interval history: Patient intubated and sedated in the ICU. He is currently on Levophed, which per nursing was started overnight around midnight. He has had issues with hypoxia overnight and this morning, requiring an increase in ventilator settings. He is currently on a PEEP of 24 and FiO2 100% with O2 sats in the low 90's. The dialysis nurse is entering the room at the end of my evaluation. Per nursing, no issues with the wound vac overnight. Wound vac had 125 cc output documented from accounting consultant last night and it appears around 100 cc in the canister so far today through dayshift. Review of Systems Review of Systems: ROS unobtainable: Yes unobtainable due to endotracheal tube Exam Const: General: ill appearing and patient obtunded Nutritional Appearance: obese morbidly obese Limitations: physical limitations Resp: Effort & Inspection: abnormal respiratory pattern (mechanical ventilator) Auscultation: diminished lung sounds Cardio: Rate: tachycardic Rhythm: regular rhythm GI: Inspection: Abdominal wall edema, Pannus present, obesity and visible herniation (soft umbilical hernia) GI Palp: Yes Soft to palpation Auscultation: Hypoactive bowel sounds present Other: Exam limited due to sedation : Penis: Yes other (hidden penis) Scrotum: no scrotal swelling Testes: Testes normal Urinary Catheter: Urinary Catheter: patent and draining and urine dark (slightly dark yellow) Skin: Other: Left medial thigh/groin wound vac intact, working well. Serosanguineous drainage in the current wound vac canister. Mild, flat, diffuse pink-colored rash scattered across the mid to lower abdomen and bilateral lower legs. Also noted today is a flat, dark pink diffuse rash of the skin folds of the lateral and posterior trunk and skin folds on the upper extremities Neuro: General: patient obtunded Other: Exam limited d/t se
[2021-03-02] MEDS: NOREPINEPHRINE 8 MG/D5W 250 ML 8 MG/250 ML BAG 20.63 MG IV CONT (14:05)
--- NOTE | 2021-03-02 14:08 | PCNFU ---
Nutrition Follow-Up Complete: Inadequate Oral Intake as related to mechanical ventilation as evidenced by NPO. Goal: Meet estimated nutritional needs Patient is progressing towards goal. No new goal at this time. Pt current nutrition is Glucerna 1.2 at 20 mls per hour over 22 hours per day with Prostat flush BID. Last recorded weight is 246.5 kg. Bowel Motility: + BM 03/02/2021 Labs Reviewed: Hgb 13.0, Na 135, K 5.3, GFR 10, BUN 120, Cr 5.8, Glu 129 Meds Noted: Albutein, Albuterol, Bisacodyl, Lovenox, Furosemide, Glucagon, Glucose, Novolog, Lantus, Atrovent neb, Reglan, Levophed, Protonix, Propofol, Miralax, Sodium Bicarbonate Tablet, Vancomycin Hcl Skin: Wound vac to left thigh Additional Notes: Patient has had high residuals. Feedings were held for intolerance and re-started. Patient is on Reglan for intolerance. Propofol at 40 mics providing an additional 1,670 calories. Will continue monitoring propofol titration for changes in tube feeding rate. Will monitor every Monday and Monday.
[2021-03-02] MEDS: MIDAZOLAM 100MG/NS 100ML(*CRX) 100 MG/100 ML BAG IV CONT (14:18)
[2021-03-02 16:28] LABS: Glucose Point of Care 96 mg/dl (65-105)
--- NOTE | 2021-03-02 18:37 | WPDANESPN ---
Anes - Prog Note Post-Op Date/Time: 03/02/21 18:37 Cardiovascular status: other (management per ICU team) Respiratory status: other (management per ICU team) Airway patency: other (pt intubated) Mental status: other (pt sedated) Post-Op hydration status: other (management per ICU team) Vital Signs: Last Vital Signs Temp 38.1 C H 03/02/21 16:00 Pulse 101 H 03/02/21 18:00 Resp 30 H 03/02/21 18:00 BP 91/47 L 03/02/21 18:00 Pulse Ox 95 03/02/21 18:00 Pain Score (VAS): 0 I/O: Intake & Output 03/02/21 03/02/21 03/02/21 07:59 15:59 23:59 Intake Total 683 1526.6 410 Output Total 150 200 Balance 533 1526.6 210 Laboratory Tests 03/02/21 03:54 03/02/21 03:54 03/01/21 03/02/21 03/02/21 19:42 00:39 03:54 WBC 15.5 H RBC 4.91 Hgb 13.0 L Hct 45.2 MCV 92.1 MCH 26.5 MCHC 28.8 L RDW 17.0 H Plt Count 274 MPV 9.9 Puncture Site ABG pH ABG pCO2 ABG pO2 ABG PO2/FiO2 Ratio ABG HCO3 ABG O2 Saturation ABG O2 Content ABG Base Excess A-a Gradient Oxyhemoglobin Carboxyhemoglobin Methemoglobin Reduced Hemoglobin Total Hemoglobin O2 Delivery Device O2 Liters/Min Minute Volume Vent Rate Vent Mode FiO2 Tidal Volume PEEP Peak Inspir Pressure Pressure Support Sodium Potassium Chloride Carbon Dioxide Anion Gap BUN Creatinine Estim Creat Clear Calc Estimated GFR Glucose POC Capillary Glucose 123 H 134 H Calcium Magnesium Total Bilirubin AST ALT Alkaline Phosphatase Total Protein Albumin 03/02/21 03/02/21 03/02/21 03:54 04:31 07:50 WBC RBC Hgb Hct MCV MCH MCHC RDW Plt Count MPV Puncture Site Right radial ABG pH 7.182 L* ABG pCO2 62.9 H* ABG pO2 90.5 ABG PO2/FiO2 Ratio 0.90 ABG HCO3 23.1 ABG O2 Saturation 94.6 L ABG O2 Content 18.3 ABG Base Excess -6.2 A-a Gradient 559.6 Oxyhemoglobin 93.4 Carboxyhemoglobin 0.8 Methemoglobin 0.2 Reduced Hemoglobin 5.6 H Total Hemoglobin 13.9 O2 Delivery Device Ventilator O2 Liters/Min Not Reportable Minute Volume Not Reportable Vent Rate 30 Vent Mode Cmv FiO2 100 Tidal Volume 450 PEEP 20 Peak Inspir Pressure Not Reportable Pressure Support Not Reportable Sodium 135 L Potassium 5.3 H Chloride 93 L Carbon Dioxide 27 Anion Gap 15 BUN 120 H Creatinine 5.80 H Estim Creat Clear Calc 29 Estimated GFR 10 L Glucose 129 H POC Capillary Glucose 157 H Calcium 9.5 Magnesium 3.0 H Total Bilirubin 1.1 AST 387 H ALT 72 H Alkaline Phosphatase 143 H Total Protein 8.0 Albumin 3.5 03/02/21 03/02/21 12:30 16:26 WBC RBC Hgb Hct MCV MCH MCHC RDW Plt Count MPV Puncture Site ABG pH ABG pCO2 ABG pO2 ABG PO2/FiO2 Ratio ABG HCO3 ABG O2 Saturation ABG O2 Content ABG Base Excess A-a Gradient Oxyhemoglobin Carboxyhemoglobin Methemoglobin Reduced Hemoglobin Total Hemoglobin O2 Delivery Device O2 Liters/Min Minute Volume Vent Rate Vent Mode FiO2 Tidal Volume PEEP Peak Inspir Pressure Pressure Support Sodium Potassium Chloride Carbon Dioxide Anion Gap BUN Creatinine Estim Creat Clear Calc Estimated GFR Glucose POC Capillary Glucose 201 H 96 Calcium Magnesium Total Bilirubin AST ALT Alkaline Phosphatase Total Protein Albumin Patient Feedback: Patient satisfied with anesthetic care.
[2021-03-02 19:14] LABS: Hepatitis B Core Ab Total Nonreactive (Nonreactive)
[2021-03-02] MEDS: PROPOFOL IV EMULSION 100 ML 47.45 MG IV CONT ×2 (19:39→21:21)
[2021-03-02] MEDS: FENTANYL 2,500MCG/NS250ML(*CRX 2,500 MCG/250 ML BAG 10 MCG IV CONT (19:41)
[2021-03-02 20:15] LABS: Glucose Point of Care 154 mg/dl (65-105)
[2021-03-02] MEDS: NOREPINEPHRINE 8 MG/D5W 250 ML 8 MG/250 ML BAG 28.13 MG IV CONT (22:56)
[2021-03-02] MEDS: PROPOFOL IV EMULSION 100 ML 31.63 MG IV CONT (23:32)
[2021-03-02 23:54] LABS: Glucose Point of Care 139 mg/dl (65-105)
[2021-03-03] VITALS (70 sets, daily range): BP systolic 76–109; BP diastolic 49–75; PULSE 102–122; RESP 22–32; TEMP 37–39.8; O2SAT 86–97
[2021-03-03] MEDS: IPRATROPIUM BR 0.02% INH SOLN 0.5 MG/2.5 ML VIAL INHALATION ×3 (02:02→19:56)
[2021-03-03] MEDS: ALBUTEROL SULFATE NEB 2.5 MG/0.5 ML INH 5 MG INHALATION ×3 (02:02→19:56)
[2021-03-03] MEDS: PROPOFOL IV EMULSION 100 ML 31.63 MG IV CONT ×2 (02:42→21:06)
[2021-03-03] MEDS: ACETAMINOPHEN ELIXIR 325 MG/10.15 ML UDC 650 MG PO ×3 (04:07→17:54)
[2021-03-03] MEDS: CENTRAL LINE FLUSH 10 ML IV PUSH ×6 (04:18→21:05)
[2021-03-03] MEDS: METOCLOPRAMIDE HCL 10 MG/10 ML SOLN UDC FEED TUBE ×3 (04:18→17:57)
[2021-03-03 04:49] LABS: Alveolar/Arterial O2 Gradient 558.5 mmHg; Carboxyhemoglobin 0.1 % THb (0-2.0); Fractional Inspired Oxygen 100 %; HCO3 ABG 24.7 mEq/l (22.0-26.0); Methemoglobin ABG 0.3 %THb (0-1.5); Oxygen Content ABG 18.2 %vol (16.0-22.0); Oxygen Saturation ABG 95.5 % (95.0-100.0); Oxyhemoglobin 95.3 % THb (90.0-100.0); PO2 ABG 93.4 mmHg (80.0-100.0); PO2 FiO2 Ratio Arterial Blood 0.93 %; Reduced Hemoglobin 4.3 %THb (0-5.0); Total Hemoglobin 13.5 g/dL (12.0-18.0)
[2021-03-03 04:50] LABS: Arterial Blood Gas Vent Mode CMV; Arterial Blood Gas Ventilator rate 30 /MIN; Device VENTILATOR; Modified Allen's Test Unable to perform; PCO2 ABG 61.1 mmHg (35.0-45.0); Site Drawn RIGHT RADIAL; pH ABG 7.224 (7.350-7.450)
[2021-03-03 04:51] LABS: Arterial Blood Gas PEEP 24 cmH2O; Arterial Blood Gas Tidal Volume 450 ml
[2021-03-03 05:16] LABS: Hematocrit 43.8 % (42.0-52.0); Hemoglobin 12.4 g/dL (14.0-18.0); Mean Corpuscular HGB Conc 28.3 g/dl (32-36); Mean Corpuscular Hemoglobin 26.1 pg (26-34); Mean Corpuscular Volume 92.2 fl (80-100); Mean Platelet Volume 10.2 fl (7.4-10.4); Platelet Count Result 264 k/mm3 (150-375); Red Blood Count 4.75 M/mm3 (4.6-6.20); Red Cell Distribution Width 17.3 % (11.5-14.5); White Blood Count 15.7 K/mm3 (4.5-10.0)
[2021-03-03 05:43] LABS: Alanine Aminotransferase 273 U/L (4-50); Albumin Level 3.3 g/dL (3.5-5.1); Alkaline Phosphatase 196 U/L (38-126); Anion Gap 19 mmol/L (8-16); Bilirubin,Total 1.3 mg/dL (0.2-1.3); Blood Urea Nitrogen 98 mg/dL (9-20); Calcium 8.9 mg/dL (8.4-10.2); Carbon Dioxide 25 mmol/L (22-30); Chloride 91 mmol/L (98-107); Glucose 155 mg/dL (65-110); Magnesium 2.8 mg/dL (1.6-2.3); Phosphorus 12.2 mg/dL (2.5-4.5); Potassium 5.2 mmol/L (3.4-5.0); Sodium 135 mmol/L (137-145)
[2021-03-03] MEDS: MIDAZOLAM 100MG/NS 100ML(*CRX) 100 MG/100 ML BAG 6 MG IV CONT ×2 (05:43→21:05)
[2021-03-03] MEDS: NOREPINEPHRINE 8 MG/D5W 250 ML 8 MG/250 ML BAG 33.75 MG IV CONT (05:44)
[2021-03-03] MEDS: PROPOFOL IV EMULSION 100 ML 23.72 MG IV CONT ×4 (05:45→18:57)
[2021-03-03 05:59] LABS: Estimated CRCL calculation 31 ml/min; Estimated Glomerular Filt Rate 11
[2021-03-03 06:03] LABS: Aspartate Amino Transferase 1429 U/L (17-59)
[2021-03-03] MEDS: SODIUM BICARBONATE 8.4% 50 MEQ/50 ML SYRINGE 100 MEQ IV PUSH ×2 (07:02→20:04)
[2021-03-03 07:59] LABS: Glucose Point of Care 203 mg/dl (65-105)
--- NOTE | 2021-03-03 08:01 | P.PNNP_ITS ---
Progress Note: A&P Assessment and Plan (1) Acute kidney injury: Code(s): N17.9 - Acute kidney failure, unspecified Status: Acute Assessment and Plan: * suspect ATN from sepsis secondary to necrotizing fasciitis * evaluation to date shows: * renal ultrasound without obstruction but the presence of a 9.3cm right kidney mass (cyst versus neoplasm?) * urine electrolytes suggest pre-renal azotemia * CPK low * Due for dialysis today. * Urine output was very low yesterday. * Will try dialysis today. (2) Necrotizing soft tissue infection: Code(s): M79.89 - Other specified soft tissue disorders Status: Acute Assessment and Plan: * localized to the left groin and thigh * status post debridement by surgery (on 02/16/21) * Getting wound VAC and antibiotics. * Surgery following * White count still in the 15. (3) Sepsis: Code(s): A41.9 - Sepsis, unspecified organism Status: Acute Assessment and Plan: * due to #2 * follow culture data * No new positive cultures * He is still on imipenem. * Blood pressure is stable today (4) Acute respiratory failure: Code(s): J96.00 - Acute respiratory failure, unspecified whether with hypoxia or hypercapnia Status: Acute Assessment and Plan: * post-operatively remains intubated and on mechanical ventilation * chest x-ray shows diffuse airspace disease, probably fluid * diuretics on board will continue these but urine output is very low. * Remove more fluid today. (5) Renal mass: Code(s): N28.89 - Other specified disorders of kidney and ureter Status: Acute Assessment and Plan: * no intervention at this time * Urology recommends outpatient evaluation once patient more stable (6) Hyperglycemia: Code(s): R73.9 - Hyperglycemia, unspecified Status: Acute Assessment and Plan: * due to underlying diabetes (does not have official diagnosis) * A1c 13.1 earlier this admission * on accuchecks and SSI Subjective Date/time seen: 03/03/21 08:01 Interval history: Patient is comfortable in bed. Sedated on the ventilator. Blood pressure is mildly soft. He is not on pressors Exam Narrative: General: Large male intubated/sedated in NAD Heart: normal S1 and S2; no rub or gallop. Lungs: distant breath sounds and decreased at bases Abdomen: Bowel sounds positive soft Extremities: 1 to 2+ edema Skin: chronic venous stasis changes. wound VAC in left groin area Objective Data Vital Signs Vital Signs: Vital Signs - 24 hr 03/02/21 08:04 03/02/21 08:10 03/02/21 09:00 Temperature Pulse Rate 102 H 102 H 98 Respiratory Rate 30 H 30 H Blood Pressure 117/60 Pulse Oximetry 80 L 03/02/21 09:16 03/02/21 09:40 03/02/21 09:45 Temperature Pulse Rate 102 H 108 H 108 H Respiratory Rate 30 H 30 H 30 H Blood Pressure Pulse Oximetry 89 L 03/02/21 10:00 03/02/21 10:01 03/02/21 10:35 Temperature 37.8 C H Pulse Rate 108 H 108 H 108 H Respiratory Rate 30 H 30 H Blood Pressure 100/54 L Pulse Oximetry 85 L 88 L 03/02/21 11:34 03/02/21 12:00 03/02/21 13:07 Temperature 37.9 C H Pulse Rate 107 H 107 H 104 H
--- NOTE | 2021-03-03 08:01 | PM.PNNEP ---
Progress Note: A&P Assessment and Plan (1) Acute kidney injury: Code(s): N17.9 - Acute kidney failure, unspecified Status: Acute Assessment and Plan: suspect ATN from sepsis secondary to necrotizing fasciitis evaluation to date shows: renal ultrasound without obstruction but the presence of a 9.3cm right kidney mass (cyst versus neoplasm?) urine electrolytes suggest pre-renal azotemia CPK low Due for dialysis today. Urine output was very low yesterday. Will try dialysis today. (2) Necrotizing soft tissue infection: Code(s): M79.89 - Other specified soft tissue disorders Status: Acute Assessment and Plan: localized to the left groin and thigh status post debridement by surgery (on 02/16/21) Getting wound VAC and antibiotics. Surgery following White count still in the 15. (3) Sepsis: Code(s): A41.9 - Sepsis, unspecified organism Status: Acute Assessment and Plan: due to #2 follow culture data No new positive cultures He is still on imipenem. Blood pressure is stable today (4) Acute respiratory failure: Code(s): J96.00 - Acute respiratory failure, unspecified whether with hypoxia or hypercapnia Status: Acute Assessment and Plan: post-operatively remains intubated and on mechanical ventilation chest x-ray shows diffuse airspace disease, probably fluid diuretics on board will continue these but urine output is very low. Remove more fluid today. (5) Renal mass: Code(s): N28.89 - Other specified disorders of kidney and ureter Status: Acute Assessment and Plan: no intervention at this time Urology recommends outpatient evaluation once patient more stable (6) Hyperglycemia: Code(s): R73.9 - Hyperglycemia, unspecified Status: Acute Assessment and Plan: due to underlying diabetes (does not have official diagnosis) A1c 13.1 earlier this admission on accuchecks and SSI Subjective Date/time seen: 03/03/21 08:01 Interval history: Patient is comfortable in bed. Sedated on the ventilator. Blood pressure is mildly soft. He is not on pressors Exam Narrative: General: Large male intubated/sedated in NAD Heart: normal S1 and S2; no rub or gallop. Lungs: distant breath sounds and decreased at bases Abdomen: Bowel sounds positive soft Extremities: 1 to 2+ edema Skin: chronic venous stasis changes. wound VAC in left groin area Objective Data Vital Signs Vital Signs: Vital Signs - 24 hr 03/02/21 08:04 03/02/21 08:10 03/02/21 09:00 Temperature Pulse Rate 102 H 102 H 98 Respiratory Rate 30 H 30 H Blood Pressure 117/60 Pulse Oximetry 80 L 03/02/21 09:16 03/02/21 09:40 03/02/21 09:45 Temperature Pulse Rate 102 H 108 H 108 H Respiratory Rate 30 H 30 H 30 H Blood Pressure Pulse Oximetry 89 L 03/02/21 10:00 03/02/21 10:01 03/02/21 10:35 Temperature 37.8 C H Pulse Rate 108 H 108 H 108 H Respiratory Rate 30 H 30 H Blood Pressure 100/54 L Pulse Oximetry 85 L 88 L 03/02/21 11:34 03/02/21 12:00 03/02/21 13:07 Temperature 37.9 C H Pulse Rate 107 H 107 H 104 H Respiratory Rate 30 H 30 H 30 H Blood Pressure 93/56 L Pulse Oximetry 89 L 03/02/21 13:27 03/02/21 13:36 03/02/21 14:00 Temperature 38.3 C H Pulse Rate 99 102 H 102 H Respiratory Rate 32 H 32 H 30 H Blood Pressure 97/53 L Pulse Oximetry 94 94 03/02/21 14:05 03/02/21 14:18 03/02/21 14:23 Temperature Pulse Rate 104 H 102 H 103 H Respiratory Rate 30 H Blood Pressure 95/49 L 97/53 L Pulse Oximetry 03/02/21 14:30 03/02/21 14:42 03/02/21 14:45 Temperature Pulse Rate 99 105 H 105 H Respiratory Rate 30 H 30 H 30 H Blood Pressure Pulse Oximetry 03/02/21 16:00 03/02/21 16:18 03/02/21 17:38 Temperature 38.1 C H Pulse Rate 105 H 105 H 101 H Respiratory Rate 30 H 30 H Blood Pressure 92/59 L Pulse O
[2021-03-03] MEDS: ENOXAPARIN 40 MG/0.4 ML SYRINGE SUB-Q (09:28)
[2021-03-03] MEDS: MINERAL OIL/WHITE PETROLATUM OINTMENT 1 APPLIC EACH EYE ×2 (09:29→20:15)
[2021-03-03] MEDS: metOLazone 5 MG TABLET PO (09:30)
[2021-03-03] MEDS: PANTOPRAZOLE SODIUM IV 40 MG VIAL IV PUSH ×2 (09:30→20:14)
[2021-03-03] MEDS: polyethylene glycoL 3350 17 GM POWD.PACK PO (09:31)
[2021-03-03] MEDS: SODIUM BICARBONATE TAB 650 MG TABLET 1300 MG PO ×2 (09:31→17:57)
[2021-03-03] MEDS: INSULIN ASPART (*BKC) 100 UNITS/ML SUB-Q ×2 (09:39→20:36)
[2021-03-03] MEDS: INSULIN GLARGINE (*BKC) 100 UNITS/ML 60 UNITS SUB-Q (09:40)
[2021-03-03] MEDS: VASOPRESSIN INJ 100 UNITS in DEXTROSE 5% 95 ML IV CONT (09:53)
--- NOTE | 2021-03-03 10:59 | WPDINTPN ---
Progress Note: A&P Assessment and Plan (1) Acute respiratory failure: Code(s): J96.00 - Acute respiratory failure, unspecified whether with hypoxia or hypercapnia Status: Acute Assessment and Plan: Postop respiratory failure, continue mechanical ventilation. Patient intubated in the OR on 02/16/2021 -02/25 patient had episode where he disconnected himself from the ventilator and the recruited. -03/01-when patient went to OR during travel and transferred to a bed his ET tube got dislodged. Patient was reintubate in the operating room with 7 and half tube -he continues to require high oxygen requirement and is currently on 100% FiO2 and PEEP at 24 -chest x-ray reviewed shows bilateral infiltrates which could be pneumonia versus pulmonary edema. Advance ET tube by 3 cm -03/02 he has developed new fevers and WBCs elevated since suggestive of pneumonia in light of increased oxygen requirement and increased secretion -Blood sputum and urine cultures sent and pending -continue vancomycin to imipenem -patient has been started on dialysis for fluid removal -patient is to big to fit in our our CT scanner - ABGs reviewed -permissive hypercapnia -continue bronchodilators -continue propofol, fentanyl and Versed infusion a - He is too big to allow prone ventilation - Inhaled Flolan may make his edema worse (2) Necrotizing soft tissue infection: Code(s): M79.89 - Other specified soft tissue disorders Status: Acute Assessment and Plan: Necrotizing soft tissue infection of the left groin and thigh, status post debridement by surgery on 02/16/2021 -continue imipenem - Vancomycin added back 03/02 -surgery following the patient -wound VAC management per surgery and will be changed today -wound cultures are growing Enterococcus and Prevotella which is pansensitive. -initial blood cultures were negative (3) Hyperglycemia: Code(s): R73.9 - Hyperglycemia, unspecified Status: Acute Assessment and Plan: Hyperglycemia, continue high-dose sliding scale insulin Accu-Cheks Continue Lantus -hemoglobin A1c is 13.1 this admission (4) Morbid obesity with BMI of 70 and over, adult: Code(s): E66.01 - Morbid (severe) obesity due to excess calories; Z68.45 - Body mass index [BMI] 70 or greater, adult Status: Chronic Assessment and Plan: Morbidly obese, On Glucerna tube feeds (5) Sepsis: Code(s): A41.9 - Sepsis, unspecified organism Status: Acute Assessment and Plan: Sepsis likely related to necrotizing fasciitis and now appears to have a secondary pneumonia And vancomycin to imipenem Repeat blood sputum and urine cultures (6) DVT prophylaxis: Code(s): Z29.9 - Encounter for prophylactic measures, unspecified Status: Acute Assessment and Plan: Lovenox (7) Dietary counseling and surveillance: Code(s): Z71.3 - Dietary counseling and surveillance Status: Acute Assessment and Plan: Continue tube feeds (8) Acute kidney injury: Code(s): N17.9 - Acute kidney failure, unspecified Status: Acute Assessment and Plan: Likely secondary to sepsis, surgery Renal ultrasound showed Normal kidney sizes and No hydronephrosis. Nephrology following Normal CK Patient was given IV fluids but creatinine continues to increase. He is overall volume overloaded He was started on hemodialysis on 03/01 and is getting another session today (9) Renal mass: Code(s): N28.89 - Other specified disorders of kidney and ureter Status: Acute Assessment and Plan: Renal Ultrasound 02/18/21 15:51 IMPRESSION: 1. 9.3 cm right kidney mass, which may be a hemorrhagic cyst or a neoplasm. Further evaluation is recommended with CT or MRI without and with contrast, but the patient is too heavy for our CT or MRI. Another facility may have a higher weight limit. Consulted urology and they recommend outpatient evaluation once patient cl
--- NOTE | 2021-03-03 11:06 | PCFNICU ---
ICU Rounding Note: Pt current nutrition is Nepro at 35 ml/hr over 22 hours. Last recorded weight is 250.5 kg, down from 263 gms on admit. Bowel Motility:+BM reported 03/03 Labs Reviewed:BUN 98, Cr 5.5,Glu 155, K 5.2,GFR 11, Alb 3.3, Hgb 12.4 Meds Noted:Albutein, Albuterol, Bisacodyl, Lovenox, Furosemide, Glucagon, Glucose, NovoLog, Lantus, Atrovent neb, Levophed, Protonix, Propofol-40 mics, Miralax, Sodium Bicarbonate Tablet, Vancomycin Hcl, Reglan. Skin: wound vac-left thigh Additional Notes: Patient remains on mechanical vent and tube feeding of Nepro at 35 ml/hr over 22 hours. Propofol is providing an additional 626 kcals. Protein Modulars added are Evert BID and Prostat BID providing an additional 380 kcals and 35 gms protein for wound healing. Agree with diet orders. Following daily in ICU rounds. Will monitor every Monday and Monday.
[2021-03-03] MEDS: NOREPINEPHRINE 8 MG/D5W 250 ML 8 MG/250 ML BAG 56.25 MG IV CONT (11:55)
[2021-03-03 12:17] LABS: Glucose Point of Care 110 mg/dl (65-105)
[2021-03-03] MEDS: HYDROCORTISONE SODIUM SUCCINATE 100 MG/2 ML VIAL IV PUSH ×2 (12:59→21:04)
--- NOTE | 2021-03-03 14:45 | PM.IMPN ---
Progress Note: A&P Assessment and Plan (1) Acute respiratory failure: Code(s): J96.00 - Acute respiratory failure, unspecified whether with hypoxia or hypercapnia Status: Acute Assessment and Plan: Patient was obtunded on admission and intubated 02/16/21 for OR. He was not able to be extubated and has remained intubated since. -02/25 patient had episode where he disconnected himself from the ventilator -03/01 ETT dislodged during travel to OR and patient was reintubate in the OR -03/02 patient developed new fevers and WBCs elevated since suggestive of pneumonia Respiratory failure related to sepsis, shock and untreated SHAHLA. Continue mechanical ventilation. Contineu IV abx. He is too big to allow prone ventilation. Continue sedation. (2) Shock: Code(s): R57.9 - Shock, unspecified Status: Acute Assessment and Plan: Secondary to sepsis, positive-pressure ventilation and sedation. Patietn is volume overloaded but probably third spacing. Remains on Levophed infusion. Wean levophed and ELECT[employer] ENGINE[employer]ING [employer] as BP toelrates. (3) Necrotizing soft tissue infection: Code(s): M79.89 - Other specified soft tissue disorders Status: Acute Assessment and Plan: Necrotizing soft tissue infection of the left groin and thigh, status post debridement by surgery on 02/16/2021. Wound VAC management per surgery. BCx negative from 02/15/21. Wound cultures are growing Enterococcus and Prevotella which is pansensitive. Continue imipenem and Vanco. Patient has been re-cultered. (4) Sepsis: Code(s): A41.9 - Sepsis, unspecified organism Status: Acute Assessment and Plan: Sepsis related to necrotizing fasciitis and now appears to have a secondary pneumonia with fevers and increasing secretions. CXR reviewed and still showing bilateral pulmonary infiltrated. Can not exclude pulmonary edema. BCx 03/02 NGTD. Sputum 03/02 pending. Continue vancomycin to imipenem. (5) Diabetes mellitus: Code(s): E11.9 - Type 2 diabetes mellitus without complications Status: Acute Assessment and Plan: Hyperglycemia noted. A1c 13.1. Newly diagnosed DM. The patient's blood glucose was reviewed on 03/03 Glucose remains well controlled. Continue AccuCheks covering with sliding scale. Hypoglycemia protocol available as needed. Continue Lantus (6) Acute kidney injury: Code(s): N17.9 - Acute kidney failure, unspecified Status: Acute Assessment and Plan: Cr normal on admisison but quickly climbed to 5 range 2nd to sepsis, shock and DM. Nephrology following and decision to proceed to HD was made. Percutaneous HD catheter placed right IJ 03/01. Renal ultrasound showed normal kidney sizes and no hydronephrosis. Contineu HD as BP tolerates to control fluid status. (7) Renal mass: Code(s): N28.89 - Other specified disorders of kidney and ureter Status: Acute Assessment and Plan: Renal Ultrasound on 02/18/21 showing 9.3 cm right kidney mass, which may be a hemorrhagic cyst or a neoplasm. Further evaluation is recommended but the patient is too heavy for our CT or MRI. Another facility may have a higher weight limit. Consulted urology and they recommend outpatient evaluation once patient clinically improved. Appreciate their input (8) Obstructive sleep apnea: Code(s): G47.33 - Obstructive sleep apnea (adult) (pediatric) Status: Acute Assessment and Plan: Patient noncompliant with treatment at home. ABG on admission was 7.18/93/63. Will address when patient close to discharge (9) Constipation: Code(s): K59.00 - Constipation, unspecified Status: Acute Assessment and Plan: Tolerating tube feeds. +BM documented yesterday. Continue scheduled MiraLax. (10) Dietary counseling and surveillance: Code(s): Z71.3 - Dietary counseling and surveillance Status: Acute Assessment and Plan: Continue tube feeds (1
--- NOTE | 2021-03-03 15:15 | PM.PNGS ---
Progress Note: A&P Assessment and Plan (1) Necrotizing soft tissue infection: Code(s): M79.89 - Other specified soft tissue disorders Status: Acute Assessment and Plan: Status post debridement on 02/16/21. Wound continues to progress well with wound vac therapy, no significant changes. Continue wound vac therapy. (2) Acute hypercapnic respiratory failure: Code(s): J96.02 - Acute respiratory failure with hypercapnia Status: Acute Assessment and Plan: Still on high ventilator requirements at a PEEP of 24 and FiO2 100%. He had an event when taken down to surgery for his dialysis catheter on Monday when his ET tube dislodged with worsening respiratory status following this event, expect that he is dealing with probable aspiration pneumonia. Continue to wean vent as tolerated per [employer]. Also, he has oxygen desaturation with dressing changes and is slow to recover. We will continue with wound vac therapy, which allows him to have dressing changes only 2-3 times per week rather than having a daily dressing change with packing. Will continue treatment as above. (3) Acute kidney injury: Code(s): N17.9 - Acute kidney failure, unspecified Status: Acute Assessment and Plan: Right IJ percutaneous temporary dialysis catheter functioning well. He had hemodialysis yesterday and today. Nephrology following. (4) Shock: Code(s): R57.9 - Shock, unspecified Status: Acute Assessment and Plan: Presented with sepsis secondary to necrotizing fascitis with source control in the OR and his wound healing well, but appears to have a secondary pneumonia. Vasopressor needs have increased over the past two days. Continue broad-spectrum IV antibiotics, on Primaxin and Vancomycin. Initial blood cx 02/15/21 with no organism growth. Repeat blood cx on 03/02/21 NGTD. Sputum culture pending. He is unable to have a CT scan due to his morbid obesity. KUB yesterday showed no dilated bowel or free air. Chest x-ray suggesting bilateral pulmonary infiltrates. Continue to trend labs. Additional Plan I have discussed the patient's case and plan of care with Dr. Martinez. Subjective Subjective Date/Time Seen: 03/03/21 14:00 Post Op day: 15 (Soft tissue excisional debridement of left groin/medial thigh extending to left buttock) Patient reports: fever Interval history: Patient intubated and sedated in the ICU. I am seeing the patient with the wound care nurses. He received dialysis this morning and had an increase in his vasopressor needs during dialysis. He is now on Levophed and vasopressin. His ventilator settings are the same as yesterday and his O2 sats prior to my exam are in the 90's. Per the nurse, his wound vac began alarming this afternoon right before I arrived. He has been anuric for the past 24 hours. His fevers have continued persistently since my last evaluation. No other acute changes per nursing. Review of Systems Review of Systems: ROS unobtainable: Yes unobtainable due to endotracheal tube Exam Const: General: ill appearing and patient obtunded Nutritional Appearance: obese morbidly obese Orientation/consciousness: Other orientation findings (AMELIA, intubated and sedated) Limitations: physical limitations Neck: Other: Right IJ dialysis catheter with dressing clean and dry Resp: Effort & Inspection: abnormal respiratory pattern (mechanical ventilator) Auscultation: diminished lung sounds Cardio: Rate: tachycardic Rhythm: regular rhythm GI: Inspection: Abdominal wall edema, Pannus present, obesity and visible herniation (soft umbilical hernia) Auscultation: Hypoactive bowel sounds present Other: Exam limited due to sedation : Penis: Yes other (hidden penis) Scrotum: no scrotal swelling Testes: Testes normal Urinary Catheter: Urinary Catheter: patent and draining (anuric x 24 hours, scant amount of dark orange/brown urine in the tubing near penis) Skin: Other: Left medial thigh
[2021-03-03 15:46] LABS: Glucose Point of Care 176 mg/dl (65-105)
--- NOTE | 2021-03-03 16:28 | PC.NURSE ---
Updated daughter,Yeny, on patient condition and plan of care. Discussed conditions allowing for visitors to bedside.
[2021-03-03] MEDS: NOREPINEPHRINE 8 MG/D5W 250 ML 8 MG/250 ML BAG 48.75 MG IV CONT ×2 (16:40→21:14)
[2021-03-03 17:54] LABS: Add Urine Microscopic? YES; Appearance Urine Turbid (Clear); Bacteria Urine 3+ /hpf; Bilirubin Urine Negative (Negative); Blood Urine 2+ (Negative); Budding Yeast Urine Present /hpf; Color Urine Amber (Yellow); Glucose Urine UA Negative (Negative); Ketones Urine Negative (Negative); Leukocyte Esterase Ur 2+ LEU/UL (Negative); Nitrate Urine Negative (Negative); Protein Urine 2+ mg/dL (Negative); RBC Urine >75 /hpf (0-2); Specific Grav Ur 1.017 (1.001-1.035); WBC Urine >75 /hpf
--- NOTE | 2021-03-03 19:44 | PC.NURSE ---
Spoke with Dr. Pérez regarding elevated temperature. Patient placed on cooling blanket. Okay to concentrate Levophed. Give 2 amps of Bicarb. Continue tylenol per OG tube.
[2021-03-03] MEDS: FENTANYL 2,500MCG/NS250ML(*CRX 2,500 MCG/250 ML BAG 10 MCG IV CONT (20:04)
[2021-03-03 20:36] LABS: Glucose Point of Care 218 mg/dl (65-105)
[2021-03-03 21:09] LABS: Vancomycin Random 10.3 ug/mL (10-20)
[2021-03-04] VITALS (38 sets, daily range): BP systolic 73–122; BP diastolic 30–70; PULSE 92–113; RESP 30; TEMP 38.5–39.3; O2SAT 61–91
[2021-03-04] MEDS: PROPOFOL IV EMULSION 100 ML 31.63 MG IV CONT ×6 (00:08→15:16)
[2021-03-04] MEDS: ACETAMINOPHEN ELIXIR 325 MG/10.15 ML UDC 650 MG PO ×2 (00:09→08:49)
[2021-03-04] MEDS: METOCLOPRAMIDE HCL 10 MG/10 ML SOLN UDC FEED TUBE ×3 (00:09→12:23)
[2021-03-04] MEDS: CENTRAL LINE FLUSH 10 ML IV PUSH ×3 (00:09→14:15)
[2021-03-04 00:17] LABS: Glucose Point of Care 250 mg/dl (65-105)
[2021-03-04] MEDS: INSULIN ASPART (*BKC) 100 UNITS/ML SUB-Q ×4 (00:19→12:23)
[2021-03-04] MEDS: NOREPINEPHRINE BITARTRATE 16 MG in DEXTROSE 5% IN WATER 234 ML 21.56 ML IV CONT (02:08)
[2021-03-04] MEDS: IPRATROPIUM BR 0.02% INH SOLN 0.5 MG/2.5 ML VIAL INHALATION ×3 (02:22→14:28)
[2021-03-04] MEDS: ALBUTEROL SULFATE NEB 2.5 MG/0.5 ML INH 5 MG INHALATION ×3 (02:22→14:27)
[2021-03-04 04:17] LABS: Hematocrit 41.1 % (42.0-52.0); Hemoglobin 11.6 g/dL (14.0-18.0); Mean Corpuscular HGB Conc 28.2 g/dl (32-36); Mean Corpuscular Hemoglobin 25.9 pg (26-34); Mean Corpuscular Volume 91.7 fl (80-100); Mean Platelet Volume 9.8 fl (7.4-10.4); Platelet Count Result 226 k/mm3 (150-375); Red Blood Count 4.48 M/mm3 (4.6-6.20); Red Cell Distribution Width 17.6 % (11.5-14.5); White Blood Count 14.2 K/mm3 (4.5-10.0)
[2021-03-04 04:32] LABS: Alanine Aminotransferase 283 U/L (4-50); Albumin Level 3.5 g/dL (3.5-5.1); Alkaline Phosphatase 170 U/L (38-126); Anion Gap 17 mmol/L (8-16); Bilirubin,Total 1.3 mg/dL (0.2-1.3); Blood Urea Nitrogen 84 mg/dL (9-20); Calcium 8.7 mg/dL (8.4-10.2); Carbon Dioxide 26 mmol/L (22-30); Chloride 90 mmol/L (98-107); Glucose 292 mg/dL (65-110); Magnesium 2.7 mg/dL (1.6-2.3); Phosphorus 11.1 mg/dL (2.5-4.5); Potassium 5.6 mmol/L (3.4-5.0); Sodium 133 mmol/L (137-145)
[2021-03-04 04:42] LABS: Estimated CRCL calculation 30 ml/min; Estimated Glomerular Filt Rate 10
[2021-03-04] MEDS: HYDROCORTISONE SODIUM SUCCINATE 100 MG/2 ML VIAL IV PUSH ×2 (04:44→14:14)
[2021-03-04 04:46] LABS: Aspartate Amino Transferase 1176 U/L (17-59)
[2021-03-04 05:12] LABS: Alveolar/Arterial O2 Gradient 578.3 mmHg; Fractional Inspired Oxygen 100 %; HCO3 ABG 24.6 mEq/l (22.0-26.0); Methemoglobin ABG 0.2 %THb (0-1.5); Oxygen Content ABG 16.4 %vol (16.0-22.0); Oxygen Saturation ABG 91.3 % (95.0-100.0); Oxyhemoglobin 91.1 % THb (90.0-100.0); PO2 ABG 73.1 mmHg (80.0-100.0); PO2 FiO2 Ratio Arterial Blood 0.73 %; Reduced Hemoglobin 8.7 %THb (0-5.0); Total Hemoglobin 12.8 g/dL (12.0-18.0)
[2021-03-04 05:14] LABS: Arterial Blood Gas Vent Mode CMV; Arterial Blood Gas Ventilator rate 30 /MIN; Device VENTILATOR; Modified Allen's Test Pass; PCO2 ABG 61.6 mmHg (35.0-45.0); Site Drawn RIGHT RADIAL
[2021-03-04 05:15] LABS: Arterial Blood Gas PEEP 24 cmH2O; Arterial Blood Gas Tidal Volume 450 ml
[2021-03-04] MEDS: SODIUM BICARBONATE 8.4% 50 MEQ/50 ML SYRINGE 100 MEQ IV PUSH (06:46)
[2021-03-04] MEDS: NOREPINEPHRINE 8 MG/D5W 250 ML 8 MG/250 ML BAG 37.5 MG IV CONT (07:00)
[2021-03-04 07:41] LABS: Glucose Point of Care 289 mg/dl (65-105)
[2021-03-04] MEDS: PANTOPRAZOLE SODIUM IV 40 MG VIAL IV PUSH (08:25)
[2021-03-04] MEDS: FUROSEMIDE INJ 100 MG/10 ML VIAL 80 MG IV PUSH (08:25)
[2021-03-04] MEDS: ENOXAPARIN 40 MG/0.4 ML SYRINGE SUB-Q (08:25)
[2021-03-04] MEDS: MINERAL OIL/WHITE PETROLATUM OINTMENT 1 APPLIC EACH EYE (08:26)
[2021-03-04] MEDS: INSULIN GLARGINE (*BKC) 100 UNITS/ML 60 UNITS SUB-Q (08:26)
[2021-03-04] MEDS: metOLazone 5 MG TABLET PO (08:27)
[2021-03-04] MEDS: polyethylene glycoL 3350 17 GM POWD.PACK PO (08:28)
[2021-03-04] MEDS: INSULIN HUMAN REGULAR (*BKC) 100 UNITS/ML 10 UNITS IV PUSH (08:51)
--- NOTE | 2021-03-04 11:05 | P.PNNP_ITS ---
Progress Note: A&P Assessment and Plan (1) Acute kidney injury: Code(s): N17.9 - Acute kidney failure, unspecified Status: Acute Assessment and Plan: * suspect ATN from sepsis secondary to necrotizing fasciitis * evaluation to date shows: * renal ultrasound without obstruction but the presence of a 9.3cm right kidney mass (cyst versus neoplasm?) * urine electrolytes suggest pre-renal azotemia * CPK low * he had dialysis Monday and Monday. Each time they take 1 to1.5L off as tolerated by blood pressure. Today's blood pressure is very low so I am going to hold off on dialysis today. * Urine output was very low yesterday. (2) Necrotizing soft tissue infection: Code(s): M79.89 - Other specified soft tissue disorders Status: Acute Assessment and Plan: * localized to the left groin and thigh * status post debridement by surgery (on 02/16/21) * Getting wound VAC and antibiotics. * Surgery following * White count still in the 15. (3) Sepsis: Code(s): A41.9 - Sepsis, unspecified organism Status: Acute Assessment and Plan: * due to #2 * follow culture data * No new positive cultures * He is still on imipenem. * Hemodynamically unstable (4) Acute respiratory failure: Code(s): J96.00 - Acute respiratory failure, unspecified whether with hypoxia or hypercapnia Status: Acute Assessment and Plan: * post-operatively remains intubated and on mechanical ventilation * chest x-ray shows diffuse airspace disease, probably fluid * diuretics on board will continue these but urine output is very low. * Remove more fluid today. (5) Renal mass: Code(s): N28.89 - Other specified disorders of kidney and ureter Status: Acute Assessment and Plan: * no intervention at this time * Urology recommends outpatient evaluation once patient more stable (6) Hyperglycemia: Code(s): R73.9 - Hyperglycemia, unspecified Status: Acute Assessment and Plan: * due to underlying diabetes (does not have official diagnosis) * A1c 13.1 earlier this admission * on accuchecks and SSI Subjective Date/time seen: 03/04/21 11:05 Interval history: Sedated on the ventilator. blood pressure less stable. He is now on norepinephrine 25 and vasopressin 0.04 urine output is minimal Exam Narrative: General: Large male intubated/sedated in NAD Heart: normal S1 and S2; no rub. Lungs: distant breath sounds and decreased at bases Abdomen: Bowel sounds positive soft Extremities: 1 to 2+ edema and no cyanosis Skin: chronic venous stasis changes. wound VAC in left groin area Objective Data Vital Signs Vital Signs: Vital Signs - 24 hr 03/03/21 11:15 03/03/21 11:30 03/03/21 11:41 Temperature Pulse Rate 117 H 115 H 102 H Respiratory Rate Blood Pressure 83/57 L 94/69 L Pulse Oximetry 95 03/03/21 11:45 03/03/21 11:55 03/03/21 12:00 Temperature 38.2 C H Pulse Rate 114 H 115 H 113 H Respiratory Rate 28 H Blood Pressure 90/65 L 90/75 L 100/61 Pulse Oximetry 93 03/03/21 12:07 03/03/21 12:20 03/03/21 13:07 Temperature 38.3 C H Pulse Rate 115 H 114 H 109 H Respiratory Rate 30 H Blood Pressure 109/73 105/69 101/70
--- NOTE | 2021-03-04 11:05 | PM.PNNEP ---
Progress Note: A&P Assessment and Plan (1) Acute kidney injury: Code(s): N17.9 - Acute kidney failure, unspecified Status: Acute Assessment and Plan: suspect ATN from sepsis secondary to necrotizing fasciitis evaluation to date shows: renal ultrasound without obstruction but the presence of a 9.3cm right kidney mass (cyst versus neoplasm?) urine electrolytes suggest pre-renal azotemia CPK low he had dialysis Monday and Monday. Each time they take 1 to1.5L off as tolerated by blood pressure. Today's blood pressure is very low so I am going to hold off on dialysis today. Urine output was very low yesterday. (2) Necrotizing soft tissue infection: Code(s): M79.89 - Other specified soft tissue disorders Status: Acute Assessment and Plan: localized to the left groin and thigh status post debridement by surgery (on 02/16/21) Getting wound VAC and antibiotics. Surgery following White count still in the 15. (3) Sepsis: Code(s): A41.9 - Sepsis, unspecified organism Status: Acute Assessment and Plan: due to #2 follow culture data No new positive cultures He is still on imipenem. Hemodynamically unstable (4) Acute respiratory failure: Code(s): J96.00 - Acute respiratory failure, unspecified whether with hypoxia or hypercapnia Status: Acute Assessment and Plan: post-operatively remains intubated and on mechanical ventilation chest x-ray shows diffuse airspace disease, probably fluid diuretics on board will continue these but urine output is very low. Remove more fluid today. (5) Renal mass: Code(s): N28.89 - Other specified disorders of kidney and ureter Status: Acute Assessment and Plan: no intervention at this time Urology recommends outpatient evaluation once patient more stable (6) Hyperglycemia: Code(s): R73.9 - Hyperglycemia, unspecified Status: Acute Assessment and Plan: due to underlying diabetes (does not have official diagnosis) A1c 13.1 earlier this admission on accuchecks and SSI Subjective Date/time seen: 03/04/21 11:05 Interval history: Sedated on the ventilator. blood pressure less stable. He is now on norepinephrine 25 and vasopressin 0.04 urine output is minimal Exam Narrative: General: Large male intubated/sedated in NAD Heart: normal S1 and S2; no rub. Lungs: distant breath sounds and decreased at bases Abdomen: Bowel sounds positive soft Extremities: 1 to 2+ edema and no cyanosis Skin: chronic venous stasis changes. wound VAC in left groin area Objective Data Vital Signs Vital Signs: Vital Signs - 24 hr 03/03/21 11:15 03/03/21 11:30 03/03/21 11:41 Temperature Pulse Rate 117 H 115 H 102 H Respiratory Rate Blood Pressure 83/57 L 94/69 L Pulse Oximetry 95 03/03/21 11:45 03/03/21 11:55 03/03/21 12:00 Temperature 38.2 C H Pulse Rate 114 H 115 H 113 H Respiratory Rate 28 H Blood Pressure 90/65 L 90/75 L 100/61 Pulse Oximetry 93 03/03/21 12:07 03/03/21 12:20 03/03/21 13:07 Temperature 38.3 C H Pulse Rate 115 H 114 H 109 H Respiratory Rate 30 H Blood Pressure 109/73 105/69 101/70 Pulse Oximetry 95 03/03/21 14:00 03/03/21 14:24 03/03/21 14:55 Temperature 38.5 C H Pulse Rate 105 H 113 H 102 H Respiratory Rate 30 H 29 H 30 H Blood Pressure 99/63 L Pulse Oximetry 92 86 L 03/03/21 16:00 03/03/21 16:40 03/03/21 16:56 Temperature 38.9 C H Pulse Rate 109 H 109 H 104 H Respiratory Rate 30 H Blood Pressure 97/67 L 99/66 L Pulse Oximetry 90 90 03/03/21 17:09 03/03/21 17:54 03/03/21 18:00 Temperature 39.4 C H 39.4 C H Pulse Rate 110 H 109 H Respiratory Rate 30 H Blood Pressure 98/62 L 96/61 L Pulse Oximetry 91 03/03/21 18:06 03/03/21 18:54 03/03/21 18:57 Temperature 39.7 C H Pulse Rate 110 H 111 H Respiratory Rate 24 H Blood P
--- NOTE | 2021-03-04 11:28 | PCFNICU ---
ICU Rounding Note: Pt current nutrition is Nepro at 35 ml/hr over 22 hours. Last recorded weight is 260 kg-stable Bowel Motility:+BM reported 03/02 Labs Reviewed:BNU 84, Cr 5.8, Glu 292,Mg 2.7,Na 133, Hgb 11.6, Hct 41.1 Meds Noted:Fentanyl, Versed, Propofol 20 llrs=305 kcals, Lantus, NovoLog, Vancomycin, Lasix, Protonix, Lovenox, Atrovent, Vancomycin. Skin: wound vac-left thigh. Additional Notes: Patient remains on mechanical vent and tube feedings of Nepro at 35 ml/hr over 22 hours. Protein Modulars of Evert BID and Prostat BID for wound healing. Propofol is providing an additional 835 kcals. Spoke with nursing today regarding last TG drawn which was on 03/01-TG 228. Plans for another TG lab order. Patient has received dialysis Monday, Monday and Monday this week. No plans for dialysis today. Agree with orders at this time. Following daily in ICU rounds. Will monitor every Monday and Monday.
[2021-03-04 12:11] LABS: Glucose Point of Care 256 mg/dl (65-105)
--- NOTE | 2021-03-04 12:49 | WPDINTPN ---
Progress Note: A&P Assessment and Plan (1) Acute respiratory failure: Code(s): J96.00 - Acute respiratory failure, unspecified whether with hypoxia or hypercapnia Status: Acute Assessment and Plan: Postop respiratory failure, continue mechanical ventilation. Patient intubated in the OR on 02/16/2021 -02/25 patient had episode where he disconnected himself from the ventilator and the recruited. -03/01-when patient went to OR during travel and transferred to a bed his ET tube got dislodged. Patient was reintubate in the operating room with 7 and half tube -he continues to require high oxygen requirement and is currently on 100% FiO2 and PEEP at 24 -chest x-ray reviewed shows bilateral infiltrates which could be pneumonia versus pulmonary edema. another possibility is component of ARDS from sepsis -chest x-ray reviewed Advance ET tube by 3 cm -03/02 he has developed new fevers and WBCs elevated since suggestive of pneumonia in light of increased oxygen requirement and increased secretion -Blood sputum and urine cultures sent and negative till now -continue vancomycin to imipenem -patient has been started on dialysis for fluid removal but has had limited success due to low blood pressure -patient is to big to fit in our our CT scanner - ABGs reviewed -permissive hypercapnia -continue bronchodilators -continue propofol, fentanyl and Versed infusion - He is too big to allow prone ventilation - Inhaled Flolan may make his edema worse (2) Necrotizing soft tissue infection: Code(s): M79.89 - Other specified soft tissue disorders Status: Acute Assessment and Plan: Necrotizing soft tissue infection of the left groin and thigh, status post debridement by surgery on 02/16/2021 -continue imipenem - Vancomycin added back 03/02 -surgery following the patient -wound VAC management per surgery and will be changed today -wound cultures are growing Enterococcus and Prevotella which is pansensitive. -initial blood cultures were negative (3) Hyperglycemia: Code(s): R73.9 - Hyperglycemia, unspecified Status: Acute Assessment and Plan: Hyperglycemia, continue high-dose sliding scale insulin Accu-Cheks Continue Lantus -hemoglobin A1c is 13.1 this admission (4) Morbid obesity with BMI of 70 and over, adult: Code(s): E66.01 - Morbid (severe) obesity due to excess calories; Z68.45 - Body mass index [BMI] 70 or greater, adult Status: Chronic Assessment and Plan: Morbidly obese, On Glucerna tube feeds (5) Sepsis: Code(s): A41.9 - Sepsis, unspecified organism Status: Acute Assessment and Plan: Sepsis likely related to necrotizing fasciitis and now appears to have a secondary pneumonia Continue vancomycin and imipenem Repeat blood sputum and urine cultures sent UA suggests UTI (6) DVT prophylaxis: Code(s): Z29.9 - Encounter for prophylactic measures, unspecified Status: Acute Assessment and Plan: Lovenox (7) Dietary counseling and surveillance: Code(s): Z71.3 - Dietary counseling and surveillance Status: Acute Assessment and Plan: Continue tube feeds which are also often held due to high residuals He is on Reglan (8) Acute kidney injury: Code(s): N17.9 - Acute kidney failure, unspecified Status: Acute Assessment and Plan: Likely secondary to sepsis, surgery Renal ultrasound showed Normal kidney sizes and No hydronephrosis. Nephrology following Normal CK Patient was given IV fluids but creatinine continues to increase. He is overall volume overloaded He was started on hemodialysis on 03/01 he was dialyzed again yesterday and only 1500 mL fluid was removed due to low blood pressure He may benefit from ASSESSMENT DIRECTOR and He is on wait list for transfer at [facility] (9) Renal mass: Code(s): N28.89 - Other specified disorders of kidney and ureter Status: Acute Assessment and Plan: Renal Ultrasound
[2021-03-04] MEDS: MIDAZOLAM 100MG/NS 100ML(*CRX) 100 MG/100 ML BAG 6 MG IV CONT (13:51)
--- NOTE | 2021-03-04 13:57 | PM.PNGS ---
Progress Note: A&P Assessment and Plan (1) Necrotizing soft tissue infection: Code(s): M79.89 - Other specified soft tissue disorders Status: Acute Assessment and Plan: Status post debridement on 02/16/21. Continue wound vac therapy. Plan to change wound vac dressing again tomorrow. (2) Acute hypercapnic respiratory failure: Code(s): J96.02 - Acute respiratory failure with hypercapnia Status: Acute Assessment and Plan: Still on high ventilator requirements at a PEEP of 24 and FiO2 100%. He had an event when taken down to surgery for his dialysis catheter on Monday when his ET tube dislodged with worsening respiratory status following this event, expect that he is dealing with probable aspiration pneumonia. Continue to wean vent as tolerated per [employer]. (3) Acute kidney injury: Code(s): N17.9 - Acute kidney failure, unspecified Status: Acute Assessment and Plan: Right IJ percutaneous temporary dialysis catheter functioning well. He had hemodialysis the last few days with 1-1.5L off depending on how he tolerates with his blood pressure. Nephrology following. Not scheduled for dialysis today. Rios catheter replaced while I was at the bedside, previous catheter was clogged. There was about 1,000 mL out of the new catheter once it was in place. (4) Shock: Code(s): R57.9 - Shock, unspecified Status: Acute Assessment and Plan: Presented with sepsis secondary to necrotizing fascitis with source control in the OR and his wound healing well, but appears to have a secondary pneumonia. Still on vasopressors. Continue broad-spectrum IV antibiotics, on Primaxin and Vancomycin. He remains febrile with Tylenol given regularly and they started using a cooling blanket. Initial blood cx 02/15/21 with no organism growth. Repeat blood cx on 03/02/21 NGTD. Sputum culture pending. Urine cx sent yesterday. He is unable to have a CT scan due to his morbid obesity. KUB yesterday showed no dilated bowel or free air. Chest x-ray suggesting bilateral pulmonary infiltrates. Continue to trend labs. Additional Plan I have discussed the patient's case and plan of care with Dr. Martinez. Subjective Subjective Date/Time Seen: 03/04/21 13:45 Post Op day: 16 (Soft tissue excisional debridement of left groin/medial thigh extending to left buttock) Patient reports: fever Interval history: Patient seen and examined today in the ICU. He is still on Levophed and Vasopressin drips. He is intubated and sedated. He has not had dialysis today. He has continued to run a fever with a temp max of 103.6F last night and at 102F today. Per nursing, there have not been any issues with his wound vac dressing. Nursing reports that she attempted to flush his urinary catheter and it appeared clogged, so they were in the process of changing this out with a new rios catheter when I entered the room. He is still on the same ventilator settings and has issues with oxygen desaturation with any activity or lying flat. Review of Systems Review of Systems: ROS unobtainable: Yes unobtainable due to endotracheal tube Exam Const: General: ill appearing and patient obtunded Nutritional Appearance: obese morbidly obese Neck: Other: Right IJ dialysis catheter with dressing dry and intact Resp: Effort & Inspection: abnormal respiratory pattern (mechanical ventilator) Auscultation: diminished lung sounds Cardio: Rate: tachycardic Rhythm: regular rhythm GI: Inspection: Pannus present, obesity and visible herniation (soft umbilical hernia) GI Palp: Yes Soft to palpation Auscultation: normal bowel sounds Other: Exam limited due to sedation : Penis: Yes other (hidden penis) Scrotum: no scrotal swelling Testes: Testes normal Urinary Catheter: Urinary Catheter: patent and draining, urine dark (tea-colored urine) and other (rios exchanged while i was in room, about 1 L urine immediately out from new catheter) Skin: Other: Le
[2021-03-04] MEDS: NOREPINEPHRINE BITARTRATE 16 MG in DEXTROSE 5% IN WATER 234 ML 16.88 ML IV CONT (14:07)
--- NOTE | 2021-03-04 14:41 | PM.EVENT ---
Event Note Event Note Event Note: Patient desaturated to 75 %. Patient was ventilated with Ambu bag with PEEP valve with no improvement. Patient was repositioned but was not helpful. I will repeat a chest x-ray. And give a dose of neuromuscular valarie.. I spoke to patient's daughter by phone earlier. Patient's daughter and patient's mother arrived in ICU to see patient. I initially met them in conference room and then later at bedside in presence of patient's nurse Andreia. I again went over patient's current status including respiratory failure with hypoxia despite maximum support on the ventilator, septic shock, acute kidney failure or dialysis. Also discuss the patient has been on ventilator for more than 2 weeks and has not made any significant improvement and is currently in multiorgan failure. Explained that the patient's prognosis as for and he may not survive this hospitalization. We discussed patient's wishes and goals of care. Both daughter and patient's mother in agreement and requested to continue medical therapy at this time but do not resuscitate pt in case of cardiac arrest. I have made pt DNR in chart. I answered all their questions. Total time spent 32 minutes
[2021-03-04] MEDS: ROCURONIUM BROMIDE 50 MG/5 ML VIAL IV PUSH (15:10)
--- NOTE | 2021-03-04 15:15 | PM.IMPN ---
Progress Note: A&P Assessment and Plan (1) Acute respiratory failure: Code(s): J96.00 - Acute respiratory failure, unspecified whether with hypoxia or hypercapnia Status: Acute Assessment and Plan: Patient was obtunded on admission and intubated 02/16/21 for OR. He was not able to be extubated and has remained intubated since. -02/25 patient had episode where he disconnected himself from the ventilator requiring reintubation -03/01 ETT dislodged during travel to OR and patient was reintubate in the OR -03/02 patient developed new fevers and WBCs elevated since suggestive of pneumonia Respiratory failure related to sepsis, shock and untreated SHAHLA. Continue mechanical ventilation. Continue IV abx. He is too big to allow prone ventilation. Continue sedation. Continue supportive care. Very poor prognosis (2) Shock: Code(s): R57.9 - Shock, unspecified Status: Acute Assessment and Plan: Secondary to sepsis, positive-pressure ventilation and sedation. Patietn is volume overloaded but probably third spacing. Remains on Levophed and COLLAR STARCHER infusion. Wean levophed and COLLAR STARCHER as BP toelrates. (3) Necrotizing soft tissue infection: Code(s): M79.89 - Other specified soft tissue disorders Status: Acute Assessment and Plan: Necrotizing soft tissue infection of the left groin and thigh, status post debridement by surgery on 02/16/2021. Wound VAC management per surgery. BCx negative from 02/15/21. Wound cultures are growing Enterococcus and Prevotella which is pansensitive. Continue imipenem and Vanco. Patient was re-cultured. BCx NGTD. Sputum Cx negative. (4) Sepsis: Code(s): A41.9 - Sepsis, unspecified organism Status: Acute Assessment and Plan: Sepsis related to necrotizing fasciitis and now appears to have a secondary pneumonia with fevers and increasing secretions. CXR reviewed showing congestive changes. CBCx 03/02 NGTD. Sputum 03/02 negative. Continue vancomycin and imipenem. (5) Diabetes mellitus: Code(s): E11.9 - Type 2 diabetes mellitus without complications Status: Acute Assessment and Plan: Hyperglycemia noted. A1c 13.1. Newly diagnosed DM. The patient's blood glucose was reviewed on 03/04 Glucose remains well controlled. Continue AccuCheks covering with sliding scale. Hypoglycemia protocol available as needed. Continue Lantus (6) Acute kidney injury: Code(s): N17.9 - Acute kidney failure, unspecified Status: Acute Assessment and Plan: Cr normal on admisison but quickly climbed to 5 range 2nd to sepsis, shock and DM. Nephrology following and decision to proceed to HD was made. Percutaneous HD catheter placed right IJ 03/01. Renal ultrasound showed normal kidney sizes and no hydronephrosis. Contineu HD as BP tolerates to control fluid status. (7) Renal mass: Code(s): N28.89 - Other specified disorders of kidney and ureter Status: Acute Assessment and Plan: Renal Ultrasound on 02/18/21 showing 9.3 cm right kidney mass, which may be a hemorrhagic cyst or a neoplasm. Further evaluation is recommended but the patient is too heavy for our CT or MRI. Another facility may have a higher weight limit. Consulted urology and they recommend outpatient evaluation once patient clinically improved. Appreciate their input (8) Obstructive sleep apnea: Code(s): G47.33 - Obstructive sleep apnea (adult) (pediatric) Status: Acute Assessment and Plan: Patient noncompliant with treatment at home. ABG on admission was 7.18//63. (9) Constipation: Code(s): K59.00 - Constipation, unspecified Status: Acute Assessment and Plan: Tolerating tube feeds. +BM documented. Continue scheduled MiraLax. (10) Dietary counseling and surveillance: Code(s): Z71.3 - Dietary counseling and surveillance Status: Acute Assessment and Plan: Continue tube feeds (11) Morbid o
--- NOTE | 2021-03-04 16:22 | PM.DDS ---
Discharge Summary Date and Time Date of : 03/04/21 Time of : 15:46 Provider Pronounced By: Andreia Lynn RN Probable Cause of Probable Cause of : Respiratory failure with septic shock. Summary Hospital Course: Patient was obtunded on admission and intubated 02/16/21 for OR. He was not able to be extubated and has remained intubated since. Patient had a necrotizing soft tissue infection of the left groin and thigh and was taken to the OR and underwent debridement on 02/16/2021. Wound VAC placed. BCx negative from 02/15/21. Wound cultures grew Enterococcus and Prevotella which was pansensitive. Treated with broad spectrum abx. On 03/02, patient developed new fevers and WBCs elevated suggestive of pneumonia. He developed shock secondary to sepsis, positive-pressure ventilation and sedation. Patient is volume overloaded but probably third spacing. He required Levophed and MACHINE BINDER STRIPPER infusion. Respiratory failure related to sepsis, shock and untreated SHAHLA. He was diagnosed with DM with A1c 13. He developed JOSE requiring hemodialysis. His condition worsened and his outlook appeared grim. Family was kept informed about the change in the patient's condition. Patient was becoming more hypoxic and HoTN despite maximal therapy. Family came to the bedside and decided to change patient to DNR. They spoke among themselves and later decided to withdraw care. Family made there wises clear to myself and RN, Lesly. Patient was made comfortable and able to be extubated on 03/04/21. Family remained at bedside. He passed a short time later. PCP informed. 35 minutes spent on the care of the patient. Additional Data Name of Provider Notified: Dr Leblanc Time Provider Notified: 15:46 Was code activated?: No Provider Requests Autopsy: No Family Requests Autopsy: No Warp Yarn Sorter Notified: Yes Advance directives: Yes Hospice patient?: No
== END 2021-03-04 15:46 | disposition expired | DRG 720 ==
LOC: ANHED 22:24 → ANH2MED 02-16 01:38 → ANHICU 03-01 09:07 → ANH2MED 03-05 10:22 → ANHICU 03-05 10:22
PROVIDERS: Internal Medicine; Internal Medicine Nephrology; Surgery; Admitting Provider Internal Medicine; Emergency Provider Emergency Medicine; PCP Family Medicine Adolescent Medicine; Visit Provider Internal Medicine
PROC: 0JB90ZZ Excision of Buttock Subcutaneous Tissue and Fascia, Open Approach (ICD-10-PCS; principal; 2021-02-16 13:30)
PROC: 02HV33Z Insertion of Infusion Device into Superior Vena Cava, Percutaneous Approach (ICD-10-PCS; CPT 36908; principal; 2021-03-01 13:30)
DX: A41.9 Sepsis, unspecified organism (principal); Z20.822 Contact with and (suspected) exposure to COVID-19; E66.01 Morbid (severe) obesity due to excess calories; Z66 Do not resuscitate; Z51.5 Encounter for palliative care; I10 Essential (primary) hypertension; F12.90 Cannabis use, unspecified, uncomplicated; L03.116 Cellulitis of left lower limb; G47.33 Obstructive sleep apnea (adult) (pediatric); Z91.19 Patient's noncompliance with other medical treatment and regimen; Z68.45 Body mass index [BMI] 70 or greater, adult; G93.40 Encephalopathy, unspecified; J96.92 Respiratory failure, unspecified with hypercapnia; F17.210 Nicotine dependence, cigarettes, uncomplicated; M79.89 Other specified soft tissue disorders; R73.9 Hyperglycemia, unspecified; J96.22 Acute and chronic respiratory failure with hypercapnia; L02.214 Cutaneous abscess of groin; R65.20 Severe sepsis without septic shock; N17.0 Acute kidney failure with tubular necrosis; N28.89 Other specified disorders of kidney and ureter; K59.00 Constipation, unspecified; M72.6 Necrotizing fasciitis; J18.9 Pneumonia, unspecified organism; R65.21 Severe sepsis with septic shock; J69.0 Pneumonitis due to inhalation of food and vomit
CPT/HCPCS: 36415; 36569; 36600; 71045; 76775; 76857; 80048; 80053; 80202; 81001; 82140; 82375; 82550; 82570; 82805; 82948; 83036; 83050; 83605; 83735; 83880; 84100; 84156; 84300; 84478; 85025; 85027; 86140; 86704; 86706; 87040; 87070; 87075; 87076; 87077; 87086; 87185; 87186; 87205; 87340; 88305; 93005; 94002; 94003; 94640; 94660; 96361; 96365; 96366; 96375; 99285; A9270; C1751; C1752; C1769; C8929; C9113; C9803; G0257; G0378; G0379; J0330; J0743; J1100; J1644; J1650; J1720; J1815; J1940; J2250; J2270; J2370; J2405; J2704; J3010; J3370; J7030; J7060; J7120; P9047; Q9957; U0003; U0005